=== PATIENT | female | born 1950 | race Caucasian/White ===

== ENCOUNTER 2020-06-04 07:06 | Outpatient (REF) | payer MEDICARE, SELFPAY ==
[2020-06-04 11:15] LABS: MANUAL DIFF FLAG NO
[2020-06-04 11:27] LABS: Basophils Percent Auto 0.4 % (0-2); Eosinophils Absolute Auto 0.2 X10*3/uL (0.0-0.4); Eosinophils Percent Auto 2.3 % (0-4); Hematocrit 36.1 % (37-47); Hemoglobin 11.1 g/dl (12.0-16.0); Imm Gran Abs Auto 0.04 X10*3/uL (0.00-0.03); Imm Gran Pct Auto 0.4 % (0.0-0.4); Lymphocytes Percent Auto 22.2 % (20-40); Mean Corpuscular HGB Conc 30.7 g/dl (31.0-35.0); Mean Corpuscular Hemoglobin 27.4 pg (27.0-33.0); Mean Corpuscular Volume 89.1 fL (80-98); Mean Platelet Volume 10.6 fL (9.4-12.3); Monocytes Absolute Auto 0.7 X10*3/uL (0.1-1.2); Monocytes Percent Auto 7.7 % (2-11); Neutrophils Absolute Auto 6.2 X10*3/uL (2.0-8.3); Platelet Count 344 X10*3/uL (160-400); Red Blood Count 4.05 X10*6/uL (4.20-5.50); Red Cell Distribution Width 13.2 % (11.0-16.0); White Blood Count 9.2 X10*3/uL (4.8-10.8)
[2020-06-04 11:57] LABS: Albumin Level 3.8 g/dL (3.5-5.0); Anion Gap 11 (12-20); Blood Urea Nitrogen 37 mg/dL (9-16); Calcium 8.8 mg/dL (8.4-10.2); Carbon Dioxide 30 mmol/L (22-29); Chloride 105 mmol/L (96-108); Estimated Glomerular Filt Rate 32; Magnesium 2.4 mg/dL (1.6-2.6); Potassium 4.3 mmol/l (3.3-5.1); Sodium 142 mmol/L (135-145); Total Protein 7.2 g/dL (6.5-8.0)
[2020-06-04 12:00] LABS: Glucose Urine UA NEG (NEG); Leukocyte Esterase Urine NEG (NEG); Nitrite Urine NEG (NEG); PH 7.5 (5.0-8.0); Specific Gravity - Urine 1.015 (1.005-1.025); Urine Blood NEG (NEG); Urine Ketones NEG (NEG); Urine Protein NEG (NEG-TRACE)
[2020-06-04 12:02] LABS: Appearance Urine CLEAR; Color Urine YELLOW
[2020-06-04 12:09] LABS: Renal w Reflex-LAB USE ONLY Order Verified
[2020-06-04 12:21] LABS: Vitamin D 25-OH Total 17.4 ng/mL (>30)
[2020-06-04 12:26] LABS: RBC Urine 0-2 /HPF (0); WBC Urine 0-2 /HPF (0-4)
[2020-06-04 12:55] LABS: Creatinine Urine 51.59 mg/dL; Protein/Creatinine Ratio, Ur 0.31 (<0.2); Total Protein Urine Random 16 mg/dL (<12)
[2020-06-04 12:57] LABS: Creatinine Urine 51.81 mg/dL; Microalbum/Creatinine Ratio Ur 154.4 ug/mg cr
[2020-06-04 13:39] LABS: Renal w Reflex Lab Use Only Order verified
== END 2020-06-04 07:07 | disposition home or self-care (01) ==
LOC: HO.HMGCLDS 07:06
PROVIDERS: PCP Family Medicine; Visit Provider Internal Medicine Nephrology
DX: I13.10 Hypertensive heart and chronic kidney disease without heart failure, with stage 1 through stage 4 chronic kidney disease, or unspecified chronic kidney disease (principal); E11.22 Type 2 diabetes mellitus with diabetic chronic kidney disease; N18.30 Chronic kidney disease, stage 3 unspecified; R60.9 Edema, unspecified; R80.9 Proteinuria, unspecified
CPT/HCPCS: 36415; 80051; 81003; 81015; 82040; 82043; 82306; 82310; 82565; 83735; 84100; 84155; 84156; 84520; 85025

== ENCOUNTER 2020-10-18 07:43 | Outpatient (REF) | payer MEDICARE, SELFPAY ==
[2020-10-18 11:26] LABS: Anion Gap 14 (12-20); Blood Urea Nitrogen 41 mg/dL (9-16); Calcium 8.5 mg/dL (8.4-10.2); Carbon Dioxide 25 mmol/L (22-29); Chloride 108 mmol/L (96-108); Estimated Glomerular Filt Rate 33; Glucose Random 93 mg/dL (60-115); Potassium 4.4 mmol/L (3.3-5.1); Sodium 143 mmol/L (135-145)
[2020-10-18 11:52] LABS: TSH reflex Free T4 8.44 uIU/mL (0.32-4.0)
[2020-10-18 12:24] LABS: Free T4 (Free Thyroxine) 0.87 ng/dL (0.71-1.85)
== END 2020-10-18 07:44 | disposition home or self-care (01) ==
LOC: HO.HMGCLDS 07:43
PROVIDERS: PCP Hospitalist; Visit Provider Hospitalist
DX: N28.9 Disorder of kidney and ureter, unspecified (principal); E11.9 Type 2 diabetes mellitus without complications; Z79.4 Long term (current) use of insulin
CPT/HCPCS: 36415; 80048; 84439; 84443

== ENCOUNTER 2021-04-19 08:17 | Outpatient (REF) | payer MEDICARE, SELFPAY ==
[2021-04-19 11:29] LABS: MANUAL DIFF FLAG NO
[2021-04-19 11:35] LABS: Glucose Urine UA NEG (NEG); Leukocyte Esterase Urine NEG (NEG); Nitrite Urine NEG (NEG); PH 5.5 (5.0-8.0); UACC Culture Trigger NO; Urine Blood NEG (NEG); Urine Ketones 15 MG/DL (NEG); Urine Protein 1+ MG/DL (NEG-TRACE)
[2021-04-19 11:36] LABS: Basophils Percent Auto 0.3 % (0-2); Eosinophils Absolute Auto 0.2 X10*3/uL (0.0-0.4); Eosinophils Percent Auto 2.4 % (0-4); Hematocrit 36.8 % (37-47); Hemoglobin 11.3 g/dl (12.0-16.0); Imm Gran Abs Auto 0.04 X10*3/uL (0.00-0.03); Imm Gran Pct Auto 0.5 % (0.0-0.4); Lymphocytes Absolute Auto 1.7 X10*3/uL (1.2-4.9); Lymphocytes Percent Auto 21.9 % (20-40); Mean Corpuscular HGB Conc 30.7 g/dl (31.0-35.0); Mean Corpuscular Hemoglobin 27.1 pg (27.0-33.0); Mean Corpuscular Volume 88.2 fL (80-98); Mean Platelet Volume 10.9 fL (9.4-12.3); Monocytes Absolute Auto 0.6 X10*3/uL (0.1-1.2); Monocytes Percent Auto 8.1 % (2-11); Neutrophils Absolute Auto 5.1 X10*3/uL (2.0-8.3); Neutrophils Percent Auto 66.8 % (45-73); Platelet Count 308 X10*3/uL (160-400); Red Blood Count 4.17 X10*6/uL (4.20-5.50); Red Cell Distribution Width 14.9 % (11.0-16.0); White Blood Count 7.6 X10*3/uL (4.8-10.8)
[2021-04-19 11:39] LABS: Appearance Urine CLEAR; Color Urine YELLOW
[2021-04-19 11:57] LABS: RBC Urine 0-2 /HPF (0); WBC Urine 0-2 /HPF (0-4)
[2021-04-19 12:11] LABS: Albumin Level 3.8 g/dL (3.5-5.0); Anion Gap 15 (12-20); Blood Urea Nitrogen 50 mg/dL (9-16); Calcium 9.2 mg/dL (8.4-10.2); Carbon Dioxide 22 mmol/L (22-29); Chloride 112 mmol/L (96-108); Estimated Glomerular Filt Rate 27; Magnesium 2.8 mg/dL (1.6-2.6); Phosphorus 4.3 mg/dL (2.7-4.5); Potassium 4.7 mmol/L (3.3-5.1); Sodium 144 mmol/L (135-145)
[2021-04-19 12:12] LABS: Protein/Creatinine Ratio, Ur 0.42 (<0.2); Total Protein Urine Random 35 mg/dL (<12)
[2021-04-19 12:27] LABS: Renal w Reflex-LAB USE ONLY Order Verified
[2021-04-19 12:33] LABS: Vitamin D 25-OH Total 19.5 ng/mL (>30)
[2021-04-19 12:38] LABS: Renal w Reflex Lab Use Only Order verified
== END 2021-04-19 08:18 | disposition home or self-care (01) ==
LOC: HO.HMGCLDS 08:17
PROVIDERS: Visit Provider Internal Medicine Nephrology
DX: E11.29 Type 2 diabetes mellitus with other diabetic kidney complication (principal); E11.22 Type 2 diabetes mellitus with diabetic chronic kidney disease; I13.10 Hypertensive heart and chronic kidney disease without heart failure, with stage 1 through stage 4 chronic kidney disease, or unspecified chronic kidney disease; N18.30 Chronic kidney disease, stage 3 unspecified; R60.9 Edema, unspecified; R80.9 Proteinuria, unspecified
CPT/HCPCS: 36415; 80051; 81001; 82040; 82043; 82306; 82310; 82565; 83735; 84100; 84156; 84520; 85025

== ENCOUNTER 2021-08-31 09:30 | Outpatient (REF) | payer MEDICARE, SELFPAY ==
[2021-08-31 11:51] LABS: Magnesium 2.3 mg/dL (1.6-2.6)
[2021-08-31 12:24] LABS: Folate 9.9 ng/mL (> or = 4.0); Vitamin B12 521 pg/mL (200-900)
== END 2021-08-31 09:31 | disposition home or self-care (01) ==
LOC: HO.HMGCLDS 09:30
PROVIDERS: PCP Hospitalist; Visit Provider Hospitalist
DX: D64.9 Anemia, unspecified (principal); R79.0 Abnormal level of blood mineral
CPT/HCPCS: 36415; 82607; 82746; 83735

== ENCOUNTER 2021-11-23 06:48 | Outpatient (REF) | payer MEDICARE, SELFPAY ==
[2021-11-23 11:28] LABS: MANUAL DIFF FLAG NO
[2021-11-23 11:45] LABS: Basophils Percent Auto 0.4 % (0-2); Eosinophils Absolute Auto 0.2 X10*3/uL (0.0-0.4); Eosinophils Percent Auto 2.5 % (0-4); Hematocrit 37.6 % (37.0-47.0); Hemoglobin 11.3 g/dl (12.0-16.0); Imm Gran Abs Auto 0.04 X10*3/uL (0.00-0.03); Imm Gran Pct Auto 0.5 % (0.0-0.4); Lymphocytes Absolute Auto 1.8 X10*3/uL (1.2-4.9); Lymphocytes Percent Auto 23.5 % (20-40); Mean Corpuscular HGB Conc 30.1 g/dl (31.0-35.0); Mean Corpuscular Volume 89.7 fL (80.0-98.0); Mean Platelet Volume 11.2 fL (9.4-12.3); Monocytes Absolute Auto 0.7 X10*3/uL (0.1-1.2); Monocytes Percent Auto 9.4 % (2-11); Neutrophils Absolute Auto 4.8 x10*3/uL (2.0-8.3); Neutrophils Percent Auto 63.7 % (45-73); Platelet Count 289 X10*3/uL (160-400); Red Blood Count 4.19 X10*6/uL (4.20-5.50); Red Cell Distribution Width 14.9 % (11.0-16.0); White Blood Count 7.6 X10*3/uL (4.8-10.8)
[2021-11-23 11:52] LABS: Appearance Urine CLEAR; Color Urine YELLOW; Glucose Urine UA NEG (NEG); Leukocyte Esterase Urine NEG (NEG); Nitrite Urine NEG (NEG); PH 5.5 (5.0-8.0); Specific Gravity - Urine 1.015 (1.005-1.025); Urine Blood NEG (NEG); Urine Ketones NEG (NEG); Urine Protein TRACE MG/DL (NEG-TRACE)
[2021-11-23 12:11] LABS: Creatinine Urine 88.11 mg/dL; Microalbum/Creatinine Ratio Ur 121.4 ug/mg cr; Protein/Creatinine Ratio, Ur 0.28 (<0.2); Total Protein Urine Random 25 mg/dL (<12)
[2021-11-23 12:13] LABS: Albumin Level 3.8 g/dL (3.5-5.0); Anion Gap 14 (12-20); Blood Urea Nitrogen 58 mg/dL (9-16); Calcium 9.4 mg/dL (8.4-10.2); Carbon Dioxide 21 mmol/L (22-29); Chloride 110 mmol/L (96-108); Estimated Glomerular Filt Rate 27; Magnesium 2.7 mg/dL (1.6-2.6); Phosphorus 4.7 mg/dL (2.7-4.5); Potassium 4.6 mmol/L (3.3-5.1); Sodium 140 mmol/L (135-145)
[2021-11-24 14:15] LABS: Vitamin D 25-OH Total 15.6 ng/mL (>30)
[2021-11-24 16:26] LABS: Calcium (PTHI) 9.3 mg/dL (8.6-10.4); PTHI 88 pg/mL (16-77)
== END 2021-11-23 06:49 | disposition home or self-care (01) ==
LOC: HO.HMGCLDS 06:48
PROVIDERS: Visit Provider Internal Medicine Nephrology
DX: N18.4 Chronic kidney disease, stage 4 (severe) (principal)
CPT/HCPCS: 36415; 80051; 81003; 82040; 82043; 82306; 82310; 82565; 83735; 83970; 84100; 84156; 84520; 85025; 87086

== ENCOUNTER 2022-05-17 06:19 | Outpatient (REF) | payer OTHER, SELFPAY ==
[2022-05-17 11:35] LABS: Hematocrit 36.4 % (37.0-47.0); Hemoglobin 11.1 g/dl (12.0-16.0); Mean Corpuscular HGB Conc 30.5 g/dl (31.0-35.0); Mean Corpuscular Volume 88.6 fL (80.0-98.0); Mean Platelet Volume 10.9 fL (9.4-12.3); Platelet Count 313 X10*3/uL (160-400); Red Blood Count 4.11 X10*6/uL (4.20-5.50); Red Cell Distribution Width 14.6 % (11.0-16.0); White Blood Count 7.8 X10*3/uL (4.8-10.8)
[2022-05-17 12:59] LABS: Free T4 (Free Thyroxine) 0.89 ng/dL (0.71-1.85)
[2022-05-17 14:21] LABS: Alanine Aminotransferase 10 U/L (0-31); Albumin Level 3.8 g/dL (3.5-5.0); Alkaline Phosphatase 44 U/L (39-117); Anion Gap 16 (12-20); Aspartate Amino Transferase 13 U/L (5-31); Bilirubin Total 0.3 mg/dL (0.0-1.0); Blood Urea Nitrogen 61 mg/dL (9-16); Calcium 9.7 mg/dL (8.4-10.2); Carbon Dioxide 23 mmol/L (22-29); Chloride 111 mmol/L (96-108); Estimated Glomerular Filt Rate 27; Glucose Fasting 139 mg/dL (60-99); HDL Cholesterol 60 mg/dL; Magnesium 2.6 mg/dL (1.6-2.6); Potassium 5.3 mmol/L (3.3-5.1); Sodium 145 mmol/L (135-145); Total Protein 7.4 g/dL (6.5-8.0); Triglycerides 152 mg/dL
[2022-05-17 14:33] LABS: TSH reflex Free T4 7.81 uIU/mL (0.32-4.0)
[2022-05-17 15:01] LABS: Cholesterol 496 mg/dL; LDL Cholesterol Calculated 406 mg/dl
[2022-05-22 16:06] LABS: Vitamin D 25-OH, D2 <4 ng/mL; Vitamin D 25-OH, D3 23 ng/mL; Vitamin D 25-OH, Total 23 ng/mL (30-100)
== END 2022-05-17 06:20 | disposition home or self-care (01) ==
LOC: HO.HMGCLDS 06:19
PROVIDERS: PCP Hospitalist; Visit Provider Hospitalist
DX: Z00.00 Encounter for general adult medical examination without abnormal findings (principal); R79.0 Abnormal level of blood mineral; E55.9 Vitamin D deficiency, unspecified
CPT/HCPCS: 36415; 80053; 80061; 82306; 83735; 84439; 84443; 85027

== ENCOUNTER 2022-05-26 06:21 | Outpatient (REF) | payer OTHER, SELFPAY ==
[2022-05-26 11:17] LABS: MANUAL DIFF FLAG NO
[2022-05-26 11:20] LABS: Basophils Percent Auto 0.3 % (0-2); Eosinophils Absolute Auto 0.2 X10*3/uL (0.0-0.4); Eosinophils Percent Auto 2.3 % (0-4); Hematocrit 34.9 % (37.0-47.0); Hemoglobin 10.9 g/dl (12.0-16.0); Imm Gran Abs Auto 0.02 X10*3/uL (0.00-0.03); Imm Gran Pct Auto 0.3 % (0.0-0.4); Lymphocytes Absolute Auto 1.7 X10*3/uL (1.2-4.9); Lymphocytes Percent Auto 24.3 % (20-40); Mean Corpuscular HGB Conc 31.2 g/dl (31.0-35.0); Mean Corpuscular Hemoglobin 27.5 pg (27.0-33.0); Mean Corpuscular Volume 87.9 fL (80.0-98.0); Mean Platelet Volume 10.8 fL (9.4-12.3); Monocytes Absolute Auto 0.6 X10*3/uL (0.1-1.2); Monocytes Percent Auto 9.2 % (2-11); Neutrophils Absolute Auto 4.4 x10*3/uL (2.0-8.3); Neutrophils Percent Auto 63.6 % (45-73); Platelet Count 316 X10*3/uL (160-400); Red Blood Count 3.97 X10*6/uL (4.20-5.50); Red Cell Distribution Width 14.6 % (11.0-16.0); White Blood Count 6.9 X10*3/uL (4.8-10.8)
[2022-05-26 11:26] LABS: Appearance Urine Clear; Color Urine Yellow; Glucose Urine UA Negative (Negative); Leukocyte Esterase Urine Negative (Negative); Nitrite Urine Negative (Negative); Specific Gravity - Urine 1.015 (1.005-1.025); Urine Blood Negative (Negative); Urine Ketones Negative (Negative); Urine Protein Trace mg/dL (Neg-Trace)
[2022-05-26 11:33] LABS: Bacteria Urine None Seen (None Seen); RBC Urine 0-2 /HPF (0-2); Squamous Epithelial Cell Urine 0-2 /HPF (0-2); WBC Urine 0-5 /HPF (0-5)
[2022-05-26 11:55] LABS: Albumin Level 3.7 g/dL (3.5-5.0); Anion Gap 16 (12-20); Blood Urea Nitrogen 52 mg/dL (9-16); Calcium 9.3 mg/dL (8.4-10.2); Carbon Dioxide 20 mmol/L (22-29); Chloride 113 mmol/L (96-108); Estimated Glomerular Filt Rate 26; Magnesium 2.4 mg/dL (1.6-2.6); Phosphorus 4.2 mg/dL (2.7-4.5); Potassium 4.8 mmol/L (3.3-5.1); Sodium 144 mmol/L (135-145)
[2022-05-26 11:58] LABS: Vitamin D 25-OH Total 18.5 ng/mL (>30)
[2022-05-26 12:17] LABS: Creatinine Urine 85.62 mg/dL; Microalbum/Creatinine Ratio Ur 114.4 ug/mg cr; Protein/Creatinine Ratio, Ur 0.26 (<0.2); Total Protein Urine Random 22 mg/dL (<12)
[2022-05-29 17:26] LABS: Calcium (PTHI) 9.2 mg/dL (8.6-10.4); PTHI 74 pg/mL (16-77)
== END 2022-05-26 06:22 | disposition home or self-care (01) ==
LOC: HO.HMGCLDS 06:21
PROVIDERS: PCP Hospitalist; Visit Provider Internal Medicine Nephrology
DX: N18.4 Chronic kidney disease, stage 4 (severe) (principal); E11.29 Type 2 diabetes mellitus with other diabetic kidney complication; N25.0 Renal osteodystrophy; R60.9 Edema, unspecified
CPT/HCPCS: 36415; 80051; 81001; 82040; 82043; 82306; 82310; 82565; 83735; 83970; 84100; 84156; 84520; 85025; 87086

== ENCOUNTER 2022-12-04 06:54 | Outpatient (REF) | payer OTHER, SELFPAY ==
[2022-12-04 12:32] LABS: Cholesterol 440 mg/dL; HDL Cholesterol 61 mg/dL; LDL Cholesterol Calculated 359 mg/dl; Triglycerides 104 mg/dL
[2022-12-08 19:24] LABS: Vitamin D 25-OH, D2 <4 ng/mL; Vitamin D 25-OH, D3 33 ng/mL; Vitamin D 25-OH, Total 33 ng/mL (30-100)
== END 2022-12-04 06:55 | disposition home or self-care (01) ==
LOC: HO.HMGCLDS 06:54
PROVIDERS: PCP Hospitalist; Visit Provider Hospitalist
DX: E55.9 Vitamin D deficiency, unspecified (principal); E78.00 Pure hypercholesterolemia, unspecified
CPT/HCPCS: 36415; 80061; 82306

== ENCOUNTER 2022-12-07 13:09 | Outpatient (REF) | payer OTHER, SELFPAY ==
--- NOTE | ~2022-12-07 | US_ITS ---
EXAMINATION: US VENOUS ULTRASOUND WITH DOPPLER LOWER EXTREMITY, RIGHT CLINICAL INFORMATION: Right leg pain and swelling with erythema. COMPARISON: July 04, 2017 TECHNIQUE: Ultrasound of the deep veins is performed from the hip to the calf with compression sonography and color and pulse Doppler assessment. Spectral analysis with color-flow imaging is performed. FINDINGS: There is filling defect with diminished compressibility consistent with acute DVT within the common femoral vein, profunda femoral vein, superficial femoral vein proximally, popliteal vein, posterior tibial vein, and peroneal vein. There is noted to some venous flow present throughout the leg. There is no significant popliteal fossa cyst. No popliteal artery aneurysm. US/US venous duplex LE RT IMPRESSION: Findings consistent with acute deep venous thrombosis from common femoral vein through proximal calf veins but which is not totally occlusive to venous flow. The referring provider was notified by the pathology technologist's and the patient was sent to the emergency room.
== END 2022-12-07 13:10 | disposition home or self-care (01) ==
LOC: HO.US 13:09
PROVIDERS: PCP Hospitalist; Visit Provider Hospitalist
DX: M79.604 Pain in right leg (principal); M79.89 Other specified soft tissue disorders
CPT/HCPCS: 93971

== ENCOUNTER 2022-12-07 13:59 | Emergency (ER) | payer OTHER, SELFPAY ==
[2022-12-07 14:55] LABS: MANUAL DIFF FLAG NO
[2022-12-07 14:58] LABS: Basophils Percent Auto 0.5 % (0-2); Eosinophils Absolute Auto 0.1 X10*3/uL (0.0-0.4); Eosinophils Percent Auto 1.5 % (0-4); Hematocrit 35.9 % (37.0-47.0); Hemoglobin 11.2 g/dl (12.0-16.0); Imm Gran Abs Auto 0.03 X10*3/uL (0.00-0.03); Imm Gran Pct Auto 0.4 % (0.0-0.4); Lymphocytes Absolute Auto 1.3 X10*3/uL (1.2-4.9); Lymphocytes Percent Auto 16.3 % (20-40); Mean Corpuscular HGB Conc 31.2 g/dl (31.0-35.0); Mean Corpuscular Hemoglobin 27.1 pg (27.0-33.0); Mean Corpuscular Volume 86.7 fL (80.0-98.0); Monocytes Absolute Auto 0.6 X10*3/uL (0.1-1.2); Neutrophils Absolute Auto 5.9 x10*3/uL (2.0-8.3); Neutrophils Percent Auto 74.3 % (45-73); Platelet Count 298 X10*3/uL (160-400); Red Blood Count 4.14 X10*6/uL (4.20-5.50); Red Cell Distribution Width 14.9 % (11.0-16.0); White Blood Count 7.9 X10*3/uL (4.8-10.8)
[2022-12-07 15:08] LABS: INTERNATIONAL NORM RATIO 0.9 (0.9-1.1); Prothrombin Time 10.8 SEC (10.0-13.1)
[2022-12-07 15:11] LABS: Partial Thromboplastin Time 30.7 SEC (26.0-36.4)
[2022-12-07 15:12] LABS: Alanine Aminotransferase 10 U/L (0-31); Albumin Level 3.8 g/dL (3.5-5.0); Alkaline Phosphatase 50 U/L (39-117); Anion Gap 17 (12-20); Aspartate Amino Transferase 15 U/L (5-31); Bilirubin Direct < 0.2 mg/dL (0.0-0.5); Bilirubin Total 0.4 mg/dL (0.0-1.0); Blood Urea Nitrogen 61 mg/dL (9-16); Calcium 9.1 mg/dL (8.4-10.2); Carbon Dioxide 23 mmol/L (22-29); Chloride 107 mmol/L (96-108); Estimated Glomerular Filt Rate 26; Glucose Random 157 mg/dL (60-115); Magnesium 2.1 mg/dL (1.6-2.6); Potassium 4.1 mmol/L (3.3-5.1); Sodium 143 mmol/L (135-145); Total Protein 7.6 g/dL (6.5-8.0)
[2022-12-07 15:26] VITALS: BP 211/64; PULSE 72; RESP 18; TEMP 36.8; O2SAT 99; BMI 26.2
--- NOTE | 2022-12-07 15:37 | ED_ITS ---
HPI - Extremity Problem General Chief complaint: Extremity Problem Stated complaint: dvt r leg Time Seen by Provider: 12/07/22 15:37 Source: patient, family and old records reviewed Mode of arrival: ambulatory Limitations: no limitations History of Present Illness HPI Narrative: 72 yo female with history of HTN, HLD, CHF, DM2, CKD who presents to the ER for evaluation of a positive blood clot in her right leg. PCP ordered a LE doppler scan due to right lower extremity swelling, redness and pain for the last sev eral weeks to months. No associated chest pain or shortness of breath. No history of blood clots in the past. MD Complaint: extremity pain and extremity swelling Onset (ago): week(s) Pain Consistency: constant Location: right and lower extremity Quality: aching Radiation: distal Relieving factors: rest Exacerbating factors: weight bearing and palpation Associated symptoms: denies other symptoms Related Data Home Medications Medication Instructions Recorded Confirmed bumetanide 1 mg tablet 1 mg PO BID 06/15/20 10/27/20 hydralazine 50 mg tablet 75 mg PO TID 06/15/20 10/27/20 insulin syringe,safetyneedle 0.5 #100 ea 10/27/20 10/27/20 mL 31 gauge x 15/64 (Assure ID Insulin Safety) Previous Rx's Medication Instructions Recorded magnesium oxide 400 mg PO DAILY #30 caps 08/18/21 bisacodyl 5 mg tablet,delayed 10 mg PO ONCE 1 day #2 tabs 02/03/22 release (Dulcolax (bisacodyl)) polyethylene glycol 3350 17 238 g PO ONCE 1 day #238 grams 02/03/22 gram/dose oral powder (Miralax) carvedilol 25 mg tablet 25 mg PO BID #60 tabs 03/09/22 insulin glargine 100 unit/mL 8 unit (0.08 mL) subcut BEDTIME 30 05/18/22 subcutaneous solution days #2.4 mL blood sugar diagnostic (FreeStyle #100 ea 05/23/22 Test strips) cholecalciferol (vitamin D3) 1,250 1,250 mcg PO QWEEK 3 months #13 05/23/22 mcg (50,000 unit) capsule caps rosuvastatin 20 mg tablet (Crestor) 20 mg PO DAILY #90 tabs 06/05/22 gabapentin 100 mg capsule 100 mg PO BEDTIME #14 caps 09/18/22 (Neurontin) apixaban 2.5 mg tablet (Eliquis) 2.5 mg PO BID #60 tabs 12/07/22 apixaban 5 mg tablet (Eliquis) 10 mg PO BID 7 days #28 tabs 12/07/22 Allergies Allergy/AdvReac Type Severity Reaction Status Date / Time lisinopril Allergy Severe swollen Verified 12/07/22 12:19 tongue apple Allergy Intermediate tongue Verified 12/07/22 12:19 swelling banana Allergy Intermediate tongue and Verified 12/07/22 12:19 lip swelling Review of Systems Review of Systems: Yes all other systems are reviewed and are negative [facility]LY [facility] Past Medical History Medical History Vitamin D deficiency Surgical History No pertinent past surgical history Family History Family History Father Bladder cancer Smoker Mother Diabetes CVD (cardiovascular disease) Glaucoma Daughter Anxiety Family/Other Alzheimer's dementia Uterine cancer Social History Social History Housing: Apartment Patient Tobacco Use Status: Never used Tobacco e-Cigarette/Vaping Use: Never Used Second Hand Smoke Exposure: No Advance Directives: No Advance Directives Information Provided: Yes service: No Current occupational status: retired Cognitive needs: No Hearing needs: No Vision needs: No Physical Exam Vital Signs: Vital Signs: Last Vital Signs Temp 98.3 F 12/07/22 15:26 Pulse 72 12/07/22 15:26 Resp 18 12/07/22 15:26 BP 211/64 H 12/07/22 15:26 Pulse Ox 99 12/07/22 15:26 O2 Del Method Room Air 12/07/22 15:26 BMI result Body Mass Index 26.2 Appearance: Alert. Oriented X3. No acute distress. Head: normocephalic, atraumatic. Neck: Normal inspection. CVS: Normal heart rate and rhythm. Pulses normal. Respiratory: No respiratory distress. Breath sounds normal. Skin: Skin warm and dry. Normal skin color. Normal skin turgor. No rashes. Extremities: right lower extremity with erythema to the foot and toes, warm and well perfused. mild distal RLE swelling, tender calf. Neuro/psych: Oriented X 3. nonfocal Medical Decision Making Medical Decision Making [facility] Narrative: 72 yo female presenting with RLE pain, swelling and redness for the last few weeks. + DVT on outpatient study today. No chest pain or SOB to suggest PE. She has CKD, GFR 26. Spoke with Pharmacy - patient safe to be loaded with eliquis 10 mg BID x1 week then remain on maintainence dose of 2.5 mg bid. these prescriptions were sent to her pharmacy. patient and her daughter (who administers her meds) were counseled on dx, tx and return precautions. given info on apixaban. she will f/u with PCP and Dr. Katja orourke for d/c home. Differential Diagnosis Differential Diagnoses: The differential diagnosis associated with the presentation includes RLE DVT, no evidence of arterial disease or acute cellultis Lab Data [facility] Lab Attestation statement: I reviewed the patient's lab results. baseline CKD 12/07/22 14:50 12/07/22 14:50 Labs: Lab Results 12/07/22 12/07/22 12/07/22 Range/Units 14:50 14:50 14:50 WBC 7.9 (4.8-10.8) X10*3/uL RBC 4.14 L (4.20-5.50) X10*6/uL Hgb 11.2 L (12.0-16.0) g/dl Hct 35.9 L (37.0-47.0) % MCV 86.7 (80.0-98.0) fL MCH 27.1 (27.0-33.0) pg MCHC 31.2 (31.0-35.0) g/dl RDW 14.9 (11.0-16.0) % Plt Count 298 (160-400) X10*3/uL MPV 10.0 (9.4-12.3) fL Immature Gran % (Auto) 0.4 (0.0-0.4) % Neut % (Auto) 74.3 H (45-73) % Lymph % (Auto) 16.3 L (20-40) % Stone % (Auto) 7.0 (2-11) % Eos % (Auto) 1.5 (0-4) % Baso % (Auto) 0.5 (0-2) % Lymph # (Auto) 1.3 (1.2-4.9) X10*3/uL Stone # (Auto) 0.6 (0.1-1.2) X10*3/uL Eos # (Auto) 0.1 (0.0-0.4) X10*3/uL Baso # (Auto) 0.0 (0.0-0.2) X10*3/uL Abs Immat Gran (auto) 0.03 (0.00-0.03) X10*3/uL Absolute Neuts (auto) 5.9 (2.0-8.3) x10*3/uL Absolute Nucleated RBC 0.000 (0.0-0.012) X10*3/uL Nucleated RBC % (auto) 0.0 (0.0-0.2) /100WBC PT 10.8 (10.0-13.1) SEC INR 0.9 (0.9-1.1) APTT 30.7 (26.0-36.4) SEC Sodium 143 (135-145) mmol/L Potassium 4.1 (3.3-5.1) mmol/L Chloride 107 (96-108) mmol/L Carbon Dioxide 23 (22-29) mmol/L Anion Gap 17 (12-20) BUN 61 H (9-16) mg/dL Creatinine 1.89 H (0.5-1.4) mg/dL Estim Creat Clear Calc TNP Estimated GFR 26 Random Glucose 157 H (60-115) mg/dL Calcium 9.1 (8.4-10.2) mg/dL Magnesium 2.1 (1.6-2.6) mg/dL Total Bilirubin 0.4 (0.0-1.0) mg/dL Direct Bilirubin < 0.2 (0.0-0.5) mg/dL AST 15 (5-31) U/L ALT 10 (0-31) U/L Alkaline Phosphatase 50 (39-117) U/L Total Protein 7.6 (6.5-8.0) g/dL Albumin 3.8 (3.5-5.0) g/dL Independent Interpretation I performed an independent interpretation of an: Ultrasound Interpretation: +DVT on ultrasound, agree with radiologist Radiology Impression Discussion of test interpretation with radiology: I have reviewed the radiologist's reading. Radiologist Impression: FINDINGS: There is filling defect with diminished compressibility consistent with acute DVT within the common femoral vein, profunda femoral vein, superficial femoral vein proximally, popliteal vein, posterior tibial vein, and peroneal vein. There is noted to some venous flow present throughout the leg.? There is no significant popliteal fossa cyst. No popliteal artery aneurysm. US/US venous duplex LE RT IMPRESSION: Findings consistent with acute deep venous thrombosis from common femoral vein through proximal calf veins but which is not totally occlusive to venous flow. Independent Historian Clinical information obtained from an independent historian. History obtained from or confirmed by: Other External Record Review External record reviewed: Office record, Outpatient record, Prior outpatient l abs and Prior outpatient radiology Prescription Management I considered prescription management with: Other (NOAC) Chronic Conditions Patient?s care impacted by: Hypertension and Other (CHF) Critical Care Time Critical Care Time Critical Care Time: No Discharge Plan Discharge Clinical Impression: Deep vein thrombosis of lower extremity Patient Disposition: Home, Self-Care Instructions: Apixaban (By mouth), Deep Vein Thrombosis (ED) Additional Instructions: You have a blood clot in your right leg. You need to be started on a blood thinner. Take Eliquis 10 mg two times per day for 1 week. Start this today. After the loading week is complete the dose will go down. After 1 week your maintainence dose will be 2.5 mg two times per day. These prescriptions have been sent to your pharmacy. Call if have any questions. Follow up with your doctor. If you develop new or worsening symptoms call 911 or come back to the ER for further evaluation. Prescriptions: New Eliquis 5 mg tablet 10 mg PO BID 7 Days Qty: 28 0RF Eliquis 2.5 mg tablet 2.5 mg PO BID Qty: 60 0RF No Action bisacodyl [Dulcolax (bisacodyl)] 5 mg tablet,delayed release (DR/EC) 10 mg PO ONCE 1 Days Qty: 2 0RF Rx Instructions: take orally as directed prior to colonoscopy polyethylene glycol 3350 [Miralax] 17 gram/dose powder 238 g PO ONCE 1 Days Qty: 238 0RF Rx Instructions: take orally as directed prior to colonoscopy carvedilol 25 mg tablet 25 mg PO BID Qty: 60 6RF cholecalciferol (vitamin D3) 1,250 mcg (50,000 unit) capsule 1,250 mcg PO QWEEK 90 Days Qty: 13 1RF (DME) FreeStyle Test Strip See Rx Instructions .ROUTE .MEDSUPPLY Qty: 100 11RF Rx Instructions: bid to tid bs checks rosuvastatin [Crestor] 20 mg tablet 20 mg PO DAILY Qty: 90 3RF Rx Instructions: pt did not toleated atorvastatin due to GI advise pt to take with a meal please hydralazine 50 mg tablet 75 mg PO TID bumetanide 1 mg tablet 1 mg PO BID (DME) Assure ID Insulin Safety 0.5 mL 31 gauge x 15/64 syringe See Rx Instructions .ROUTE .MEDSUPPLY Qty: 100 Rx Instructions: As directed magnesium oxide 400 mg magnesium capsule 400 mg PO DAILY Qty: 30 2RF insulin glargine 100 unit/mL solution 8 unit subcut BEDTIME 30 Days Qty: 2.4 11RF gabapentin [Neurontin] 100 mg capsule 100 mg PO BEDTIME Qty: 14 0RF Referrals: Mayuri Mejia NP [Primary Care Provider] - Interventions: ED Discharge Assessment Last Done: 12/07/22 16:05 Discharge Date/Time: 12/07/22 16:06 Print Language: Belarusian
== END 2022-12-07 16:06 | disposition home or self-care (01) ==
PROVIDERS: Physician Assistant; Emergency Provider Student in an Organized Health Care Education/Training Program; PCP Hospitalist
DX: I82.4Z1 Acute embolism and thrombosis of unspecified deep veins of right distal lower extremity (principal); I10 Essential (primary) hypertension; E11.9 Type 2 diabetes mellitus without complications; Z79.4 Long term (current) use of insulin; Z79.899 Other long term (current) drug therapy
CPT/HCPCS: 36415; 80048; 80076; 83735; 85025; 85610; 85730; 99282; 99283

== ENCOUNTER 2022-12-13 16:41 | Emergency (ER) | payer OTHER, SELFPAY ==
--- NOTE | ~2022-12-13 | CT_ITS ---
EXAMINATION: CT HEAD WITHOUT CONTRAST CLINICAL INFORMATION: Blurry vision. On anticoagulants. COMPARISON: CT head 04/13/2017. TECHNIQUE: Contiguous axial imaging was performed from the skull base to vertex without intravenous administration of contrast. This CT examination was performed using dose optimization techniques as appropriate, variously including the following: *Automated exposure control *Adjustment of mA and/or kV according to patient size (this includes techniques or standardized protocols for targeted exams where dose is matched to indication/reason for exam; i.e. extremities or head) *Use of iterative reconstruction technique DLP: 664 mGy-cm FINDINGS: There is no evidence of acute intracranial hemorrhage or edematous territorial infarction. A few foci of hypoattenuation in the periventricular and deep white matter are consistent with mild microangiopathy. Chronic small infarction in the right cerebellar hemisphere. Castro-white matter differentiation is preserved. Proportional prominence of the ventricles and sulcal spaces. No evidence for obstructive hydrocephalus. No abnormal mass effect or midline shift. No extra-axial fluid collections. Stable prominent calcifications along the anterior dural falx. No acute soft tissue or osseous abnormalities. Partial opacification of the left sphenoidal sinus. Mucosal thickening of the maxillary sinuses. The mastoids and middle ear cavities are clear. CT/CT head/brain wo IV con IMPRESSION: 1. No evidence of acute intracranial hemorrhage or edematous territorial infarction. 2. Chronic microangiopathy and generalized cerebral volume loss. 3. Paranasal sinus disease with opacification of the left sphenoidal sinus, correlate clinically for sinusitis.
[2022-12-13 16:55] VITALS: BP 198/70; PULSE 80; RESP 18; TEMP 36.4; O2SAT 99; BMI 26.2
--- NOTE | 2022-12-13 16:55 | ED.GENADULT ---
HPI - General Adult General Chief complaint: General Medical <Lashay Ayala NP - Last Filed: 12/13/22 17:00> Stated complaint: b clot R leg, on Eliquis- blurred vision <Lashay Ayala NP - Last Filed: 12/13/22 17:00> Time Seen by Provider: 12/13/22 21:25 <Lashay Ayala NP - Last Filed: 12/13/22 17:00> Source: patient and family (Daughter) <Rosy Mcdnaiel MD - Last Filed: 12/13/22 22:13> Mode of arrival: ambulatory <Rosy Mcdaniel MD - Last Filed: 12/13/22 22:13> History of Present Illness HPI narrative: 72-year-old who is brought in by her daughter when patient began complaining increased blurry vision but does have known cataracts at baseline for which she has declined surgery. Otherwise patient denies any other difficulties with hearing, speech, weakness in any extremities. <Rosy Mcdaniel MD - Last Filed: 12/13/22 22:13> Related Data Home medications: Home Medications Medication Instructions Recorded Confirmed bumetanide 1 mg tablet 1 mg PO BID 06/15/20 10/27/20 hydralazine 50 mg tablet 75 mg PO TID 06/15/20 10/27/20 insulin syringe,safetyneedle 0.5 #100 ea 10/27/20 10/27/20 mL 31 gauge x 15/64 (Assure ID Insulin Safety) Previous Rx's Medication Instructions Recorded magnesium oxide 400 mg PO DAILY #30 caps 08/18/21 bisacodyl 5 mg tablet,delayed 10 mg PO ONCE 1 day #2 tabs 02/03/22 release (Dulcolax (bisacodyl)) polyethylene glycol 3350 17 238 g PO ONCE 1 day #238 grams 02/03/22 gram/dose oral powder (Miralax) carvedilol 25 mg tablet 25 mg PO BID #60 tabs 03/09/22 insulin glargine 100 unit/mL 8 unit (0.08 mL) subcut BEDTIME 30 05/18/22 subcutaneous solution days #2.4 mL blood sugar diagnostic (FreeStyle #100 ea 05/23/22 Test strips) cholecalciferol (vitamin D3) 1,250 1,250 mcg PO QWEEK 3 months #13 05/23/22 mcg (50,000 unit) capsule caps rosuvastatin 20 mg tablet (Crestor) 20 mg PO DAILY #90 tabs 06/05/22 gabapentin 100 mg capsule 100 mg PO BEDTIME #14 caps 09/18/22 (Neurontin) apixaban 5 mg tablet (Eliquis) 10 mg PO BID 7 days #28 tabs 12/07/22 apixaban 2.5 mg tablet (Eliquis) 2.5 mg PO BID #60 tabs 12/11/22 <Lashay Ayala NP - Last Filed: 12/13/22 17:00> Allergies/adverse reactions: Allergies Allergy/AdvReac Type Severity Reaction Status Date / Time lisinopril Allergy Severe swollen Verified 12/13/22 16:54 tongue apple Allergy Intermediate tongue Verified 12/13/22 16:54 swelling banana Allergy Intermediate tongue and Verified 12/13/22 16:54 lip swelling <Lashay Ayala NP - Last Filed: 12/13/22 17:00> Review of Systems Review of Systems: Pertinent positives and negatives as stated in HPI <Rosy Mcdaniel MD - Last Filed: 12/13/22 22:13> PMFSH Past Medical History Source: nursing notes reviewed <Rosy Mcdaniel MD - Last Filed: 12/13/22 22:13> Medical History: Medical History Vitamin D deficiency <Lashay Ayala NP - Last Filed: 12/13/22 17:00> Surgical History: Surgical History No pertinent past surgical history <Lashay Ayala NP - Last Filed: 12/13/22 17:00> Family History Family History: Family History Father Bladder cancer Smoker Mother Diabetes CVD (cardiovascular disease) Glaucoma Daughter Anxiety Family/Other Alzheimer's dementia Uterine cancer <Lashay Ayala NP - Last Filed: 12/13/22 17:00> Social History Social History: Social History Housing: Apartment Patient Tobacco Use Status: Never used Tobacco e-Cigarette/Vaping Use: Never Used Second Hand Smoke Exposure: No Advance Directives: No Advance Directives Information Provided: No service: No Current occupational status: retired Cognitive needs: No Hearing needs: No Vision needs: No <Lashay Ayala NP - Last Filed: 12/13/22 17:00> Physical Exam ED Vital Signs: Vital Signs - 24 hr 12/13/22 16:55 12/13/22 21:39 Temperature 97.6 F 99.1 F Pulse Rate 80 88 Respiratory Rate 18 18 Blood Pressure 198/70 H 200/79 H Pulse Oximetry 99 99 Oxygen Delivery Method Room Air Room Air BMI result Body Mass Index 26.2 <Lashay Ayala NP - Last Filed: 12/13/22 17:00> Vital Signs - 24 hr 12/13/22 16:55 12/13/22 21:39 Temperature 97.6 F 99.1 F Pulse Rate 80 88 Respiratory Rate 18 18 Blood Pressure 198/70 H 200/79 H Pulse Oximetry 99 99 Oxygen Delivery Method Room Air Room Air BMI result Body Mass Index 26.2 VITAL SIGNS: Reviewed. GENERAL: Well developed, well nourished, in no acute distress. HEAD: Normocephalic/atraumatic EYES: PERRLA, EOMI, cataracts+ LUNGS: Normal breath sounds. No adventitious sounds or accessory muscle use. SpO2<99> CARDIOVASCULAR: Regular rate and rhythm without noted murmurs, no JVD or lower extremity edema. ABDOMEN: Soft, non-tender, non-distended with bowel sounds. MUSCULOSKELETAL: No tenderness, deformities, or effusions noted on gross inspection. EXTREMITIES: No cyanosis, clubbing or edema. SKIN: Inspection of the skin reveals no rashes NEUROLOGIC: Alert and oriented x 4. Strength and sensation to light touch were grossly intact x 4, no facial asymmetry, no pronator drift, cranial nerves 2-12 are grossly intact.. <Rosy Mcdaniel MD - Last Filed: 12/13/22 22:13> Course Course Course Narrative: This is rapid medical exam. Deferred additional HPI, ROS, PE to primary provider. 72 yo female with history of cataracts, DM, HTN, CKD, recent RLE DVT here with complaints of blurry vision to both eyes noticed today. She does have blurry vision at baseline but feels this is worse then normal. She was started on eliquis 12/09 for the DVT. No falls or injuries or head strike. No headache, vomiting, eye pain. Will check labs, POC, CT head. Hypertensive in triage <Lashay Ayala NP - Last Filed: 12/13/22 17:00> Medical Decision Making Medical Decision Making MDM Narrative: 72-year-old female with history and clinical presentation consistent with suspected cataract symptoms as patient is otherwise nonfocal. Review of all investigations and my interpretation is that this is cataract involved, patient is on Eliquis at this time and she is noted to be hypertensive but has not taken her evening blood pressure medications and daughter was instructed to administer both the evening blood pressure medication as well as patient's last dose of 10 mg Eliquis before proceeding with her 2.5 mg course. Patient has no other complaints. Will observe to ensure blood pressure is trending down and then discharge home. <Rosy Mcdaniel MD - Last Filed: 12/13/22 22:13> Differential Diagnosis Please see the discussion above <Rosy Mcdaniel MD - Last Filed: 12/13/22 22:13> Lab Data Please see the discussion above <Rosy Mcdaniel MD - Last Filed: 12/13/22 22:13> Result Diagrams: 12/13/22 17:25 12/13/22 17:25 <Lashay Ayala NP - Last Filed: 12/13/22 17:00> Labs: Lab Results 12/13/22 12/13/22 Range/Units 17:25 17:25 WBC 8.4 (4.8-10.8) X10*3/uL RBC 4.05 L (4.20-5.50) X10*6/uL Hgb 10.8 L (12.0-16.0) g/dl Hct 35.1 L (37.0-47.0) % MCV 86.7 (80.0-98.0) fL MCH 26.7 L (27.0-33.0) pg MCHC 30.8 L (31.0-35.0) g/dl RDW 14.6 (11.0-16.0) % Plt Count 282 (160-400) X10*3/uL MPV 10.0 (9.4-12.3) fL Immature Gran % (Auto) 0.5 H (0.0-0.4) % Neut % (Auto) 72.8 (45-73) % Lymph % (Auto) 16.7 L (20-40) % Sierra % (Auto) 7.9 (2-11) % Eos % (Auto) 1.6 (0-4) % Baso % (Auto) 0.5 (0-2) % Lymph # (Auto) 1.4 (1.2-4.9) X10*3/uL Sierra # (Auto) 0.7 (0.1-1.2) X10*3/uL Eos # (Auto) 0.1 (0.0-0.4) X10*3/uL Baso # (Auto) 0.0 (0.0-0.2) X10*3/uL Abs Immat Gran (auto) 0.04 H (0.00-0.03) X10*3/uL Absolute Neuts (auto) 6.1 (2.0-8.3) x10*3/uL Absolute Nucleated RBC 0.000 (0.0-0.012) X10*3/uL Nucleated RBC % (auto) 0.0 (0.0-0.2) /100WBC Sodium 142 (135-145) mmol/L Potassium 4.2 (3.3-5.1) mmol/L Chloride 110 H (96-108) mmol/L Carbon Dioxide 23 (22-29) mmol/L Anion Gap 13 (12-20) BUN 63 H (9-16) mg/dL Creatinine 1.97 H (0.5-1.4) mg/dL Estim Creat Clear Calc 22.8 Estimated GFR 25 Random Glucose 158 H (60-115) mg/dL Calcium 8.8 (8.4-10.2) mg/dL Total Bilirubin 0.2 (0.0-1.0) mg/dL Direct Bilirubin < 0.2 (0.0-0.5) mg/dL AST 16 (5-31) U/L ALT 13 (0-31) U/L Alkaline Phosphatase 51 (39-117) U/L Total Protein 7.1 (6.5-8.0) g/dL Albumin 3.7 (3.5-5.0) g/dL <Lashay Ayaal NP - Last Filed: 12/13/22 17:00> Lab Results 12/13/22 12/13/22 Range/Units 17:25 17:25 WBC 8.4 (4.8-10.8) X10*3/uL RBC 4.05 L (4.20-5.50) X10*6/uL Hgb 10.8 L (12.0-16.0) g/dl Hct 35.1 L (37.0-47.0) % MCV 86.7 (80.0-98.0) fL MCH 26.7 L (27.0-33.0) pg MCHC 30.8 L (31.0-35.0) g/dl RDW 14.6 (11.0-16.0) % Plt Count 282 (160-400) X10*3/uL MPV 10.0 (9.4-12.3) fL Immature Gran % (Auto) 0.5 H (0.0-0.4) % Neut % (Auto) 72.8 (45-73) % Lymph % (Auto) 16.7 L (20-40) % Sierra % (Auto) 7.9 (2-11) % Eos % (Auto) 1.6 (0-4) % Baso % (Auto) 0.5 (0-2) % Lymph # (Auto) 1.4 (1.2-4.9) X10*3/uL Sierra # (Auto) 0.7 (0.1-1.2) X10*3/uL Eos # (Auto) 0.1 (0.0-0.4) X10*3/uL Baso # (Auto) 0.0 (0.0-0.2) X10*3/uL Abs Immat Gran (auto) 0.04 H (0.00-0.03) X10*3/uL Absolute Neuts (auto) 6.1 (2.0-8.3) x10*3/uL Absolute Nucleated RBC 0.000 (0.0-0.012) X10*3/uL Nucleated RBC % (auto) 0.0 (0.0-0.2) /100WBC Sodium 142 (135-145) mmol/L Potassium 4.2 (3.3-5.1) mmol/L Chloride 110 H (96-108) mmol/L Carbon Dioxide 23 (22-29) mmol/L Anion Gap 13 (12-20) BUN 63 H (9-16) mg/dL Creatinine 1.97 H (0.5-1.4) mg/dL Estim Creat Clear Calc 22.8 Estimated GFR 25 Random Glucose 158 H (60-115) mg/dL Calcium 8.8 (8.4-10.2) mg/dL Total Bilirubin 0.2 (0.0-1.0) mg/dL Direct Bilirubin < 0.2 (0.0-0.5) mg/dL AST 16 (5-31) U/L ALT 13 (0-31) U/L Alkaline Phosphatase 51 (39-117) U/L Total Protein 7.1 (6.5-8.0) g/dL Albumin 3.7 (3.5-5.0) g/dL <Rosy Mcdaniel MD - Last Filed: 12/13/22 22:13> Radiology Impression Radiologist Impression: My interpretation is in agreement with radiology's impression of the imaging study. <Rosy Mcdaniel MD - Last Filed: 12/13/22 22:13> Discharge Plan Discharge Clinical Impression: Blurred vision, Cataract <Lashay Ayala NP - Last Filed: 12/13/22 17:00> Patient Disposition: Home, Self-Care <Lashay Ayala NP - Last Filed: 12/13/22 17:00> Instructions: Cataracts (ED), Blurred Vision (ED) <Lashay Ayala NP - Last Filed: 12/13/22 17:00> Additional Instructions: 1. Resume all home medications as prescribed. 2. Follow-up with primary care provider. Return to the ER for any worsening symptoms. <Lashay Ayala NP - Last Filed: 12/13/22 17:00> Prescriptions: No Action bisacodyl [Dulcolax (bisacodyl)] 5 mg tablet,delayed release (DR/EC) 10 mg PO ONCE 1 Days Qty: 2 0RF Rx Instructions: take orally as directed prior to colonoscopy polyethylene glycol 3350 [Miralax] 17 gram/dose powder 238 g PO ONCE 1 Days Qty: 238 0RF Rx Instructions: take orally as directed prior to colonoscopy carvedilol 25 mg tablet 25 mg PO BID Qty: 60 6RF cholecalciferol (vitamin D3) 1,250 mcg (50,000 unit) capsule 1,250 mcg PO QWEEK 90 Days Qty: 13 1RF (DME) FreeStyle Test Strip See Rx Instructions .ROUTE .MEDSUPPLY Qty: 100 11RF Rx Instructions: bid to tid bs checks rosuvastatin [Crestor] 20 mg tablet 20 mg PO DAILY Qty: 90 3RF Rx Instructions: pt did not toleated atorvastatin due to GI advise pt to take with a meal please Eliquis 5 mg tablet 10 mg PO BID 7 Days Qty: 28 0RF hydralazine 50 mg tablet 75 mg PO TID bumetanide 1 mg tablet 1 mg PO BID (DME) Assure ID Insulin Safety 0.5 mL 31 gauge x 15/64 syringe See Rx Instructions .ROUTE .MEDSUPPLY Qty: 100 Rx Instructions: As directed magnesium oxide 400 mg magnesium capsule 400 mg PO DAILY Qty: 30 2RF Eliquis 2.5 mg tablet 2.5 mg PO BID Qty: 60 3RF insulin glargine 100 unit/mL solution 8 unit subcut BEDTIME 30 Days Qty: 2.4 11RF gabapentin [Neurontin] 100 mg capsule 100 mg PO BEDTIME Qty: 14 0RF <Lashay Ayala NP - Last Filed: 12/13/22 17:00> Referrals: Mayuri Mejia NP [Primary Care Provider] - <Lashya Ayala NP - Last Filed: 12/13/22 17:00>
[2022-12-13 17:31] LABS: MANUAL DIFF FLAG NO
[2022-12-13 17:32] LABS: Basophils Percent Auto 0.5 % (0-2); Eosinophils Absolute Auto 0.1 X10*3/uL (0.0-0.4); Eosinophils Percent Auto 1.6 % (0-4); Hematocrit 35.1 % (37.0-47.0); Hemoglobin 10.8 g/dl (12.0-16.0); Imm Gran Abs Auto 0.04 X10*3/uL (0.00-0.03); Imm Gran Pct Auto 0.5 % (0.0-0.4); Lymphocytes Absolute Auto 1.4 X10*3/uL (1.2-4.9); Lymphocytes Percent Auto 16.7 % (20-40); Mean Corpuscular HGB Conc 30.8 g/dl (31.0-35.0); Mean Corpuscular Hemoglobin 26.7 pg (27.0-33.0); Mean Corpuscular Volume 86.7 fL (80.0-98.0); Monocytes Absolute Auto 0.7 X10*3/uL (0.1-1.2); Monocytes Percent Auto 7.9 % (2-11); Neutrophils Absolute Auto 6.1 x10*3/uL (2.0-8.3); Neutrophils Percent Auto 72.8 % (45-73); Platelet Count 282 X10*3/uL (160-400); Red Blood Count 4.05 X10*6/uL (4.20-5.50); Red Cell Distribution Width 14.6 % (11.0-16.0); White Blood Count 8.4 X10*3/uL (4.8-10.8)
[2022-12-13 17:46] LABS: Alanine Aminotransferase 13 U/L (0-31); Albumin Level 3.7 g/dL (3.5-5.0); Alkaline Phosphatase 51 U/L (39-117); Anion Gap 13 (12-20); Aspartate Amino Transferase 16 U/L (5-31); Bilirubin Direct < 0.2 mg/dL (0.0-0.5); Bilirubin Total 0.2 mg/dL (0.0-1.0); Blood Urea Nitrogen 63 mg/dL (9-16); Calcium 8.8 mg/dL (8.4-10.2); Carbon Dioxide 23 mmol/L (22-29); Chloride 110 mmol/L (96-108); Creatinine Clr Calc Pharmacy 22.8; Estimated Glomerular Filt Rate 25; Glucose Random 158 mg/dL (60-115); Potassium 4.2 mmol/L (3.3-5.1); Sodium 142 mmol/L (135-145); Total Protein 7.1 g/dL (6.5-8.0)
[2022-12-13 21:39] VITALS: BP 200/79; PULSE 88; RESP 18; TEMP 37.3; O2SAT 99
[2022-12-13 22:21] VITALS: BP 182/58; PULSE 71; RESP 12; TEMP 37.1; O2SAT 99
--- NOTE | 2022-12-13 22:45 | PC.NURSE ---
Pt aox3 resting at the bedside in no apparent distress. Discharge instructions reviewed. Pt verbalizes understanding. Ambulatory at discharge.
== END 2022-12-13 22:46 | disposition home or self-care (01) ==
PROVIDERS: Nurse Practitioner Family; Emergency Provider Student in an Organized Health Care Education/Training Program; PCP Hospitalist
DX: H26.9 Unspecified cataract (principal); H53.8 Other visual disturbances; H40.9 Unspecified glaucoma
CPT/HCPCS: 36415; 70450; 80048; 80076; 85025; 99283; 99284

== ENCOUNTER 2023-02-16 07:01 | Outpatient (REF) | payer OTHER, SELFPAY ==
[2023-02-16 11:33] LABS: Hematocrit 34.8 % (37.0-47.0); Hemoglobin 10.7 g/dl (12.0-16.0); Mean Corpuscular HGB Conc 30.7 g/dl (31.0-35.0); Mean Corpuscular Hemoglobin 27.4 pg (27.0-33.0); Mean Corpuscular Volume 89.2 fL (80.0-98.0); Mean Platelet Volume 10.7 fL (9.4-12.3); Platelet Count 315 X10*3/uL (160-400); White Blood Count 7.5 X10*3/uL (4.8-10.8)
[2023-02-16 11:49] LABS: Blood Urea Nitrogen 47 mg/dL (9-16); Cholesterol 438 mg/dL; Estimated Glomerular Filt Rate 32; HDL Cholesterol 54 mg/dL; LDL Cholesterol Calculated 357 mg/dl; Triglycerides 139 mg/dL
== END 2023-02-16 07:02 | disposition home or self-care (01) ==
LOC: HO.HMGCLDS 07:01
PROVIDERS: PCP Hospitalist; Visit Provider Nurse Practitioner Family
DX: D64.9 Anemia, unspecified (principal); N28.9 Disorder of kidney and ureter, unspecified; E78.00 Pure hypercholesterolemia, unspecified
CPT/HCPCS: 36415; 80061; 82565; 84520; 85027

== ENCOUNTER 2023-03-12 07:42 | Outpatient (REF) | payer OTHER, SELFPAY ==
[2023-03-12 11:42] LABS: Appearance Urine Clear; Color Urine Yellow; Glucose Urine UA Negative (Negative); Leukocyte Esterase Urine Negative (Negative); Nitrite Urine Negative (Negative); PH 5.5 (5.0-9.0); Specific Gravity - Urine 1.015 (1.005-1.025); UMIC TRIGGER UA YES; Urine Blood Trace (Negative); Urine Ketones Negative (Negative); Urine Protein Trace mg/dL (Neg-Trace)
[2023-03-12 11:48] LABS: Bacteria Urine None Seen (None Seen); Hyaline Casts Urine 0-2 /LPF (0-2); RBC Urine 0-2 /HPF (0-2); Squamous Epithelial Cell Urine 0-2 /HPF (0-2); WBC Urine 0-5 /HPF (0-5)
[2023-03-12 12:47] LABS: Creatinine Urine 61.72 mg/dL; Microalbum/Creatinine Ratio Ur 134.4 ug/mg cr; Protein/Creatinine Ratio, Ur 0.31 (<0.2); Total Protein Urine Random 19 mg/dL (<12)
[2023-03-12 14:27] LABS: Anion Gap 15 (12-20); Blood Urea Nitrogen 55 mg/dL (9-16); Calcium 9.7 mg/dL (8.4-10.2); Carbon Dioxide 22 mmol/L (22-29); Chloride 109 mmol/L (96-108); Estimated Glomerular Filt Rate 30; Potassium 4.6 mmol/L (3.3-5.1); Sodium 141 mmol/L (135-145)
== END 2023-03-12 07:43 | disposition home or self-care (01) ==
LOC: HO.HMGCLDS 07:42
PROVIDERS: PCP Nurse Practitioner Family; Visit Provider Internal Medicine Nephrology
DX: N18.4 Chronic kidney disease, stage 4 (severe) (principal); E11.21 Type 2 diabetes mellitus with diabetic nephropathy; N25.0 Renal osteodystrophy; R80.1 Persistent proteinuria, unspecified
CPT/HCPCS: 36415; 80051; 81001; 82043; 82310; 82565; 84156; 84520

== ENCOUNTER 2023-04-03 13:06 | Outpatient (AMB) | payer OTHER, SELFPAY ==
--- NOTE | 2023-04-03 13:08 | MHC.OFFVIS ---
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 Pt reports hx of DVT. Physician Executive Required: Yes Physician Executive Language: Deputy Director Of Nursing Name: Ita- Dtr Accompanied by: Daughter Allergies lisinopril Allergy (Severe, Verified 04/03/23 13:14) swollen tongue apple Allergy (Intermediate, Verified 04/03/23 13:14) tongue swelling banana Allergy (Intermediate, Verified 04/03/23 13:14) tongue and lip swelling Medication List - Last Reconciled 04/03/23 by Sotero Rapp MD apixaban (Eliquis) 2.5 mg PO BID atorvastatin 80 mg PO BEDTIME 30 days blood sugar diagnostic (FreeStyle Test strips) bid to tid bs checks bumetanide 1 mg PO BID carvedilol 25 mg PO BID cholecalciferol (vitamin D3) 1,250 mcg PO QWEEK 3 months gabapentin 300 mg PO BEDTIME 30 days hydralazine 25 mg PO TID insulin glargine 8 units (0.08 mL) subcut BEDTIME 30 days insulin syringe,safetyneedle (Assure ID Insulin Safety) As directed polyethylene glycol 3350 (Miralax) 238 grams PO ONCE 1 day HPI HPI Comments History of Present Illness Details Thank you for referring Mayuri in cardiology consultation today for management of hyperlipidemia. Patient is a 73-year-old woman with prior history of hypertension which is difficult control in the past, currently being managed by Dr. Mccloud from Nephrology as well as diabetes in the past with prior thalamic stroke in 2017 at which time the workup was unrevealing. Since then she has min on aspirin therapy. She was recently noted to have marked hyperlipidemia with her LDL cholesterol in February at 357 mg/dL. At which time her atorvastatin was increased to 80 mg daily. This is she has been taking. Her blood pressure at home as well control and hydralazine was recently reduced by Nephrology to 25 mg t.i.d.. She says however when she comes to her doctor's is a blood pressure usually very high suggestive of [place] hypertension. She also is listed to have a diagnosis of congestive heart failure is currently on bumetanide 1 mg b.i.d., however daughter was not aware of this. She says she is on bumetanide because of fluid buildup related to chronic kidney disease. She has never had hospitalization related to heart failure. Since stroke her functionality is limited in she walks with help of a walker. She does have exertional shortness of breath although she denies orthopnea, PND and leg edema currently. She recently developed DVT and her aspirin was switched to Eliquis therapy. She has not had any history of heart attack or vascular disease. [facility] Medical History Vitamin D deficiency Surgical History No pertinent past surgical history Family History Father Bladder cancer Smoker Mother Diabetes CVD (cardiovascular disease) Glaucoma Daughter Anxiety Family/Other Alzheimer's dementia Uterine cancer Social History Housing: Apartment Alcohol intake: never Patient Tobacco Use Status: Never used Tobacco e-Cigarette/Vaping Use: Never Used Second Hand Smoke Exposure: No service: No Current occupational status: retired Cognitive needs: No Hearing needs: No Vision needs: No Review of Systems Const Denies chills, Denies daytime sleepiness, Denies fatigue, Denies fever(s), Denies frequent falls, Denies night sweats, Denies snoring, Denies weakness, Denies weight gain and Denies weight loss Eyes Denies loss of vision ENT Denies dizziness and Denies hearing loss Card Denies chest pain, Denies chest pain with activity, Denies syncope, Denies rapid heart rate, Denies edema, Denies claudication, Denies leg edema, Denies lightheadedness, Denies palpitations, Denies dyspnea, Denies dyspnea on exertion and Denies orthopnea Resp Denies cough, Denies excessive phlegm production, Denies dyspnea, Denies dyspnea on exertion, Denies snoring and Denies wheezing GI Denies abdominal pain, Denies hematochezia, Denies change in bowel habits, Denies change in stool character, Denies heartburn, Denies nausea and Denies vomiting Denies hematuria, Denies urinary frequency and Denies dysuria Musc Denies arthralgias, Denies muscle weakness, Denies numbness and Denies tingling Skin/Breast Denies nail changes and Denies rash Neuro Denies Abnormal speech present, Denies dizziness, Denies syncope, Denies frequent falls, Denies loss of vision, Denies memory loss, Denies numbness, Denies tingling and Denies weakness Psych Denies depression and Denies memory loss Endo Denies fatigue and Denies palpitations Aller/Immun Denies wheezing Physical Exam Vital Signs: Last Vital Signs Pulse 80 04/03/23 13:09 BP 172/76 H 04/03/23 13:09 BMI result Body Mass Index 25.4 Const General: cooperative, comfortable, no acute distress, alert, awake and anxious Nutritional Appearance: overweight Orientation/consciousness: patient oriented x3 Limitations: ambulation with walker HEENT Head: Yes normocephalic and Yes atraumatic Neck Neck: Yes trachea midline, Yes supple and Yes no JVD Resp Effort & Inspection: normal respiratory effort Auscultation: clear to auscultation bilaterally Cardio Jugular venous distension: no JVD Palpation: normal PMI Rate: regular rate Rhythm: regular rhythm Heart sounds: S1 normal heart sound present, S2 normal heart sound present, no click, no gallops, no murmurs and no rubs GI Auscultation: normal bowel sounds Skin General skin exam: no rashes or lesions noted Neuro General: patient oriented x3 and no focal motor deficits Speech: No Abnormal speech present Extrem General: Yes no clubbing, cyanosis or edema Office Procedures EKG Details: EKG shows normal sinus rhythm normal EKG [id number], Complete Assessment & Plan Assessment & Plan (1) SOB (shortness of breath): Code(s): R06.02 - Shortness of breath Plan: Patient with exertional shortness of breath which could be related deconditioning given her prior stroke and limited exercise capacity although she has significant risk factors for vascular disease as evidence of stroke in the past. I would consider the workup for myocardial ischemia with a vasodilating myocardial perfusion imaging to further assess and risk stratify and prognosticate for future cardiovascular events. Also suggest an echocardiogram as she carries a diagnosis of heart failure although patient is not aware of it. Clinically today appears to be euvolemic. Echocardiogram from 2017 suggestive grade 2 diastolic dysfunction. Further treatment based on the finding. Aggressive risk factor modification needs to be pursued. See below for management of hyperlipidemia. Blood pressure today is very elevated, however as per the daughter home monitoring blood pressure shows normal blood pressure systolic 120 range. Advised to be managed by Nephrology team. Continue aggressive management diabetes goal hemoglobin A1c less than 7%. She has prior history of stroke of unclear etiology question embolic and also has now DVT, currently on Eliquis therapy and would consider lifelong oral anticoagulation therapy. 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 Marked LDL elevation. She has currently been started on 80 mg of atorvastatin. Follow-up lipid panel in 6 weeks time. If she persists with significant elevated LDL, would start on PCSK9 inhibitor therapy in addition to atorvastatin therapy. Target goal LDL less than 70 mg/dL. Will follow with her in 2 months time. Thank you for allowing me to partake in her care Orders: Orders Lipid Panel 6 Weeks E78.5 - Hyperlipidemia, unspecified, I25.10 - Atherosclerotic heart disease of [place] coronary artery without angina pectoris CA lexiscan stress w lui Today R06.02 - Shortness of breath CA echo transthoracic complete Today R06.02 - Shortness of breath Coding Level of Care Code New Pt Level 4 (28102) Diagnoses SOB (shortness of breath) R06.02 Hypercholesterolemia E78.00 CPT Codes EKG - CPT: [id number]-[id number], Complete ([id number])
[2023-04-03 13:09] VITALS: BP 172/76; PULSE 80; BMI 25.4
== END 2023-04-03 13:35 | disposition home or self-care (01) ==
PROVIDERS: Visit Provider Internal Medicine Cardiovascular Disease
DX: R06.02 Shortness of breath (principal); E78.00 Pure hypercholesterolemia, unspecified
CPT/HCPCS: 93010; 99204

== ENCOUNTER → 2023-04-03 13:06 | Outpatient (BNVA) | payer OTHER, SELFPAY | PROVIDERS: Visit Provider Internal Medicine Cardiovascular Disease | DX: R06.02 Shortness of breath (principal); E78.00 Pure hypercholesterolemia, unspecified | CPT/HCPCS: 93005; 99202 ==

== ENCOUNTER 2023-04-09 08:18 | Outpatient (REF) | payer OTHER, SELFPAY ==
[2023-04-09 11:51] LABS: Immature Retic Fraction 13.9 % (3.0-15.9); Retic HGB Equivalent 31.7 pg (30.0-35.0); Reticulocyte Percent 1.4 % (0.5-1.8); Reticulocytes Absolute 0.054 X10*6/uL (0.026-0.095)
[2023-04-09 12:37] LABS: Folate 6.4 ng/mL (> or = 4.0); Vitamin B12 625 pg/mL (200-900)
[2023-04-09 12:38] LABS: Cholesterol 331 mg/dL; HDL Cholesterol 46 mg/dL; Iron 42 mcg/dL (30-160); LDL Cholesterol Calculated 259 mg/dl; Percent Iron Saturation 21 % (15-50); Total Iron Binding Capacity 199 mcg/dL (228-428); Triglycerides 133 mg/dL; Unsaturated Iron Binding 157 ug/dL
[2023-04-09 12:44] LABS: Ferritin 197 ng/mL (10-250)
== END 2023-04-09 08:19 | disposition home or self-care (01) ==
LOC: HO.HMGCLDS 08:18
PROVIDERS: PCP Nurse Practitioner Family; Visit Provider Nurse Practitioner Family
DX: E78.5 Hyperlipidemia, unspecified (principal); D64.9 Anemia, unspecified
CPT/HCPCS: 36415; 80061; 82607; 82728; 82746; 83540; 85045

== ENCOUNTER 2023-04-12 15:03 | Outpatient (AMB) | payer OTHER, SELFPAY ==
--- NOTE | 2023-04-12 15:09 | A.OFFPC_ITS ---
Vital Signs 04/12/23 15:10 Height 5 ft 2 in Weight 136 lb 7 oz BMI 25.0 BP 144/74 H Blood Pressure Location Lt brachial Position Sitting Respiration 12 Pulse 79 Pulse Source Pulse Oximeter Temp 98.6 F Temp Source Temporal Artery Scan Pulse Oximetry (%) 98 Oxygen Delivery Method Room Air Intake Visit Reasons: 6 wks HLD Intake Note: Patient needs refill on syringes and a refill n Gabapentin. Electrical Installation Inspector Required: Yes Electrical Installation Inspector Name: Daughter (Ita) Accompanied by: Daughter Allergies lisinopril Allergy (Severe, Verified 04/12/23 15:35) swollen tongue apple Allergy (Intermediate, Verified 04/12/23 15:35) tongue swelling banana Allergy (Intermediate, Verified 04/12/23 15:35) tongue and lip swelling Medication List - Last Reconciled 04/12/23 by Maribel Mckinnon CNP apixaban (Eliquis) 2.5 mg PO BID atorvastatin 80 mg PO BEDTIME 30 days blood sugar diagnostic (FreeStyle Test strips) bid to tid bs checks bumetanide 1 mg PO BID carvedilol 25 mg PO BID cholecalciferol (vitamin D3) 1,250 mcg PO QWEEK 3 months ferrous sulfate 325 mg PO Q OTHER DAY 30 days gabapentin 300 mg PO BEDTIME 30 days hydralazine 25 mg PO TID insulin glargine 8 units (0.08 mL) subcut BEDTIME 30 days polyethylene glycol 3350 (Miralax) 238 grams PO ONCE 1 day syringe with needle (Monoject Safety Syringes) As directed Tobacco use date assessed: 12/07/22 Fall risk assessment: No Falls in past year Last assessed Fall Risk: 04/12/23 Dental Screening Dental Screen Date: 04/12/23 Did you have a dental visit in the last 12 months?: No Did you have a dental problem in the last 6 months where you did not have access to dental care?: No Was dental information given to patient?: No HPI HPI Comments History of Present Illness Details 73-year-old Prydeinig-speaking female, accompanied by a daughter, presents for HLD follow-up. Atorvastatin was increased from 40 mg daily to 80 mg daily on 02/26/2023 due to elevated cholesterol levels. She notes she has been taking the medications as prescribed. No acute symptoms today. She was seen by Cardiology on 04/03/2023 and has a follow-up in June. She has hematology vascular appointments later this month. Her daughter is worried about and whole scab from a wound on the patient's right oconnell. Interpretation by the patient's daughter per patient's preference. [facility] Medical History Iron deficiency Vitamin D deficiency Surgical History No pertinent past surgical history Family History Father Bladder cancer Smoker Mother Diabetes CVD (cardiovascular disease) Glaucoma Daughter Anxiety Family/Other Alzheimer's dementia Uterine cancer Social History Housing: Apartment Alcohol intake: never Patient Tobacco Use Status: Never used Tobacco e-Cigarette/Vaping Use: Never Used Second Hand Smoke Exposure: No service: No Current occupational status: retired Cognitive needs: No Hearing needs: No Vision needs: No Questionnaire Thrive Questionnaire Date Thrive assessed: 08/18/21 SARAHY-7 AMB Questionnaire SARAHY-7 Date SARAHY - 7 assessed: 08/18/21 Source: Developed by Drs. Marcel Payne, Rosa Perez, Matt Kaba and colleagues, with an educational vicki from [employer]. Review of Systems Const Details: Const Denies chills, Denies fatigue, Denies fever(s), Denies headache(s) and Denies weakness ENT Denies dizziness and Denies headache(s) Card Denies chest pain, Denies lightheadedness, Denies dyspnea and Denies other (Palpitations) Resp Denies cough, Denies dyspnea, Denies wheezing and Denies other ( shortness of breath) GI Denies abdominal pain, Denies melena, Denies hematochezia, Denies change in bowel habits, Denies dyspepsia and Denies nausea Denies hematuria and Denies dysuria Musc Denies abnormal gait, Denies myalgias, Denies arthralgias, Denies numbness and Denies tingling Skin/Breast Reports scab, Denies rash, Denies unusual bruising and Denies wounds Neuro Denies abnormal gait, Denies dizziness, Denies headache(s), Denies memory loss, Denies numbness, Denies Sensory deficit (Neuro), Denies tingling and Denies weakness Psych Denies anxiety, Denies depression, Denies memory loss Endo Denies cold intolerance, Denies fatigue, Denies heat intolerance, Denies polydipsia and Denies polyuria Aller/Immun Denies wheezing Physical exam (Primary Care) Vital Signs: Last Vital Signs Temp 98.6 F 04/12/23 15:10 Pulse 79 04/12/23 15:10 Resp 12 04/12/23 15:10 BP 144/74 H 04/12/23 15:10 Pulse Ox 98 04/12/23 15:10 Oxygen Delivery Method Room Air 04/12/23 15:10 BMI result Body Mass Index 25.0 Tobacco/Smoking Status: Tobacco use Status Tobacco use date assessed 12/07/22 04/12/23 15:17 Patient Tobacco Use Status Never used Tobacco 04/12/23 15:17 e-Cigarette/Vaping Use Never Used 04/12/23 15:17 Thrive Assessment: Date of Thrive Assessment Date Thrive assessed 08/18/21 04/12/23 15:17 Const Other: General: no acute distress and well developed Nutritional Appearance: well nourished Orientation/consciousness: patient oriented x3 HENMT Head: Yes normocephalic and Yes atraumatic Eyes General: appearance normal, both eyes and all related structures Pupils: Equal, round and reactive pupils present EOM: EOMs intact bilaterally Resp Effort & Inspection: normal respiratory effort Auscultation: clear to auscultation bilaterally Cardio Rate: regular rate Rhythm: regular rhythm Heart sounds: S1 normal heart sound present, S2 normal heart sound present, no gallops, no murmurs and no rubs GI Palpation (GI): No Abdominal aortic bruit present, Soft to palpation, nontender, No hepatosplenomegaly present and No Rebound tenderness present Auscultation: normal bowel sounds General: Yes no CVA tenderness Back/Spine/Pelvis Back: no CVA tenderness Cervical Spine: cervical ROM normal and No Cervical spine tenderness Thoracic/Lumbar Spine: thoraco-lumbar ROM normal, No pain with thoraco-lumbar ROM, No thoracic spinal tenderness and No lumbar spinal tenderness Extrem General: Yes normal to inspection, No edema and No calf tenderness Skin General: warm and dry. Normal skin color. Normal skin turgor Lesions: old scab on the right oconnell, no tenderness, skin is intact Rashes: no rashes Trauma: no lacerations or abrasions Wounds: no wounds Nails: normal Neuro General: patient oriented x3, gait normal and no focal neuro deficit Cranial nerves: Yes Equal, round and reactive pupils present Cognition (Neuro): normal cognition Gait exam (Neuro): Normal gait present Sensory Exam: No Sensory deficit (Neuro) Psych Appearance: grossly normal Affect: normal affect Attitude: cooperative Thought process: Normal thought process present Assessment and Plan Assessment & Plan (1) Hypercholesterolemia: Code(s): E78.00 - Pure hypercholesterolemia, unspecified Plan: Total cholesterol, and LDL levels are improving Continue to take atorvastatin as prescribed Limits foods high in saturated fat and avoid foods high trans fat Continue follow-up with cardiology as planned Encouraged to get lipid panel blood work done as ordered by Cardiology and next 6 weeks Follow-up in 1 month for diabetes Return sooner with concerns or symptoms Verbalized understanding and agreed with treatment plan. (2) Scab: Code(s): R23.4 - Changes in skin texture Plan: Patient's daughter is worried about on old scab from a wound on the patient's right oconnell old scab on the right oconnell, no tenderness, skin is intact Referred to wound clinic Return with concerns or symptoms Verbalized understanding and agreed with plan. (3) Hypertension, essential: Code(s): I10 - Essential (primary) hypertension Plan: Blood pressure is 144/74, above goal of less than 130/80 Continue with current treatment regimen Low-sodium diet encouraged Follow-up in 1 month or return sooner with symptoms or concerns Verbalized understanding and agreed with treatment plan. Orders: Referrals Wound Care Referral R23.4 - Changes in skin texture Medications: New syringe with needle (Monoject Safety Syringes) As directed 300 ea 0RF E11.9 - Type 2 diabetes mellitus without complications syringe with needle (Monoject Safety Syringes) POC testing TID 300 ea 0RF E11.9 - Type 2 diabetes mellitus without complications Refilled gabapentin 300 mg PO BEDTIME 30 days 30 caps 0RF Coding Level of Care Code Est Pt Level 4 (04198) Diagnoses Hypercholesterolemia E78.00 Scab R23.4 Hypertension, essential I10 Time Spent (min) 30
[2023-04-12 15:10] VITALS: BP 144/74; PULSE 79; RESP 12; TEMP 37; O2SAT 98; BMI 25.0
== END 2023-04-12 16:03 | disposition home or self-care (01) ==
PROVIDERS: PCP Hospitalist; Visit Provider Nurse Practitioner Family
DX: E78.00 Pure hypercholesterolemia, unspecified (principal); R23.4 Changes in skin texture; I10 Essential (primary) hypertension
CPT/HCPCS: 99214

== ENCOUNTER → 2023-04-27 14:50 | Outpatient (BNV) | payer OTHER, SELFPAY | PROVIDERS: PCP Nurse Practitioner Family; Referring Provider Nurse Practitioner Family; Visit Provider Internal Medicine | DX: D64.9 Anemia, unspecified (principal); N18.30 Chronic kidney disease, stage 3 unspecified | CPT/HCPCS: 99204; 99213 ==

== ENCOUNTER 2023-05-01 15:27 | Outpatient (AMB) | payer OTHER, SELFPAY ==
[2023-05-01 15:34] VITALS: BMI 25.4
--- NOTE | 2023-05-01 15:34 | A.OFFVIS_ITS ---
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 Pt reports having a fall in December where she scraped her knee, her lower leg began to turn red which spread down to her ankle and foot. Her foot had also got stepped on twice in January causing her toenails to fall off and caused more pain in her toes. She had a US done on her right leg where she was diagnosed DVT 12/07/22. 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 Actually upon discussion with her she has this right pretibial ulcer that has been present for some time. It has been a source of pain and discomfort for her. Of note she did have a DVT on the right lower extremity and has been on Eliquis since that time. She notes continued swelling and discomfort of that leg. She is now for vascular evaluation. Of note she has been a diabetic for greater than 30 years. [facility] Medical History Iron deficiency Vitamin D deficiency Surgical History No pertinent past surgical history Family History Father Bladder cancer Smoker Mother Diabetes CVD (cardiovascular disease) Glaucoma Daughter Anxiety Family/Other Alzheimer's dementia Uterine cancer Social History (Updated 04/27/23 @ 15:03 by Kate Drake) Household Members: Family Housing: Apartment Alcohol intake: never Patient Tobacco Use Status: Never used Tobacco e-Cigarette/Vaping Use: Never Used Second Hand Smoke Exposure: No service: No Current occupational status: retired Cognitive needs: No Hearing needs: No Vision needs: No Review of Systems Const All systems reviewed & are unremarkable except as noted in HPI and below Reports no additional complaints ENT Reports Normal hearing present Card Denies chest pain, Denies chest pain at rest, Denies chest pain with activity and Denies pedal edema Resp Denies cough GI Denies abdominal pain Musc Denies abnormal gait, Denies muscle cramps and Denies radiating pain into limb Skin/Breast Denies skin ulcer and Denies wounds Neuro Reports Normal hearing present and Denies abnormal gait Psych Reports no additional complaints Physical Exam Vital Signs: BMI result Body Mass Index 25.4 Const General: cooperative, healthy appearing and comfortable Orientation/consciousness: oriented to person, oriented to place and oriented to time HEENT Head: Yes normal to inspection Neck Neck: Yes normal visual inspection Carotids: no bruits Chest Chest palpation & inspection: normal inspection of the chest Resp Effort & Inspection: normal respiratory effort and able to speak in complete sentences Auscultation: clear to auscultation bilaterally, no crackles, no rales, no rhonchi and no wheezes Cardio Other: Bilateral DP signals Rate: regular rate Rhythm: regular rhythm Heart sounds: S1 normal heart sound present and S2 normal heart sound present Bruits: no carotid bruits Peripheral pulses: Peripheral pulses 2+ throughout GI Inspection: Yes normal to inspection Skin Wounds: no wounds Hair: normal Neuro General: oriented to person, oriented to place and oriented to time Cranial nerves: Yes CN's II-XII intact bilaterally and Yes Normal hearing present Cognition (Neuro): normal cognition Motor exam (neuro): 5/5 motor strength present throughout Extrem Other: venous exam: +2 edema right greater than left General: No clubbing, No cyanosis and Yes edema Psych Appearance: grossly normal Mental Status: mental status grossly normal Speech and movement: Normal speech and movement present Assessment & Plan Assessment & Plan (1) Varicose veins of right lower extremity with inflammation: Code(s): I83.11 - Varicose veins of right lower extremity with inflammation Plan: In short patient has significantly swollen right lower extremity. She will have reflux just by the mere fact that she does have a prior history of an extensive DVT. On 12/07/2022 ultrasound was positive for DVT from the common femoral on down. She appears to be doing relatively well with Eliquis. Would like to obtain some reflux testing to ensure that this is resolving and if superficial reflux needs to be treated. She will follow up with us after testing. (2) PAD (peripheral artery disease): Code(s): I73.9 - Peripheral vascular disease, unspecified Plan: I am unable to appreciate palpable pulses. Some of this may be secondary to edema and part of it may be due to calcified vessels due to longstanding diabetes. I have taken the liberty of ordering noninvasive arterial testing. Of concern is this nonhealing right pretibial ulcer. Once again we will work her up for arterial and venous disease and she will follow up with us after testing. Thank you for allowing us to assist in her care. If there are any questions or concerns please do not hesitate to contact us. Orders: Orders US arterial duplex LE BI 1 Week I73.9 - Peripheral vascular disease, unspecified US venous duplex LE BI 1 Week I83.11 - Varicose veins of right lower extremity with inflammation Medications: Discontinued insulin glargine 8 units (0.08 mL) subcut BEDTIME 30 days 2.4 mL 11RF E11.9 - Type 2 diabetes mellitus without complications Coding Level of Care Code New Pt Level 4 (09807) Diagnoses Varicose veins of right lower extremity with inflammation I83.11 PAD (peripheral artery disease) I73.9
== END 2023-05-01 16:22 | disposition home or self-care (01) ==
PROVIDERS: PCP Nurse Practitioner Family; Visit Provider Surgery Vascular Surgery
DX: I83.018 Varicose veins of right lower extremity with ulcer other part of lower leg (principal); I73.9 Peripheral vascular disease, unspecified
CPT/HCPCS: 99204

== ENCOUNTER → 2023-05-01 15:27 | Outpatient (BNVA) | payer OTHER, SELFPAY | PROVIDERS: PCP Nurse Practitioner Family; Visit Provider Surgery Vascular Surgery | DX: I83.11 Varicose veins of right lower extremity with inflammation (principal); I73.9 Peripheral vascular disease, unspecified; I82.411 Acute embolism and thrombosis of right femoral vein; Z79.01 Long term (current) use of anticoagulants | CPT/HCPCS: 99202 ==

== ENCOUNTER 2023-05-10 12:34 | Outpatient (AMB) | payer OTHER, SELFPAY ==
--- NOTE | 2023-05-10 12:36 | A.OFFPC_ITS ---
Vital Signs 05/10/23 12:37 Height 5 ft 2 in Weight 137 lb BMI 25.1 BP 102/60 Blood Pressure Location Lt brachial Position Sitting Respiration 12 Pulse 70 Pulse Source Pulse Oximeter Pulse Oximetry (%) 99 Oxygen Delivery Method Room Air Intake Visit Reasons: follow up a1c Intake Note: Patient is here to follow up on A1C, Patient's daughter would like to talk about sedative for patient. Allergies lisinopril Allergy (Severe, Verified 05/10/23 12:59) swollen tongue apple Allergy (Intermediate, Verified 05/10/23 12:59) tongue swelling banana Allergy (Intermediate, Verified 05/10/23 12:59) tongue and lip swelling Medication List - Last Reconciled 05/10/23 by Maribel Mckinnon CNP apixaban (Eliquis) 2.5 mg PO BID atorvastatin 80 mg PO BEDTIME 30 days blood sugar diagnostic (FreeStyle Test strips) bid to tid bs checks bumetanide 1 mg PO BID carvedilol 25 mg PO BID cholecalciferol (vitamin D3) 1,250 mcg PO QWEEK 3 months ferrous sulfate 325 mg PO Q OTHER DAY 30 days gabapentin 300 mg PO BEDTIME 30 days hydralazine 25 mg PO TID insulin glargine (Lantus U-100 Insulin) 8 units subcut BEDTIME polyethylene glycol 3350 (Miralax) 238 grams PO ONCE 1 day syringe with needle (Monoject Safety Syringes) POC testing TID Tobacco use date assessed: 05/10/23 Fall risk assessment: 1 Fall in past year Last assessed Fall Risk: 05/10/23 Dental Screening Dental Screen Date: 05/10/23 Did you have a dental visit in the last 12 months?: Yes Did you have a dental problem in the last 6 months where you did not have access to dental care?: No Was dental information given to patient?: Patient declined HPI HPI Comments History of Present Illness Details 73-year-old female, accompanied by her aracely hoover, presents for A1c check. Her last A1c was 7.2% on 02/26/2023. Next A1c is due in over 2 weeks. She reports a painful wound underneath the nail bed of her right great toe. She notes the wound resulted from constantly, inadvertently hitting the toenail on an object. Her daughter reports occasional drainage from the nail bed. Her daughter notes that the patient gets very anxious during medical visit or procedures. As a result, her blood pressure reading was extremely elevated at her last hematology visit. Her daughter requests treatment for this. She was seen by vascular surgery on 05/01/2023 for swelling to her right lower extremity. She notes she is scheduled next week for ultrasound of the veins and arteries of her BLE. She states she was advised to increase walking and elevate her BLE. She reports pain to her feet with walking. She states has an appointment with podiatry next week and ophthalmology next month. She is also followed by hematology. She states she was contacted by the wound clinic and was informed no treatment could be rendered to the scab wound to her right oconnell. COUNT INCLUDES THE [facility] Medical History Iron deficiency Vitamin D deficiency Surgical History No pertinent past surgical history Family History Father Bladder cancer Smoker Mother Diabetes CVD (cardiovascular disease) Glaucoma Daughter Anxiety Family/Other Alzheimer's dementia Uterine cancer Social History Household Members: Family Housing: Apartment Alcohol intake: never Patient Tobacco Use Status: Never used Tobacco e-Cigarette/Vaping Use: Never Used Second Hand Smoke Exposure: No service: No Current occupational status: retired Cognitive needs: No Hearing needs: No Vision needs: No Questionnaire PHQ-9 Over the last 2 weeks, how often have you been bothered by any of the following problems? 1. Little interest or pleasure in doing things: not at all 2. Feeling down, depressed, or hopeless: not at all 3. Trouble falling or staying asleep, or sleeping too much: not at all 4. Feeling tired or having little energy: not at all 5. Poor appetite or overeating: not at all 6. Feeling bad about yourself - or that you are a failure or have let yourself or your family down: not at all 7. Trouble concentrating on things, such as reading the newspaper or watching television: not at all 8. Moving or speaking so slowly that other people could have noticed. Or the op posite - being so fidgety or restless that you have been moving around a lot more than usual: not at all 9. Thoughts that you would be better off or of hurting yourself in some way: not at all Total score: 0 Depression Screening Interpretation: Negative Source: Developed by Drs. Marcel Payne, Rosa Perez, Matt Kaba and colleagues, with an educational vicki from [employer]. Thrive Questionnaire Date Thrive assessed: 08/18/21 I am a: Patient What is your living situation today?: I have a steady place to live Within the past 12 months, did the food you bought not last and you didn't have the money to get more?: Never true Within the past 12 months, did you worry whether your food would run out before you got money to buy more?: Never true Do you have trouble paying for medicines?: No Do you have trouble getting transportation to medical appointments?: No Do you have trouble paying your heating and electricity bill?: No Do you have trouble taking care of your child, family member or friend?: I choose not to answer this question Do you have trouble with day-to-day activities such as bathing, preparing meals, shopping, managing finances, etc.?: Yes Are you currently unemployed and looking for a job?: No Are you interested in more education?: No AUDIT C Alcohol Use Questionnaire (AUDIT-C) 1. How often do you have a drink containing alcohol?: Never 3. How often do you have six or more drinks on one occasion?: Never Total Score: 0 SARAHY-7 AMB Questionnaire SARAHY-7 Date SARAHY - 7 assessed: 05/10/23 Feeling nervous, anxious, or on edge: 0 = Not at all Not being able to stop or control worryin = Not at all Worrying too much about different things: 0 = Not at all Trouble relaxin = Not at all Being so restless that it is hard to sit still: 0 = Not at all Becoming easily annoyed or irritable: 0 = Not at all Feeling afraid as if something awful might happen: 0 = Not at all Total SARAHY-7 score (0-4 normal; 5-9 mild; 10-14 moderate; 15-21 severe): 0 Source: Developed by Rosa Darling, Matt Kaba and colleagues, with an educational vicki from [employer]. Review of Systems Const Details: Const Denies chills, Denies fatigue, Denies fever(s), Denies headache(s) and Denies weakness ENT Denies dizziness and Denies headache(s) Card Denies chest pain, Denies lightheadedness, Denies dyspnea and Denies other (Palpitations) Resp Denies cough, Denies dyspnea, Denies wheezing and Denies other ( shortness of breath) GI Denies abdominal pain, Denies melena, Denies hematochezia, Denies change in b owel habits, Denies dyspepsia and Denies nausea Denies hematuria and Denies dysuria Musc Denies abnormal gait, Denies myalgias, Denies arthralgias, Denies numbness and Denies tingling Skin/Breast Reports as per HPI Neuro Denies abnormal gait, Denies dizziness, Denies headache(s), Denies memory loss, Denies numbness, Denies Sensory deficit (Neuro), Denies tingling and Denies weakness Psych Denies anxiety, Denies depression, Denies memory loss Endo Denies cold intolerance, Denies fatigue, Denies heat intolerance, Denies polydipsia and Denies polyuria Aller/Immun Denies wheezing Physical exam (Primary Care) Vital Signs: Last Vital Signs Pulse 70 05/10/23 12:37 Resp 12 05/10/23 12:37 BP 102/60 05/10/23 12:37 Pulse Ox 99 05/10/23 12:37 Oxygen Delivery Method Room Air 05/10/23 12:37 BMI result Body Mass Index 25.1 Tobacco/Smoking Status: Tobacco use Status Tobacco use date assessed 05/10/23 05/10/23 12:47 Patient Tobacco Use Status Never used Tobacco 05/10/23 12:42 e-Cigarette/Vaping Use Never Used 05/10/23 12:42 PHQ-9: PHQ-9 Score PHQ-9: Total score 0 05/10/23 16:55 Depression Screening Interpretation: Negative Thrive Assessment: Date of Thrive Assessment Date Thrive assessed 08/18/21 05/10/23 12:42 Const Other: General: no acute distress and well developed Nutritional Appearance: well nourished Orientation/consciousness: patient oriented x3 HENMT Head: Yes normocephalic and Yes atraumatic Eyes General: appearance normal, both eyes and all related structures Pupils: Equal, round and reactive pupils present EOM: EOMs intact bilaterally Resp Effort & Inspection: normal respiratory effort Auscultation: clear to auscultation bilaterally Cardio Rate: regular rate Rhythm: regular rhythm Heart sounds: S1 normal heart sound present, S2 normal heart sound present, no gallops, no murmurs and no rubs GI Palpation (GI): No Abdominal aortic bruit present, Soft to palpation, nontender, No hepatosplenomegaly present and No Rebound tenderness present Auscultation: normal bowel sounds General: Yes no CVA tenderness Back/Spine/Pelvis Back: no CVA tenderness Cervical Spine: cervical ROM normal and No Cervical spine tenderness Thoracic/Lumbar Spine: thoraco-lumbar ROM normal, No pain with thoraco-lumbar ROM, No thoracic spinal tenderness and No lumbar spinal tenderness Extrem General: Yes normal to inspection, No calf tenderness Significant edema to the right lower leg and foot, DP/PT pulses nonpalpable Skin General: warm and dry. Normal skin color. Normal skin turgor Lesions: Dry scab noted to the right oconnell Rashes: no rashes Trauma: no lacerations or abrasions Wounds/Nails: Pain with palpation around the nail bed of the right great toe, mild edema and erythema noted to surrounding skin, nail is unstable and not completely attached to the nail bed, no active drainage noted Neuro General: patient oriented x3, gait normal and no focal neuro deficit Cranial nerves: Yes Equal, round and reactive pupils present Cognition (Neuro): normal cognition Gait exam (Neuro): Normal gait present Sensory Exam: No Sensory deficit (Neuro) Psych Appearance: grossly normal Affect: normal affect Attitude: cooperative Thought process: Normal thought process present Assessment and Plan Assessment & Plan (1) PAD (peripheral artery disease): Code(s): I73.9 - Peripheral vascular disease, unspecified Plan: Significant edema to the right lower leg and foot, DP/PT pulses nonpalpable Followed by vascular surgery Continue with current treatment plan Follow-up with vascular surgery as planned Return with worsening or new signs and symptoms Verbalized understanding and agreed with the treatment plan. 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 (3) Anxiousness: Code(s): F41.9 - Anxiety disorder, unspecified Plan: Her daughter notes that the patient gets very anxious during medical visit or procedures. As a result, her blood pressure reading was extremely elevated at her last hematology visit. Her daughter requests treatment for this. Hydroxyzine ordered. Take as prescribed before medical visits or procedures. Follow-up with worsening or new symptoms Verbalized understanding and agreed with treatment plan. (4) Open wound of right great toe: Code(s): S91.101A - Unspecified open wound of right great toe without damage to nail, initial encounter Qualifiers: Encounter type: initial encounter Qualified Code(s): S91.101A - Unspecified open wound of right great toe without damage to nail, initial encounter Plan: Pain with palpation around the nail bed of the right great toe, mild edema and erythema noted to surrounding skin, nail is unstable and not completely attached to the nail bed, no active drainage noted. Cephalexin ordered. Take as prescribed Referred to the Wound Clinic for wound care Follow-up with Podiatry as planned Instructed on safety to prevent repeated striking of the toenail on object or injury of the feet Return with worsening or new signs and symptoms Verbalized understanding and agreed with treatment plan. (5) Impaired renal function: Code(s): N28.9 - Disorder of kidney and ureter, unspecified Plan: Recent BUN and creatinine levels were elevated Patient has history of impaired renal function Followed by [facility]. Continue to follow as planned Follow-up with symptoms or concerns Verbalized understanding and agreed with treatment plan. Orders: Referrals Wound Care Referral S91.101A - Unspecified open wound of right great toe without damage to nail, initial encounter Medications: New cephalexin 500 mg PO BID 20 tabs 0RF 10 days hydroxyzine HCl 25 mg PO BID PRN 20 tabs 0RF anxiety Coding Level of Care Code Est Pt Level 3 (11117) Diagnoses PAD (peripheral artery disease) I73.9 Type 2 diabetes mellitus E11.9 Diabetes mellitus complication status: with circulatory complication Diabetes mellitus skilled nursing insulin use: with skilled nursing use Anxiousness F41.9 Open wound of right great toe, initial encounter S91.101A Encounter type: initial encounter Impaired renal function N28.9
[2023-05-10 12:37] VITALS: BP 102/60; PULSE 70; RESP 12; O2SAT 99; BMI 25.1
== END 2023-05-10 13:29 | disposition home or self-care (01) ==
PROVIDERS: PCP Nurse Practitioner Family; Visit Provider Nurse Practitioner Family
DX: E11.59 Type 2 diabetes mellitus with other circulatory complications (principal); I73.9 Peripheral vascular disease, unspecified; F41.9 Anxiety disorder, unspecified; S91.101A Unspecified open wound of right great toe without damage to nail, initial encounter; N28.9 Disorder of kidney and ureter, unspecified
CPT/HCPCS: 99213

== ENCOUNTER → 2023-05-15 15:04 | Outpatient (REF) | payer OTHER, SELFPAY ==
--- NOTE | 2023-05-15 15:06 | CA_ITS ---
Transthoracic Echocardiogram Patient (Last, First, Middle): Mayuri Minaya, Gender: Female Date of : 1950 Age: 73 Procedure Date: 05/15/2023 Procedure Type: Transthoracic Echocardiogram Location: OP Height: 157.48 cm Weight: 61.24 kg BSA: 1.62 m2 Heart Rate: bpm BP: 134 / 80 mmHg Twister Tender Paper: Referring MD: Sotero Rapp MD Symptoms: R06.02 - Shortness of breath Study Quality: Good ECG Rhythm: Sinus Conclusions: - The left ventricular systolic function is normal. The calculated ejection fraction is 64% by biplane method. - Evidence suggests grade I (mild) diastolic dysfunction. - No obvious valvular pathology seen on this study. - Moderate plaque is seen in the sinuses of Valsalva. Findings Left Ventricle Normal left ventricular cavity size. There is mildly increased left ventricular wall thickness. The left ventricular systolic function is normal. The calculated ejection fraction is 64% by biplane method. There is no evidence of regional wall motion abnormalities. Evidence suggests grade I (mild) diastolic dysfunction. Right Ventricle Normal right ventricular cavity size and systolic function. Atria Both atria are normal in size. Aortic Valve There is a normal trileaflet aortic valve. There is no aortic valve stenosis. There is no aortic valve regurgitation. Mitral Valve The mitral valve appears normal. There is no mitral valve regurgitation. There is no mitral valve stenosis. Pulmonic Valve The pulmonic valve is likely normal. Tricuspid Valve Normal tricuspid valve structure. There is no tricuspid valve regurgitation. There is no evidence of pulmonary hypertension. Great Vessels The asc aorta is normal in size. Moderate plaque is seen in the sinuses of Valsalva. Venous The inferior vena cava is normal in size and collapses greater than 50% with inspiration. Pericardium/Pleural There is no evidence of pericardial effusion. Prior Study Comparison No significant change compared to prior study dated: 04/16/2017. Recommendations, Care & Conclusions No obvious valvular pathology seen on this study. Measurements 2D Linear Measurements IVSd: 1.21 0.6-0.9/0.6-1.0 cm LVIDd: 2.93 3.9-5.3/4.2-5.9 cm LVIDd Index: 1.81 2.4-3.2/2.2-3.1 cm/m2 LVIDs: 2.03 2.0-3.6 cm LVPWd: 1.20 0.7-1.1 cm Ao Root: 2.80 2.1-3.5 cm LA Diam: 3.20 2.7-3.8/3.0-4.0 cm LAIDs Index: 1.98 1.5-2.3 cm/m2 LV Mass: 132.20 67-162/88-224 g LV Mass Index: 81.61 43-95/49-115 g/m2 LVOT Diam: 1.90 3.0+(-)1.3 cm 2D Systolic Function EF 4C: 61.80 >55% EF 2C: 61.70 >55% EF BiP: 63.70 >55% Mitral Valve MV VTI: 0.36 MV Pk Jarek: 1.59 MV Mn Jarek: 0.82 MV Pk Grad: 10.00 MV Mn Grad: 3.00 MV Pk E: 0.93 MV PK A: 1.23 MV Decel Time: 133.00 E/A: 0.80 E'Lateral: 5.33 E'Medial: 5.66 E/E' Med: 16.40 E/E' Lat: 17.40 PHT: 39.00 MVA PHT: 5.64 MVA Continuity: 2.10 Decel [place]: 7.01 Aortic Valve AoV Pk Jarek: 1.58 AoV Mn Jarek: 1.00 AoV VTI: 0.40 AoV Pk Grad: 10.00 Aov Mn Grad: 5.00 JOSE EDUARDO Cont.VTI: 1.90 LVOT LVOT Pk Jarek: 1.03 LVOT Mn Jarek: 0.63 LVOT VTI: 0.26 LVOT Pk Grad: 4.00 LVOT Mn Grad: 2.00 LVOT Diam: 1.90 LVOT Area: 2.84 Diastolic Function MV Pk E: 0.93 MV Pk A: 1.23 E/A: 0.80 E'Medial: 5.66 E/E' Med: 16.40 E' Laterial: 5.33 E/E' Lat: 17.40 Right Ventricle TAPSE (mm): 24.00 TVS' Jarek: 15.00 Tricuspid Valve TR Pk Jarek: 2.36 TR Pk Grad: 22.00 RA Press: 3.00 RVSP: 25.00 Great Vessels Aorta Ao Root-2D: 2.80 2.0-3.7 cm Ao Asc: 2.70 2.1-3.4 cm Pulmonary Valve PV Pk Jarek: 1.09 Peak PV Grad: 5.00 Updated in Other Vendor System with Status of Final Julio Barone MD electronically signed on 05/16/2023 11:30:42 AM with status of Final
== END ==
LOC: HO.CARD 15:04
PROVIDERS: PCP Nurse Practitioner Family; Visit Provider Internal Medicine Cardiovascular Disease
DX: R06.02 Shortness of breath (principal)
CPT/HCPCS: 93306

== ENCOUNTER → 2023-05-15 15:06 | Outpatient (BNV) | payer OTHER, SELFPAY | PROVIDERS: PCP Nurse Practitioner Family; Visit Provider Internal Medicine | DX: I51.9 Heart disease, unspecified (principal) | CPT/HCPCS: 93306 ==

== ENCOUNTER 2023-05-17 13:05 | Outpatient (REF) | payer OTHER, SELFPAY ==
--- NOTE | ~2023-05-17 | US_ITS ---
EXAMINATION: US VENOUS BILATERAL LOWER EXTREMITIES (REFLUX EXAM) CLINICAL INDICATION: Varicose veins of right lower extremity with inflammation. COMPARISON: DVT study 12/07/2022. TECHNIQUE: Color flow triplex imaging and compression Doppler was performed to evaluate both the deep and the superficial systems bilaterally. To evaluate the superficial system, the examination was performed in the upright position. Color-flow Doppler ultrasound and compression ultrasound were utilized. In addition, maneuvers were utilized to demonstrate reflux. FINDINGS: 1. DEEP VENOUS ULTRASOUND OF THE RIGHT LOWER EXTREMITY: Respiratory variation, normal compression and augmented flow are noted in the right common femoral vein as well as the right popliteal vein and there is no evidence of deep venous thrombosis at these locations. Previously seen DVT involving the entire right lower extremity has resolved and at this time there is no evidence of reflux in the deep system in either the common femoral vein or the popliteal vein. There is no evidence of a Adams's cyst. 2. SUPERFICIAL ULTRASOUND WITH DOPPLER OF RIGHT LOWER EXTREMITY: The right great saphenous vein at the saphenofemoral junction measures 6 mm, at the proximal thigh 7 mm, at the mid thigh 4 mm, above the knee 4 mm, at the knee 2 mm, below the knee 3 mm, midcalf 3 mm and at the ankle measures 3 mm. There is no reflux demonstrated in the right great saphenous vein. Duplicated Right Great Saphenous Vein: There is a lateral accessory saphenous that measures 3 mm and does not reflux. The right small saphenous vein measures 2 mm and shows no reflux. Accessory Vein of Giacomini: None. Incompetent Perforators: None. Varices Present: None. 3. DEEP VENOUS ULTRASOUND OF THE LEFT LOWER EXTREMITY: Respiratory variation, normal compression and augmented flow are noted in the left common femoral vein as well as the left popliteal vein and there is no evidence of deep venous thrombosis at these locations. There is no evidence of reflux in the deep system in either the common femoral vein or the popliteal vein. There is no evidence of a Adams's cyst. 4. SUPERFICIAL ULTRASOUND WITH DOPPLER OF LEFT LOWER EXTREMITY: Left great saphenous vein at the saphenofemoral junction measures 8 mm, at the proximal thigh 4 mm, at the mid thigh 3 mm, above the knee 3 mm, at the knee 2 mm, below the knee 2 mm, midcalf 2 mm and at the ankle measures 2 mm. There is no reflux demonstrated in the left great saphenous vein. Duplicated Left Great Saphenous Vein: There is a lateral accessory saphenous that measures 3 mm and does not reflux. The left small saphenous vein measures 2 mm and shows no reflux. Accessory Vein of Giacomini: None. Incompetent Perforators: None. Varices Present: None. US/US venous duplex LE BI IMPRESSION: 1. No evidence of reflux or thrombus in the common femoral veins or popliteal veins bilaterally. 2. The saphenous systems are competent bilaterally.
== END 2023-05-17 13:06 | disposition home or self-care (01) ==
LOC: HO.US 13:05
PROVIDERS: PCP Nurse Practitioner Family; Visit Provider Surgery Vascular Surgery
DX: I83.11 Varicose veins of right lower extremity with inflammation (principal)
CPT/HCPCS: 93970

== ENCOUNTER 2023-05-22 13:28 | Outpatient (REF) | payer OTHER, SELFPAY ==
--- NOTE | ~2023-05-22 | US_ITS ---
EXAMINATION: ARTERIAL DUPLEX BILATERAL LEGS CLINICAL INFORMATION: Peripheral vascular disease. COMPARISON: None TECHNIQUE: Duplex Doppler of the bilateral lower extremity arterial systems was performed. Note that PVR and TINO was ordered, but the patient refused due to ulcer pain. The brachial blood pressures were greater than 200 indicating calcified noncompressible vessels. Dr. Hightower's office aware and approved patient to be discharged home. FINDINGS: RIGHT: Common femoral: PSV 217 cm/s. Triphasic waveform. Deep femoral: PSV 218 cm/s. Triphasic waveform. Proximal superficial femoral: PSV 135 cm/s. Triphasic waveform. Mid superficial femoral: PSV 287 cm/s. Monophasic waveform. Greater than 4:1 immediate upstream vessel. Distal superficial femoral: PSV 176 cm/s. Monophasic waveform. Greater than 2:1 immediate upstream vessel. Popliteal: PSV 45 cm/s. Monophasic waveform. Posterior tibial: PSV 53 cm/s. Monophasic waveform. Occludes distally. Peroneal: PSV 67 cm/s. Monophasic waveform. LEFT: Common femoral: PSV 173 cm/s. Triphasic waveform. Deep femoral: PSV 416 cm/s. Biphasic waveform. Less than 2:1 immediate upstream vessel. Proximal superficial femoral: PSV 230 cm/s. Biphasic waveform. Greater than 2:1 immediate upstream vessel. Mid superficial femoral: PSV 267 cm/s. By phase waveform. Less than 2:1 immediate upstream vessel. Distal superficial femoral: PSV 147 cm/s. Biphasic waveform. Popliteal: PSV 137 cm/s. Biphasic waveform. Posterior tibial: PSV 68 cm/s. Monophasic waveform. Occludes distally. Peroneal: PSV 45 cm/s. Monophasic waveform. US/US TINO complete IMPRESSION: Right lower extremity: Hemodynamically significant superficial femoral disease in the mid segment (greater than 75%) and distal segment (greater than 50%) by velocity shifts. Left lower extremity: Hemodynamically significant superficial femoral disease in the proximal segment (greater than 50%) by velocity shifts.
--- NOTE | ~2023-05-22 | US_ITS ---
EXAMINATION: ARTERIAL DUPLEX BILATERAL LEGS CLINICAL INFORMATION: Peripheral vascular disease. COMPARISON: None TECHNIQUE: Duplex Doppler of the bilateral lower extremity arterial systems was performed. Note that PVR and TINO was ordered, but the patient refused due to ulcer pain. The brachial blood pressures were greater than 200 indicating calcified noncompressible vessels. Dr. Hightower's office aware and approved patient to be discharged home. FINDINGS: RIGHT: Common femoral: PSV 217 cm/s. Triphasic waveform. Deep femoral: PSV 218 cm/s. Triphasic waveform. Proximal superficial femoral: PSV 135 cm/s. Triphasic waveform. Mid superficial femoral: PSV 287 cm/s. Monophasic waveform. Greater than 4:1 immediate upstream vessel. Distal superficial femoral: PSV 176 cm/s. Monophasic waveform. Greater than 2:1 immediate upstream vessel. Popliteal: PSV 45 cm/s. Monophasic waveform. Posterior tibial: PSV 53 cm/s. Monophasic waveform. Occludes distally. Peroneal: PSV 67 cm/s. Monophasic waveform. LEFT: Common femoral: PSV 173 cm/s. Triphasic waveform. Deep femoral: PSV 416 cm/s. Biphasic waveform. Less than 2:1 immediate upstream vessel. Proximal superficial femoral: PSV 230 cm/s. Biphasic waveform. Greater than 2:1 immediate upstream vessel. Mid superficial femoral: PSV 267 cm/s. By phase waveform. Less than 2:1 immediate upstream vessel. Distal superficial femoral: PSV 147 cm/s. Biphasic waveform. Popliteal: PSV 137 cm/s. Biphasic waveform. Posterior tibial: PSV 68 cm/s. Monophasic waveform. Occludes distally. Peroneal: PSV 45 cm/s. Monophasic waveform. US/US arterial duplex LE BI IMPRESSION: Right lower extremity: Hemodynamically significant superficial femoral disease in the mid segment (greater than 75%) and distal segment (greater than 50%) by velocity shifts. Left lower extremity: Hemodynamically significant superficial femoral disease in the proximal segment (greater than 50%) by velocity shifts.
== END 2023-05-22 13:29 | disposition home or self-care (01) ==
LOC: HO.US 13:28
PROVIDERS: PCP Nurse Practitioner Family; Visit Provider Surgery Vascular Surgery
DX: I73.9 Peripheral vascular disease, unspecified (principal)
CPT/HCPCS: 93923; 93925

== ENCOUNTER 2023-06-15 06:42 | Outpatient (REF) | payer OTHER, SELFPAY ==
[2023-06-15 12:41] LABS: Cholesterol 184 mg/dL (<200); HDL Cholesterol 47 mg/dL (>40); LDL Cholesterol Calculated 118 mg/dL (<100); Triglycerides 97 mg/dL (<150)
== END 2023-06-15 06:43 | disposition home or self-care (01) ==
LOC: HO.HMGCLDS 06:42
PROVIDERS: PCP Nurse Practitioner Family; Visit Provider Internal Medicine Cardiovascular Disease
DX: I25.10 Atherosclerotic heart disease of native coronary artery without angina pectoris (principal); E78.5 Hyperlipidemia, unspecified
CPT/HCPCS: 36415; 80061

== ENCOUNTER 2023-06-18 15:11 | Outpatient (AMB) | payer MEDICARE, MEDICAID, SELFPAY ==
[2023-06-18 15:14] VITALS: BP 178/70; PULSE 71; BMI 25.6
--- NOTE | 2023-06-18 15:14 | MHC.OFFVIS ---
Intake Vital Signs 06/18/23 15:14 Height 5 ft 2 in Weight 139 lb 12.369 oz BMI 25.6 BP 178/70 H Blood Pressure Location Lt brachial Position Sitting Pulse 71 Pulse Source Pulse Oximeter Intake Visit Reasons: 2 mth f/up testing Intake Note: 2 mth f/u testing Instrument Lens Grinder Required: No Ethnoarchaeology Professor: Ethnoarchaeology Professor Present Accompanied by: Daughter Allergies lisinopril Allergy (Severe, Verified 06/18/23 15:18) swollen tongue apple Allergy (Intermediate, Verified 06/18/23 15:18) tongue swelling banana Allergy (Intermediate, Verified 06/18/23 15:18) tongue and lip swelling Medication List - Last Reconciled 06/18/23 by ADRIANNA Gardiner apixaban (Eliquis) 2.5 mg PO BID atorvastatin 80 mg PO BEDTIME 30 days blood sugar diagnostic (FreeStyle Test strips) bid to tid bs checks bumetanide 1 mg PO BID carvedilol 25 mg PO BID cholecalciferol (vitamin D3) 1,250 mcg PO QWEEK 3 months ferrous sulfate 325 mg PO Q OTHER DAY 30 days gabapentin 300 mg PO BEDTIME 30 days hydralazine 25 mg PO TID insulin glargine (Lantus U-100 Insulin) 8 units subcut BEDTIME polyethylene glycol 3350 (Miralax) 238 grams PO ONCE 1 day syringe with needle (Monoject Safety Syringes) POC testing TID HPI 2 mth f/up testing HPI Details Mayuri is a 73-year-old female with past medical history hypertension, hyperlipidemia, diabetes, right lower extremity DVT, who was recently referred to Cardiology for assistance with cholesterol management. Lab work done February 2023 had shown LDL 357. On last visit her atorvastatin was increased up to 80 mg daily. She also reported exertional shortness of breath and an echocardiogram and nuclear stress test were ordered. Nuclear stress test not done as of yet. Today she reports she has been feeling well overall. She is not bothered as much by shortness of breath. She denies having chest discomfort, no palpitations, presyncope, syncope, PND, orthopnea or edema. She has been taking atorvastatin as directed. No muscle or joint issues reported. She declined Zetia and PCSK9 inhibitor at this time. She tells me she has changed her diet and wants to give it more time to work. She has chronic swelling in the right lower leg. She ambulates with a walker. Daughter is present and assisting with Upper Sorbian translation at their request. [facility] Medical History Iron deficiency Vitamin D deficiency Surgical History No pertinent past surgical history Family History Father Bladder cancer Smoker Mother Diabetes CVD (cardiovascular disease) Glaucoma Daughter Anxiety Family/Other Alzheimer's dementia Uterine cancer Social History Household Members: Family Housing: Apartment Alcohol intake: never Patient Tobacco Use Status: Never used Tobacco e-Cigarette/Vaping Use: Never Used Second Hand Smoke Exposure: No service: No Current occupational status: retired Cognitive needs: No Hearing needs: No Vision needs: No Review of Systems Const All systems reviewed & are unremarkable except as noted in HPI and below ENT Denies dizziness Card Denies chest pain, Denies chest pain at rest, Denies chest pain with activity, Denies rapid heart rate, Denies pedal edema, Denies edema, Denies leg edema, Denies lightheadedness, Denies palpitations, Denies dyspnea, Denies dyspnea on exertion and Denies orthopnea Resp Denies cough, Denies dyspnea and Denies dyspnea on exertion GI Denies hematochezia and Denies change in stool character Musc Denies abnormal gait, Denies limited range of motion, Denies muscle cramps, Denies muscle weakness, Denies numbness, Denies radiating pain into limb, Denies stiffness and Denies tingling Neuro Denies abnormal gait, Denies dizziness, Denies numbness and Denies tingling Endo Denies palpitations Physical Exam Vital Signs: Last Vital Signs Pulse 71 06/18/23 15:14 BP 178/70 H 06/18/23 15:14 BMI result Body Mass Index 25.6 Const General: cooperative, healthy appearing, comfortable and no acute distress Orientation/consciousness: patient oriented x3 Neck Neck: Yes normal visual inspection Resp Effort & Inspection: normal respiratory effort Auscultation: clear to auscultation bilaterally, no crackles, no rales, no rhonchi and no wheezes Cardio Jugular venous distension: no JVD Rate: regular rate Rhythm: regular rhythm Heart sounds: S1 normal heart sound present, S2 normal heart sound present, no murmurs and no rubs Neuro General: patient oriented x3 Extrem Other: right lower leg swelling Psych Appearance: grossly normal Mental Status: mental status grossly normal Speech and movement: Normal speech and movement present Assessment & Plan Assessment & Plan (1) SOB (shortness of breath): Code(s): R06.02 - Shortness of breath Plan: On last visit she reported shortness of breath with activity. She has cardiac risk factors of hypertension, hyperlipidemia, diabetes and advanced age. She has no known history of coronary disease. An echocardiogram was done on 05/15/2023 showing EF 64%, grade 1 diastolic dysfunction, no valve abnormalities. A nuclear stress test was ordered however not completed as of yet. Today she reports her breathing is not bothering her as much in the cooler weather. She has been walking routinely with her daughter. She uses a walker for balance. Due to her multiple cardiac risk factors will still pursue nuclear stress test. Plan to call her with results. (2) Hyperlipidemia: Code(s): E78.5 - Hyperlipidemia, unspecified Qualifiers: Hyperlipidemia type: familial hypercholesterolemia Qualified Code(s): E78.01 - Familial hypercholesterolemia Plan: History of hyperlipidemia. LDL goal ideally less than 70 Labs done 02/2023 showing LDL 357. She was put on high-dose atorvastatin at that time which she is tolerating well. Labs done today show LDL 118. This is much improved however not at her ideal goal. Spoke with her about the addition of PCSK9 inhibitor and she is not interested at this time. She says she is feeling well as she is. Offered Zetia 10 mg daily and again she declines. She is working on dietary adjustments. She is also increasing her physical activity. She wants to wait longer and plan to check her cholesterol in a few months. Lipid profile entered for 3 months prior to her next visit. If still elevated she may consider PCSK9 inhibitor at that time. (3) Hypertension, essential: Code(s): I10 - Essential (primary) hypertension Plan: Elevated at this visit. Recheck done after sitting for several minutes was 162/80. Daughter is present tells me that home blood pressures are normally well controlled with the systolic in the 120s and 130s. She states mother has much anxiety about coming to any appointment and that blood pressure goes high each time. She will continue to monitor blood pressure readings at home. At this time will have her continue on her usual antihypertensives of carvedilol and hydralazine Orders: Orders NM cardiolite stress test Today E78.00 - Pure hypercholesterolemia, unspecified, R06.02 - Shortness of breath Lipid Panel 10 Weeks E78.00 - Pure hypercholesterolemia, unspecified, E78.5 - Hyperlipidemia, unspecified Coding Level of Care Code Est Pt Level 3 (76646) Diagnoses SOB (shortness of breath) R06.02 Familial hypercholesterolemia E78.01 Hyperlipidemia type: familial hypercholesterolemia Hypertension, essential I10 Time Spent (min) 22
== END 2023-06-18 15:51 | disposition home or self-care (01) ==
PROVIDERS: PCP Nurse Practitioner Family; Visit Provider Nurse Practitioner Family
DX: R06.02 Shortness of breath (principal); E78.01 Familial hypercholesterolemia; I10 Essential (primary) hypertension
CPT/HCPCS: 99213

== ENCOUNTER → 2023-06-18 15:11 | Outpatient (BNVA) | payer MEDICARE, MEDICAID, SELFPAY | PROVIDERS: PCP Nurse Practitioner Family; Visit Provider Nurse Practitioner Family | DX: R06.02 Shortness of breath (principal); I10 Essential (primary) hypertension; E78.01 Familial hypercholesterolemia | CPT/HCPCS: 99212 ==

== ENCOUNTER 2023-06-21 15:15 | Outpatient (AMB) | payer MEDICARE, MEDICAID, SELFPAY ==
[2023-06-21 15:23] VITALS: BMI 25.4
--- NOTE | 2023-06-21 15:23 | MHC.OFFVIS ---
Intake Vital Signs 06/21/23 15:23 Height 5 ft 2 in Weight 139 lb BMI 25.4 Intake Visit Reasons: fu vi and arterial us Intake Note: follow up US 05/17/23 and ARterial US 05/22/23. Pt has history of a fall last spring causing a DVT in the Right LE. Also states toenail fell off of left Great toe and is seen by podiatry. Has worn compression socks but states they are too tight and has dificulty wearing them Accompanied by: Daughter Allergies lisinopril Allergy (Severe, Verified 06/21/23 15:30) swollen tongue apple Allergy (Intermediate, Verified 06/21/23 15:30) tongue swelling banana Allergy (Intermediate, Verified 06/21/23 15:30) tongue and lip swelling HPI fu vi and arterial us HPI Details Very nervous 73-year-old female presents for follow-up regarding peripheral vascular disease. She has nonhealing ulcers on the right lower extremity. There is a pretibial and great toe ulcer. Of note she has been a diabetic for over 30 years. She is also a nonsmoker. She has undergone noninvasive testing. She now presents to us for follow-up. [facility] Medical History Iron deficiency Vitamin D deficiency Surgical History No pertinent past surgical history Family History Father Bladder cancer Smoker Mother Diabetes CVD (cardiovascular disease) Glaucoma Daughter Anxiety Family/Other Alzheimer's dementia Uterine cancer Social History Household Members: Family Housing: Apartment Alcohol intake: never Patient Tobacco Use Status: Never used Tobacco e-Cigarette/Vaping Use: Never Used Second Hand Smoke Exposure: No service: No Current occupational status: retired Cognitive needs: No Hearing needs: No Vision needs: No Review of Systems Const All systems reviewed & are unremarkable except as noted in HPI and below Reports no additional complaints ENT Reports Normal hearing present Card Denies chest pain, Denies chest pain at rest, Denies chest pain with activity and Denies pedal edema Resp Denies cough GI Denies abdominal pain Musc Denies abnormal gait, Denies muscle cramps and Denies radiating pain into limb Skin/Breast Denies skin ulcer and Denies wounds Neuro Reports Normal hearing present and Denies abnormal gait Psych Reports no additional complaints Physical Exam Vital Signs: BMI result Body Mass Index 25.4 Const General: cooperative, healthy appearing and comfortable Orientation/consciousness: oriented to person, oriented to place and oriented to time HEENT Head: Yes normal to inspection Neck Neck: Yes normal visual inspection Carotids: no bruits Chest Chest palpation & inspection: normal inspection of the chest Resp Effort & Inspection: normal respiratory effort and able to speak in complete sentences Auscultation: clear to auscultation bilaterally, no crackles, no rales, no rhonchi and no wheezes Cardio Other: Bilateral DP signals Rate: regular rate Rhythm: regular rhythm Heart sounds: S1 normal heart sound present and S2 normal heart sound present Bruits: no carotid bruits Peripheral pulses: Peripheral pulses 2+ throughout GI Inspection: Yes normal to inspection Skin Other: Right pretibial ulcer Wounds: no wounds Hair: normal Neuro General: oriented to person, oriented to place and oriented to time Cranial nerves: Yes CN's II-XII intact bilaterally and Yes Normal hearing present Cognition (Neuro): normal cognition Motor exam (neuro): 5/5 motor strength present throughout Extrem Other: venous exam: No significant superficial varicosities or spider telangiectasias, minimal edema General: No clubbing, No cyanosis and No edema Psych Appearance: grossly normal Mental Status: mental status grossly normal Speech and movement: Normal speech and movement present Results Reviewed Results Reviewed: Noninvasive arterial testing dated 05/22/2023 demonstrates bilateral SFA disease greater than 75%. Written report and images were reviewed. Assessment & Plan Assessment & Plan (1) PAD (peripheral artery disease): Code(s): I73.9 - Peripheral vascular disease, unspecified Plan: Patient notes leg pain when walking distances. I have discussed the pathophysiology of peripheral vascular disease with the patient. I have also discussed risk factor modification. I have reviewed the patient's arterial testing which reveals right SFA disease. the patient would benefit from a right leg endovascular peripheral angiogram with possible angioplasty, stent, and/or atherectomy. This has been discussed in detail with the patient along with risks, benefits, and complications. This includes but is not limited to bleeding, infection, heart attack, need for emergent surgical repair, limb ischemia, blood vessel damage, bleeding, puncture, kidney injury, bruising, allergic reaction, and skin reaction. The patient demonstrates a clear understanding. We will schedule for the next appropriate time. Thank you for allowing us to assist in this patient's care. please note patient is a Jain and does not accept blood products Coding Level of Care Code Est Pt Level 4 (33025) Diagnoses PAD (peripheral artery disease) I73.9
== END 2023-06-21 16:00 | disposition home or self-care (01) ==
PROVIDERS: PCP Nurse Practitioner Family; Visit Provider Surgery Vascular Surgery
DX: I73.9 Peripheral vascular disease, unspecified (principal)
CPT/HCPCS: 99214

== ENCOUNTER → 2023-06-21 15:15 | Outpatient (BNVA) | payer MEDICARE, MEDICAID, SELFPAY | PROVIDERS: PCP Nurse Practitioner Family; Visit Provider Surgery Vascular Surgery | DX: I73.9 Peripheral vascular disease, unspecified (principal) | CPT/HCPCS: 99212 ==

== ENCOUNTER → 2023-06-27 06:51 | Day surgery (SDC) | payer MEDICARE, MEDICAID, SELFPAY ==
[2023-06-27] VITALS (7 sets, daily range): BP systolic 133–158; BP diastolic 36–82; PULSE 68–84; RESP 16–18; TEMP 36.3–36.7; O2SAT 99–100; BMI 25.4
--- OUTSIDE RECORDS SUMMARY | 2023-06-27 06:53 | XMS_ITS | Patient Health Record ---
Author Name Unknown [facility] Address [address] [place] [address] Care Team Providers Care Screen Writer Name Role Phone Pratibha MASON, Juliet Primary Care Provider Unavail able Rock Newton Unavailable [phone] ALLERGIES Allergen (clinical drug ingredient) Drug/Non Drug Allergy documented on EMR Reaction Allergy Type Onset Date Status mint (uncoded) Unknown Allergy Activ e banana allergenic extract Banana (Diagnostic) Unknown Drug Allergy Active lisinopril Lisinopril Unknown Drug Allergy Activ e RESULTS Component Value Reference Range Notes HEMOGLOBIN A1C (GLYCOHEMOGLO BIN) Reviewed date:05/30/2023 02:08:20 PM Interpretation: Performing Lab: Notes/Report: TOTAL HEMOGLOBIN (HGBA1C) HEMOGLOBIN A1C (HH) HEMOGLOBIN A1C % (HH) 7.2 ESTIMATED AVG GLUCOSE REASON FOR REFERRAL No Information MEDICATIONS Medication SIG (Take, Route, Frequency, Duration) Notes Start Date End Date Status Extra Depth Orthopedic Shoes, (1) Pair With (3) Pair Custom Heat Molded Multidensity Innersoles Dx: NIDDM/PVD(E11.51), Hammertoe Foot Deformity(M20.41,M20.42), Preulcerative Skin Lesion(s)(L85.1) Wear Daily for 365 days 05/30/2023 Active Lipitor 80 MG 1 tablet Orally Once a day Active Gabapentin 300 MG 1 capsule Orally Onc e a day Active Bumetanide 1 MG 1 tablet Orally Once a day Active Ferrous Sulfate 325 (65 Fe) MG 1 tablet Orally Three times a Week Active hydrALAZINE HCl 50 MG 1 tablet with food Orally Three times a day Active Carvedilol 25 MG 1 tablet with food O rally Twice a day Active Eliquis 2.5 MG as directed Orally Active Lantus 100 UNIT/ML as directed Subcutaneous Active SOCIAL HISTORY Tobacco Use: Social History Observation Description Date Details (start date - stop date) Never Smoker NA - NA Sex Assigned At : Social History Observation Description Sex Assigned At Unknown Tobacco Use/Smoking Question Answer Notes Are you a: nonsmoker Alcohol Screen Question Answer Notes Did you have a drink containing alcohol in the p ast year? No Points 0 Interpretation Negative Tobacco use other than smoking: Question Answer Notes Are you an other tobacco user? No PROBLEMS Problem Type ICD Code Onset Dates Problem Status W/U Status Risk SNOMED Code Notes Problem Other hammer toe(s) (acquired), right foot (M20.41) Active confirmed Acquired hammer toe of right foot (1054331571282 105) Problem Type 2 diabetes mellitus with diabetic peripheral angiopathy without gangrene (E11.51) Active confirmed Type 2 diabetes mellitus with peripheral angiopathy (676907053) Problem Other hammer toe(s) (acquired), left foot (M20.42) Active confirmed Acquired hammer toe of left foot (5123772300753 103) VITAL SIGNS Height 5ft 4in in 05/30/2023 Weight 137 lbs 05/30/2023 BMI 23.51 kg/m2 05/30/2023 PROCEDURES Procedure Date Ordered Date Performed Result Body Sit e 33566-LUBD SKIN LESIONS, OVER 4 05/30/2023 N/A 69793- I&D ABSCESS-COMPLICATED,MULTI 05/30/2023 N/A 30044-YIIDWXS NAIL, 6 OR MORE 05/30/2023 N/A Encounters Encounter Location Date Provider Diagnosis [facility] [place] [address] [address] 05/30/2023 Rock Newton Type 2 diabetes mellitus with diabetic peripheral angiopathy without gangrene E11.51 ; Onychomycosis B35.1 ; Pain of toe of right foot M79.674 ; Pain of toe of left foot M79.675 ; Other hammer toe(s) (acquired), right foot M20.41 ; Other hammer toe(s) (acquired), left foot M20.42 and Abscess of toe of right foot L02.611 ASSESSMENTS Encounter Date Diagnosis Assessment Notes Treatment Notes Treatment Clinical Notes 05/30/2023 Type 2 diabetes mellitus with diabetic peripheral angiopathy without gangrene (ICD-10 - E11.51) 05/30/2023 Onychomycosis (ICD-1 0 - B35.1) 05/30/2023 Pain of toe of right foot (ICD-10 - M79.674) 05/30/2023 Pain of toe of left foot (ICD-10 - M79.675) 05/30/2023 Other hammer toe(s) (acquired), right foot (ICD-10 - M20.41) Patient Educated with: DIABETIC FOOT CARE INSTRUCTIONS.pdf (DIABETIC FOOT CARE INSTRUCTIONS.pdf ) 05/30/2023 Other hammer toe(s) (acquired), left foot (ICD-10 - M20.42) 05/30/2023 Abscess of toe of right foot (ICD-10 - L02.611) Patient Educated with: WOUND CARE INSTRUCTIONS.pdf (WOUND CARE INSTRUCTIONS.pdf ) 05/30/2023 Other Patient Educate d with: WOUND CARE INSTRUCTIONS.pdf (WOUND CARE INSTRUCTIONS.pdf ) PLAN OF TREATMENT Pending Test Test Name Order Date [id number]-[id number] NAIL, 6 OR MORE 05/30/2023 48291- I&D ABSCESS-COMPLICATED,MULTI 64828-ZMXV SKIN LESIONS, OVER 4 05/30/20 23 Next Appt Details Provider Name:Rock Newton , 07/02/2023 02:30:00 PM, [address] [facility], [place] [address], [place], [address], Insurance Providers Payer Name Payer Address Payer Phone Subscriber Number Group Number Insured Name Patient Relationship to Insured Coverage Start Date Coverage End Date [facility] [employer] Claims [address] [place] [address] [id number] -[facility] [id number] Mayuri Powell Self - patient is the insured MEDICAL (GENERAL) HISTORY Medical History History ICD Code Anemia Cataracts Diabetic High blood pressure Kidney disease Numbness Stroke Chicken pox
[2023-06-27 08:19] LABS: MANUAL DIFF FLAG NO
[2023-06-27 08:22] LABS: Basophils Percent Auto 0.5 % (0-2); Eosinophils Absolute Auto 0.2 X10*3/uL (0.0-0.4); Hematocrit 33.6 % (37.0-47.0); Hemoglobin 10.5 g/dl (12.0-16.0); Imm Gran Abs Auto 0.03 X10*3/uL (0.00-0.03); Imm Gran Pct Auto 0.4 % (0.0-0.4); Lymphocytes Absolute Auto 1.5 X10*3/uL (1.2-4.9); Lymphocytes Percent Auto 17.2 % (20-40); Mean Corpuscular HGB Conc 31.3 g/dl (31.0-35.0); Mean Corpuscular Volume 86.4 fL (80.0-98.0); Mean Platelet Volume 9.5 fL (9.4-12.3); Monocytes Absolute Auto 0.6 X10*3/uL (0.1-1.2); Monocytes Percent Auto 6.5 % (2-11); Neutrophils Absolute Auto 6.2 x10*3/uL (2.0-8.3); Neutrophils Percent Auto 73.4 % (45-73); Platelet Count 275 X10*3/uL (160-400); Red Blood Count 3.89 X10*6/uL (4.20-5.50); Red Cell Distribution Width 14.4 % (11.0-16.0); White Blood Count 8.4 X10*3/uL (4.8-10.8)
[2023-06-27 08:29] LABS: Glucose, Whole Blood 126 mg/dL (60-115)
[2023-06-27 08:37] LABS: Blood Urea Nitrogen 37 mg/dL (9-16); Creatinine Clr Calc Pharmacy 32.4; Estimated Glomerular Filt Rate 38
--- NOTE | 2023-06-27 12:05 | W.PM.OPN ---
Operative Note Operative Note Date of Service: 06/27/23 Narrative: Angiogram report from [facility] Preoperative diagnosis: Atherosclerosis of right lower extremity with nonhealing ulcer Postoperative diagnosis: Same Procedure: 1. Ultrasound-guided left common femoral access 2. Aortogram with right lower extremity runoff 3. right SFA atherectomy and plasty 4. right popliteal plasty Surgeon:Milind Hightower M.D., FACS, RPVI Philosophy Professor:None Anesthesia: Local with moderate conscious sedation. Total intraservice moderate sedation time was 94 minutes. I monitored the patient's level of consciousness and physiologic status continuously throughout the procedure. Specimens:none Drains:none Estimated blood loss: Less than 10 ml Implant: Medtronic Impact DCB 5 x 120 and 6 x 40 Indications: pleasant 73-year-old female presents for endovascular intervention with nonhealing right lower extremity ulcer. Noninvasive testing demonstrated significant below-knee and SFA disease. She now presents for endovascular treatment. The patient has signed the informed consent after reviewing risks, complications, benefits, and alternatives previously discussed with the patient. The patient was given the opportunity to ask any additional questions or voice any concerns. All questions were answered to the patient's satisfaction. Procedure in detail: Patient was brought to the angiography suite prior to which a time-out was called for patient identification and site verification. Bilateral groins were prepped and draped in the standard surgical fashion. Under ultrasound guidance Left common femoral was punctured with micro puncture needle and wire. Subsequently a precision 4 Austrian sheath was then placed. Bentson wire was advanced to the level of the aorta. 4 Austrian Flush catheter was brought up and parked at the level of the renal arteries. Aortogram was then undertaken. Catheter was brought down to the level of the iliac bifurcation. Iliacs were subsequently imaged. Catheter was then brought in up and over to the right side SFA. Runoff study was then undertaken. there was recognized that she had no significant named vessels below knee but some be had a knee disease. Along with mid SFA disease. We decided to approach this. We administered 5000 units of systemic heparin. Up and over 6 Austrian sheath was then placed. Glidewire Advantage was used to traverse this lesion along with Navicross catheter. We were able to get to the P2 segment of the popliteal. This took multiple orthogonal views and we did confirmed true lumen with contrast. Once this was accomplished we 1st plasty this area with a 3 x 40 balloon. We then advanced a 5 5 by 100 regular balloon. We then into the distal SFA up to the P2 segment of the popliteal we placed a 5 x 120 drug coated balloon. This was brought into position in under 3 minutes and insufflated for a total of 3 minutes in duration. Once this was all accomplished we turned our attention to the proximal 3rd of the SFA. There was a high-grade stenosis there. Through this we advanced a 6 Austrian spider wire. We used a Hawk 1 atherectomy device and did multiple unidirectional passes. Once this was all accomplished we post dilated this area with a 6 x 40 balloon. Once again this was brought into position in under 3 minutes and insufflated for a total of 3 minutes in duration. Once this was all accomplished completion angiogram demonstrated good result. StarClose closure device was deployed. Patient tolerated the procedure well. Returned to recovery with stable vitals. Interpretation of films: 1. Ultrasound demonstrates appropriate femoral puncture. Image of which was saved. 2. Aortogram demonstrates appropriate caliber aorta. Minimal disease. Appropriate take-off of the renals. 3. Iliac images demonstrate No significant disease 4. right Leg Common femoral artery: no significant disease Profundus Femoris: No significant disease Superficial femoral artery: moderate stenosis of proximal 1/3 Popliteal artery (p1,p2,p3): stenotic disease up to the P2 segment total occlusion beyond the P2 segment, no named vessels below this Anterior tibial artery: occluded with collaterals only Peroneal artery: occluded with collaterals only Posterior tibial artery: occluded with collaterals only Dorsalis pedis/plantar arch: incomplete Conclusion: 1. successful right leg endovascular intervention Of right SFA. Unfortunately no below knee vessels identified. 2. Anticoagulation status: resume Eliquis and baby aspirin This note is constructed using voice recognition software. While every effort has been made to ensure accuracy, excavating supervisor errors may have been included. Thank you for allowing me to participate in the care of your patient. Yours sincerely, Milind Hightower MD, FACS, R.P.V.I.
== END | disposition home or self-care (01) ==
PROVIDERS: PCP Nurse Practitioner Family; Visit Provider Surgery Vascular Surgery
DX: E11.51 Type 2 diabetes mellitus with diabetic peripheral angiopathy without gangrene (principal); L97.519 Non-pressure chronic ulcer of other part of right foot with unspecified severity; L97.819 Non-pressure chronic ulcer of other part of right lower leg with unspecified severity; I70.235 Atherosclerosis of native arteries of right leg with ulceration of other part of foot; I70.238 Atherosclerosis of native arteries of right leg with ulceration of other part of lower leg; Z79.4 Long term (current) use of insulin; Z88.8 Allergy status to other drugs, medicaments and biological substances; E61.1 Iron deficiency; E55.9 Vitamin D deficiency, unspecified
CPT/HCPCS: 36415; 37225; 76937; 82565; 82947; 84520; 85025; 99152; 99153; C1714; C1725; C1760; C1769; C1884; C1887; J1643; J2250; J3010; Q9967

== ENCOUNTER → 2023-06-27 06:51 | Outpatient (BNV) | payer MEDICARE, MEDICAID, SELFPAY | PROVIDERS: PCP Nurse Practitioner Family; Visit Provider Surgery Vascular Surgery | DX: I70.238 Atherosclerosis of native arteries of right leg with ulceration of other part of lower leg (principal) | CPT/HCPCS: 37225; 75625; 75710; 76937; 99152 ==

== ENCOUNTER 2023-07-10 16:15 | Outpatient (AMB) | payer OTHER, SELFPAY ==
--- NOTE | 2023-07-10 16:18 | A.OFFPC_ITS ---
Vital Signs 07/10/23 16:19 BP 118/62 Blood Pressure Location Rt brachial Position Sitting Respiration 17 Pulse 84 Pulse Source Pulse Oximeter Temp 98.7 F Temp Source Tympanic Pulse Oximetry (%) 99 Oxygen Delivery Method Room Air Intake Visit Reasons: Follow up dm Intake Note: Patient is here to follow up on diabetic care. Patient needs a refill on gabapentin; patient has 1 pill left. Patient is accompanied by her daughter and they share they have no current concerns. 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 Accompanied by: Daughter Allergies lisinopril Allergy (Severe, Verified 07/10/23 16:37) swollen tongue apple Allergy (Intermediate, Verified 07/10/23 16:37) tongue swelling banana Allergy (Intermediate, Verified 07/10/23 16:37) tongue and lip swelling Medication List - Last Reconciled 07/10/23 by Maribel Mckinnon CNP apixaban (Eliquis) 2.5 mg PO BID aspirin 81 mg PO DAILY atorvastatin 80 mg PO BEDTIME 30 days blood sugar diagnostic (FreeStyle Test strips) bid to tid bs checks bumetanide 1 mg PO BID carvedilol 25 mg PO BID cholecalciferol (vitamin D3) 1,250 mcg PO QWEEK 3 months ferrous sulfate 325 mg PO Q OTHER DAY 30 days gabapentin 300 mg PO BEDTIME 30 days hydralazine 25 mg PO TID insulin glargine (Lantus U-100 Insulin) 8 units (0.08 mL) subcut BEDTIME 90 days polyethylene glycol 3350 (Miralax) 238 grams PO ONCE 1 day syringe with needle (Monoject Safety Syringes) POC testing TID Tobacco use date assessed: 07/10/23 Fall risk assessment: No Falls in past year Last assessed Fall Risk: 07/10/23 HPI HPI Comments History of Present Illness Details 73-year-old female, accompanied by her d helioluis, presents for diabetes follow-up. She admits to taking her medications as prescribed. Her last A1c was 7.2% She offers no complaints and denies acute symptoms at this time. Her daughter noted the patient had angioplasty of the LLE last week and has a f/u appointment this week. She is followed by [facility] Cardiology, Hematology, and vascular surgery. She is also followed by podiatry and [facility]. Her daughter notes that the patient has not had an eye exam for the past several years. [facility] Medical History Stroke Weakness Iron deficiency Vitamin D deficiency Surgical History No pertinent past surgical history Family History Father Bladder cancer Smoker Mother Diabetes CVD (cardiovascular disease) Glaucoma Daughter Anxiety Family/Other Alzheimer's dementia Uterine cancer Social History Household Members: Family Housing: Apartment Alcohol intake: never Patient Tobacco Use Status: Never used Tobacco e-Cigarette/Vaping Use: Never Used Second Hand Smoke Exposure: No service: No Current occupational status: retired Cognitive needs: No Hearing needs: No Vision needs: No Questionnaire Thrive Questionnaire Date Thrive assessed: 08/18/21 SARAHY-7 AMB Questionnaire SARAHY-7 Date SARAHY - 7 assessed: 05/10/23 Source: Developed by Drs. Marcel Payne, Rosa Perez, Matt Kaba and colleagues, with an educational vicki from [employer]. Review of Systems Const Details: Const Denies chills, Denies fatigue, Denies fever(s), Denies headache(s) and Denies weakness ENT Denies dizziness and Denies headache(s) Card Denies chest pain, Denies lightheadedness, Denies dyspnea and Denies other (Palpitations) Resp Denies cough, Denies dyspnea, Denies wheezing and Denies other ( shortness of breath) GI Denies abdominal pain, Denies melena, Denies hematochezia, Denies change in bowel habits, Denies dyspepsia and Denies nausea Denies hematuria and Denies dysuria Musc Denies abnormal gait, Denies myalgias, Denies arthralgias, Denies numbness and Denies tingling Skin/Breast Denies rash, Denies unusual bruising and Denies wounds Neuro Denies abnormal gait, Denies dizziness, Denies headache(s), Denies memory loss, Denies numbness, Denies Sensory deficit (Neuro), Denies tingling and Denies weakness Psych Denies anxiety, Denies depression, Denies memory loss Endo Denies cold intolerance, Denies fatigue, Denies heat intolerance, Denies polydipsia and Denies polyuria Aller/Immun Denies wheezing Physical exam (Primary Care) Vital Signs: Last Vital Signs Temp 98.7 F 07/10/23 16:19 Pulse 84 07/10/23 16:19 Resp 17 07/10/23 16:19 BP 118/62 07/10/23 16:19 Pulse Ox 99 07/10/23 16:19 Oxygen Delivery Method Room Air 07/10/23 16:19 Tobacco/Smoking Status: Tobacco use Status Tobacco use date assessed 07/10/23 07/10/23 16:28 Patient Tobacco Use Status Never used Tobacco 07/10/23 16:28 e-Cigarette/Vaping Use Never Used 07/10/23 16:28 Thrive Assessment: Date of Thrive Assessment Date Thrive assessed 08/18/21 07/10/23 16:28 Const Other: General: no acute distress and well developed Nutritional Appearance: well nourished Orientation/consciousness: patient oriented x3 HENMT Head: Yes normocephalic and Yes atraumatic Eyes General: appearance normal, both eyes and all related structures Pupils: Equal, round and reactive pupils present EOM: EOMs intact bilaterally Resp Effort & Inspection: normal respiratory effort Auscultation: clear to auscultation bilaterally Cardio Rate: regular rate Rhythm: regular rhythm Heart sounds: S1 normal heart sound present, S2 normal heart sound present, no gallops, no murmurs and no rubs GI Palpation (GI): No Abdominal aortic bruit present, Soft to palpation, nontender, No hepatosplenomegaly present and No Rebound tenderness present Auscultation: normal bowel sounds General: Yes no CVA tenderness Back/Spine/Pelvis Back: no CVA tenderness Cervical Spine: cervical ROM normal and No Cervical spine tenderness Thoracic/Lumbar Spine: thoraco-lumbar ROM normal, No pain with thoraco-lumbar ROM, No thoracic spinal tenderness and No lumbar spinal tenderness Extrem General: Yes normal to inspection, No edema and No calf tenderness Skin General: warm and dry. Normal skin color. Normal skin turgor Neuro General: patient oriented x3, gait normal and no focal neuro deficit Cranial nerves: Yes Equal, round and reactive pupils present Cognition (Neuro): normal cognition Gait exam (Neuro): Normal gait present Sensory Exam: No Sensory deficit (Neuro) Psych Appearance: grossly normal Affect: normal affect Attitude: cooperative Thought process: Normal thought process present Results AMB Hemoglobin A1c AMB Hemoglobin A1c 6.6 % Last Edit by Flakita Verma CMA on 07/10/23 17:03 Assessment and Plan Assessment & Plan (1) Type 2 diabetes mellitus: Code(s): E11.9 - Type 2 diabetes mellitus without complications Qualifiers: Diabetes mellitus terminal computer 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 Referred to Ophthalmology Follow-up in 1-2 months for complete physical exam Return sooner with worsening or new symptoms Verbalized understanding and agreed with treatment plan. (2) Hyperlipidemia: Code(s): E78.5 - Hyperlipidemia, unspecified Qualifiers: Hyperlipidemia type: familial hypercholesterolemia Qualified Code(s): E78.01 - Familial hypercholesterolemia Plan: Her lipid levels significantly improved last month. Current LDL is 118. Previous LDL was 259 Continue to take atorvastatin as prescribed Advised to limit foods high in saturated fat and avoid foods high trans Routine exercise encouraged Will recheck lipid levels in 3 months Verbalized understanding and agreed with treatment plan. Orders: Orders AMB Hemoglobin A1c Today Z13.9 - Encounter for screening, unspecified Referrals Ophthalmology Referral E11.9 - Type 2 diabetes mellitus without complications Medications: Refilled gabapentin 300 mg PO BEDTIME 30 days 30 caps 3RF Coding Level of Care Code Est Pt Level 4 (38418) Diagnoses Type 2 diabetes mellitus E11.9 Diabetes mellitus skilled nursing insulin use: with terminal computer operator use Diabetes mellitus complication status: with circulatory complication Familial hypercholesterolemia E78.01 Hyperlipidemia type: familial hypercholesterolemia
[2023-07-10 16:19] VITALS: BP 118/62; PULSE 84; RESP 17; TEMP 37.1; O2SAT 99
== END 2023-07-10 17:00 | disposition home or self-care (01) ==
PROVIDERS: PCP Nurse Practitioner Family; Visit Provider Nurse Practitioner Family
DX: E11.9 Type 2 diabetes mellitus without complications (principal); E78.01 Familial hypercholesterolemia
CPT/HCPCS: 83036; 99214

== ENCOUNTER 2023-07-12 13:49 | Outpatient (AMB) | payer OTHER, SELFPAY ==
--- NOTE | 2023-07-12 13:53 | A.OFFVIS_ITS ---
Intake Vital Signs 07/12/23 13:57 Height 5 ft 2 in Weight 139 lb BMI 25.4 Intake Visit Reasons: 2 week follow up right leg angio Intake Note: pt here for 2 week fu right leg angio on 06/27/23 pt says she is doing well she feels like she is able to walk more then she could before the procedure also has notice some of the scars on her legs are getting better Accompanied by: Daughter Allergies lisinopril Allergy (Severe, Verified 07/12/23 13:56) swollen tongue apple Allergy (Intermediate, Verified 07/12/23 13:56) tongue swelling banana Allergy (Intermediate, Verified 07/12/23 13:56) tongue and lip swelling HPI 2 week follow up right leg angio HPI Details Very pleasant 73-year-old female presents for follow-up status post right lower extremity endovascular intervention. She has significant below-knee disease. She had undergone atherectomy and plasty of the SFA and prone heel she reports a significant improvement. Wounds have gone on to heal. She does have a great toe that is being treated by Podiatry. In general she feels significantly better. [facility] Medical History Stroke Weakness Iron deficiency Vitamin D deficiency Surgical History No pertinent past surgical history Family History Father Bladder cancer Smoker Mother Diabetes CVD (cardiovascular disease) Glaucoma Daughter Anxiety Family/Other Alzheimer's dementia Uterine cancer Social History Household Members: Family Housing: Apartment Alcohol intake: never Patient Tobacco Use Status: Never used Tobacco e-Cigarette/Vaping Use: Never Used Second Hand Smoke Exposure: No service: No Current occupational status: retired Cognitive needs: No Hearing needs: No Vision needs: No Review of Systems Const All systems reviewed & are unremarkable except as noted in HPI and below Reports no additional complaints ENT Reports Normal hearing present Card Denies chest pain, Denies chest pain at rest, Denies chest pain with activity and Denies pedal edema Resp Denies cough GI Denies abdominal pain Musc Denies abnormal gait, Denies muscle cramps and Denies radiating pain into limb Skin/Breast Denies skin ulcer and Denies wounds Neuro Reports Normal hearing present and Denies abnormal gait Psych Reports no additional complaints Physical Exam Vital Signs: BMI result Body Mass Index 25.4 Const General: cooperative, healthy appearing and comfortable Orientation/consciousness: oriented to person, oriented to place and oriented to time HEENT Head: Yes normal to inspection Neck Neck: Yes normal visual inspection Carotids: no bruits Chest Chest palpation & inspection: normal inspection of the chest Resp Effort & Inspection: normal respiratory effort and able to speak in complete sentences Auscultation: clear to auscultation bilaterally, no crackles, no rales, no rhonchi and no wheezes Cardio Rate: regular rate Rhythm: regular rhythm Heart sounds: S1 normal heart sound present and S2 normal heart sound present Bruits: no carotid bruits Peripheral pulses: Peripheral pulses 2+ throughout GI Inspection: Yes normal to inspection Skin Wounds: no wounds Hair: normal Neuro General: oriented to person, oriented to place and oriented to time Cranial nerves: Yes CN's II-XII intact bilaterally and Yes Normal hearing present Cognition (Neuro): normal cognition Motor exam (neuro): 5/5 motor strength present throughout Extrem Other: venous exam: No significant superficial varicosities or spider telangiectasias, minimal edema General: No clubbing, No cyanosis and No edema Psych Appearance: grossly normal Mental Status: mental status grossly normal Speech and movement: Normal speech and movement present Assessment & Plan Assessment & Plan (1) PAD (peripheral artery disease): Comment: 06/27/2023 - right SFA atherectomy and plasty, right popliteal plasty Code(s): I73.9 - Peripheral vascular disease, unspecified Plan: In short patient has done extremely well status post endovascular intervention. She will remain on Eliquis an aspirin. I will schedule her for 3 month arterial surveillance. Her our wounds and leg has done extremely well overall. Once again she will follow up with us in 3 months time. Thank you for allowing us to assist in her care Orders: Orders US arterial duplex LE BI 3 Months I73.9 - Peripheral vascular disease, unspecified Coding Level of Care Code Est Pt Level 4 (31553) Diagnoses PAD (peripheral artery disease) I73.9
[2023-07-12 13:57] VITALS: BMI 25.4
== END 2023-07-12 14:17 | disposition home or self-care (01) ==
PROVIDERS: PCP Nurse Practitioner Family; Visit Provider Surgery Vascular Surgery
DX: I73.9 Peripheral vascular disease, unspecified (principal)
CPT/HCPCS: 99213

== ENCOUNTER → 2023-07-12 13:49 | Outpatient (BNVA) | payer OTHER, SELFPAY | PROVIDERS: PCP Nurse Practitioner Family; Visit Provider Surgery Vascular Surgery | DX: I73.9 Peripheral vascular disease, unspecified (principal) | CPT/HCPCS: 99212 ==

== ENCOUNTER 2023-09-28 12:56 | Outpatient (AMB) | payer OTHER, SELFPAY ==
[2023-09-28 13:04] VITALS: BP 120/70; PULSE 73; RESP 16; TEMP 36.6; O2SAT 99; BMI 27.3
--- NOTE | 2023-09-28 13:04 | MHC.PC.OV ---
Vital Signs 09/28/23 13:04 Height 5 ft 2 in Weight 149 lb 3 oz BMI 27.3 BP 120/70 Blood Pressure Location Lt brachial Position Sitting Respiration 16 Pulse 73 Pulse Source Pulse Oximeter Temp 97.9 F Temp Source Oral Pulse Oximetry (%) 99 Oxygen Delivery Method Room Air Intake Visit Reasons: CPE, req. home PT referral Intake Note: Patient is here for her physical today. Patient would like referral for home PT. Allergies lisinopril Allergy (Severe, Verified 09/28/23 13:22) swollen tongue apple Allergy (Intermediate, Verified 09/28/23 13:22) tongue swelling banana Allergy (Intermediate, Verified 09/28/23 13:22) tongue and lip swelling Medication List - Last Reconciled 09/28/23 by Maribel Mckinnon CNP apixaban (Eliquis) 2.5 mg PO BID aspirin 81 mg PO DAILY atorvastatin 80 mg PO BEDTIME 30 days blood sugar diagnostic (FreeStyle Test strips) bid to tid bs checks bumetanide 1 mg PO BID carvedilol 25 mg PO BID cholecalciferol (vitamin D3) 1,250 mcg PO QWEEK 3 months ferrous sulfate 325 mg PO Q OTHER DAY 30 days gabapentin 300 mg PO BEDTIME 30 days hydralazine 25 mg PO TID insulin glargine (Lantus U-100 Insulin) 8 units (0.08 mL) subcut BEDTIME 90 days polyethylene glycol 3350 (Miralax) 238 grams PO ONCE 1 day syringe with needle (Monoject Safety Syringes) POC testing TID Tobacco use date assessed: 07/10/23 Fall risk assessment: No Falls in past year Last assessed Fall Risk: 09/28/23 Dental Screening Dental Screen Date: 09/28/23 Did you have a dental visit in the last 12 months?: Yes Did you have a dental problem in the last 6 months where you did not have access to dental care?: No Was dental information given to patient?: Yes HPI HPI Comments History of Present Illness Details 73-year-old [place]er-speaking female, accompanied by her daughter, presents for an extended physical exam She was escorted in a wheelchair She has history of hypertension, diabetes, kidney disease, iron deficiency anemia, hyperlipidemia, vitamin-D deficiency, and peripheral vascular disease he admits to taking her medications as prescribed without adverse reactions She offers no complaints and denies acute symptoms She is followed by podiatry, and [facility] vascular, hematology, cardiology, and nephrology. She has a f/u appointment with Ophthalmology, Dr. Fernandez in October, She notes that her commissary representative recommended physical therapy to improve mobility and facilitate circulation to her lower extremities. She requests referral for home PT to [facility] She has never had a colonoscopy. Declines colonoscopy She has never had a mammogram. Declines mammogram She has never had a bone density scan. She declines bone scan She has not been vaccinated for PNA or shingles. She has not up-to-date on flu vaccine. She declines vaccinations She no longer performs pap smear test She notes that her father had bladder cancer. No other family history of cancer Interpretation by the patient's daughter per patient's preference [facility] Medical History Stroke Weakness Iron deficiency Vitamin D deficiency Surgical History History of angioplasty (~07/11/23) No pertinent past surgical history Family History Father Bladder cancer Smoker Mother Diabetes CVD (cardiovascular disease) Glaucoma Daughter Anxiety Family/Other Alzheimer's dementia Uterine cancer Social History Household Members: Family Housing: Apartment Alcohol intake: never Patient Tobacco Use Status: Never used Tobacco e-Cigarette/Vaping Use: Never Used Second Hand Smoke Exposure: No service: No Current occupational status: retired Cognitive needs: No Hearing needs: No Vision needs: No Questionnaire Thrive Questionnaire Date Thrive assessed: 08/18/21 SARAHY-7 AMB Questionnaire SARAHY-7 Date SARAHY - 7 assessed: 05/10/23 Source: Developed by Drs. Marcel Payne, Rosa Perez, Matt Kaba and colleagues, with an educational vicki from [employer]. Review of Systems Const Details: Denies chills, Denies fatigue, Denies fever(s), Denies headache(s) and Denies weakness HEENT Denies change in vision, Denies dizziness, Denies headache(s), Denies hearing loss, Denies nasal congestion, Denies sinus pain, Denies sinus pressure and Denies sore throat Card Denies chest pain, Denies lightheadedness, Denies dyspnea and Denies other (palpitations) Resp Denies cough, Denies dyspnea and Denies wheezing GI Denies abdominal pain, Denies melena, Denies hematochezia, Denies change in bowel habits, Denies dyspepsia and Denies nausea Denies hematuria and Denies dysuria Musc Denies abnormal gait, Denies myalgias, Denies arthralgias, Denies numbness and Denies tingling Skin/Breast Denies rash, Denies unusual bruising and Denies wounds Neuro Denies abnormal gait, Denies dizziness, Denies headache(s), Denies memory loss, Denies numbness, Denies Sensory deficit (Neuro), Denies tingling and Denies weakness Psych Denies anxiety, Denies depression and Denies memory loss Endo Denies cold intolerance, Denies fatigue, Denies heat intolerance, Denies polydipsia and Denies polyuria Alex/Lymph Denies easy bleeding and Denies easy bruising Aller/Immun Denies wheezing Physical exam (Primary Care) Vital Signs: Last Vital Signs Temp 97.9 F 09/28/23 13:04 Pulse 73 09/28/23 13:04 Resp 16 09/28/23 13:04 BP 120/70 09/28/23 13:04 Pulse Ox 99 09/28/23 13:04 Oxygen Delivery Method Room Air 09/28/23 13:04 BMI result Body Mass Index 27.3 Tobacco/Smoking Status: Tobacco use Status Tobacco use date assessed 07/10/23 09/28/23 13:10 Patient Tobacco Use Status Never used Tobacco 09/28/23 13:10 e-Cigarette/Vaping Use Never Used 09/28/23 13:10 Thrive Assessment: Date of Thrive Assessment Date Thrive assessed 08/18/21 09/28/23 13:10 Const Other: General: no acute distress, well developed, alert and awake Nutritional Appearance: well nourished Orientation/consciousness: patient oriented x3 HENMT Head: Yes normocephalic and Yes atraumatic Ears: hearing grossly normal bilaterally and TM's normal bilaterally General nose exam: Normal external nose present and Normal nares present Mouth: Normal oral and palatal mucosa present and moist mucous membranes Teeth and gingiva: dentition normal Throat: Yes oropharynx normal Eyes Pupils: Equal, round and reactive pupils present and Pupil accommodation reflex normal EOM: EOMs intact bilaterally Neck Neck: Yes normal visual inspection, Yes no lymphadenopathy and Yes trachea midline Thyroid: Thyroid normal Carotids: no bruits Lymphatic: no lymphadenopathy noted Chest Chest palpation & inspection: normal inspection of the chest Resp Effort & Inspection: normal respiratory effort Auscultation: clear to auscultation bilaterally Cardio Rate: regular rate Rhythm: regular rhythm Heart sounds: S1 normal heart sound present, S2 normal heart sound present, no gallops, no murmurs and no rubs Bruits: no abdominal aortic bruits and no carotid bruits GI Palpation (GI): No Abdominal aortic bruit present, Soft to palpation, nontender, No hepatosplenomegaly present and No Rebound tenderness present Auscultation: normal bowel sounds General: Yes no CVA tenderness Back/Spine/Pelvis Back: no CVA tenderness Cervical Spine: cervical ROM normal and No Cervical spine tenderness Thoracic/Lumbar Spine: thoraco-lumbar ROM normal, No pain with thoraco-lumbar ROM, No thoracic spinal tenderness and No lumbar spinal tenderness Skin General: warm and dry. Normal skin color. Normal skin turgor Lesions: no lesions Rashes: no rashes Trauma: no lacerations or abrasions Wounds: no wounds Nails: normal Neuro General: patient oriented x3, gait unsteady and CN's II-XI intact bilaterally Cranial nerves: Yes Equal, round and reactive pupils present Cognition (Neuro): normal cognition Gait exam (Neuro): Unsteady gait present Motor exam (neuro): 5/5 motor strength present throughout Sensory Exam: No Sensory deficit (Neuro) Deep tendon reflexes (DTR's): Right patellar reflex intensity grade: 2+ and Left patellar reflex intensity grade: 2+ Extrem General: Yes normal to inspection, No edema and No calf tenderness Psych Appearance: grossly normal Affect: normal affect Attitude: cooperative Thought process: Normal thought process present Assessment and Plan Assessment & Plan (1) Encounter for routine adult physical exam with abnormal findings: Code(s): Z00.01 - Encounter for general adult medical examination with abnormal findings Plan: Significant physical restrictions/limitations noted due to gait instability Instructed on safety to prevent fall Continue current treatment regimen Continue follow-up with specialist as planned Instructed on importance of health screening such as mammogram, colonoscopy, bone density scan, and immunization such as flu, pneumonia, and shingles; she declines health screening. Cologuard ordered. Advised to notify her PCP if she changes her mind on health screening Referred for home PT Follow-up in 1 month for diabetes and hypertension or return sooner with symptoms or concerns Verbalized understanding and agreed with treatment plan Orders: Orders PT Evaluation and Treatment Today Z00.01 - Encounter for general adult medical examination with abnormal findings Referrals Cologuard Test Z12.11 - Encounter for screening for malignant neoplasm of colon, Z12.12 - Encounter for screening for malignant neoplasm of rectum Coding Level of Care Code Est Pt Prev Care >65y(87036) Diagnoses Encounter for routine adult physical exam with abnormal findings Z00.01
== END 2023-09-28 13:56 | disposition home or self-care (01) ==
PROVIDERS: PCP Nurse Practitioner Family; Visit Provider Nurse Practitioner Family
DX: Z00.00 Encounter for general adult medical examination without abnormal findings (principal)
CPT/HCPCS: 99397

== ENCOUNTER 2023-10-01 13:37 | Outpatient (REF) | payer OTHER, SELFPAY ==
--- NOTE | ~2023-10-01 | US_ITS ---
EXAMINATION: Noninvasive assessment of the bilateral lower extremities with ARTERIAL DUPLEX CLINICAL INFORMATION: Peripheral vascular disease TECHNIQUE: Duplex Doppler techniques with waveform analysis and measurement of velocities in the bilateral common femoral, profunda femoris, superficial femoral, popliteal and tibial arteries were performed. COMPARISON: 05/22/23 FINDINGS: DIRECT DUPLEX DOPPLER FINDINGS: RIGHT LEG: Common femoral artery: 123 cm/s, phasicity: Triphasic Profunda femoris artery: 201 cm/s, phasicity: Triphasic Superficial femoral artery (proximal): 51.5 cm/s, phasicity: Monophasic Superficial femoral artery (mid): 78.3 cm/s, previously 287 cm/s phasicity: Monophasic. Visually there is decreased noncalcified plaque compared to the prior exam Superficial femoral artery (distal): 48.0 cm/s, phasicity: Monophasic. Moderate amount of noncalcified plaque is still seen Popliteal artery: 38.6 cm/s, phasicity: Monophasic. There is a large amount of noncalcified plaque Posterior tibial artery: 12.0 cm/s, phasicity: Monophasic Peroneal artery: 46.3 cm/s, phasicity: Monophasic Anterior tibial artery: 25.4 cm/s, phasicity: Monophasic Dorsalis pedis artery: 21.4 cm/s, phasicity:Monophasic LEFT LEG: Common femoral artery: 141 cm/s, phasicity: Biphasic Profunda femoris artery: 328 cm/s, phasicity: Biphasic Superficial femoral artery (proximal): 318 cm/s, phasicity: Biphasic Superficial femoral artery (mid): 130 cm/s, phasicity: Biphasic Superficial femoral artery (distal): 170 cm/s, phasicity: Biphasic Popliteal artery: 101 cm/s, phasicity: Biphasic Posterior tibial artery: 14.0 cm/s, phasicity: Monophasic Peroneal artery: 19.8 cm/s, phasicity: Monophasic Anterior tibial artery: 13.8 cm/s, phasicity: Monophasic Dorsalis pedis artery: 24.6 cm/s, phasicity: Monophasic US/US arterial duplex LE BI IMPRESSION: Right leg: Decreased atherosclerotic plaque and normal velocities in the mid superficial femoral artery. There is still persistent moderate to severe noncalcified plaque in the distal superficial femoral artery and popliteal artery with dampened monophasic waveforms and decrease velocities consistent with persistent or recurrent underlying stenoses/occlusive disease. Patent flow in the below-knee runoff vessels with markedly dampened monophasic waveforms Left leg: Elevated velocity with biphasic waveform in the proximal superficial femoral artery consistent with moderate stenosis. Biphasic waveforms are present within the popliteal artery. Below-knee runoff vessels demonstrates dampened monophasic flow with decrease velocities
== END 2023-10-01 13:38 | disposition home or self-care (01) ==
LOC: HO.US 13:37
PROVIDERS: PCP Nurse Practitioner Family; Visit Provider Surgery Vascular Surgery
DX: I73.9 Peripheral vascular disease, unspecified (principal)
CPT/HCPCS: 93925

== ENCOUNTER 2023-10-04 09:06 | Outpatient (AMB) | payer OTHER, SELFPAY ==
[2023-10-04 09:11] VITALS: BMI 27.2
--- NOTE | 2023-10-04 09:11 | A.OFFVIS_ITS ---
Intake Vital Signs 10/04/23 09:11 Height 5 ft 2 in Weight 149 lb BMI 27.2 Intake Visit Reasons: follow up Arterial US 10/01/2023 Intake Note: 3 mo follow up arterial US 10/01/23 s/p Right LE Angio 06/27/23. Pt has Right LE ulcers on her pretibial area and ulcers on 1st,2nd and 3rd toes, her toe nails fell off. Went to podiatry Sunday and the prescribed Abx for redness and possibe infection. Pt has a lot of pain but has been trying to stay active to improve circulation. Does have swelling but daughter states swelling has slowly decreased, does have odor and pt states that she has difficulty sleeping due to the pain Accompanied by: daughter Ita Allergies lisinopril Allergy (Severe, Verified 10/04/23 09:17) swollen tongue apple Allergy (Intermediate, Verified 10/04/23 09:17) tongue swelling banana Allergy (Intermediate, Verified 10/04/23 09:17) tongue and lip swelling HPI follow up Arterial US 10/01/2023 HPI Details Very pleasant 73-year-old female presents for follow-up status post right lower extremity endovascular intervention which was performed proximally 3 months ago. This was a right SFA atherectomy and plasty along with popliteal plasty. She reports that she has been doing fairly well. Right leg appears to be healing. She does have her great toe which has been treated by Podiatry. She is being maintained on Eliquis and aspirin. She now presents for routine surveillance follow-up with noninvasive testing. ON LICENSE OF [facility] Medical History Stroke Weakness Iron deficiency Vitamin D deficiency Surgical History History of angioplasty (~07/11/23) No pertinent past surgical history Family History Father Bladder cancer Smoker Mother Diabetes CVD (cardiovascular disease) Glaucoma Daughter Anxiety Family/Other Alzheimer's dementia Uterine cancer Social History Household Members: Family Housing: Apartment Alcohol intake: never Patient Tobacco Use Status: Never used Tobacco e-Cigarette/Vaping Use: Never Used Second Hand Smoke Exposure: No service: No Current occupational status: retired Cognitive needs: No Hearing needs: No Vision needs: No Review of Systems Const All systems reviewed & are unremarkable except as noted in HPI and below Reports no additional complaints ENT Reports Normal hearing present Card Denies chest pain, Denies chest pain at rest, Denies chest pain with activity and Denies pedal edema Resp Denies cough GI Denies abdominal pain Musc Denies abnormal gait, Denies muscle cramps and Denies radiating pain into limb Skin/Breast Denies skin ulcer and Denies wounds Neuro Reports Normal hearing present and Denies abnormal gait Psych Reports no additional complaints Physical Exam Vital Signs: BMI result Body Mass Index 27.2 Const General: cooperative, healthy appearing and comfortable Orientation/consciousness: oriented to person, oriented to place and oriented to time HEENT Head: Yes normal to inspection Neck Neck: Yes normal visual inspection Carotids: no bruits Chest Chest palpation & inspection: normal inspection of the chest Resp Effort & Inspection: normal respiratory effort and able to speak in complete sentences Auscultation: clear to auscultation bilaterally, no crackles, no rales, no rhonchi and no wheezes Cardio Rate: regular rate Rhythm: regular rhythm Heart sounds: S1 normal heart sound present and S2 normal heart sound present Bruits: no carotid bruits Peripheral pulses: Peripheral pulses 2+ throughout GI Inspection: Yes normal to inspection Skin Other: Small pretibial ulceration with surrounding irritation Wounds: no wounds Hair: normal Neuro General: oriented to person, oriented to place and oriented to time Cranial nerves: Yes CN's II-XII intact bilaterally and Yes Normal hearing present Cognition (Neuro): normal cognition Motor exam (neuro): 5/5 motor strength present throughout Extrem Other: venous exam: No significant superficial varicosities or spider telangiectasias, minimal edema General: No clubbing, No cyanosis and No edema Psych Appearance: grossly normal Mental Status: mental status grossly normal Speech and movement: Normal speech and movement present Results Reviewed Results Reviewed: Noninvasive testing dated 10/01/2023 demonstrates monophasic waveforms down the lower extremity SFA on down. It does seem somewhat improved from prior. Assessment & Plan Assessment & Plan (1) PAD (peripheral artery disease): Comment: 06/27/2023 - right SFA atherectomy and plasty, right popliteal plasty Code(s): I73.9 - Peripheral vascular disease, unspecified Plan: In short patient has improved right lower extremity. I did review the noninvasive testing. Unfortunately we were unable to get ABIs. I did recommend a short interval repeat test to be performed in approximately 3 months time. Should there be any interval issues or should it worsen happy to see her back sooner. We did discuss routine risk occasion and continuation of Eliquis and aspirin. Thank you for allowing us to assist in her care. Orders: Orders US arterial duplex LE BI 3 Months I73.9 - Peripheral vascular disease, unspecifi ed Medications: New nystatin-triamcinolone 100,000-0.1 unit/g-% 1 appl topical DAILY 30 grams 1RF I73.9 - Peripheral vascular disease, unspecified Coding Level of Care Code Est Pt Level 4 (91105) Diagnoses PAD (peripheral artery disease) I73.9
== END 2023-10-04 09:51 | disposition home or self-care (01) ==
PROVIDERS: PCP Nurse Practitioner Family; Visit Provider Surgery Vascular Surgery
DX: I73.9 Peripheral vascular disease, unspecified (principal)
CPT/HCPCS: 99214

== ENCOUNTER → 2023-10-04 09:06 | Outpatient (BNVA) | payer OTHER, SELFPAY | PROVIDERS: PCP Nurse Practitioner Family; Visit Provider Surgery Vascular Surgery | DX: I73.9 Peripheral vascular disease, unspecified (principal) | CPT/HCPCS: 99212 ==

== ENCOUNTER 2023-10-19 16:50 | Outpatient (AMB) | payer OTHER, SELFPAY ==
[2023-10-19 16:50] VITALS: BP 128/74; PULSE 82; RESP 13; TEMP 36.4; O2SAT 99; BMI 27.3
--- NOTE | 2023-10-19 16:50 | A.OFFPC_ITS ---
Vital Signs 10/19/23 16:50 Height 5 ft 2 in Weight 149 lb 6 oz BMI 27.3 BP 128/74 Blood Pressure Location Rt brachial Position Sitting Respiration 13 Pulse 82 Pulse Source Pulse Oximeter Temp 97.5 F Temp Source Temporal Artery Scan Pulse Oximetry (%) 99 Oxygen Delivery Method Room Air Intake Visit Reasons: follow up dm Intake Note: Patient would like to reduce dose of lipitor. 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 Accompanied by: Daughter Allergies lisinopril Allergy (Severe, Verified 10/19/23 17:02) swollen tongue apple Allergy (Intermediate, Verified 10/19/23 17:02) tongue swelling banana Allergy (Intermediate, Verified 10/19/23 17:02) tongue and lip swelling Tobacco use date assessed: 10/19/23 Fall risk assessment: No Falls in past year Last assessed Fall Risk: 10/19/23 Dental Screening Dental Screen Date: 10/19/23 Did you have a dental visit in the last 12 months?: No Did you have a dental problem in the last 6 months where you did not have access to dental care?: No Was dental information given to patient?: Patient declined HPI HPI Comments History of Present Illness Details 73-year-old female, accompanied by her aracely hoover, presents for diabetes follow-up Last A1c in July was 6.6% She admits to taking her medications as prescribed without adverse reactions. She notes that she stopped taking ferrous sulfate about 2 weeks ago. Her daughter notes that she spoke with someone from the patient's hematology office today and was told that the patient does not have to take ferrous sulfate; taking it would make no difference to her condition She states that she has been consuming sweets, cookies, rice, and juice She offers no complaints and denies acute symptoms at this time She has an appointment with Dr. Mccloud, nephrology next month [facility] Medical History Stroke Weakness Iron deficiency Vitamin D deficiency Surgical History History of angioplasty (~07/11/23) No pertinent past surgical history Family History Father Bladder cancer Smoker Mother Diabetes CVD (cardiovascular disease) Glaucoma Daughter Anxiety Family/Other Alzheimer's dementia Uterine cancer Social History Household Members: Family Housing: Apartment Alcohol intake: never Patient Tobacco Use Status: Never used Tobacco e-Cigarette/Vaping Use: Never Used Second Hand Smoke Exposure: No service: No Current occupational status: retired Cognitive needs: No Hearing needs: No Vision needs: No Questionnaire Thrive Questionnaire Date Thrive assessed: 08/18/21 SARAHY-7 AMB Questionnaire SARAHY-7 Date SARAHY - 7 assessed: 05/10/23 Source: Developed by Drs. Marcel Payne, Rosa Perez, Matt Kaba and colleagues, with an educational vicki from [employer]. Review of Systems Const Details: Const Denies chills, Denies fatigue, Denies fever(s), Denies headache(s) and Denies weakness ENT Denies dizziness and Denies headache(s) Card Denies chest pain, Denies lightheadedness, Denies dyspnea and Denies other (Palpitations) Resp Denies cough, Denies dyspnea, Denies wheezing and Denies other ( shortness of breath) GI Denies abdominal pain, Denies melena, Denies hematochezia, Denies change in bowel habits, Denies dyspepsia and Denies nausea Denies hematuria and Denies dysuria Musc Denies abnormal gait, Denies myalgias, Denies arthralgias, Denies numbness and Denies tingling Skin/Breast Denies rash, Denies unusual bruising and Denies wounds Neuro Denies abnormal gait, Denies dizziness, Denies headache(s), Denies memory loss, Denies numbness, Denies Sensory deficit (Neuro), Denies tingling and Denies weakness Psych Denies anxiety, Denies depression, Denies memory loss Endo Denies cold intolerance, Denies fatigue, Denies heat intolerance, Denies polydipsia and Denies polyuria Aller/Immun Denies wheezing Physical exam (Primary Care) Vital Signs: Last Vital Signs Temp 97.5 F 10/19/23 16:50 Pulse 82 10/19/23 16:50 Resp 13 10/19/23 16:50 BP 128/74 10/19/23 16:50 Pulse Ox 99 10/19/23 16:50 Oxygen Delivery Method Room Air 10/19/23 16:50 BMI result Body Mass Index 27.3 Tobacco/Smoking Status: Tobacco use Status Tobacco use date assessed 10/19/23 10/19/23 17:05 Patient Tobacco Use Status Never used Tobacco 10/19/23 16:59 e-Cigarette/Vaping Use Never Used 10/19/23 16:59 Thrive Assessment: Date of Thrive Assessment Date Thrive assessed 08/18/21 10/19/23 16:59 Const Other: General: no acute distress and well developed Nutritional Appearance: well nourished Orientation/consciousness: patient oriented x3 HENMT Head: Yes normocephalic and Yes atraumatic Eyes General: appearance normal, both eyes and all related structures Pupils: Equal, round and reactive pupils present EOM: EOMs intact bilaterally Resp Effort & Inspection: normal respiratory effort Auscultation: clear to auscultation bilaterally Cardio Rate: regular rate Rhythm: regular rhythm Heart sounds: S1 normal heart sound present, S2 normal heart sound present, no gallops, no murmurs and no rubs GI Palpation (GI): No Abdominal aortic bruit present, Soft to palpation, nontender, No hepatosplenomegaly present and No Rebound tenderness present Auscultation: normal bowel sounds General: Yes no CVA tenderness Back/Spine/Pelvis Back: no CVA tenderness Cervical Spine: cervical ROM normal and No Cervical spine tenderness Thoracic/Lumbar Spine: thoraco-lumbar ROM normal, No pain with thoraco-lumbar ROM, No thoracic spinal tenderness and No lumbar spinal tenderness Extrem General: Yes normal to inspection, No edema and No calf tenderness Skin General: warm and dry. Normal skin color. Normal skin turgor Neuro General: patient oriented x3, gait normal and no focal neuro deficit Cranial nerves: Yes Equal, round and reactive pupils present Cognition (Neuro): normal cognition Gait exam (Neuro): Normal gait present Sensory Exam: No Sensory deficit (Neuro) Psych Appearance: grossly normal Affect: normal affect Attitude: cooperative Thought process: Normal thought process present Results AMB Hemoglobin A1c AMB Hemoglobin A1c 9.6 % Last Edit by Sheryl Garrison MA on 10/19/23 17:11 Results Reviewed Results Reviewed: Laboratory Last Values Hgb A1c (Clinic) 9.6 % (4.0-6.0) H 10/19/23 17:08 Assessment and Plan Assessment & Plan (1) Type 2 diabetes mellitus: Code(s): E11.9 - Type 2 diabetes mellitus without complications Qualifiers: Diabetes mellitus complication status: with circulatory complication Diabetes 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 Previous A1c was 6.6% Metformin 500 mg daily every morning ordered. Take as prescribed Continue to take Lantus daily at night ADA diet encouraged. Advised to avoid rice, potatoes, pasta, and bread Routine exercise encouraged Her last LDL was 118. Will recheck lipid profiles. Advised to fast for 10-12 hours, may drink water only, and get blood work done before next visit Will request Nephrology notes Follow-up in 3 months or return sooner with symptoms or concerns Verbalized understanding and agreed with treatment plan (2) Hypertension, essential: Code(s): I10 - Essential (primary) hypertension Plan: Blood pressure is 128/70, within goal of less than 130/80 Continue current treatment regimen Low-sodium diet and routine exercise encouraged Follow-up in 3 months or return sooner with symptoms or concerns Verbalized understanding and agreed with treatment plan (3) Anemia: Code(s): D64.9 - Anemia, unspecified Plan: Chronic chronic mild normocytic anemia Followed by Dr. Bunch, hematology According to Dr. Bunch, the patient would be a candidate for RICK therapy for chronic stage 3 kidney disease Follow-up with Hematology as planned Verbalized understanding and agreed with the treatment Orders: Orders AMB Hemoglobin A1c Today E11.9 - Type 2 diabetes mellitus without complications Medications: New metformin QAM with meal 500 mg PO DAILY 90 days 90 tabs 1RF Coding Level of Care Code Est Pt Level 4 (05933) Diagnoses Type 2 diabetes mellitus E11.9 Diabetes mellitus complication status: with circulatory complication Diabetes mellitus nursing home insulin use: with terminal gauger supervisor use Hypertension, essential I10 Anemia D64.9
== END 2023-10-19 17:56 | disposition home or self-care (01) ==
PROVIDERS: PCP Nurse Practitioner Family; Visit Provider Nurse Practitioner Family
DX: E11.9 Type 2 diabetes mellitus without complications (principal); I10 Essential (primary) hypertension; D64.9 Anemia, unspecified
CPT/HCPCS: 83036; 99214

== ENCOUNTER 2023-11-23 07:47 | Outpatient (REF) | payer OTHER, SELFPAY ==
[2023-11-23 10:30] LABS: MANUAL DIFF FLAG NO
[2023-11-23 10:37] LABS: Basophils Percent Auto 0.6 % (0-2); Eosinophils Absolute Auto 0.2 X10*3/uL (0.0-0.4); Eosinophils Percent Auto 2.2 % (0-4); Hematocrit 33.6 % (37.0-47.0); Hemoglobin 10.4 g/dl (12.0-16.0); Imm Gran Abs Auto 0.03 X10*3/uL (0.00-0.03); Imm Gran Pct Auto 0.4 % (0.0-0.4); Lymphocytes Absolute Auto 1.9 X10*3/uL (1.2-4.9); Lymphocytes Percent Auto 25.7 % (20-40); Mean Corpuscular Hemoglobin 26.1 pg (27.0-33.0); Mean Corpuscular Volume 84.4 fL (80.0-98.0); Mean Platelet Volume 10.4 fL (9.4-12.3); Monocytes Absolute Auto 0.6 X10*3/uL (0.1-1.2); Monocytes Percent Auto 8.4 % (2-11); Neutrophils Absolute Auto 4.6 x10*3/uL (2.0-8.3); Neutrophils Percent Auto 62.7 % (45-73); Platelet Count 340 X10*3/uL (160-400); Red Blood Count 3.98 X10*6/uL (4.20-5.50); Red Cell Distribution Width 14.6 % (11.0-16.0); White Blood Count 7.3 X10*3/uL (4.8-10.8)
[2023-11-23 10:55] LABS: Anion Gap 11 (12-20); Blood Urea Nitrogen 41 mg/dL (9-16); Calcium 9.5 mg/dL (8.4-10.2); Carbon Dioxide 25 mmol/L (22-29); Chloride 111 mmol/L (96-108); Estimated Glomerular Filt Rate 30; Iron 34 mcg/dL (30-160); Percent Iron Saturation 16 % (15-50); Potassium 4.5 mmol/L (3.3-5.1); Sodium 142 mmol/L (135-145); Total Iron Binding Capacity 210 mcg/dL (228-428); Unsaturated Iron Binding 176 ug/dL
== END 2023-11-23 07:48 | disposition home or self-care (01) ==
LOC: HO.HMGCLDS 07:47
PROVIDERS: PCP Nurse Practitioner Family; Visit Provider Internal Medicine Nephrology
DX: N18.4 Chronic kidney disease, stage 4 (severe) (principal); E11.21 Type 2 diabetes mellitus with diabetic nephropathy
CPT/HCPCS: 36415; 80051; 82310; 82565; 83540; 84520; 85025

== ENCOUNTER 2023-12-26 16:00 | Outpatient (RCR) | payer OTHER, SELFPAY ==
--- NOTE | 2023-12-10 12:39 | MHC.PT.EP ---
[facility] [place] Office [place] [facility] [place] Office [address] [place] [address] [phone] F: [phone] F: [phone] F: [phone] F: [phone] Physical Therapy Plan of Care Date of Evaluation: 12/10/23 Date of Surgery: n/a Diagnosis: gait instability Assessment: Patient is a 73 year old female presenting to PT with complaints of gait instability. Pt reports onset began worsening 07/2023 after angioplasty. She presents today with impairments in, LE strength, gait mechanics, balance, endurance. 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 Pt expresses care home goal of develop program she can do at home, and is motivated to work towards this in PT. Clinical presentation today is most consistent with signs and sx associated with gait instability and pt will benefit from skilled PT 2 week x 4 weeks to address the following problems and impairments noted upon evaluation: LE strength, gait mechanics, balance, endurance. These problems limit the patient with the following functional activities: ambulating, stair negotiation, ADLs. The prescribed treatment plan of care is medically necessary. Co-morbidities of stroke, hx blood clot on aspirin, HTN, DM hx angioplasty 07/2023 were identified and taken into considerations of plan of care. Pt was educated on HEP, role of PT, prognosis, POC. Frequency and Duration: The patient will be seen 2 x week x 4 weeks Short Term Goals: Pt will demonstrate improved hip MMT strength by 1/3 grade in 2 weeks. 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 Pt will demonstrate improved compliance with rollator in 2 weeks without cues for improved safety. Skilled Nursing Goals: Pt will demonstrate improved DGI score by 3 points in 4 weeks for reduced risk of falls. Pt will demonstrate improved TUG score by 3 seconds in 4 weeks for reduced risk of falls. Pt will demonstrate improved LEFI score by 9 points in 4 weeks for improved functional mobility. Treatment Plan: Modalities to reduce pain, spasms and effusion. Manual therapy to restore motion and function. Therapeutic exercise to improve strength and flexibility. Neuromuscular re-education for posture and balance. Therapeutic activities to return to functional activities of daily living. Electronically signed by: Missy Langlye, PT, DPT, ATC Please sign and return to therapist. Thank you for your referral.
== END 2024-01-24 11:27 | disposition home or self-care (01) ==
LOC: HO.PTCHIC 16:00
PROVIDERS: PCP Nurse Practitioner Family; Visit Provider Nurse Practitioner Family
DX: R26.81 Unsteadiness on feet (principal)
CPT/HCPCS: 97110; 97162; 97530

== ENCOUNTER 2024-01-03 08:03 | Outpatient (RCR) | payer OTHER, SELFPAY | END 2024-07-25 13:40 | disposition other institution (70) | LOC: HO.WCC 08:03 | PROVIDERS: PCP Nurse Practitioner Family; Visit Provider Surgery | DX: E11.621 Type 2 diabetes mellitus with foot ulcer (principal); L97.512 Non-pressure chronic ulcer of other part of right foot with fat layer exposed; E11.52 Type 2 diabetes mellitus with diabetic peripheral angiopathy with gangrene; I96 Gangrene, not elsewhere classified; Z79.4 Long term (current) use of insulin; Z79.84 Long term (current) use of oral hypoglycemic drugs; Z79.82 Long term (current) use of aspirin; Z79.01 Long term (current) use of anticoagulants; Z79.2 Long term (current) use of antibiotics; Z79.899 Other long term (current) drug therapy | CPT/HCPCS: 11042; 11043; 11044; 87070; 87073; 87076; 87077; 87186; 87205; 88304; 88305; 88311; 99213; 99214; 99215 ==

== ENCOUNTER 2024-01-07 15:10 | Outpatient (REF) | payer OTHER, SELFPAY ==
--- NOTE | ~2024-01-07 | US_ITS ---
EXAMINATION: US NONINVASIVE ASSESSMENT OF THE ARTERIES OF BOTH LOWER EXTREMITIES INCLUDING PVR EXAM AND BILATERAL LOWER EXTREMITY DUPLEX. CLINICAL INFORMATION: Peripheral vascular disease COMPARISON: Ultrasound arterial duplex and TINO dated 10/01/2023 and 05/22/2023 TECHNIQUE: Ankle pulse volume recordings, ankle pressure measurements and ankle brachial indices were obtained of the lower extremity arterial system bilaterally in addition to duplex Doppler techniques with wave form analysis and measurement of velocities in the common femoral, profunda femoral, superficial femoral, popliteal, tibial and peroneal arteries. The study was performed only at rest. FINDINGS: RIGHT LE. THE RIGHT ANKLE-BRACHIAL INDEX IS: 0.50 >0.97-1.25 = normal - no significant arterial disease 0.75-0.96 = mild peripheral arterial disease 0.5-0.74 = moderate peripheral arterial disease <0.50 = severe peripheral arterial disease <0.30 = critical arterial disease 2. SEGMENTAL PRESSURES (mmHg): Brachial: 205 Ankle DP: 105 3. PVR WAVEFORMS: Ankle: Abnormal 4. DIRECT DUPLEX: Mild stenosis throughout. Common femoral artery: 153 cm/s, Multiphasic Profunda femoris artery: 173 cm/s, biphasic Superficial femoral artery (proximal): 93 cm/s, biphasic Superficial femoral artery (mid): 77 cm/s, monophasic Superficial femoral artery (distal): 122 cm/s, monophasic Popliteal artery: 20 cm/s, monophasic Mid posterior tibial artery: 34 cm/s, monophasic LEFT LE. THE LEFT ANKLE-BRACHIAL INDEX IS: 0.56 >0.97-1.25 = normal - no significant arterial disease 0.75-0.96 = mild peripheral arterial disease 0.5-0.74 = moderate peripheral arterial disease <0.50 = severe peripheral arterial disease <0.30 = critical arterial disease 2. SEGMENTAL PRESSURES: Brachial: 212 Ankle DP: 118 3. PVR WAVEFORMS: Ankle: Abnormal 4. DIRECT DUPLEX: Common femoral artery: 127 cm/s, biphasic Profunda femoris artery: 391 cm/s, biphasic Superficial femoral artery (proximal): 94 cm/s, biphasic Superficial femoral artery (mid): 169 cm/s, biphasic with moderate stenosis Superficial femoral artery (distal): 259 cm/s, monophasic with severe stenosis Popliteal artery: 106 cm/s, monophasic Mid posterior tibial artery: 63 cm/s, monophasic US/US arterial duplex LE BI IMPRESSION: RIGHT: Elevated velocity with biphasic waveform in the profunda femoris artery. Dampened monophasic waveforms and decreased velocities in the mid and distal superficial femoral artery. Persistent markedly dampened monophasic waveforms in the below knee runoff vessels. LEFT: Elevated velocity with biphasic waveform in the profunda femoris artery consistent with severe stenosis. Moderate stenosis of the mid superficial femoral artery with biphasic waveform and severe stenosis of the distal superficial femoral artery with a dampened monophasic waveform. Persistent markedly dampened monophasic waveforms in the below knee runoff vessels.
== END 2024-01-07 15:11 | disposition home or self-care (01) ==
LOC: HO.US 15:10
PROVIDERS: PCP Nurse Practitioner Family; Visit Provider Surgery Vascular Surgery
DX: I73.9 Peripheral vascular disease, unspecified (principal)
CPT/HCPCS: 93923; 93925

== ENCOUNTER 2024-01-08 15:07 | Outpatient (AMB) | payer OTHER, SELFPAY ==
--- NOTE | 2024-01-08 15:08 | A.OFFVIS_ITS ---
Intake Visit Reasons: follow up Arterial US 01/07/24 Intake Note: Patient had US on 01/06. Patient has wounds/ulcers on her great, second and third toe. Sees woundcare at [facility] was told to follow up with Dr. Hightower. Upon removing dressing patient does have some drainage and odor. Bandages and wraps changed daily by daughter. Accompanied by: Daughter Allergies lisinopril Allergy (Severe, Verified 01/08/24 15:11) swollen tongue apple Allergy (Intermediate, Verified 01/08/24 15:11) tongue swelling banana Allergy (Intermediate, Verified 01/08/24 15:11) tongue and lip swelling HPI HPI follow up Arterial US 01/07/24: Details: Very pleasant 73-year-old female presents for follow-up regarding right lower extremity. She has a nonhealing right great toe ulcer. It has continued to progress poorly. She is quite concerned about her right great toe. She has undergone urgent ultrasound and she now presents to us for follow-up evaluation. [facility] Medical History Stroke Weakness Iron deficiency Vitamin D deficiency Surgical History History of angioplasty (~07/11/23) No pertinent past surgical history Family History Father Bladder cancer Smoker Mother Diabetes CVD (cardiovascular disease) Glaucoma Daughter Anxiety Family/Other Alzheimer's dementia Uterine cancer Social History Household Members: Family Housing: Apartment Alcohol intake: never Patient Tobacco Use Status: Never used Tobacco e-Cigarette/Vaping Use: Never Used Second Hand Smoke Exposure: No service: No Current occupational status: retired Cognitive needs: No Hearing needs: No Vision needs: No Review of Systems Const All systems reviewed & are unremarkable except as noted in HPI and below Reports no additional complaints ENT Reports Normal hearing present Card Denies chest pain, Denies chest pain at rest, Denies chest pain with activity and Denies pedal edema Resp Denies cough GI Denies abdominal pain Musc Denies abnormal gait, Denies muscle cramps and Denies radiating pain into limb Skin/Breast Denies skin ulcer and Denies wounds Neuro Reports Normal hearing present and Denies abnormal gait Psych Reports no additional complaints Physical Exam Const General: cooperative, healthy appearing and comfortable Orientation/consciousness: oriented to person, oriented to place and oriented to time HEENT Head: Yes normal to inspection Neck Neck: Yes normal visual inspection Carotids: no bruits Chest Chest palpation & inspection: normal inspection of the chest Resp Effort & Inspection: normal respiratory effort and able to speak in complete sentences Auscultation: clear to auscultation bilaterally, no crackles, no rales, no rhonchi and no wheezes Cardio Rate: regular rate Rhythm: regular rhythm Heart sounds: S1 normal heart sound present and S2 normal heart sound present Bruits: no carotid bruits Peripheral pulses: Peripheral pulses 2+ throughout GI Inspection: Yes normal to inspection Skin Wounds: wounds noted (Right great toe ulcer) Hair: normal Neuro General: oriented to person, oriented to place and oriented to time Cranial nerves: Yes CN's II-XII intact bilaterally and Yes Normal hearing present Cognition (Neuro): normal cognition Motor exam (neuro): 5/5 motor strength present throughout Extrem Other: venous exam: No significant superficial varicosities or spider telangiectasias, minimal edema General: No clubbing, No cyanosis and No edema Psych Appearance: grossly normal Mental Status: mental status grossly normal Speech and movement: Normal speech and movement present Results Reviewed Results Reviewed: Noninvasive testing dated 01/07/2024 demonstrates TINO on the right of 0.5 and on the left of 0.56. On the right there is concern of disease in the mid SFA once again. Assessment & Plan Assessment & Plan (1) PAD (peripheral artery disease): Comment: 06/27/2023 - right SFA atherectomy and plasty, right popliteal plasty Code(s): I73.9 - Peripheral vascular disease, unspecified Category: Medical Plan: Patient notes leg pain when walking distances. I have discussed the pathophysiology of peripheral vascular disease with the patient. I have also discussed risk factor modification. I have reviewed the patient's arterial testing which reveals right SFA disease with an TINO of 0.5. the patient would benefit from a right leg endovascular peripheral angiogram with possible angioplasty, stent, and/or atherectomy. This has been discussed in detail with the patient along with risks, benefits, and complications. This includes but is not limited to bleeding, infection, heart attack, need for emergent surgical repair, limb ischemia, blood vessel damage, bleeding, puncture, kidney injury, bruising, allergic reaction, and skin reaction. The patient demonstrates a clear understanding. We will schedule for the next appropriate time. Thank you for allowing us to assist in this patient's care. Coding Level of Care Code Est Pt Level 4 (89205) Diagnoses PAD (peripheral artery disease) I73.9
== END 2024-01-08 15:35 | disposition home or self-care (01) ==
PROVIDERS: PCP Nurse Practitioner Family; Visit Provider Surgery Vascular Surgery
DX: I73.9 Peripheral vascular disease, unspecified (principal)
CPT/HCPCS: 99214

== ENCOUNTER → 2024-01-08 15:07 | Outpatient (BNVA) | payer OTHER, SELFPAY | PROVIDERS: PCP Nurse Practitioner Family; Visit Provider Surgery Vascular Surgery | DX: I73.9 Peripheral vascular disease, unspecified (principal); L97.519 Non-pressure chronic ulcer of other part of right foot with unspecified severity | CPT/HCPCS: 99212 ==

== ENCOUNTER 2024-01-10 06:35 | Outpatient (REF) | payer OTHER, SELFPAY ==
[2024-01-10 11:06] LABS: Blood Urea Nitrogen 68 mg/dL (9-16); Estimated Glomerular Filt Rate 24
--- NOTE | 2024-01-14 12:30 | P.EN_ITS ---
Event Note Date of Service: 01/14/24 Event Note: Patient was scheduled for angiogram today 01/14/2024. Patient has canceled and has transferred her care to [facility]. We will discharge from [facility] services Time Spent With Patient Time: Total time managing care of this patient today ____ minutes.
== END 2024-01-10 06:36 | disposition home or self-care (01) ==
LOC: HO.HMGCLDS 06:35
PROVIDERS: PCP Nurse Practitioner Family; Visit Provider Radiology Vascular & Interventional Radiology
DX: R79.89 Other specified abnormal findings of blood chemistry (principal); R94.4 Abnormal results of kidney function studies
CPT/HCPCS: 36415; 82565; 84520

== ENCOUNTER 2024-01-29 13:14 | Outpatient (AMB) | payer OTHER, SELFPAY ==
[2024-01-29 13:15] VITALS: BP 128/64; PULSE 81; RESP 14; TEMP 36.4; O2SAT 99; BMI 26.0
--- NOTE | 2024-01-29 13:15 | A.OFFPC_ITS ---
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 Required: No Accompanied by: Daughter Allergies lisinopril Allergy (Severe, Verified 01/29/24 13:34) swollen tongue apple Allergy (Intermediate, Verified 01/29/24 13:34) tongue swelling banana Allergy (Intermediate, Verified 01/29/24 13:34) tongue and lip swelling Medication List - Last Reconciled 01/29/24 by Maribel Mckinnon CNP aspirin 81 mg PO DAILY atorvastatin 80 mg PO BEDTIME 30 days blood sugar diagnostic (FreeStyle Test strips) bid to tid bs checks bumetanide 1 mg PO BID carvedilol 25 mg PO BID cholecalciferol (vitamin D3) 1,250 mcg PO QWEEK 3 months doxycycline monohydrate 100 mg PO BID gabapentin 300 mg PO BEDTIME 30 days hydralazine 25 mg PO TID insulin glargine (Lantus U-100 Insulin) 8 units (0.08 mL) subcut BEDTIME 90 days metformin 500 mg PO DAILY 90 days nystatin-triamcinolone 100,000-0.1 unit/g-% 1 appl topical DAILY polyethylene glycol 3350 (Miralax) 238 grams PO ONCE 1 day rivaroxaban (Xarelto) mg PO syringe with needle (Monoject Safety Syringes) POC testing TID vitamins B1 B6 B12 5 mL PO DAILY Tobacco use date assessed: 10/19/23 Fall risk assessment: No Falls in past year Last assessed Fall Risk: 01/29/24 Dental Screening Dental Screen Date: 10/19/23 HPI HPI Comments History of Present Illness Details 73-year-old female, accompanied by her aracely hoover, presents for hypertension and diabetes follow-up Last A1c in July was 9.6% on 10/19/2023 She admits to taking her medications as prescribed without adverse reactions She admits to making healthy healthy dietary choice; she has been limiting carbs. She has a stationary bicycle but has not been exercising She offers no complaints and denies acute symptoms at this time Per her daughter, the patient established with [facility], had an angiogram and angioplasty procedures of her RLE on 01/14/2024. Scab was removed to ulcer of the right great toe. She is currently followed by [facility] wound clinic weekly and also has home health nurse going to her home for weekly wound care. She is also followed by [facility] Per her daughter, the patient is usually anxious and irritable during wound care at the Wound Clinic; requests medication for anxiety [facility] Medical History History of femoral angiogram Stroke Weakness Iron deficiency Vitamin D deficiency Surgical History History of angioplasty (~07/11/23) No pertinent past surgical history Family History Father Bladder cancer Smoker Mother Diabetes CVD (cardiovascular disease) Glaucoma Daughter Anxiety Family/Other Alzheimer's dementia Uterine cancer Social History Household Members: Family Housing: Apartment Alcohol intake: never Patient Tobacco Use Status: Never used Tobacco e-Cigarette/Vaping Use: Never Used Second Hand Smoke Exposure: No service: No Current occupational status: retired Cognitive needs: No Hearing needs: No Vision needs: No Questionnaire Thrive Questionnaire Date Thrive assessed: 08/18/21 SARAHY-7 AMB Questionnaire SARAHY-7 Date SARAHY - 7 assessed: 05/10/23 Source: Developed by Drs. Marcel Payne, Rosa Perez, Matt Kaba and colleagues, with an educational vicki from [employer]. Review of Systems Const Details: Const Denies chills, Denies fatigue, Denies fever(s), Denies headache(s) and Denies weakness ENT Denies dizziness and Denies headache(s) Card Denies chest pain, Denies lightheadedness, Denies dyspnea and Denies other (Palpitations) Resp Denies cough, Denies dyspnea, Denies wheezing and Denies other ( shortness of breath) GI Denies abdominal pain, Denies melena, Denies hematochezia, Denies change in bowel habits, Denies dyspepsia and Denies nausea Denies hematuria and Denies dysuria Musc Denies abnormal gait, Denies myalgias, Denies arthralgias, Denies numbness and Denies tingling Skin/Breast Reports right great toe ulcer, Denies rash, Denies unusual bruising Neuro Denies abnormal gait, Denies dizziness, Denies headache(s), Denies memory loss, Denies numbness, Denies Sensory deficit (Neuro), Denies tingling and Denies weakness Psych Denies anxiety, Denies depression, Denies memory loss Endo Denies cold intolerance, Denies fatigue, Denies heat intolerance, Denies polydipsia and Denies polyuria Aller/Immun Denies wheezing Physical exam (Primary Care) Vital Signs: Last Vital Signs Temp 97.6 F 01/29/24 13:15 Pulse 81 01/29/24 13:15 Resp 14 01/29/24 13:15 BP 128/64 01/29/24 13:15 Pulse Ox 99 01/29/24 13:15 Oxygen Delivery Method Room Air 01/29/24 13:15 BMI result Body Mass Index 26.0 Tobacco/Smoking Status: Tobacco use Status Tobacco use date assessed 10/19/23 01/29/24 13:27 Patient Tobacco Use Status Never used Tobacco 01/29/24 13:27 e-Cigarette/Vaping Use Never Used 01/29/24 13:27 Thrive Assessment: Date of Thrive Assessment Date Thrive assessed 08/18/21 01/29/24 13:27 Const Other: General: no acute distress and well developed Nutritional Appearance: well nourished Orientation/consciousness: patient oriented x3 HENMT Head: Yes normocephalic and Yes atraumatic Eyes General: appearance normal, both eyes and all related structures Pupils: Equal, round and reactive pupils present EOM: EOMs intact bilaterally Resp Effort & Inspection: normal respiratory effort Auscultation: clear to auscultation bilaterally Cardio Rate: regular rate Rhythm: regular rhythm Heart sounds: S1 normal heart sound present, S2 normal heart sound present, no gallops, no murmurs and no rubs GI Palpation (GI): No Abdominal aortic bruit present, Soft to palpation, nontender, No hepatosplenomegaly present and No Rebound tenderness present Auscultation: normal bowel sounds General: Yes no CVA tenderness Back/Spine/Pelvis Back: no CVA tenderness Cervical Spine: cervical ROM normal and No Cervical spine tenderness Thoracic/Lumbar Spine: thoraco-lumbar ROM normal, No pain with thoraco-lumbar ROM, No thoracic spinal tenderness and No lumbar spinal tenderness Extrem General: Yes normal to inspection, No edema and No calf tenderness Skin General: warm and dry. Normal skin color. Normal skin turgor Lesions: no lesions Rashes: no rashes Trauma: no lacerations or abrasions Wounds: Clean, dry, and intact dressing to right great toe wound Nails: normal Neuro General: patient oriented x3, gait normal and no focal neuro deficit Cranial nerves: Yes Equal, round and reactive pupils present Cognition (Neuro): normal cognition Gait exam (Neuro): Normal gait present Sensory Exam: No Sensory deficit (Neuro) Psych Appearance: grossly normal Affect: normal affect Attitude: cooperative Thought process: Normal thought process present Results AMB Hemoglobin A1c AMB Hemoglobin A1c 7.5 % Last Edit by MK Amaya on 01/29/24 13:4 9 Assessment and Plan Assessment & Plan (1) Hypertension, essential: Code(s): I10 - Essential (primary) hypertension Plan: Blood pressure is 128/64, within goal of less than 130/80 Continue current treatment regimen Low-sodium diet encouraged Follow-up in 3 months or return sooner with symptoms or concerns Verbalized understanding and agreed with treatment plan (2) Type 2 diabetes mellitus: Code(s): E11.9 - Type 2 diabetes mellitus without complications Qualifiers: Diabetes mellitus buttermaker insulin use: with nursing home use Diabetes mellitus complication status: with circulatory complication Plan: A1c today is 7.5%, above goal of less than 7.0% previous A1c was 9.6% Will increase Lantus to 10 units at night. Advised to administer as prescribed Continue to take metformin 500 mg daily ADA diet and routine exercise encouraged Advised to get fasting lipid panel blood work done before next visit Follow-up in 3 months or return sooner with symptoms or concerns Verbalized understanding and agreed with treatment plan (3) Situational anxiety: Code(s): F41.8 - Other specified anxiety disorders Plan: Anxiety due to wound care procedures Will trial hydroxyzine 50 mg as needed. Advised to take before leaving for the wound care clinic Follow-up with worsening or new symptoms Verbalized understanding and agreed with the plan (4) Skin ulcer of right great toe: Code(s): L97.519 - Non-pressure chronic ulcer of other part of right foot with unspecified severity Plan: Clean, dry, and intact dressing to right toe wound Continue wound care with wound clinic and [facility]NA Follow-up with symptoms or concerns Verbalized understanding and agreed with the plan (5) Chronic kidney disease: Code(s): N18.9 - Chronic kidney disease, unspecified Plan: Recent BUN and creatinine levels are elevated, 64 [address] 2.[address] Mccloud. Will request record Advised to follow-up as planned Orders: Orders AMB Hemoglobin A1c Today E11.9 - Type 2 diabetes mellitus without complications, Z79.4 - alf (current) use of insulin Lipid Panel Today E11.9 - Type 2 diabetes mellitus without complications Medications: New insulin syringe-needle U-100 (BD Insulin Syringe Micro-Fine) For q.h.s. Lantus administration 100 ea 3RF hydroxyzine HCl 50 mg PO ONCE PRN 20 tabs 0RF anxiety Changed From insulin glargine (Lantus U-100 Insulin) 8 units (0.08 mL) subcut BEDTIME 90 days 10 mL 3RF To insulin glargine (Lantus U-100 Insulin) 10 units (0.1 mL) subcut BEDTIME 90 days 9 mL 3RF Coding Level of Care Code Est Pt Level 4 (45777) Complex EM visit Add On G2211 Diagnoses Hypertension, essential I10 Type 2 diabetes mellitus E11.9 Diabetes mellitus buttermaker insulin use: with nursing home use Diabetes mellitus complication status: with circulatory complication Situational anxiety F41.8 Skin ulcer of right great toe L97.519 Chronic kidney disease N18.9
--- OUTSIDE RECORDS SUMMARY | 2024-01-29 13:16 | XMS_ITS | Patient Health Record ---
Author Organization [facility] Address [address] [place] [address] Care Team Providers Care Industrial Design Engineer Name Role Phone Pratibha MASON, Juliet Primary Care Provider Unavail able Rock Newton Unavailable [phone] ALLERGIES Allergen (clinical drug ingredient) Drug/Non Drug [...] A1C % (HH) 7.2 ESTIMATED AVG GLUCOSE HEMOGLOBIN A1C (GLYCOHEMOGLO BIN) Reviewed date:08/06/2023 04:01:26 PM Interpretation: Performing Lab: Notes/Report: TOTAL HEMOGLOBIN (HGBA1C) HEMOGLOBIN A1C (HH) HEMOGLOBIN A1C % (HH) 6.7 ESTIMATED AVG GLUCOSE REASON FOR REFERRAL No Information MEDICATIONS Medication SIG (Take, Route, Frequency, Duration) Notes Start Date End Date Status Aspir-81 Active Cephalexin 500 MG 1 capsule Orally REAL RY 12 HOURS for 10 days Not-Taking Eliquis 2.5 MG as directed Orally Not-Taking Bumetanide 1 MG 1 tablet Orally Once a day Active Ferrous Sulfate 325 (65 Fe) MG 1 tablet Orally Three times a Week Active Carvedilol 25 MG 1 tablet with food Orally Twice a day Active Iodosorb 0.9 % as directed External ly Apply to ulceration daily with dry sterile dressing for 30 days 07/02/2023 Active Extra Depth Orthopedic Shoes, (1) Pair With (3) Pair Custom Heat Molded Multidensity Innersoles Dx: NIDDM/PVD(E11.51), Hammertoe Foot Deformity(M20.41,M20.42) , Preulcerative Skin Lesion(s)(L85.1) Wear Daily for 365 days 05/30/2023 Active Gabapentin 300 MG 1 capsule Orally Onc e a day Active Lipitor 80 MG 1 tablet Orally Once a day Active hydrALAZINE HCl 50 MG 1 tablet with food Orally Three times a day Active Lantus 100 UNIT/ML as directed Subcutaneous Active SOCIAL HISTORY Tobacco Use: Social History Observation Description Date Details (start date - stop date) Never Smoker NA - NA Sex Assigned At : Social History Observation Description Sex Assigned At Unknown Tobacco Use/Smoking Question Answer Notes Are you a: nonsmoker Additional Findings: Tobacco Non-User Current no n-smoker Alcohol Screen Question Answer Notes Did you [...] confirmed Acquired hammer toe of right foot (347814501337 9105) Response to treatment,I mprovement Problem Type 2 diabetes mellitus with diabetic peripheral angiopathy without gangrene (E11.51) Active confirmed Type 2 diabetes mellitus with peripheral angiopathy (145439961) Problem Other hammer toe(s) (acquired), left foot (M20.42) Active confirmed Acquired hammer toe of left foot (996043661350 9103) Response to treatment,I mprovement Problem Skin ulcer of toe of right foot, limited to breakdown of skin (L97.511) Active confirmed Ulcer of toe of right foot (disorder) (990421571428 73630) VITAL SIGNS Height 5ft 4in in 10/15/2023 Weight 139 lbs 12/24/2023 BMI 23.86 kg/m2 12/24/2023 PROCEDURES Procedure Date Ordered Date Performed Result Body Sit e 13108-URWGRVX NAIL, 6 OR MORE 05/30/2023 N/A 30484- I&D ABSCESS-COMPLICATED,MULTI 05/30/2023 N/A 23227-LPDZ SKIN LESIONS, OVER 4 05/30/2023 N/A 89675-BPVQQMJ SKIN/TISSUE 07/02/2023 N/A 85407-COTKZRG NAIL, 6 OR MORE 08/06/2023 N/A 88941- Debride <25 sq cm 08/06/2023 N/A 22921-VOAM SKIN LESIONS, OVER 4 08/06/2023 N/A 07462- Debride <25 sq cm 09/27/2023 N/A 44930-AFHBLKL NAIL, 6 OR MORE 10/15/2023 N/A 87834-DTLO SKIN LESIONS, OVER 4 10/15/2023 N/A 16959-OWLBBJM NAIL, 6 OR MORE 12/24/2023 N/A 25044-YGVX SKIN LESIONS, OVER 4 12/24/2023 N/A Encounters Encounter Location Date Provider Diagnosis [address] [address] 05/30/2023 Rock Newton Type 2 diabetes mellitus with diabetic peripheral angiopathy without gangrene E11.51 ; Onychomycosis B35.1 ; Pain of toe of right foot M79.674 ; Pain of toe of left foot M79.675 ; Other hammer toe(s) (acquired), right foot M20.41 ; Other hammer toe(s) (acquired), left foot M20.42 and Abscess of toe of right foot L02.611 [facility] [address] [address] 07/02/2023 Rock Newton Skin ulcer of toe of right foot with fat layer exposed L97.[address] [address] 07/03/2023 Rock Newton [place] [address] [address] 08/01/2023 Rock Newton [address] [address] 08/06/2023 Rock Newton Type 2 diabetes mellitus with diabetic peripheral angiopathy without gangrene E11.51 ; Ischemic ulcer of right foot, limited to breakdown of skin L97.511 ; Tinea unguium B35.1 ; Pain in right toe(s) M79.674 ; Pain in left toe(s) M79.675 ; Other hammer toe(s) (acquired), right foot M20.41 and Other hammer toe(s) (acquired), left foot M20.[address] [address] 09/26/2023 Rock Newton [address] [address] 09/27/2023 Rock Newton Skin ulcer of toe of right foot, limited to breakdown of skin L97.511 ; Cellulitis of toe of right foot L03.031 and Type 2 diabetes mellitus with diabetic peripheral angiopathy without gangrene E11.[address] [address] 10/15/2023 Rock Newton Type 2 diabetes mellitus with diabetic peripheral angiopathy without gangrene E11.51 ; Tinea unguium B35.1 ; Pain in right toe(s) M79.674 ; Pain in left toe(s) M79.675 ; Skin ulcer of toe of right foot, limited to breakdown of skin L97.511 and Cellulitis of toe of right foot L03.[address] [address] 12/24/2023 Rock Newton Type 2 diabetes mellitus with diabetic peripheral angiopathy without gangrene E11.51 ; Tinea unguium B35.1 ; Pain in right toe(s) M79.674 ; Pain in left toe(s) M79.675 and Skin ulcer of toe of right foot, limited to breakdown of skin L97.[address] [address] 12/26/2023 Rock Newton ASSESSMENTS Encounter Date Diagnosis Assessment Notes Treatment Notes Treatment Clinical Notes 05/30/2023 Type 2 diabetes mellitus with diabetic peripheral angiopathy without gangrene (ICD-10 - E11.51) 07/02/2023 Skin ulcer of toe of right foot with fat layer exposed (ICD-10 - L97.512) Patient Educated with: WOUND CARE INSTRUCTIONS.pd f (WOUND CARE INSTRUCTIONS.pd f) 08/06/2023 Type 2 diabetes mellitus with diabetic peripheral angiopathy without gangrene (ICD-10 - E11.51) 09/27/2023 Cellulitis of toe of right foot (ICD-10 - L03.031) 09/27/2023 Skin ulcer of toe of right foot, limited to breakdown of skin (ICD-10 - L97.511) Nonapplicable Patient Educated with: WOUND CARE INSTRUCTIONS.pd f (WOUND CARE INSTRUCTIONS.pd f) 10/15/2023 Type 2 diabetes mellitus with diabetic peripheral angiopathy without gangrene (ICD-10 - E11.51) 10/15/2023 Tinea unguium (ICD-10 - B35.1) 08/06/2023 Ischemic ulcer of right foot, limited to breakdown of skin (ICD-10 - L97.511) Response to treatment - Improvement,Unresolv ed Patient Educated with: WOUND CARE INSTRUCTIONS.pd f (WOUND CARE INSTRUCTIONS.pd f) 12/24/2023 Type 2 diabetes mellitus with diabetic peripheral angiopathy without gangrene (ICD-10 - E11.51) 12/24/2023 Tinea unguium (ICD-10 - B35.1) 09/27/2023 Type 2 diabetes mellitus with diabetic peripheral angiopathy without gangrene (ICD-10 - E11.51) 10/15/2023 Pain in right toe(s) (ICD-10 - M79.674) 12/24/2023 Pain in right toe(s) (ICD-10 - M79.674) 08/06/2023 Tinea unguium (ICD-10 - B35.1) 05/30/2023 Onychomycosis (ICD-10 - B35.1) 05/30/2023 Pain of toe of right foot (ICD-10 - M79.674) 10/15/2023 Pain in left toe(s) (ICD-10 - M79.675) 12/24/2023 Pain in left toe(s) (ICD-10 - M79.675) 08/06/2023 Pain in right toe(s) (ICD-10 - M79.674) 10/15/2023 Skin ulcer of toe of right foot, limited to breakdown of skin (ICD-10 - L97.511) Patient Educated with: WOUND CARE INSTRUCTIONS.pd f (WOUND CARE INSTRUCTIONS.pd f) 12/24/2023 Skin ulcer of toe of right foot, limited to breakdown of skin (ICD-10 - L97.511) Patient Educated with: WOUND CARE INSTRUCTIONS.pd f (WOUND CARE INSTRUCTIONS.pd f) 08/06/2023 Pain in left toe(s) (ICD-10 - M79.675) 05/30/2023 Pain of toe of left foot (ICD-10 - M79.675) 05/30/2023 Other hammer toe(s) (acquired), right foot (ICD-10 - M20.41) Patient Educated with: DIABETIC FOOT CARE INSTRUCTIONS.pd f (DIABETIC FOOT CARE INSTRUCTIONS.pd f) 08/06/2023 Other hammer toe(s) (acquired), right foot (ICD-10 - M20.41) Response to treatment,Improvemen t 10/15/2023 Cellulitis of toe of right foot (ICD-10 - L03.031) 05/30/2023 Other hammer toe(s) (acquired), left foot (ICD-10 - M20.42) 08/06/2023 Other hammer toe(s) (acquired), left foot (ICD-10 - M20.42) Response to treatment,Improvemen t 05/30/2023 Abscess of toe of right foot (ICD-10 - L02.611) Patient Educated with: WOUND CARE INSTRUCTIONS.pd f (WOUND CARE INSTRUCTIONS.pd f) 07/02/2023 Other 10/15/2023 Other 09/27/2023 Other 12/24/2023 Other 05/30/2023 Other Patient Educated with: WOUND CARE INSTRUCTIONS.pd f (WOUND CARE INSTRUCTIONS.pd f) PLAN OF TREATMENT Pending Test Test Name Order Date 71170-BGZUVTI NAIL, 6 OR MORE 08/06/2023 55702-TGKZCWU NAIL, 6 OR MORE 10/15/2023 90512-VHKSMIG NAIL, 6 OR MORE 12/24/2023 25116-IBKRSOM NAIL, 6 OR MORE 05/30/2023 67582- Debride <25 sq cm 09/27/2023 54371- Debride <25 sq cm 08/06/2023 30228-NQEAJQP SKIN/TISSUE 07/02/2023 98680- I&D ABSCESS-COMPLICATED,MULTI 43563-OTIH SKIN LESIONS, OVER 4 05/30/20 26180-CRFZ SKIN LESIONS, OVER 4 12/24/19 88064-HLUY SKIN LESIONS, OVER 4 08/06/20 49190-BNUC SKIN LESIONS, OVER 4 10/15/19 Next Appt Details Provider Name:Rock Yinka Newton , 03/03/2024 03:15:00 PM, [address] [facility] [facility], [address], [place], [address], Insurance Providers Payer Name Payer Address Payer Phone Subscriber Number Group Number Insured Name Patient Relationship to Insured Coverage Start Date Coverage End Date [facility] [employer] Claims [address] [place] [phone] [id number] Mayuri Quiroz Self - patient is the insured MEDICAL (GENERAL) HISTORY Medical History History ICD Code Anemia Cataracts Diabetic High blood pressure Kidney disease Numbness Stroke Chicken pox Surgical History Surgery Date(Month/Year) R leg angiogram/angioplasty 06/27/23
== END 2024-01-29 14:08 | disposition home or self-care (01) ==
LOC: HO.HMGFM 13:14
PROVIDERS: PCP Nurse Practitioner Family; Visit Provider Nurse Practitioner Family
DX: I12.9 Hypertensive chronic kidney disease with stage 1 through stage 4 chronic kidney disease, or unspecified chronic kidney disease (principal); E11.22 Type 2 diabetes mellitus with diabetic chronic kidney disease; L97.519 Non-pressure chronic ulcer of other part of right foot with unspecified severity; N18.9 Chronic kidney disease, unspecified; Z79.4 Long term (current) use of insulin; F41.8 Other specified anxiety disorders
CPT/HCPCS: 83036; 99214; G2211

== ENCOUNTER 2024-02-13 06:57 | Outpatient (REF) | payer OTHER, SELFPAY ==
[2024-02-13 11:03] LABS: Blood Urea Nitrogen 49 mg/dL (9-16); Estimated Glomerular Filt Rate 27
== END 2024-02-13 06:58 | disposition home or self-care (01) ==
LOC: HO.HMGCLDS 06:57
PROVIDERS: PCP Nurse Practitioner Family; Visit Provider Radiology Vascular & Interventional Radiology
DX: R79.89 Other specified abnormal findings of blood chemistry (principal); R94.4 Abnormal results of kidney function studies
CPT/HCPCS: 36415; 82565; 84520

== ENCOUNTER 2024-04-19 07:53 | Outpatient (REF) | payer OTHER, SELFPAY ==
[2024-04-19 11:22] LABS: Cholesterol 104 mg/dL (<200); HDL Cholesterol 42 mg/dL (>40); LDL Cholesterol Calculated 51 mg/dL (<100); Triglycerides 57 mg/dL (<150)
== END 2024-04-19 07:54 | disposition home or self-care (01) ==
LOC: HO.HMGCLDS 07:53
PROVIDERS: PCP Nurse Practitioner Family; Visit Provider Nurse Practitioner Family
DX: E78.00 Pure hypercholesterolemia, unspecified (principal); E78.5 Hyperlipidemia, unspecified
CPT/HCPCS: 36415; 80061

== ENCOUNTER 2024-04-21 14:43 | Outpatient (AMB) | payer OTHER, SELFPAY ==
[2024-04-21 14:48] VITALS: BP 134/72; PULSE 85; BMI 26.0
--- NOTE | 2024-04-21 14:48 | A.OFFVIS_ITS ---
Vital Signs 04/21/24 14:48 Height 5 ft 2 in Weight 142 lb BMI 26.0 BP 134/72 Blood Pressure Location Lt brachial Position Sitting Pulse 85 Pulse Source Monitor Intake Visit Reasons: r/s 03/24-03/25 followup Seeing Eye Dog Trainer Required: No Vessel Traffic Officer: Vessel Traffic Officer Present Allergies lisinopril Allergy (Severe, Verified 04/21/24 14:57) swollen tongue apple Allergy (Intermediate, Verified 04/21/24 14:57) tongue swelling banana Allergy (Intermediate, Verified 04/21/24 14:57) tongue and lip swelling Medication List - Last Reconciled 04/21/24 by ADRIANNA Gardiner apixaban (Eliquis) 2.5 mg PO BID aspirin 81 mg PO DAILY atorvastatin 80 mg PO BEDTIME 30 days blood sugar diagnostic (FreeStyle Test strips) bid to tid bs checks blood-glucose meter (FreeStyle Lite Meter kit) As directed bumetanide 1 mg PO DAILY carvedilol 12.5 mg PO BID cholecalciferol (vitamin D3) 1,250 mcg PO QWEEK 3 months gabapentin 300 mg PO BEDTIME 30 days hydroxyzine HCl 50 mg PO ONCE PRN insulin glargine (Lantus U-100 Insulin) 10 units (0.1 mL) subcut BEDTIME 90 days insulin syringe-needle U-100 (BD Insulin Syringe Micro-Fine) For q.h.s. Lantus administration metformin 500 mg PO DAILY 90 days miscellaneous medical supply Rollator walker [employer] 3 boxes of medium-sized gloves monthly x 12 months nystatin-triamcinolone 100,000-0.1 unit/g-% 1 appl topical DAILY polyethylene glycol 3350 (Miralax) 238 grams PO ONCE 1 day HPI HPI r/s 03/24-03/25 followup: Details: Mayuri is a 74-year-old female with past medical history hypertension, hyperlipidemia, diabetes, right lower extremity DVT, who was initally referred to Cardiology for assistance with cholesterol management. Lab work done February 2023 had shown LDL 357. On last visit her atorvastatin was increased up to 80 mg daily. She also reported exertional shortness of breath and an echoca rdiogram showed normal EF, grade 1 diastolic dysfunction. A nuclear stress test was ordered however completed by patient. Her last prior visit was 06/18/2023. Today she reports that since her last visit she has been having issues with a nonhealing wound on her right great toe. [facility] She follows with a Dr Jensen for vascular and says that she had stents placed in her right leg and they clogged after 1 month. She now has a repeat angiogram due in May. She has been working hard at getting her cholesterol down with diet control. She also has been compliant with her atorvastatin each night. Previously it seems she was not as consistent with her evening med as she should be. Her breathing has been comfortable. She denies having chest discomfort, no palpitations, presyncope, syncope, PND, orthopnea or edema. She has previously declined Zetia and PCSK9 inhibitor. Daughter is present and assisting with Portuguese translation at their request. Permit signed. [facility] Medical History History of femoral angiogram Stroke Weakness Iron deficiency Vitamin D deficiency Surgical History History of angioplasty (~07/11/23) No pertinent past surgical history Family History Father Bladder cancer Smoker Mother Diabetes CVD (cardiovascular disease) Glaucoma Daughter Anxiety Family/Other Alzheimer's dementia Uterine cancer Social History Household Members: Family Housing: Apartment Alcohol intake: never Patient Tobacco Use Status: Never used Tobacco e-Cigarette/Vaping Use: Never Used Second Hand Smoke Exposure: No service: No Current occupational status: retired Cognitive needs: No Hearing needs: No Vision needs: No Review of Systems Const All systems reviewed & are unremarkable except as noted in HPI and below ENT Denies dizziness Card Denies chest pain, Denies chest pain at rest, Denies chest pain with activity, Denies rapid heart rate, Denies pedal edema, Denies edema, Denies leg edema, Denies lightheadedness, Denies palpitations, Denies dyspnea, Denies dyspnea on exertion and Denies orthopnea Resp Denies cough, Denies dyspnea and Denies dyspnea on exertion GI Denies hematochezia and Denies change in stool character Musc Denies abnormal gait, Denies limited range of motion, Denies muscle cramps, Denies muscle weakness, Denies numbness, Denies radiating pain into limb, Denies stiffness and Denies tingling Skin/Breast Details: none healing wound right toe. Has clogged stents in right leg Neuro Denies abnormal gait, Denies dizziness, Denies numbness and Denies tingling Endo Denies palpitations Physical Exam Vital Signs: Last Vital Signs Pulse 85 04/21/24 14:48 BP 134/72 04/21/24 14:48 BMI result Body Mass Index 26.0 Const General: cooperative, healthy appearing, comfortable and no acute distress Orientation/consciousness: patient oriented x3 Neck Neck: Yes normal visual inspection Resp Effort & Inspection: normal respiratory effort Auscultation: clear to auscultation bilaterally, no rales, no rhonchi and no wheezes Cardio Jugular venous distension: no JVD Rate: regular rate Rhythm: regular rhythm Heart sounds: S1 normal heart sound present, S2 normal heart sound present, no murmurs and no rubs Neuro General: patient oriented x3 Extrem Other: dressing on right foot, ortho boot Psych Appearance: grossly normal Mental Status: mental status grossly normal Speech and movement: Normal speech and movement present Office Procedures EKG Details: Today, read by me, normal sinus rhythm, nonspecific T-wave abnormality, rate 85, QTC 445 milliseconds [id number], Complete Assessment & Plan Assessment & Plan (1) SOB (shortness of breath): Code(s): R06.02 - Shortness of breath Category: Medical Plan: On prior visit she reported shortness of breath with activity. She has cardiac risk factors of hypertension, hyperlipidemia, diabetes and advanced age. She has no known history of coronary disease. An echocardiogram was done on 05/15/2023 showing EF 64%, grade 1 diastolic dysfunction, no valve abnormalities. A nuclear stress test was ordered however not completed by patient. Today she reports her breathing is comfortable and denies any chest discomfort. There is a chance she may need vascular surgery in the future if her upcoming angioplasty is unsuccessful. Informed her that nuclear stress test can be held at this time but will be definitely needed prior to any vascular surgery. She states understanding. Cardiology follow-up 4 months, sooner if needed. (2) Hyperlipidemia: Code(s): E78.5 - Hyperlipidemia, unspecified Category: Medical Qualifiers: Hyperlipidemia type: familial hypercholesterolemia Qualified Code(s): E78.01 - Familial hypercholesterolemia Plan: History of hyperlipidemia. LDL goal ideally less than 70 patient with peripheral vascular disease and diabetes. Labs done 02/2023 showed LDL 357. She was been put on high-dose atorvastatin, but may not have been entirely compliant until recently. She has been working on strict dietary reduction of cholesterol intake. She was previously recommended to take Zetia and/or PCSK9 inhibitor and she declined both. She did have labs on 04/19/2024 showing LDL is now 51. Copy given to her to share with her vascular provider. Continue with current atorvastatin and diet control. Benefits of good cholesterol control reviewed. (3) Hypertension, essential: Code(s): I10 - Essential (primary) hypertension Category: Medical Plan: Normal at this time. Was elevated last visit. Patient does get anxious prior to visits according to her daughter. Her home blood pressures typically run 110-120 systolic. Her daughter stopped the hydralazine as her blood pressure was getting too low. She also reduce the carvedilol from 25 mg b.i.d. down to 12.5 mg once daily. Instructed to take carvedilol twice daily, will change dosing to 12.5 mg b.i.d.. Continue to monitor blood pressures at home and call if further med adjustments are needed. (4) Skin ulcer of right great toe: Code(s): L97.519 - Non-pressure chronic ulcer of other part of right foot with unspecified severity Category: Medical Plan: Following with [facility]. Tells me she has 2 stents now in her right lower extremity. She states on their 1 month follow-up it was noted that the stents were occluded. She now has a repeat angiogram planned for 05/07/2024. Plan Time spent on chart review, documentation, interview and assessment Coding Level of Care Code Est Pt Level 4 (74900) Diagnoses SOB (shortness of breath) R06.02 Familial hypercholesterolemia E78.01 Hyperlipidemia type: familial hypercholesterolemia Hypertension, essential I10 Skin ulcer of right great toe L97.519 CPT Codes EKG - CPT: 44076-[id number], Complete ([id number]) Time Spent (min) 36
== END 2024-04-21 15:42 | disposition home or self-care (01) ==
PROVIDERS: PCP Nurse Practitioner Family; Visit Provider Nurse Practitioner Family
DX: R06.02 Shortness of breath (principal); E78.01 Familial hypercholesterolemia; I10 Essential (primary) hypertension; L97.519 Non-pressure chronic ulcer of other part of right foot with unspecified severity
CPT/HCPCS: 93010; 99214

== ENCOUNTER → 2024-04-21 14:43 | Outpatient (BNVA) | payer OTHER, SELFPAY | PROVIDERS: PCP Nurse Practitioner Family; Visit Provider Nurse Practitioner Family | DX: I10 Essential (primary) hypertension (principal); E78.5 Hyperlipidemia, unspecified; R06.02 Shortness of breath; E78.01 Familial hypercholesterolemia; Z86.718 Personal history of other venous thrombosis and embolism | CPT/HCPCS: 93005; 99212 ==

== ENCOUNTER 2024-05-03 08:30 | Outpatient (REF) | payer OTHER, SELFPAY ==
[2024-05-03 11:31] LABS: Blood Urea Nitrogen 45 mg/dL (9-16); Estimated Glomerular Filt Rate 28
[2024-05-03 11:33] LABS: Cholesterol 104 mg/dL (<200); HDL Cholesterol 44 mg/dL (>40); LDL Cholesterol Calculated 53 mg/dL (<100); Triglycerides 37 mg/dL (<150)
== END 2024-05-03 08:31 | disposition home or self-care (01) ==
LOC: HO.HMGCLDS 08:30
PROVIDERS: PCP Nurse Practitioner Family; Referring Provider Radiology Vascular & Interventional Radiology; Visit Provider Nurse Practitioner Family
DX: E11.9 Type 2 diabetes mellitus without complications (principal); R79.89 Other specified abnormal findings of blood chemistry; R94.4 Abnormal results of kidney function studies
CPT/HCPCS: 36415; 80061; 82565; 84520

== ENCOUNTER 2024-05-06 15:36 | Outpatient (AMB) | payer OTHER, SELFPAY ==
--- NOTE | 2024-05-06 15:46 | A.OFFPC_ITS ---
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: Yes Accompanied by: Daughter Is last menstrual period known: No Post menopausal: No Patient : No Allergies lisinopril Allergy (Severe, Verified 05/06/24 16:10) swollen tongue apple Allergy (Intermediate, Verified 05/06/24 16:10) tongue swelling banana Allergy (Intermediate, Verified 05/06/24 16:10) tongue and lip swelling Medication List - Last Reconciled 05/06/24 by Maribel Mckinnon CNP apixaban (Eliquis) 2.5 mg PO BID aspirin 81 mg PO DAILY atorvastatin 80 mg PO BEDTIME 30 days blood sugar diagnostic (FreeStyle Test strips) bid to tid bs checks blood-glucose meter (FreeStyle Lite Meter kit) As directed bumetanide 1 mg PO DAILY carvedilol 12.5 mg PO BID cholecalciferol (vitamin D3) 1,250 mcg PO QWEEK 3 months gabapentin 300 mg PO BEDTIME 30 days insulin glargine (Lantus U-100 Insulin) 10 units (0.1 mL) subcut BEDTIME 90 days insulin syringe-needle U-100 (BD Insulin Syringe Micro-Fine) For q.h.s. Lantus administration miscellaneous medical supply Rollator walker [employer] 3 boxes of medium-sized gloves monthly x 12 months nystatin-triamcinolone 100,000-0.1 unit/g-% 1 appl topical DAILY polyethylene glycol 3350 (Miralax) 238 grams PO ONCE 1 day Tobacco use date assessed: 05/06/24 Fall risk assessment: No Falls in past year Last assessed Fall Risk: 05/06/24 Dental Screening Dental Screen Date: 10/19/23 HPI HPI Comments History of Present Illness Details 74-year-old female, accompanied by her aracely [place]over, presents for hypertension and diabetes follow-up She admits to taking her medications as prescribed without adverse reactions. However, she stopped taking metformin a month ago due adverse reaction of diar helga She offers no complaints and denies acute symptoms at this time [facility] Medical History History of femoral angiogram Stroke Weakness Iron deficiency Vitamin D deficiency Surgical History History of angioplasty (~07/11/23) No pertinent past surgical history Family History Father Bladder cancer Smoker Mother Diabetes CVD (cardiovascular disease) Glaucoma Daughter Anxiety Family/Other Alzheimer's dementia Uterine cancer Social History Household Members: Family Housing: Apartment Alcohol intake: never Patient Tobacco Use Status: Never used Tobacco e-Cigarette/Vaping Use: Never Used Second Hand Smoke Exposure: No service: No Current occupational status: retired Cognitive needs: No Hearing needs: No Vision needs: No Questionnaire PHQ-9 Over the last 2 weeks, how often have you been bothered by any of the following problems? 1. Little interest or pleasure in doing things: not at all 2. Feeling down, depressed, or hopeless: not at all 3. Trouble falling or staying asleep, or sleeping too much: nearly every day 4. Feeling tired or having little energy: not at all 5. Poor appetite or overeating: not at all 6. Feeling bad about yourself - or that you are a failure or have let yourself or your family down: not at all 7. Trouble concentrating on things, such as reading the newspaper or watching television: not at all 8. Moving or speaking so slowly that other people could have noticed. Or the o pposite - being so fidgety or restless that you have been moving around a lot more than usual: not at all 9. Thoughts that you would be better off or of hurting yourself in some way: not at all Total score: 3 13329 - PHQ-9 Billing: Yes Source: Developed by Drs. Marcel Payne, Rosa Perez, Matt Kaba and colleagues, with an educational vicki from [employer]. Thrive Questionnaire Date Thrive assessed: 12/16/21 SARAHY-7 AMB Questionnaire SARAHY-7 Date SARAHY - 7 assessed: 05/10/23 Source: Developed by Drs. Marcel Payne, Rosa Perez, Matt Kaba and colleagues, with an educational vicki from [employer]. Review of Systems Const Details: Const Denies chills, Denies fatigue, Denies fever(s), Denies headache(s) and Denies weakness ENT Denies dizziness and Denies headache(s) Card Denies chest pain, Denies lightheadedness, Denies dyspnea and Denies other (Palpitations) Resp Denies cough, Denies dyspnea, Denies wheezing and Denies other ( shortness of breath) GI Denies abdominal pain, Denies melena, Denies hematochezia, Denies change in bowel habits, Denies dyspepsia and Denies nausea Denies hematuria and Denies dysuria Musc Denies abnormal gait, Denies myalgias, Denies arthralgias, Denies numbness and Denies tingling Skin/Breast Denies rash, Denies unusual bruising and Denies wounds Neuro Denies abnormal gait, Denies dizziness, Denies headache(s), Denies memory loss, Denies numbness, Denies Sensory deficit (Neuro), Denies tingling and Denies weakness Psych Denies anxiety, Denies depression, Denies memory loss Endo Denies cold intolerance, Denies fatigue, Denies heat intolerance, Denies polydipsia and Denies polyuria Aller/Immun Denies wheezing Physical exam (Primary Care) Vital Signs: Last Vital Signs Temp 98.1 F 05/06/24 15:56 Pulse 75 05/06/24 15:56 Resp 16 05/06/24 15:56 BP 112/70 05/06/24 15:56 Pulse Ox 96 05/06/24 15:56 Oxygen Delivery Method Room Air 05/06/24 15:56 BMI result Body Mass Index 27.1 Tobacco/Smoking Status: Tobacco use Status Tobacco use date assessed 05/06/24 05/06/24 15:59 Patient Tobacco Use Status Never used Tobacco 05/06/24 15:48 e-Cigarette/Vaping Use Never Used 05/06/24 15:48 PHQ-9: PHQ-9 Score PHQ-9: Total score 3 05/06/24 16:11 Thrive Assessment: Date of Thrive Assessment Date Thrive assessed 08/18/21 05/06/24 15:48 Const Other: General: no acute distress and well developed Nutritional Appearance: well nourished Orientation/consciousness: patient oriented x3 HENMT Head: Yes normocephalic and Yes atraumatic Eyes General: appearance normal, both eyes and all related structures Pupils: Equal, round and reactive pupils present EOM: EOMs intact bilaterally Resp Effort & Inspection: normal respiratory effort Auscultation: clear to auscultation bilaterally Cardio Rate: regular rate Rhythm: regular rhythm Heart sounds: S1 normal heart sound present, S2 normal heart sound present, no gallops, no murmurs and no rubs GI Palpation (GI): No Abdominal aortic bruit present, Soft to palpation, nontender, No hepatosplenomegaly present and No Rebound tenderness present Auscultation: normal bowel sounds General: Yes no CVA tenderness Back/Spine/Pelvis Back: no CVA tenderness Cervical Spine: cervical ROM normal and No Cervical spine tenderness Thoracic/Lumbar Spine: thoraco-lumbar ROM normal, No pain with thoraco-lumbar ROM, No thoracic spinal tenderness and No lumbar spinal tenderness Extrem General: Yes normal to inspection, No edema and No calf tenderness Skin General: warm and dry. Normal skin color. Normal skin turgor Neuro General: patient oriented x3, gait normal and no focal neuro deficit Cranial nerves: Yes Equal, round and reactive pupils present Cognition (Neuro): normal cognition Gait exam (Neuro): Normal gait present Sensory Exam: No Sensory deficit (Neuro) Psych Appearance: grossly normal Affect: normal affect Attitude: cooperative Thought process: Normal thought process present Results AMB Hemoglobin A1c AMB Hemoglobin A1c 7.0 % Last Edit by Lavinia Schrader on 05/06/24 16:15 Results Reviewed Results Reviewed: Laboratory Last Values Hgb A1c (Clinic) 7.0 % (4.0-6.0) H 05/06/24 16:12 Assessment and Plan Assessment & Plan (1) Hypertension, essential: Code(s): I10 - Essential (primary) hypertension Plan: Blood pressure today is 112/70, within goal of less than 130/80 Continue current treatment regimen Low-sodium diet encouraged Follow-up in 3 months or sooner with symptoms or concerns Verbalized understanding and agreed with the treatment plan (2) Type 2 diabetes mellitus: Code(s): E11.9 - Type 2 diabetes mellitus without complications Qualifiers: 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 Previous A1c was 7.5% Will order metformin ER 500 mg daily which may have less GI side effects. Advised to take as prescribed and immediately inform PCP with GI symptoms Continue to take Lantus as prescribed ADA diet and routine exercise encouraged Follow-up in 3 months Verbalized understanding and agreed with the treatment plan (3) Hyperlipidemia: Code(s): E78.5 - Hyperlipidemia, unspecified Qualifiers: Hyperlipidemia type: familial hypercholesterolemia Qualified Code(s): E78.01 - Familial hypercholesterolemia Plan: Recent lipid panel levels are unremarkable Will reduce atorvastatin to 40 mg every night. Advised to take as prescribed Encouraged to fast for 10-12 hours, may drink water only, and get lipid panel blood work done before next visit Follow-up in three months Verbalized understanding and agreed with the treatment plan Orders: Orders Liver Panel Today Z00.01 - Encounter for general adult medical examination with abnormal findings AMB Hemoglobin A1c Today Z13.9 - Encounter for screening, unspecified Lipid Panel 3 Months E78.01 - Familial hypercholesterolemia Medications: New 2 atorvastatin 40 mg PO BEDTIME 30 days 30 tabs 3RF metformin ER 500 mg PO DAILY 30 days 30 tabs 3RF Discontinued atorvastatin Discontinued Reason: Doctor's Order 80 mg PO BEDTIME 30 days 30 tabs 6RF Coding Level of Care Code Est Pt Level 4 (16008) Diagnoses Hypertension, essential I10 Type 2 diabetes mellitus E11.9 Diabetes mellitus 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
[2024-05-06 15:56] VITALS: BP 112/70; PULSE 75; RESP 16; TEMP 36.7; O2SAT 96; BMI 27.1
== END 2024-05-06 16:24 | disposition home or self-care (01) ==
PROVIDERS: PCP Nurse Practitioner Family; Visit Provider Nurse Practitioner Family
DX: I10 Essential (primary) hypertension (principal); E11.9 Type 2 diabetes mellitus without complications; E78.01 Familial hypercholesterolemia
CPT/HCPCS: 83036; 99214

== ENCOUNTER 2024-05-29 07:52 | Outpatient (REF) | payer OTHER, SELFPAY ==
[2024-05-29 10:05] LABS: MANUAL DIFF FLAG NO
[2024-05-29 10:11] LABS: Basophils Percent Auto 0.6 % (0-2); Eosinophils Absolute Auto 0.1 X10*3/uL (0.0-0.4); Eosinophils Percent Auto 2.7 % (0-4); Hematocrit 25.9 % (37.0-47.0); Hemoglobin 7.7 g/dl (12.0-16.0); Imm Gran Abs Auto 0.01 X10*3/uL (0.00-0.03); Imm Gran Pct Auto 0.2 % (0.0-0.4); Lymphocytes Absolute Auto 1.5 X10*3/uL (1.2-4.9); Mean Corpuscular HGB Conc 29.7 g/dl (31.0-35.0); Mean Corpuscular Hemoglobin 22.4 pg (27.0-33.0); Mean Corpuscular Volume 75.3 fL (80.0-98.0); Mean Platelet Volume 9.4 fL (9.4-12.3); Monocytes Absolute Auto 0.5 X10*3/uL (0.1-1.2); Monocytes Percent Auto 10.2 % (2-11); Neutrophils Percent Auto 58.3 % (45-73); Platelet Count 280 X10*3/uL (160-400); Red Blood Count 3.44 X10*6/uL (4.20-5.50); Red Cell Distribution Width 17.9 % (11.0-16.0); White Blood Count 5.2 X10*3/uL (4.8-10.8)
[2024-05-29 10:30] LABS: Albumin Level 3.2 g/dL (3.5-5.0); Anion Gap 9 (12-20); Appearance Urine Clear; Blood Urea Nitrogen 43 mg/dL (9-16); Calcium 8.7 mg/dL (8.4-10.2); Carbon Dioxide 25 mmol/L (22-29); Chloride 113 mmol/L (96-108); Color Urine Yellow; Estimated Glomerular Filt Rate 27; Glucose Urine UA Negative (Negative); Leukocyte Esterase Urine Negative (Negative); Magnesium 2.1 mg/dL (1.6-2.6); Nitrite Urine Negative (Negative); Phosphorus 4.1 mg/dL (2.7-4.5); Potassium 3.4 mmol/L (3.3-5.1); Sodium 144 mmol/L (135-145); UMIC TRIGGER UA YES; Urine Blood Small (1+) (Negative); Urine Ketones Negative (Negative); Urine Protein 30 (1+) mg/dL (Neg-Trace)
[2024-05-29 10:33] LABS: Creatinine Urine 61.66 mg/dL; Microalbum/Creatinine Ratio Ur 397.3 ug/mg cr (<30); Protein/Creatinine Ratio, Ur 0.75 (<0.2); Total Protein Urine Random 46 mg/dL (<12)
[2024-05-29 10:35] LABS: Parathyroid Hormone Intact 250.5 pg/mL (8.7-77.1)
[2024-05-29 10:36] LABS: Bacteria Urine None Seen (None Seen); Hyaline Casts Urine 0-2 /LPF (0-2); Squamous Epithelial Cell Urine 0-2 /HPF (0-2); WBC Urine 0-5 /HPF (0-5)
[2024-05-29 10:46] LABS: Vitamin D 25-OH Total 30.4 ng/mL (>30)
== END 2024-05-29 07:53 | disposition home or self-care (01) ==
LOC: HO.HMGCLDS 07:52
PROVIDERS: PCP Nurse Practitioner Family; Visit Provider Internal Medicine Nephrology
DX: N18.4 Chronic kidney disease, stage 4 (severe) (principal); E11.29 Type 2 diabetes mellitus with other diabetic kidney complication; I10 Essential (primary) hypertension
CPT/HCPCS: 36415; 80051; 81001; 82040; 82043; 82306; 82310; 82565; 82570; 83735; 83970; 84100; 84156; 84520; 85025

== ENCOUNTER 2024-06-12 11:01 | Emergency (ER) | payer OTHER, SELFPAY ==
--- NOTE | ~2024-06-12 | CT_ITS ---
EXAMINATION: CT HEAD WITHOUT CONTRAST CT CERVICAL SPINE WITHOUT CONTRAST CLINICAL INFORMATION: Fall. Head strike. Anticoagulated. COMPARISON: CT head dated 12/13/2022. TECHNIQUE: Contiguous axial imaging was performed from the skull base to vertex without intravenous administration of contrast. Contiguous axial CT images of the cervical spine were obtained without contrast. Sagittal and coronal reformats were provided and reviewed. This CT examination was performed using dose optimization techniques as appropriate, variously including the following: *Automated exposure control *Adjustment of mA and/or kV according to patient size (this includes techniques or standardized protocols for targeted exams where dose is matched to indication/reason for exam; i.e. extremities or head) *Use of iterative reconstruction technique DLP: 922 mGy-cm FINDINGS: HEAD: There is no evidence of acute intracranial hemorrhage or territorial infarction. No abnormal mass effect or midline shift is seen. Castro to white matter differentiation is well preserved. No extra-axial fluid collections are identified. The ventricles are normal in size. There is no abnormal attenuation within the brain parenchyma. The osseous structures and soft tissues are normal. Opacification of the left sphenoid sinuses with mucoperiosteal thickening of the maxillary sinuses, similar when compared to the prior examination consistent with chronic sinusitis. The remaining visualized paranasal sinuses and mastoid air cells are clear. CERVICAL SPINE: Mild straightening of the normal cervical lordosis which may be positional or related to muscular spasm. Mild grade 1 anterolisthesis of C6 on C7. No acute fracture. No loss of vertebral body height. Loss of intervertebral disc height with prominent degenerative endplate changes at C5-C6. Multilevel bilateral facet arthropathy, most prominent at C6-C7. No lytic or blastic osseous lesion. Unremarkable prevertebral soft tissues. No abnormal soft tissue mass or fluid collection. Diffuse prominence and heterogeneity throughout the thyroid with a lobulated, nodular appearance. Dedicated thyroid ultrasound could help further evaluate. Visualized lung apices are clear. Mild multilevel bilateral neural foraminal stenosis. CT/CT cervical spine wo IV con IMPRESSION: Head: No acute intracranial hemorrhage or mass effect. Cervical Spine: No acute fracture. Mild straightening of the normal cervical lordosis which may be positional or related to muscular spasm. Grade 1 anterolisthesis of C6 on C7. Multilevel degenerative disc disease and bilateral facet arthropathy with mild multilevel bilateral neural foraminal stenosis. Diffuse prominence and heterogeneity throughout the thyroid with a lobulated, nodular appearance. Dedicated thyroid ultrasound could help further evaluate. Electronically signed by: Abel Poe MD 06/12/2024 01:26 PM EDT RP
[2024-06-12 11:06] VITALS: BP 162/100; BP 174/76; PULSE 81; RESP 16; TEMP 36.8; O2SAT 99; BMI 28.0
[2024-06-12 11:11] VITALS: BP 174/76; PULSE 81; RESP 16; TEMP 36.8; O2SAT 99
--- NOTE | 2024-06-12 11:17 | PC.NURSE ---
Pt. arrived via [facility]. Settled in ED room 1
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
--- OUTSIDE RECORDS SUMMARY | 2024-06-12 11:59 | XMS_ITS ---
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
--- OUTSIDE RECORDS SUMMARY | 2024-06-12 11:59 | XMS_ITS | Patient Health Record ---
Author [facility] Address [address] [place] [address] Care Team Providers Care Practical Nursing Faculty Name Role Phone Pratibha MASON, Juliet Primary Care Provider Unavail able Rock Newton Unavailable [phone] ALLERGIES Allergen (clinical drug ingredient) Drug/Non Drug Allergy documented on EMR Reaction Allergy Type Onset Date Status mint (uncoded) Unknown Allergy Activ e banana allergenic extract Banana (Diagnostic) Unknown Drug Allergy Active lisinopril Lisinopril Unknown Drug Allergy Activ e RESULTS Component Value Reference Range Notes HEMOGLOBIN A1C (GLYCOHEMOGLO BIN) Reviewed date:08/06/2023 04:01:26 [...] confirmed Acquired hammer toe of right foot (831582583139 9105) Response to treatment,I mprovement Problem Type 2 diabetes mellitus with diabetic peripheral angiopathy without gangrene (E11.51) Active confirmed Type 2 diabetes mellitus with peripheral angiopathy (551635976) Problem Other hammer toe(s) (acquired), left foot (M20.42) Active confirmed Acquired hammer toe of left foot (246414006065 9103) Response to treatment,I mprovement Problem Skin ulcer of toe of right foot, limited to breakdown of skin (L97.511) Active confirmed Ulcer of toe of right foot (disorder) (780580293908 04263) VITAL SIGNS Height 5ft 4in in 10/15/2023 Weight 139 lbs 12/24/2023 BMI 23.86 kg/m2 12/24/2023 PROCEDURES Procedure Date Ordered Date Performed Result Body Sit e 52532-XPCPYXM SKIN/TISSUE 07/02/2023 N/A 84771-WSCSDKX NAIL, 6 OR MORE 08/06/2023 N/A 90025- Debride <25 sq cm 08/06/2023 N/A 86703-UUOR SKIN LESIONS, OVER 4 08/06/2023 N/A 79508- Debride <25 sq cm 09/27/2023 N/A 96216-XQUGSIE NAIL, 6 OR MORE 10/15/2023 N/A 01136-BUWZ SKIN LESIONS, OVER 4 10/15/2023 N/A 48335-UILSJQB NAIL, 6 OR MORE 12/24/2023 N/A 13646-QMEG SKIN LESIONS, OVER 4 12/24/2023 N/A Encounters Encounter Location Date Provider Diagnosis [facility] [address] [place] [address] 07/02/2023 Rock Newton Skin ulcer of toe of right foot with fat layer exposed L97.[address] [address] 07/03/2023 Rock Newton [address] [address] 08/01/2023 Rock Lamar [address] [address] 08/06/2023 Rock Newton Type 2 diabetes mellitus with diabetic peripheral angiopathy without gangrene E11.51 ; Ischemic ulcer of right foot, limited to breakdown of skin L97.511 ; Tinea unguium B35.1 ; Pain in right toe(s) M79.674 ; Pain in left toe(s) M79.675 ; Other hammer toe(s) (acquired), right foot M20.41 and Other hammer toe(s) (acquired), left foot M20.[address] [address] 09/26/2023 Rock Newton [address] [address] 09/27/2023 Rock Newton Skin ulcer of toe of right foot, limited to breakdown of skin L97.511 ; Cellulitis of toe of right foot L03.031 and Type 2 diabetes mellitus with diabetic peripheral angiopathy without gangrene E11.[address] [address] 10/15/2023 Rock Newton Type 2 diabetes mellitus with diabetic peripheral angiopathy without gangrene E11.51 ; Tinea unguium B35.1 ; Pain in right toe(s) M79.674 ; Pain in left toe(s) M79.675 ; Skin ulcer of toe of right foot, limited to breakdown of skin L97.511 and Cellulitis of toe of right foot L03.[address] [facility] [address] 12/24/2023 Rock Newton Type 2 diabetes mellitus with diabetic peripheral angiopathy without gangrene E11.51 ; Tinea unguium B35.1 ; Pain in right toe(s) M79.674 ; Pain in left toe(s) M79.675 and Skin ulcer of toe of right foot, limited to breakdown of skin L97.[address] [address] 12/26/[address] [address] 03/03/[address] [address] 03/03/2024 Rock Newton ASSESSMENTS Encounter Date Diagnosis Assessment Notes Treatment Notes Treatment Clinical Notes 07/02/2023 Skin ulcer of toe of right foot with fat layer exposed (ICD-10 - L97.512) Patient Educated with: WOUND CARE INSTRUCTIONS.pdf (WOUND CARE INSTRUCTIONS.pdf ) 08/06/2023 Type 2 diabetes mellitus with diabetic peripheral angiopathy without gangrene (ICD-10 - E11.51) 09/27/2023 Cellulitis of toe of right foot (ICD-10 - L03.031) 09/27/2023 Skin ulcer of toe of right foot, limited to breakdown of skin (ICD-10 - L97.511) Nonapplicable Patient Educated with: WOUND CARE INSTRUCTIONS.pdf (WOUND CARE INSTRUCTIONS.pdf ) 10/15/2023 Type 2 diabetes mellitus with diabetic peripheral angiopathy without gangrene (ICD-10 - E11.51) 10/15/2023 Tinea unguium (ICD-10 - B35.1) 08/06/2023 Ischemic ulcer of right foot, limited to breakdown of skin (ICD-10 - L97.511) Response to treatment - Improvement,Unresolv ed Patient Educated with: WOUND CARE INSTRUCTIONS.pdf (WOUND CARE INSTRUCTIONS.pdf ) 12/24/2023 Type 2 diabetes mellitus with diabetic peripheral angiopathy without gangrene (ICD-10 - E11.51) 12/24/2023 Tinea unguium (ICD-10 - B35.1) 09/27/2023 Type 2 diabetes mellitus with diabetic peripheral angiopathy without gangrene (ICD-10 - E11.51) 10/15/2023 Pain in right toe(s) (ICD-10 - M79.674) 12/24/2023 Pain in right toe(s) (ICD-10 - M79.674) 08/06/2023 Tinea unguium (ICD-10 - B35.1) 10/15/2023 Pain in left toe(s) (ICD-10 - M79.675) 12/24/2023 Pain in left toe(s) (ICD-10 - M79.675) 08/06/2023 Pain in right toe(s) (ICD-10 - M79.674) 10/15/2023 Skin ulcer of toe of right foot, limited to breakdown of skin (ICD-10 - L97.511) Patient Educated with: WOUND CARE INSTRUCTIONS.pdf (WOUND CARE INSTRUCTIONS.pdf ) 12/24/2023 Skin ulcer of toe of right foot, limited to breakdown of skin (ICD-10 - L97.511) Patient Educated with: WOUND CARE INSTRUCTIONS.pdf (WOUND CARE INSTRUCTIONS.pdf ) 08/06/2023 Pain in left toe(s) (ICD-10 - M79.675) 08/06/2023 Other hammer toe(s) (acquired), right foot (ICD-10 - M20.41) Response to treatment,Improvemukul t 10/15/2023 Cellulitis of toe of right foot (ICD-10 - L03.031) 08/06/2023 Other hammer toe(s) (acquired), left foot (ICD-10 - M20.42) Response to treatment,Improvemukul t 07/02/2023 Other 10/15/2023 Other 09/27/2023 Other 12/24/2023 Other PLAN OF TREATMENT Pending Test Test Name Order Date 71935-DIVCTYB NAIL, 6 OR MORE 08/06/2023 74310-NWUMAHD NAIL, 6 OR MORE 10/15/2023 33689-AQZHDRE NAIL, 6 OR MORE 12/24/2023 10454-CPOGXKE NAIL, 6 OR MORE 05/30/2023 79918- Debride <25 sq cm 09/27/2023 64378- Debride <25 sq cm 08/06/2023 63502-GVNWKMU SKIN/TISSUE 07/02/2023 96815- I&D ABSCESS-COMPLICATED,MULTI 75000-YMYB SKIN LESIONS, OVER 4 05/30/20 33333-MNSX SKIN LESIONS, OVER 4 12/24/19 25963-ISDX SKIN LESIONS, OVER 4 08/06/20 14710-ZNYP SKIN LESIONS, OVER 4 10/15/19 Insurance Providers Payer Name Payer Address Payer Phone Subscriber Number Group Number Insured Name Patient Relationship to Insured Coverage Start Date Coverage End Date [facility] [employer] Claims [address] [place] [phone] [id number] Mayuri Quiroz Self - patient is the insured MEDICAL (GENERAL) HISTORY Medical History History ICD Code Anemia Cataracts Diabetic High blood pressure Kidney disease Numbness Stroke Chicken pox Surgical History Surgery Date(Month/Year) R leg angiogram/angioplasty 06/27/23
--- OUTSIDE RECORDS SUMMARY | 2024-06-12 11:59 | XMS_ITS ---
Author Organization [facility] Address [address] [place] [address] Care Team Providers Care Inspector Advanced Composite Name Role Phone Pratibha MEDICAL LABORATORY ASSISTANT, Juliet Primary Care Provider Unavail able Rock Newton Unavailable [phone] REASON FOR VISIT Cancel Encounters Encounter Location Date Provider Diagnosis [facility] [address] [place] [address] 03/03/2024 Rock Newton PLAN OF TREATMENT No Information
--- OUTSIDE RECORDS SUMMARY | 2024-06-12 11:59 | XMS_ITS ---
Author Organization [facility] Address [address] [place] [address] Care Team Providers Care Manager Behavioral Name Role Phone Pratibha BRIDGE RIGGER, Juliet Primary Care Provider Unavail able Rock Newton Unavailable [phone] REASON FOR VISIT questions Encounters Encounter Location Date Provider Diagnosis [facility] [place] [address] [place] [address] 12/26/2023 Rock Netwon PLAN OF TREATMENT No Information
[2024-06-12 14:14] VITALS: BP 147/57; PULSE 80; RESP 18; TEMP 36.8; O2SAT 98
== END 2024-06-12 14:15 | disposition home or self-care (01) ==
PROVIDERS: Emergency Provider Emergency Medicine
DX: S09.90XA Unspecified injury of head, initial encounter (principal); R51.9 Headache, unspecified; E11.9 Type 2 diabetes mellitus without complications; M54.2 Cervicalgia; I10 Essential (primary) hypertension; W05.1XXA Fall from non-moving nonmotorized scooter, initial encounter; Y93.89 Activity, other specified; Y92.89 Other specified places as the place of occurrence of the external cause; Y99.8 Other external cause status; Z79.899 Other long term (current) drug therapy; Z79.4 Long term (current) use of insulin
CPT/HCPCS: 70450; 72125; 99284

== ENCOUNTER → 2024-06-26 08:13 | Outpatient (REF) | payer OTHER, SELFPAY ==
--- NOTE | ~2024-06-26 | NM_ITS ---
Lexiscan Myocardial perfusion study Indication: Peripheral Vascular disease to evaluate for myocardial ischemia Technique: The patient was brought in for a Lexiscan perfusion study on 06/26/2024 and was injected 0.4 mg of Lexiscan intravenously. Within a minute of this injection 23 mCi of sestamibi was given intravenously. Images were obtained using the SPECT gamma camera interlaced with the gating device. Images were obtained in supine position. Resting perfusion study was performed on 07/07/2024. Patient was administered 23 mCi of sestamibi intravenously at rest. Images were then obtained in supine position. Images obtained without without CT attenuation. Total DLP 76 mGy-cm. Images were processed with the software and compared side to side in short axis, horizontal long axis and vertical long axis views. Findings: The stress perfusion study showed nontender images show large area of absent uptake from distal anterior wall, apex to the entire inferior wall as well as moderately reduced uptake and inferolateral and severely reduced uptake in the inferoseptal wall of the LV myocardium.. The gated study shows severely reduced LV systolic function with calculated LVEF of 28%. LV cavity is severely dilated in size. The gated study shows absent wall thickening and contraction of inferior and apical segments. Resting study shows no significant change in perfusion pattern compared to stress perfusion study. Gating at rest reveals inferior and apical akinesis with otherwise diffuse hypokinesis wall motion with ejection fraction at 32%. 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 Extension into inferolateral and inferoseptal wall of the LV myocardium.. NM/NM cardiolite stress test Impression: 1. Myocardial perfusion imaging study shows large area of infarct of the apex as well as the inferior wall without evidence of significant ischemia 2. Gated LVEF is 28% 3. Transient ischemic dilatation present Nondiagnostic changes on EKG. Electronically signed by: Sotero Rapp MD 07/08/2024 04:43 PM [facility] [place]
--- NOTE | 2024-06-26 08:16 | CA_ITS ---
Acquisition Time: 2024-06-26 08:09:51 Total Exercise Time: 00:02:00 Test Indications: Pre-Op Evaluation Medications: ELIQUIS ASA ATORVASTATIN BUMETANIDE CARVEDILOL GABAPENTIN INSULIN METFORMIN Protocol: LEXISCAN Max HR: 097 BPM 66% of Pred: 146 BPM Max BP: 158/070 mmHG Max Work Load: 1.0 METS Pharmacological stress test with Lexiscan injection, while sitting and moving her left arm, without anginal symptoms, without arrythmia, with normotensive response to injection, with nondiagnostic EKG for ischemia: of note there are T wave inversions at baseline and then post injection there is ST depression noted in leads I, aVL and ST elevation in lead III only, Asymptomatic. In recovery she was treated with Aminophylline 75 mg IVP to reverse Lexiscan. Nuclear images pending.Test reviewed with Dr Judd. Referred By: Kacie Nogueira Overread By: KACIE NOGUEIRA
== END ==
LOC: HO.CARD 08:13
PROVIDERS: PCP Nurse Practitioner Family; Visit Provider Nurse Practitioner Family
DX: Z01.810 Encounter for preprocedural cardiovascular examination (principal); I73.9 Peripheral vascular disease, unspecified
CPT/HCPCS: 78452; 93017; A9500; J0280; J2785

== ENCOUNTER → 2024-06-26 08:16 | Outpatient (BNV) | payer OTHER, SELFPAY | PROVIDERS: PCP Nurse Practitioner Family; Visit Provider Nurse Practitioner Family | DX: R94.31 Abnormal electrocardiogram [ECG] [EKG] (principal) | CPT/HCPCS: 78452; 93016; 93018 ==

== ENCOUNTER 2024-07-11 14:40 | Outpatient (AMB) | payer OTHER, SELFPAY ==
[2024-07-11 14:44] VITALS: BP 142/60; PULSE 72; BMI 26.6
--- NOTE | 2024-07-11 14:44 | MHC.OFFVIS ---
Vital Signs 07/11/24 14:44 Height 5 ft 2 in Weight 145 lb 8.081 oz BMI 26.6 BP 142/60 H Blood Pressure Location Lt brachial Position Sitting Pulse 72 Pulse Source Pulse Oximeter Intake Visit Reasons: pre-op Exhibitions Curator Required: No Long Winder Tender: Long Winder Tender Present Allergies lisinopril Allergy (Severe, Verified 07/11/24 14:47) swollen tongue apple Allergy (Intermediate, Verified 07/11/24 14:47) tongue swelling banana Allergy (Intermediate, Verified 07/11/24 14:47) tongue and lip swelling Medication List - Last Reconciled 07/11/24 by ADRIANNA Gardiner apixaban (Eliquis) 2.5 mg PO BID ascorbic acid (vitamin C) (Vitamin C) 100 mg PO BID aspirin 81 mg PO DAILY atorvastatin 40 mg PO BEDTIME 30 days blood sugar diagnostic (FreeStyle Test strips) bid to tid bs checks blood-glucose meter (FreeStyle Lite Meter kit) As directed bumetanide 1 mg PO DAILY calcitriol mcg PO carvedilol 12.5 mg PO BID cholecalciferol (vitamin D3) 1,250 mcg PO QWEEK 3 months commode (bedside commode) As directed ferrous sulfate (iron) 325 mg PO BID gabapentin 300 mg PO BEDTIME 30 days insulin glargine (Lantus U-100 Insulin) 10 units (0.1 mL) subcut BEDTIME 90 days insulin syringe-needle U-100 (BD Insulin Syringe Micro-Fine) For q.h.s. Lantus administration lidocaine 5% (Lidoderm) 1 patch topical DAILY PRN MDD remove after 12 hours miscellaneous medical supply 3 boxes of medium-sized gloves monthly x 12 months miscellaneous medical supply hand held shower head As directed miscellaneous medical supply Rollator walker nystatin-triamcinolone 100,000-0.1 unit/g-% 1 appl topical DAILY polyethylene glycol 3350 (Miralax) 238 grams PO ONCE 1 day HPI HPI pre-op: Details: Mayuri is a 74-year-old female with past medical history hypertension, hyperlipidemia, diabetes, right lower extremity DVT, peripheral vascular disease who has followed with cardiology since 04/2023 for the management of her cholesterol. Last fall she reported some sob with exertion and echo showed normal EF, grade 1 diastolic dysfunction. A nuclear stress test was ordered however completed by patient. More recently she has been dealing with ulcers on her right lower extremity and has undergone peripheral angiograms and peripheral stent [place] [facility] She was recently found to have occluded right SFA to popliteal and tibial stents and LE bypass surgery is being considered. For Preop clearance she underwent a nuclear stress test and now presents for follow-up. Today she reports that she has not had any concerning symptoms since her last visit here in April. She says she never has had chest discomfort at rest or with activity. She denies having shortness of breath at rest or with activity. No PND, orthopnea. No heart palpitations, lightheadedness, presyncope, syncope. She is mostly sedentary and ambulates only short distances. She does get some swelling in her right lower extremity which is mild. She denies pain in that leg. She has wounds which are being followed by the wound clinic and they are slowly healing. She says she is scheduled for another angiogram to try to unblock the stents on 07/25/2024. She has never had any heart problems that she is aware of. She tells me that her PCP reduced her dose of atorvastatin from 80 mg down to 40 mg since her cholesterol was good. She has previously declined Zetia and PCSK9 inhibitor. Patient describes much anxiety when coming to office visit or having procedures. Daughter is present and assisting with Greenlandic translation at their request. FORMERLY [facility], [facility] Medical History History of femoral angiogram Stroke Weakness Iron deficiency Vitamin D deficiency Surgical History History of angioplasty (~07/11/23) No pertinent past surgical history Family History Father Bladder cancer Smoker Mother Diabetes CVD (cardiovascular disease) Glaucoma Daughter Anxiety Family/Other Alzheimer's dementia Uterine cancer Social History Household Members: Family Housing: Apartment Alcohol intake: never Patient Tobacco Use Status: Never used Tobacco e-Cigarette/Vaping Use: Never Used Second Hand Smoke Exposure: No service: No Current occupational status: retired Cognitive needs: No Hearing needs: No Vision needs: No Review of Systems Const Details: sedentary. ambulates short distances All systems reviewed & are unremarkable except as noted in HPI and below ENT Denies dizziness Card Denies chest pain, Denies chest pain at rest, Denies chest pain with activity, Denies rapid heart rate, Denies pedal edema, Denies edema, Denies leg edema, Denies lightheadedness, Denies palpitations, Denies dyspnea, Denies dyspnea on exertion and Denies orthopnea Resp Denies cough, Denies dyspnea and Denies dyspnea on exertion GI Denies hematochezia and Denies change in stool character Musc Details: dressing on wounds right foot Denies abnormal gait, Denies limited range of motion, Denies muscle cramps, Denies muscle weakness, Denies numbness, Denies radiating pain into limb, Denies stiffness and Denies tingling Neuro Denies abnormal gait, Denies dizziness, Denies numbness and Denies tingling Endo Denies palpitations Physical Exam Vital Signs: Last Vital Signs Pulse 72 07/11/24 14:44 BP 142/60 H 07/11/24 14:44 BMI result Body Mass Index 26.6 Const Other: somewhat frail elderly female sitting in wheelchair General: cooperative, comfortable and no acute distress Orientation/consciousness: patient oriented x3 Neck Neck: Yes normal visual inspection Resp Effort & Inspection: normal respiratory effort Auscultation: clear to auscultation bilaterally, no rales, no rhonchi and no wheezes Cardio Jugular venous distension: no JVD Rate: regular rate Rhythm: regular rhythm Heart sounds: S1 normal heart sound present, S2 normal heart sound present, no murmurs and no rubs Neuro General: patient oriented x3 Extrem Other: dressing on right foot, ortho boot. right leg warm to touch, normal color Psych Appearance: grossly normal Mental Status: mental status grossly normal Speech and movement: Normal speech and movement present Office Procedures EKG Details: Today, read by me, normal sinus rhythm, ST and T-wave abnormality inferior lateral leads, rate 72, QTC 435 milliseconds [id number], Complete Assessment & Plan Assessment & Plan (1) Abnormal nuclear stress test: Code(s): R94.39 - Abnormal result of other cardiovascular function study Category: Medical Plan: Patient with no known cardiac history. She does have cardiac risk factors of hypertension, hyperlipidemia, diabetes, peripheral vascular disease. Last fall she reported shortness of breath with exertion and an echocardiogram was done 05/15/2023 showing EF 64%, grade 1 diastolic dysfunction, no valve abnormalities, moderate plaque in the sinus of Valsalva. A nuclear stress test had been ordered on her which she did not complete for unclear reason. On follow-up visit she reported her shortness of breath had fully resolved. She has never reported chest discomfort. EKG done 04/21/2024 does show nonspecific T-wave abnormalities which are different from prior EKG. She again denied any anginal symptoms. She is now preop for probable vascular surgery. She did undergo a pharmacological nuclear stress test on 06/26/2024 showing a large area of infarct of the apex and inferior wall without evidence of significant ischemia, EF 28%. She does not recall any time in the past where she may have had a heart attack. On exam she does not appear fluid overloaded. Will check a stat echocardiogram to assess EF and wall motion. Reviewed with Dr. Rapp. She will need a cardiac catheterization to define anatomy, PCI if warranted. She is scheduled for a peripheral angiogram on 07/25/2024. I will need to reach out to her vascular surgeon, Dr. Johann Frankel at [facility] to discuss plan of care on this pt. She does have chronic kidney disease with labs done 06/25/2024 showing creatinine 1.95. No contrast dye allergy. Will continue on aspirin, will increase her atorvastatin up to 80 mg daily, continue carvedilol. She is on Eliquis for prior DVT. She has no known history PAF. Signs and symptoms of angina reviewed with her. Cardiology office visit 2 weeks post cardiac catheterization. Cardiac clearance for her procedure is on hold, pending echo and catheterization. (2) Hyperlipidemia: Code(s): E78.5 - Hyperlipidemia, unspecified Category: Medical Qualifiers: Hyperlipidemia type: familial hypercholesterolemia Qualified Code(s): E78.01 - Familial hypercholesterolemia Plan: History of hyperlipidemia. LDL goal ideally less than 70 patient with peripheral vascular disease and diabetes. Labs done 02/2023 showed LDL 357. She was been put on high-dose atorvastatin, but may not have been entirely compliant until recent months. She was previously recommended to take Zetia and/or PCSK9 inhibitor and she declined both. She did have labs on 04/19/2024 showing LDL is now 51. Since that time she states that her PCP reduced her atorvastatin dose back to 40 mg daily. Based on findings as above will increase atorvastatin back to 80 mg daily. Patient denies having any concerning symptoms when she was on that dose. (3) Hypertension, essential: Code(s): I10 - Essential (primary) hypertension Category: Medical Plan: Mild elevation at this time. Patient reports getting very anxious prior to office visits and any procedures. Home blood pressures reported as normal range with systolic 110-120 mmHg. Continue Carvedilol and follow low salt diet. (4) Skin ulcer of right great toe: Code(s): L97.519 - Non-pressure chronic ulcer of other part of right foot with unspecified severity Category: Medical Plan: Following with the Wound Clinic. Tells me she has 2 stents now in her right lower extremity which are occluded. She now has a repeat angiogram planned for 07/25/2024. (5) Anxiousness: Code(s): F41.9 - Anxiety disorder, unspecified Category: Medical Plan: Patient reports feeling anxiety about office visits and tests and procedures. He says it makes her blood pressure go high. She is requesting medication that she can take prior to having these visits and procedures. Informed her that we do not prescribe that through cardiology. I will forward this to her PCP for his review. Plan Time spent on chart review, documentation, interview and assessment, communicating with Tamela Brenner and Marlys. coordinating care. Orders: Orders CA echo transthoracic complete Today R94.39 - Abnormal result of other cardiovascular function study Coding Level of Care Code Est Pt Level 5 (26903) Complex EM visit Add On G2211 Diagnoses Abnormal nuclear stress test R94.39 Familial hypercholesterolemia E78.01 Hyperlipidemia type: familial hypercholesterolemia Hypertension, essential I10 Skin ulcer of right great toe L97.519 Anxiousness F41.9 CPT Codes EKG - CPT: 32650-[id number], Complete ([id number]) Time Spent (min) 45
== END 2024-07-11 15:39 | disposition home or self-care (01) ==
PROVIDERS: PCP Nurse Practitioner Family; Visit Provider Nurse Practitioner Family
DX: R94.39 Abnormal result of other cardiovascular function study (principal); E78.01 Familial hypercholesterolemia; I10 Essential (primary) hypertension; L97.519 Non-pressure chronic ulcer of other part of right foot with unspecified severity; F41.9 Anxiety disorder, unspecified; R94.31 Abnormal electrocardiogram [ECG] [EKG]
CPT/HCPCS: 93010; 99215; G2211

== ENCOUNTER → 2024-07-11 14:40 | Outpatient (BNVA) | payer OTHER, SELFPAY | PROVIDERS: PCP Nurse Practitioner Family; Visit Provider Nurse Practitioner Family | DX: R94.39 Abnormal result of other cardiovascular function study (principal); E78.01 Familial hypercholesterolemia; I10 Essential (primary) hypertension; F41.9 Anxiety disorder, unspecified; L97.519 Non-pressure chronic ulcer of other part of right foot with unspecified severity; R94.31 Abnormal electrocardiogram [ECG] [EKG] | CPT/HCPCS: 93005; 99212 ==

== ENCOUNTER → 2024-07-18 14:05 | Outpatient (REF) | payer OTHER, SELFPAY ==
--- NOTE | 2024-07-18 14:08 | CA_ITS ---
Transthoracic Echocardiogram Patient (Last, First, Middle): Mayuri Minaya, Gender: Female Date of : 1950 Age: 74 Procedure Date: 07/18/2024 Procedure Type: Transthoracic Echocardiogram Location: OP Height: 157.48 cm Weight: 62.6 kg BSA: 1.63 m2 Heart Rate: 80 bpm BP: 168 / 80 mmHg Social Media Community Manager: CHIKA Referring MD: Kacie Nogueira [employer]ESE GRADER-C Symptoms: R94.39 - Abnormal result of other cardiovascular function study Study Quality: Fair ECG Rhythm: Sinus Conclusions: - Normal left ventricular cavity size. There is mildly increased left ventricular wall thickness. The left ventricular systolic function is moderate to severely decreased. The visually estimated ejection fraction is between 25-30%. - E/E prime ratio is >15, consistent with elevated filling pressures. - The anterior wall, the apex, apical inferior, mid inferior, apical septum, mid inferoseptal, and mid anteroseptal segments are akinetic. Findings Procedure Information The patient declines contrast. Left Ventricle Normal left ventricular cavity size. There is mildly increased left ventricular wall thickness. The left ventricular systolic function is moderate to severely decreased. The visually estimated ejection fraction is between 25-30%. There is evidence of regional wall motion abnormalities. Abnormal diastolic function is noted. Spectral Doppler is indicative of an impaired relaxation filling pattern. E/E prime ratio is >15, consistent with elevated filling pressures. Wall Motion Rest Echo Findings The anterior wall, the apex, apical inferior, mid inferior, apical septum, mid inferoseptal, and mid anteroseptal segments are akinetic. Right Ventricle Normal right ventricular cavity size and systolic function. Atria The left atrium is mildly dilated. The right atrium is normal in size. Aortic Valve There is a normal trileaflet aortic valve. There is mild calcification of the aortic valve. There is no aortic valve stenosis. There is no aortic valve regurgitation. Mitral Valve The mitral valve appears normal. There is trace mitral valve regurgitation. There is no mitral valve stenosis. Pulmonic Valve The pulmonic valve is likely normal. Tricuspid Valve Normal tricuspid valve structure. There is no tricuspid valve regurgitation. Normal right atrial pressure. There is no evidence of pulmonary hypertension. Great Vessels All visible segments of the aorta are normal in size. Venous The inferior vena cava is normal in size and collapses greater than 50% with inspiration. Pericardium/Pleural There is no evidence of pericardial effusion. Prior Study Comparison Significant changes compared to prior study dated: 05/15/2023. EF 25 to 30%, LAD territory regional wall motion abnormality. Measurements 2D Linear Measurements IVSd: 1.43 0.6-0.9/0.6-1.0 cm LVIDd: 4.41 3.9-5.3/4.2-5.9 cm LVIDd Index: 2.71 2.4-3.2/2.2-3.1 cm/m2 LVIDs: 3.31 2.0-3.6 cm LVPWd: 1.14 0.7-1.1 cm LA Diam: 3.80 2.7-3.8/3.0-4.0 cm LAIDs Index: 2.33 1.5-2.3 cm/m2 LV Mass: 264.47 67-162/88-224 g LV Mass Index: 162.25 43-95/49-115 g/m2 LVOT Diam: 1.80 3.0+(-)1.3 cm Mitral Valve MV VTI: 0.30 MV Pk Jarek: 1.55 MV Mn Jarek: 0.92 MV Pk Grad: 10.00 MV Mn Grad: 4.00 MV Pk E: 1.07 MV PK A: 1.26 MV Decel Time: 203.00 E/A: 0.80 E'Lateral: 4.68 E'Medial: 3.59 E/E' Med: 29.80 E/E' Lat: 22.90 PHT: 60.00 MVA PHT: 3.67 MVA Continuity: 1.29 Decel Stewart: 5.27 Aortic Valve AoV Pk Jarek: 1.08 AoV Mn Jarek: 0.81 AoV VTI: 0.26 AoV Pk Grad: 5.00 Aov Mn Grad: 3.00 JOSE EDUARDO Cont.VTI: 1.48 LVOT LVOT Pk Jarek: 0.66 LVOT Mn Jarek: 0.51 LVOT VTI: 0.15 LVOT Pk Grad: 2.00 LVOT Mn Grad: 1.00 LVOT Diam: 1.80 LVOT Area: 2.54 Diastolic Function MV Pk E: 1.07 MV Pk A: 1.26 E/A: 0.80 E'Medial: 3.59 E/E' Med: 29.80 E' Laterial: 4.68 E/E' Lat: 22.90 Right Ventricle TAPSE (mm): 18.00 TVS' Jarek: 10.00 Tricuspid Valve TR Pk Jarek: 2.76 TR Pk Grad: 30.00 RA Press: 3.00 RVSP: 33.00 Great Vessels Aorta Sinus of Valsalva: 2.90 2.0-3.5 cm Ao Asc: 2.80 2.1-3.4 cm Pulmonary Valve PV Pk Jarek: 0.84 Peak PV Grad: 3.00 Updated in Other Vendor System with Status of Final Jase Judd MD electronically signed on 07/20/2024 7:13:55 PM with status of Final
== END ==
LOC: HO.CARD 14:05
PROVIDERS: PCP Nurse Practitioner Family; Visit Provider Nurse Practitioner Family
DX: R94.39 Abnormal result of other cardiovascular function study (principal)
CPT/HCPCS: 93306

== ENCOUNTER → 2024-07-18 14:08 | Outpatient (BNV) | payer OTHER, SELFPAY | PROVIDERS: PCP Nurse Practitioner Family; Visit Provider Internal Medicine Cardiovascular Disease | DX: I35.8 Other nonrheumatic aortic valve disorders (principal); I51.89 Other ill-defined heart diseases | CPT/HCPCS: 93306 ==

== ENCOUNTER 2024-07-23 07:33 | Outpatient (REF) | payer OTHER, SELFPAY ==
[2024-07-23 10:02] LABS: MANUAL DIFF FLAG NO
[2024-07-23 10:16] LABS: Basophils Percent Auto 0.6 % (0-2); Eosinophils Absolute Auto 0.2 X10*3/uL (0.0-0.4); Eosinophils Percent Auto 3.3 % (0-4); Hematocrit 29.9 % (37.0-47.0); Hemoglobin 8.9 g/dl (12.0-16.0); Imm Gran Abs Auto 0.02 X10*3/uL (0.00-0.03); Imm Gran Pct Auto 0.3 % (0.0-0.4); Lymphocytes Absolute Auto 1.7 X10*3/uL (1.2-4.9); Lymphocytes Percent Auto 24.1 % (20-40); Mean Corpuscular HGB Conc 29.8 g/dl (31.0-35.0); Mean Corpuscular Hemoglobin 22.5 pg (27.0-33.0); Mean Corpuscular Volume 75.7 fL (80.0-98.0); Mean Platelet Volume 9.9 fL (9.4-12.3); Monocytes Absolute Auto 0.7 X10*3/uL (0.1-1.2); Monocytes Percent Auto 9.8 % (2-11); Neutrophils Absolute Auto 4.4 x10*3/uL (2.0-8.3); Neutrophils Percent Auto 61.9 % (45-73); Platelet Count 278 X10*3/uL (160-400); Red Blood Count 3.95 X10*6/uL (4.20-5.50); Red Cell Distribution Width 18.8 % (11.0-16.0); White Blood Count 7.1 X10*3/uL (4.8-10.8)
[2024-07-23 10:32] LABS: Anion Gap 13 (12-20); Blood Urea Nitrogen 55 mg/dL (9-16); Carbon Dioxide 27 mmol/L (22-29); Chloride 110 mmol/L (96-108); Estimated Glomerular Filt Rate 25; Sodium 146 mmol/L (135-145)
== END 2024-07-23 07:34 | disposition home or self-care (01) ==
LOC: HO.HMGCLDS 07:33
PROVIDERS: PCP Nurse Practitioner Family; Visit Provider Surgery Vascular Surgery
DX: I73.9 Peripheral vascular disease, unspecified (principal)
CPT/HCPCS: 36415; 80051; 82565; 84520; 85025

== ENCOUNTER 2024-08-14 15:14 | Outpatient (AMB) | payer OTHER, SELFPAY ==
--- NOTE | 2024-08-14 15:19 | A.OFFPC_ITS ---
Vital Signs 08/14/24 15:22 Height 5 ft 2 in Weight 149 lb 6 oz BMI 27.3 BP 149/67 H Blood Pressure Location Rt brachial Position Sitting Respiration 16 Pulse 72 Pulse Source Pulse Oximeter Temp 97.5 F Temp Source Temporal Artery Scan Pulse Oximetry (%) 99 Oxygen Delivery Method Room Air Intake Visit Reasons: F/U DM and BP Intake Note: patient here for follow up on DM and BP Pack Puller Required: Yes Pack Puller Name: patient refused Accompanied by: Daughter Is last menstrual period known: No Post menopausal: No Patient : No Allergies lisinopril Allergy (Severe, Verified 08/14/24 15:28) swollen tongue apple Allergy (Intermediate, Verified 08/14/24 15:28) tongue swelling banana Allergy (Intermediate, Verified 08/14/24 15:28) tongue and lip swelling Medication List - Last Reconciled 08/14/24 by Maribel Mckinnon CNP apixaban (Eliquis) 2.5 mg PO BID ascorbic acid (vitamin C) (Vitamin C) 100 mg PO BID aspirin 81 mg PO DAILY atorvastatin 80 mg PO BEDTIME blood sugar diagnostic (FreeStyle Test strips) bid to tid bs checks blood-glucose meter (FreeStyle Lite Meter kit) As directed bumetanide 1 mg PO DAILY calcitriol mcg PO carvedilol 12.5 mg PO BID cholecalciferol (vitamin D3) 1,250 mcg PO QWEEK 3 months commode (bedside commode) As directed ferrous sulfate (iron) 325 mg PO BID gabapentin 300 mg PO BEDTIME 30 days insulin glargine (Lantus U-100 Insulin) 10 units (0.1 mL) subcut BEDTIME 90 days insulin syringe-needle U-100 (BD Insulin Syringe Micro-Fine) For q.h.s. Lantus administration lidocaine 5% (Lidoderm) 1 patch topical DAILY PRN MDD remove after 12 hours miscellaneous medical supply 3 boxes of medium-sized gloves monthly x 12 months miscellaneous medical supply hand held shower head As directed miscellaneous medical supply Rollator walker nystatin-triamcinolone 100,000-0.1 unit/g-% 1 appl topical DAILY polyethylene glycol 3350 (Miralax) 238 grams PO ONCE 1 day Tobacco use date assessed: 08/14/24 Fall risk assessment: 1 Fall in past year Last assessed Fall Risk: 08/14/24 Dental Screening Dental Screen Date: 08/14/24 Did you have a dental visit in the last 12 months?: No Did you have a dental problem in the last 6 months where you did not have access to dental care?: No Was dental information given to patient?: No HPI HPI Comments History of Present Illness Details Hypertension and diabetes follow-up. The patient is a 74-year-old female, accompained by her daughter, presenting with a history of multiple chronic conditions including essential hypertension, hyperlipidemia, and type 2 diabetes mellitus. Her hypertension is currently managed with carvedilol 12.5 mg twice daily, but her blood pressure remains elevated, at doctors office. She occasionally delays medication intake, affecting her blood pressure control. She was previously on hydralazine, which lowered her blood pressure excessively. For hyperlipidemia, the patient is on atorvastatin (Lipitor) 80 mg following a stress test that indicated a prior myocardial infarction. Her type 2 diabetes is managed with Lantus 10 units. The patient is under dietary modifications, including reduced carbohydrate and sodium intake. There is concern over anemia, as recent hemoglobin levels were noted at 8.9 g/dL. She has a follow-up appointment with tour bus driver/guide tomorrow. Her chronic kidney disease necessitates avoidance of metformin. She continues on iron supplementation but experiences constipation. [facility] Medical History History of femoral angiogram Stroke Weakness Iron deficiency Vitamin D deficiency Surgical History History of angioplasty (~07/11/23) No pertinent past surgical history Family History Father Bladder cancer Smoker Mother Diabetes CVD (cardiovascular disease) Glaucoma Daughter Anxiety Family/Other Alzheimer's dementia Uterine cancer Social History Household Members: Family Housing: Apartment Alcohol intake: never Patient Tobacco Use Status: Never used Tobacco e-Cigarette/Vaping Use: Never Used Second Hand Smoke Exposure: No service: No Current occupational status: retired Cognitive needs: No Hearing needs: No Vision needs: No Questionnaire Thrive Questionnaire Date Thrive assessed: 08/04/24 I am a: Patient What is your living situation today?: I have a steady place to live Within the past 12 months, did the food you bought not last and you didn't have the money to get more?: Sometimes True Within the past 12 months, did you worry whether your food would run out before you got money to buy more?: Sometimes True Do you have trouble paying for medicines?: No Do you have trouble getting transportation to medical appointments?: No Do you have trouble paying your heating and electricity bill?: No Do you have trouble taking care of your child, family member or friend?: No Do you have trouble with day-to-day activities such as bathing, preparing meals, shopping, managing finances, etc.?: Yes Are you currently unemployed and looking for a job?: No Are you interested in more education?: No Currently or been in a relationship where the following occur: I choose not to answer THRIVE Score: 2 SARAHY-7 AMB Questionnaire SARAHY-7 Date SARAHY - 7 assessed: 05/10/23 Source: Developed by Drs. Marcel Payne, Rosa Perez, Matt Kaba and colleagues, with an educational vicki from [employer]. Review of Systems Const Details: Const Denies chills, Denies fatigue, Denies fever(s), Denies headache(s) and Denies weakness ENT Denies dizziness and Denies headache(s) Card Denies chest pain, Denies lightheadedness, Denies dyspnea and Denies other (Palpitations) Resp Denies cough, Denies dyspnea, Denies wheezing and Denies other ( shortness of breath) GI Denies abdominal pain, Denies melena, Denies hematochezia, Denies change in bowel habits, Denies dyspepsia and Denies nausea Denies hematuria and Denies dysuria Musc Denies abnormal gait, Denies myalgias, Denies arthralgias, Denies numbness and Denies tingling Skin/Breast Denies rash, Denies unusual bruising and Denies wounds Neuro Denies abnormal gait, Denies dizziness, Denies headache(s), Denies memory loss, Denies numbness, Denies Sensory deficit (Neuro), Denies tingling and Denies we akness Psych Denies anxiety, Denies depression, Denies memory loss Endo Denies cold intolerance, Denies fatigue, Denies heat intolerance, Denies polyd ipsia and Denies polyuria Aller/Immun Denies wheezing Physical exam (Primary Care) Vital Signs: Last Vital Signs Temp 97.5 F 08/14/24 15:22 Pulse 72 08/14/24 15:22 Resp 16 08/14/24 15:22 BP 149/67 H 08/14/24 15:22 Pulse Ox 99 08/14/24 15:22 Oxygen Delivery Method Room Air 08/14/24 15:22 BMI result Body Mass Index 27.3 Tobacco/Smoking Status: Tobacco use Status Tobacco use date assessed 08/14/24 08/14/24 15:27 Patient Tobacco Use Status Never used Tobacco 08/14/24 15:27 e-Cigarette/Vaping Use Never Used 08/14/24 15:27 Thrive Assessment: Date of Thrive Assessment Date Thrive assessed 08/04/24 08/14/24 15:27 Currently or been in a relationship where the following occur: I choose not to answer Const Other: General: no acute distress and well developed Nutritional Appearance: well nourished Orientation/consciousness: patient oriented x3 HENMT Head: Yes normocephalic and Yes atraumatic Eyes General: appearance normal, both eyes and all related structures Pupils: Equal, round and reactive pupils present EOM: EOMs intact bilaterally Resp Effort & Inspection: normal respiratory effort Auscultation: clear to auscultation bilaterally Cardio Rate: regular rate Rhythm: regular rhythm Heart sounds: S1 normal heart sound present, S2 normal heart sound present, no gallops, no murmurs and no rubs GI Palpation (GI): No Abdominal aortic bruit present, Soft to palpation, nontender, No hepatosplenomegaly present and No Rebound tenderness present Auscultation: normal bowel sounds General: Yes no CVA tenderness Back/Spine/Pelvis Back: no CVA tenderness Cervical Spine: cervical ROM normal and No Cervical spine tenderness Thoracic/Lumbar Spine: thoraco-lumbar ROM normal, No pain with thoraco-lumbar ROM, No thoracic spinal tenderness and No lumbar spinal tenderness Extrem General: Yes normal to inspection, No edema and No calf tenderness Skin General: warm and dry. Normal skin color. Normal skin turgor Neuro General: patient oriented x3, gait normal and no focal neuro deficit Cranial nerves: Yes Equal, round and reactive pupils present Cognition (Neuro): normal cognition Gait exam (Neuro): Normal gait present Sensory Exam: No Sensory deficit (Neuro) Psych Appearance: grossly normal Affect: normal affect Attitude: cooperative Thought process: Normal thought process present Results AMB Hemoglobin A1c AMB Hemoglobin A1c 7.2 % Last Edit by Lavinia Schrader on 08/14/24 15:37 Coding Level of Care Code Est Pt Level 4 (78610) Diagnoses Hypertension, essential I10 Controlled type 2 diabetes mellitus without complication, with long-term current use of insulin E11.9; Z79.4 Diabetes mellitus senior living insulin use: with senior living use Diabetes mellitus complication status: without complication Anemia D64.9 Assessment & Plan Assessment & Plan (1) Hypertension, essential: Code(s): I10 - Essential (primary) hypertension Category: Medical Plan: Blood pressure today is 149/67, above goal of less than 130/80. Will increase carvedilol to 25 mg twice daily; advised to take as prescribed. Low-sodium diet encouraged. Monitor blood pressure once to twice weekly, record readings, and bring to next appointment. Advised to get fasting lab work done before her next visit. Follow-up in 2 months for an extended physical exam and lab reviews or sooner with symptoms or concerns. Verbalized understanding and agreed with treatment plan. (2) Diabetes type 2, controlled: Comment: Code(s): E11.9 - Type 2 diabetes mellitus without complications Category: Medical Qualifiers: Diabetes mellitus senior living insulin use: with predatory animal exterminator use Diabetes mellitus complication status: without complication Qualified Code(s): E11.9 - Type 2 diabetes mellitus without complications; Z79.4 - MCC (current) use of insulin Plan: A1c today is 7.2%, above goal of less than 7.0%. Previous A1c was 7.0%. Will increase Lantus to 12 mg every night. Advised to take as prescribed. ADA diet and routine exercise encouraged. Will recheck A1c in 3 months. Verbalized understanding and agreed with treatment plan. (3) Anemia: Code(s): D64.9 - Anemia, unspecified Category: Medical Plan: Recent H&H is 8.9/29.9. Continue with ferrous sulfate as prescribed. Adequate hydration unhealthy that encouraged to improve constipation. Follow-up with hematology tomorrow as planned. Verbalized understanding and agreed with treatment plan. Plan Patient was informed and verbally consented to the use of an ambient scribe for clinic note documentation during this visit. Orders: Orders Vitamin D 25-OH Total Today E55.9 - Vitamin D deficiency, unspecified TSH reflex Free T4 Today Z13.29 - Encounter for screening for other suspected endocrine disorder AMB Hemoglobin A1c Today Z13.9 - Encounter for screening, unspecified Medications: New carvedilol must administer with a meal/food 25 mg PO BID 30 days 60 tabs 3RF Changed From insulin glargine (Lantus U-100 Insulin) 10 units (0.1 mL) subcut BEDTIME 90 days 9 mL 3RF To insulin glargine (Lantus U-100 Insulin) 12 units (0.12 mL) subcut BEDTIME 90 days 10.8 mL 3RF Refilled insulin syringe-needle U-100 (BD Insulin Syringe Micro-Fine) For q.h.s. Lantus administration 100 ea 3RF
[2024-08-14 15:22] VITALS: BP 149/67; PULSE 72; RESP 16; TEMP 36.4; O2SAT 99; BMI 27.3
== END 2024-08-14 15:51 | disposition home or self-care (01) ==
PROVIDERS: PCP Nurse Practitioner Family; Visit Provider Nurse Practitioner Family
DX: I10 Essential (primary) hypertension (principal); E11.9 Type 2 diabetes mellitus without complications; Z79.4 Long term (current) use of insulin; D64.9 Anemia, unspecified; Z13.9 Encounter for screening, unspecified

== ENCOUNTER → 2024-08-14 15:14 | Outpatient (BNVA) | payer OTHER, SELFPAY | PROVIDERS: PCP Nurse Practitioner Family; Visit Provider Nurse Practitioner Family | DX: I10 Essential (primary) hypertension (principal); E11.9 Type 2 diabetes mellitus without complications; Z79.4 Long term (current) use of insulin; D64.9 Anemia, unspecified | CPT/HCPCS: 83036; 99212 ==

== ENCOUNTER 2024-08-21 09:37 | Outpatient (REF) | payer OTHER, SELFPAY ==
[2024-08-21 13:39] LABS: MANUAL DIFF FLAG NO
[2024-08-21 13:47] LABS: Basophils Percent Auto 0.6 % (0-2); Eosinophils Absolute Auto 0.3 X10*3/uL (0.0-0.4); Eosinophils Percent Auto 4.4 % (0-4); Hematocrit 29.8 % (37.0-47.0); Hemoglobin 8.9 g/dl (12.0-16.0); Imm Gran Abs Auto 0.03 X10*3/uL (0.00-0.03); Imm Gran Pct Auto 0.4 % (0.0-0.4); Lymphocytes Absolute Auto 1.5 X10*3/uL (1.2-4.9); Lymphocytes Percent Auto 21.7 % (20-40); Mean Corpuscular HGB Conc 29.9 g/dl (31.0-35.0); Mean Corpuscular Hemoglobin 22.5 pg (27.0-33.0); Mean Corpuscular Volume 75.4 fL (80.0-98.0); Mean Platelet Volume 10.2 fL (9.4-12.3); Monocytes Absolute Auto 0.6 X10*3/uL (0.1-1.2); Monocytes Percent Auto 8.1 % (2-11); Neutrophils Absolute Auto 4.4 x10*3/uL (2.0-8.3); Neutrophils Percent Auto 64.8 % (45-73); Platelet Count 287 X10*3/uL (160-400); Red Blood Count 3.95 X10*6/uL (4.20-5.50); Red Cell Distribution Width 18.4 % (11.0-16.0); White Blood Count 6.8 X10*3/uL (4.8-10.8)
[2024-08-21 14:01] LABS: Anion Gap 10 (12-20); Blood Urea Nitrogen 77 mg/dL (9-16); Calcium 8.8 mg/dL (8.4-10.2); Carbon Dioxide 27 mmol/L (22-29); Chloride 112 mmol/L (96-108); Cholesterol 132 mg/dL (<200); Estimated Glomerular Filt Rate 20; Glucose Random 84 mg/dL (60-115); HDL Cholesterol 46 mg/dL (>40); LDL Cholesterol Calculated 78 mg/dL (<100); Potassium 4.1 mmol/L (3.3-5.1); Sodium 145 mmol/L (135-145); Triglycerides 43 mg/dL (<150)
[2024-08-21 14:02] LABS: INTERNATIONAL NORM RATIO 1.2 (0.9-1.1); Prothrombin Time 14.3 SEC (10.9-12.4)
[2024-08-21 14:16] LABS: TSH reflex Free T4 7.84 uIU/mL (0.32-4.0); Vitamin D 25-OH Total 23.5 ng/mL (>30)
[2024-08-21 15:03] LABS: Free T4 (Free Thyroxine) 1.01 ng/dL (0.71-1.85)
== END 2024-08-21 09:38 | disposition home or self-care (01) ==
LOC: HO.HMGCLDS 09:37
PROVIDERS: PCP Nurse Practitioner Family; Visit Provider Nurse Practitioner Family
DX: R94.39 Abnormal result of other cardiovascular function study (principal); E78.01 Familial hypercholesterolemia; E55.9 Vitamin D deficiency, unspecified; Z13.29 Encounter for screening for other suspected endocrine disorder; Z79.01 Long term (current) use of anticoagulants
CPT/HCPCS: 36415; 80048; 80061; 82306; 84439; 84443; 85025; 85610

== ENCOUNTER 2024-09-04 11:51 | Outpatient (REF) | payer OTHER, SELFPAY ==
[2024-09-04 13:06] LABS: MANUAL DIFF FLAG NO
[2024-09-04 13:12] LABS: Basophils Percent Auto 0.5 % (0-2); Eosinophils Absolute Auto 0.2 X10*3/uL (0.0-0.4); Eosinophils Percent Auto 3.3 % (0-4); Hematocrit 29.6 % (37.0-47.0); Hemoglobin 8.8 g/dl (12.0-16.0); Imm Gran Abs Auto 0.01 X10*3/uL (0.00-0.03); Imm Gran Pct Auto 0.2 % (0.0-0.4); Lymphocytes Absolute Auto 1.5 X10*3/uL (1.2-4.9); Lymphocytes Percent Auto 23.2 % (20-40); Mean Corpuscular HGB Conc 29.7 g/dl (31.0-35.0); Mean Corpuscular Hemoglobin 22.4 pg (27.0-33.0); Mean Corpuscular Volume 75.5 fL (80.0-98.0); Mean Platelet Volume 9.9 fL (9.4-12.3); Monocytes Absolute Auto 0.5 X10*3/uL (0.1-1.2); Neutrophils Absolute Auto 4.2 x10*3/uL (2.0-8.3); Neutrophils Percent Auto 64.8 % (45-73); Platelet Count 274 X10*3/uL (160-400); Red Blood Count 3.92 X10*6/uL (4.20-5.50); Red Cell Distribution Width 18.1 % (11.0-16.0); White Blood Count 6.5 X10*3/uL (4.8-10.8)
[2024-09-04 13:22] LABS: Appearance Urine Clear; Color Urine Yellow; Glucose Urine UA Negative (Negative); Leukocyte Esterase Urine Negative (Negative); Nitrite Urine Negative (Negative); PH 5.5 (5.0-9.0); UMIC TRIGGER UA YES; Urine Blood Trace (Negative); Urine Ketones Negative (Negative); Urine Protein Negative (Neg-Trace)
[2024-09-04 13:26] LABS: Bacteria Urine None Seen (None Seen); RBC Urine 0-2 /HPF (0-2); Squamous Epithelial Cell Urine 0-2 /HPF (0-2); WBC Urine 0-5 /HPF (0-5)
[2024-09-04 13:34] LABS: Albumin Level 3.5 g/dL (3.5-5.0); Anion Gap 10 (12-20); Blood Urea Nitrogen 65 mg/dL (9-16); Calcium 9.1 mg/dL (8.4-10.2); Carbon Dioxide 29 mmol/L (22-29); Chloride 110 mmol/L (96-108); Estimated Glomerular Filt Rate 21; Iron 26 mcg/dL (30-160); Magnesium 2.4 mg/dL (1.6-2.6); Percent Iron Saturation 9 % (15-50); Phosphorus 4.1 mg/dL (2.7-4.5); Potassium 4.1 mmol/L (3.3-5.1); Sodium 145 mmol/L (135-145); Total Iron Binding Capacity 284 mcg/dL (228-428); Unsaturated Iron Binding 258 ug/dL
[2024-09-04 13:42] LABS: Ferritin 22 ng/mL (10-250); Vitamin D 25-OH Total 26.7 ng/mL (>30)
[2024-09-04 13:44] LABS: Creatinine Urine 37.16 mg/dL; Microalbum/Creatinine Ratio Ur 126.4 ug/mg cr (<30); Protein/Creatinine Ratio, Ur 0.27 (<0.2); Total Protein Urine Random 10 mg/dL (<12)
[2024-09-04 13:49] LABS: Parathyroid Hormone Intact 194.8 pg/mL (8.7-77.1)
== END 2024-09-04 11:52 | disposition home or self-care (01) ==
LOC: HO.HMGCLDS 11:51
PROVIDERS: PCP Nurse Practitioner Family; Visit Provider Internal Medicine Nephrology
DX: N18.4 Chronic kidney disease, stage 4 (severe) (principal)
CPT/HCPCS: 36415; 80051; 81001; 82040; 82043; 82306; 82310; 82565; 82570; 82728; 83540; 83735; 83970; 84100; 84156; 84520; 85025

== ENCOUNTER 2024-10-29 07:20 | Outpatient (REF) | payer OTHER, SELFPAY ==
--- OUTSIDE RECORDS SUMMARY | 2024-10-29 07:24 | XMS_ITS | Encounter Summary ---
Author Organization [facility] Address [address] [address] Phone Care Team Providers Care Slot Tag Inserter Name Role Phone Maribel Mckinnon CNP Primary Care Provider [phone] Encounter Details Date Type Department Care Team (Late st Contact Info) Description 10/29/2024 Orders Only [facility] [address] [place] [address] Andres Mccloud MD [address] [address] Chronic kidney disease stage 4 (HCC) Social History Tobacco Use Types Packs/Day Years Used Date Smoking Tobacco: Never Smokeless Tobacco: Never Alcohol Use Standard Drinks/Week Comments No 0 (1 standard drink = 0.6 oz pur e alcohol) Comments Unknown Sex and Gender Information Value Date Recorded Sex Assigned at Not on file Legal Sex Female 4:50 PM EST Gender Identity Not on file Sexual Orientation Not on file documented as of this encounter Plan of Treatment Upcoming Encounters Date Type Department Care Team (Late st Contact Info) Description 11/02/2024 Orders Only [facility] [address] [place] [address] Andres Mccloud MD [address] [address] Chronic kidney disease, stage 4 (severe) (HCC); Renal disorder due to type 2 diabetes mellitus <Diabetic nephropathy> (HCC); Persistent proteinuria 01/01/2025 3:30 PM EDT Office Visit [facility] [address] [place] [place] [address] Andres Mccloud MD [address] [facility] [address] [place] [id number] documented as of this encounter Visit Diagnoses Diagnosis Chronic kidney disease stage 4 (HCC) Chronic kidney disease, stage 4 (severe) (HCC) Renal disorder due to type 2 diabetes mellitus <Diabetic nephropathy> (HCC) Persistent proteinuria documented in this encounter Care Teams Slot Tag Inserter Relationship Specialty Start Date End Date Maribel Mckinnon CNP [address] [place] [address] PCP - General 09/04/24 documented as of this encounter
--- OUTSIDE RECORDS SUMMARY | 2024-10-29 07:24 | XMS_ITS | Clinical Summary ---
Author Organization [facility] Address [address] [place] [address] [place] [address] Phone Care Team Providers Care Application Developer Name Role Phone Maribel Mckinnon NEGRITA Primary Care Provider [phone] Allergies Active Allergy Reactions Criticality Noted Date Comments Banana (Diagnostic) Other (see comments) 2023 Lisinopril Other (see comments) 11/26/2023 Medications insulin glargine (Lantus) 100 UNIT/ML injection Active aspirin (ST EVA) 81 MG EC tablet Take 1 tablet by mouth 1 (one) time each day Active ergocalciferol 1.25 MG (17358 UT) capsule Take 1 capsule (50,000 Units total) by mouth 1 (one) time per week 12 capsule 2 1 Active Additional Information Patient not taking.Reported on 09/04/2024 Cholecalciferol (Vitamin D3) 1.25 MG (92335 UT) capsule TAKE 1 CAPSULE BY MOUTH EVERY WEEK FOR 3 MONTHS 2 Active gabapentin (NEURONTIN) 300 MG capsule Take 300 mg by mouth in the morning and 300 mg in the evening and 300 mg before bedtime. Active atorvastatin (LIPITOR) 40 MG tabletIndicatio ns:Chronic kidney disease stage 3 (HCC),Hyperlipi demia, not otherwise specified TAKE 1 TABLET BY MOUTH EVERY NIGHT 90 tablet 4 Active Additional Information Patient taking differently: 80 mgOral Nightly, Reported on 09/04/2024 carvedilol (COREG) 25 MG tabletIndicatio ns:Chronic kidney disease, stage 4 (severe) (HCC),Renal disorder due to type 2 diabetes mellitus <Diabetic nephropathy> (HCC),Persisten t proteinuria,Pilo al disorder due to type 2 diabetes mellitus <Other diabetic kidney complication> ([facility]) TAKE 1 TABLET (25 MG TOTAL) BY MOUTH IN THE MORNING AND IN THE EVENING 180 tablet 5 4 Active Eliquis 2.5 MG tablet 4 Active calcitriol (ROCALTROL) 0.25 MCG capsule TAKE 1 CAPSULE BY MOUTH EVERY OTHER DAY 45 capsule 4 Active ferrous sulfate 325 (65 Fe) MG EC tablet TAKE 1 TABLET ORALLY 2 TIMES A DAY 4 Active bumetanide (BUMEX) 1 MG tablet TAKE 1 TABLET (1 MG TOTAL) BY MOUTH IN THE MORNING AND IN THE EVENING 180 tablet 3 5 Active Active Problems Problem Noted Date Diagnosed Date Hypothyroidism 03/12/2023 Anxiety 03/12/2023 Chronic kidney disease, stage 4 (severe) 021 Renal osteodystrophy 04/28/2021 Benign essential hypertension 02/22/2021 Chronic kidney disease stage 3 02/22/2021 Edema 02/22/2021 Hypertensive heart disease without heart failure 02/22/2021 Proteinuria 02/22/2021 Renal disorder due to type 2 diabetes mellitus 0 02/22/2021 Cerebrovascular accident 04/29/2017 Overview (03/12/2023): Left thalamic stroke Apr 2017, residual dysarthria and right sided weakness Noncompliance with medication regimen 02/27/2013 Hyperlipidemia 06/26/2011 Overview (03/12/2023): IMO update Encounters Date Type Department Care Team Description 10/29/2024 Orders Only [facility] [address] [place] [address] Andres Mccloud MD Chronic kidney disease stage 4 (HCC) 09/11/2024 Refill [facility] [address] [place] [address] Alexx Marie MD 09/04/2024 1:00 PM EST Office Visit [facility] [address] [place] [address] Andres Mccloud MD Chronic kidney disease, stage 4 (severe) (HCC) (Primary Dx); Renal disorder due to type 2 diabetes mellitus <Diabetic nephropathy> (HCC); Persistent proteinuria 08/27/2024 Refill [facility] [address] [place] [address] Andres Mccloud MD from Last 3 Months Family History Medical History Relation Comments Diabetes Mother Heart disease Mother Hypertension Mother Relation Status Comments Mother Social History Tobacco Use Types Packs/Day Years Used Date Smoking Tobacco: Never Smokeless Tobacco: Never Alcohol Use Standard Drinks/Week Comments No 0 (1 standard drink = 0.6 oz pur e alcohol) Comments Unknown Sex and Gender Information Value Date Recorded Sex Assigned at Not on file Legal Sex Female 4:50 PM EST Gender Identity Not on file Sexual Orientation Not on file Last Filed Vital Signs Vital Sign Reading Time Taken Comments Blood Pressure 122/74 09/04/2024 1:09 PM EST Pulse 80 09/04/2024 1:09 PM EST Temperature - - Respiratory Rate - - Oxygen Saturation 99% 09/04/2024 1:09 PM EST Inhaled Oxygen Concentration - - Weight 65.8 kg (145 lb) 09/04/2024 1:09 PM EST Height 157.5 cm (5' 2 ) 05/27/2019 12:00 PM EDT Body Mass Index 26.52 05/27/2019 12:00 PM EDT Plan of Treatment Upcoming Encounters Date Type Department Care Team (Late st Contact Info) Description 11/02/2024 Orders Only [facility] [address] [place] [address] Andres Mccloud MD [address] [facility] [address] [place] [address] Chronic kidney disease, stage 4 (severe) (HCC); Renal disorder due to type 2 diabetes mellitus <Diabetic nephropathy> (HCC); Persistent proteinuria 01/01/2025 3:30 PM EDT Office [facility] [address] [place] [address] Andres Mccloud MD [address] [facility] [address] [place] [address] Health Maintenance Due Date Last Done Comments Breast Cancer Screening 1950 Pneumococcal Vaccine: 65+ Years (1 of 2 - PCV) 02[birth year]25/1956 Colorectal Cancer Screening: Annual FOBT 1999 Colorectal Cancer Screening: Colonoscopy 1999 Colorectal Cancer Screening: Sigmoidoscopy 1999 Diabetes: Ophthalmology Exam 10/04/2020 Diabetes: Pedal Pulse Checked 10/04/2020 Diabetes: Sensory Foot Exam 10/04/2020 Diabetes: Visual Foot Exam 10/04/2020 Influenza Vaccine (#1) 2024 Diabetes: Hemoglobin A1C 11/12/2024 024, 11/23/2023, 09/01/2020, Additional history exists Hepatitis B Vaccine Aged Out No longe r eligible based on patient's age to complete this topic Procedures Procedure Name Priority Date/Time Associated Diagnosis Comments PTH, INTACT (HC) Routine 09/04/2024 1:02 PM EST VITAMIN D 25 HYDROXY Routine 09/04/2024 1:02 PM EST FERRITIN Routine 09/04/2024 1:02 PM EST ALBUMIN Routine 09/04/2024 1:02 PM EST IRON PANEL (FE, TIBC, TSAT) Routine 09/04/2024 1:02 PM EST MAGNESIUM Routine 09/04/2024 1:02 PM EST PHOSPHATE ( PHOSPHORUS) Routine 09/04/2024 1:02 PM EST CALCIUM Routine 09/04/2024 1:02 PM EST CREATININE, BLOOD Routine 09/04/2024 1:0 2 PM EST BUN Routine 09/04/2024 1:02 PM EST ELECTROLYTE PANEL Routine 09/04/2024 1:0 2 PM EST CBC AND DIFFERENTIAL Routine 09/04/2024 1:02 PM EST PROTEIN / CREATININE RATIO, URINE Routine 09/04/2024 12:57 PM EST ALBUMIN, URINE, RANDOM Routine 09/04/2024 12:57 PM EST URINALYSIS WITH MICROSCOPIC Routine 09/04/2024 12:57 PM EST EXT RESULT ENTRY Routine 08/21/2024 EXT RESULT ENTRY Routine 08/14/2024 from Last 3 Months Results * (ABNORMAL) Creatinine (09/04/2024 1:02 PM EST) Creatinine Serum 2.27(H) 0.5 - 1.4 mg/dL See order comments eGFR 21 See order comments Comment: Chronic Kidney Disease: ??Estimated GFR < 60 mL/min/1.73m2 Severe Kidney Disease: ??Estimated GFR < 15 mL/min/1.73m2 09/04/2024 1:02 PM EST 09/04/2024 1:02 PM EST Andres Mccloud MD LAB BLOOD ORDERABLES Final Re sult [place] See order comments [place] [address] * (ABNORMAL) PTH, Intact (09/04/2024 1:02 PM EST) Parathyroid Hormone, Intact 194.8(H) 8.7 - 77.1 pg/mL See order comments 09/04/2024 1:02 PM EST 09/04/2024 1:02 PM EST us Andres Mccloud MD LAB [id number] SOLICITED RESULTS Final Result Performing Organization Address [facility] de Phone Number [place] See order comments [place] [address] * (ABNORMAL) Iron Panel (Fe, TIBC, TSAT) (09/04/2024 1:02 PM EST) Iron 26(L) 30 - 160 mcg/dL See order comments TIBC 284 228 - 428 mcg/dL See order comments Iron Saturation (TSat) 9(L) 15 - 50 % See order comments UIBC 258 ug/dL See order comments 09/04/2024 1:02 PM EST 09/04/2024 1:02 PM EST us Andres Mccloud MD LAB BLOOD ORDERABLES Final Re sult Performing Organization Address [facility] de Phone Number [place] See order comments [place] [address] * (ABNORMAL) Vitamin D 25 Hydroxy (09/04/2024 1:02 PM EST) Vitamin D, 25-Hydroxy 26.7(L) >30 ng/mL See order comments Comment: Health Based Reference Values* < 20 ??ng/mL ??Deficient 20-30 ng/mL ??Insufficient > 30 ??ng/mL ??Sufficient *Yojana HAN. N Engl J Med. 2007;357:266-280 Care must be taken in interpreting Vitamin D results from different laboratories and methodologies. ??Published data demonstrated that results from patients undergoing hemodialysis may show a negative bias when tested with various automated 25-OH vitamin D assays when compared to LC-MS/MS. When testing samples from patients whose predominant form of Vitamin D is Vitamin D2, such as patients receiving Vitamin D2 supplementation, results that are subtherapeutic should be confirmed with another method such as LC-MS/MS. 09/04/2024 1:02 PM EST 09/04/2024 1:02 PM EST us Andres Mccloud MD LAB BLOOD ORDERABLES Final Re sult Performing Organization Address [facility] de Phone Number [place] See order comments [place] [address] * (ABNORMAL) CBC and Differential (09/04/2024 1:02 PM EST) WBC 6.5 4.8 - 10.8 X10*3/uL See order comments RBC 3.92(L) 4.20 - 5.50 X10*6/uL See order comments Hgb 8.8(L) 12.0 - 16.0 g/dl See order comments Hematocrit 29.6(L) 37.0 - 47.0 % See order comments MCV 75.5(L) 80.0 - 98.0 fL See order comments MCH 22.4(L) 27.0 - 33.0 pg See order comments MCHC 29.7(L) 31.0 - 35.0 g/dl See order comments RDW 18.1(H) 11.0 - 16.0 % See order comments Platelets 274 160 - 400 X10*3/uL See order comments MPV 9.9 9.4 - 12.3 fL See order comments Neutrophils % Auto 64.8 45 - 73 % See order comments Immature Granulocytes 0.2 0.0 - 0.4 % See order comments Lymphocytes Relative 23.2 20 - 40 % See order comments Monocytes 8.0 2 - 11 % See order comments Eosinophils Relative 3.3 0 - 4 % See order comments Basophils Relative 0.5 0 - 2 % See order comments nRBC Count 0.0 0.0 - 0.2 /100WBC See order comments Neutrophils Absolute 4.2 2.0 - 8.3 x10*3/uL See order comments Immature Grans (Absolute) 0.01 0.00 - 0.03 X10*3/uL See order comments Lymphocytes Absolute 1.5 1.2 - 4.9 X10*3/uL See order comments Monocytes Absolute 0.5 0.1 - 1.2 X10*3/uL See order comments Eosinophils Absolute 0.2 0.0 - 0.4 X10*3/uL See order comments Basophils Absolute 0.0 0.0 - 0.2 X10*3/uL See order comments NRBC Absolute 0.000 0.0 - 0.012 X10*3/uL See order comments 09/04/2024 1:02 PM EST 09/04/2024 1:02 PM EST us Andres Mccloud MD LAB BLOOD ORDERABLES Final Re sult Performing Organization Address [facility] Phone Number [place] See order comments [place] [address] * (ABNORMAL) BUN (09/04/2024 1:02 PM EST) BUN 65(H) 9 - 16 mg/dL See order comments 09/04/2024 1:02 PM EST 09/04/2024 1:02 PM EST us Andres Mccloud MD LAB BLOOD ORDERABLES Final Re sult Performing Organization Address [facility] Number [place] See order comments [place] [address] * Phosphorus (09/04/2024 1:02 PM EST) Phosphorus, Serum 4.1 2.7 - 4.5 mg/dL See order comments 09/04/2024 1:02 PM EST 09/04/2024 1:02 PM EST us Andres Mccloud MD LAB BLOOD ORDERABLES Final Re sult Performing Organization Address [facility] Phone Number [place] See order comments [place] [address] * Magnesium (09/04/2024 1:02 PM EST) Magnesium 2.4 1.6 - 2.6 mg/dL See order comments 09/04/2024 1:02 PM EST 09/04/2024 1:02 PM EST us Andres Mccloud MD LAB BLOOD ORDERABLES Final Re sult Performing Organization Address [facility] Number [place] See order comments [place] [address] * Ferritin (09/04/2024 1:02 PM EST) Ferritin 22 10 - 250 ng/mL See order comments 09/04/2024 1:02 PM EST 09/04/2024 1:02 PM EST us Andres Mccolud MD LAB BLOOD ORDERABLES Final Re sult Performing Organization Address [facility] Phone Number [place] See order comments [place] [address] * Calcium (09/04/2024 1:02 PM EST) Calcium 9.1 8.4 - 10.2 mg/dL See order comments 09/04/2024 1:02 PM EST 09/04/2024 1:02 PM EST us Andres Mccloud MD LAB BLOOD ORDERABLES Final Re sult Performing Organization Address [facility] Phone Number [place] See order comments [place] [address] * Albumin (09/04/2024 1:02 PM EST) Albumin 3.5 3.5 - 5.0 g/dL See order comments 09/04/2024 1:02 PM EST 09/04/2024 1:02 PM EST us Andres Mccloud MD LAB BLOOD ORDERABLES Final Re sult Performing Organization Address [facility] Phone Number [place] See order comments [place] [address] * (ABNORMAL) Electrolyte panel (09/04/2024 1:02 PM EST) Sodium 145 135 - 145 mmol/L See order comments Potassium 4.1 3.3 - 5.1 mmol/L See order comments Chloride 110(H) 96 - 108 mmol/L See order comments Bicarbonate (CO2) 29 22 - 29 mmol/L See order comments Anion Gap 10(L) 12 - 20 See order comments 09/04/2024 1:02 PM EST 09/04/2024 1:02 PM EST us Andres Mccloud MD LAB BLOOD ORDERABLES Final Re [facility] Performing Organization Address [facility] de Phone Number [place] See order comments [place] [address] * (ABNORMAL) Protein, Total, Random Urine w/Creatinine (Protein/Creat Ratio) (09/04/2024 12:57 PM EST) Protein Urine Random 10 <12 mg/dL See order comments Protein/Creati nine Ratio, Urine 0.27(H) <0.2 See order comments Comment: The spot urine protein:creatinine ratio may increase to 0.3 during normal . 09/04/2024 12:5 7 PM EST 09/04/2024 12:57 PM EST Andres Mccloud MD LAB URINE ORDERABLES Final Re [facility] Performing Organization Address [facility] de Phone Number [place] See order comments [place] [address] * (ABNORMAL) Albumin, urine, random (09/04/2024 12:57 PM EST) Creatinine, Urine 37.16 mg/dL Se e order comments Urine Microalbumin 47.0 mg/L See order comments Microalbumin/Crea tinine Ratio 126.4(H) <30 ug/mg cr See order comments Comment: ?Albumin/Creatinine Ratio Reference Ranges: ?Normal: < 30 ug/mg creatinine ?Microalbuminuria: ??30 - 300 ug/mg creatinine Clinical Albuminuria: ??> 300 ug/mg creatinine 09/04/2024 12:5 7 PM EST 09/04/2024 12:57 PM EST Andres Mccloud MD LAB URINE ORDERABLES Final Re [facility] Performing Organization Address [facility] de Phone Number [place] See order comments [place] [address] * (ABNORMAL) Urinalysis with microscopic (09/04/2024 12:57 PM EST) Color Urine Yellow See orde r comments Appearance Urine Clear See order comments pH Urine 5.5 5.0 - 9.0 See order comments Glucose Urine Negative Negative mg/dL See order comments Blood, Urine Trace(A) Negative See ord er comments Specific [place] Urine 1.010 1.005 - 1.025 See order comments Protein Urine Negative Neg-Trace mg/dL See order comments Ketones, Urine Negative Negative mg/dL See order comments Nitrite, Urine Negative Negative See o rder comments Leukocyte Esterase Urine Negative Negative See order comments RBC, Urine 0-2 0 - 2 /HPF See orde r comments WBC 0-5 0 - 5 /HPF See order comments Squamous Epithelial, Urine 0-2 0 - 2 /HPF See order comments Bacteria, Urine None Seen None Seen See order comments Hyaline Casts, Urine 3-5 0 - 2 /LPF See order comments 09/04/2024 12:5 7 PM EST 09/04/2024 12:57 PM EST Andres Mccloud MD LAB URINE ORDERABLES Final Re sult [place] See order comments [place] [address] * (ABNORMAL) EXT RESULT ENTRY (08/21/2024) Only the most recent of2 resultswithin the time period is included. WBC 6.8 3.3 - 10.0 10*3/ML Red Blood Cell Count 3.95 Hemoglobin 8.9(A) 12.0 - 16.0 Hematocrit 29.8(A) 36.0 - 46.0 Platelets 287 150 - 399 10*3/UL MCV 75.4(A) 82.0 - 108.0 Sodium 145 137 - 147 Potassium 4.1 3.4 - 5.5 Chloride 112.0(A) 99.0 - 108.0 Carbon Dioxide 27 mmol/L Anion Gap 10 <=30 MMOL/L BUN 77(A) 4 - 21 mg/dL Creatinine 2.34(A) 0.50 - 1.10 mg/dL Calcium 8.8 8.7 - 10.7 mg/dL 08/21/2024 Historical Provider LAB BLOOD ORDERABLES Rina l Result from Last 3 Months Insurance [facility] ([id number]) [facility] ([id number]) Care Teams Application Developer Relationship Specialty Start Date End Date Maribel Mckinnon CNP [address] [place] [address] [phone] PCP - General 09/04/24
--- OUTSIDE RECORDS SUMMARY | 2024-10-29 07:24 | XMS_ITS ---
Author Organization [facility] Address [address] [place] [address] Care Team Providers Care Vb Developer Name Role Phone Pratibha MOLDING AND TRIM INSTALLER, Juliet Primary Care Provider Unavail able Rock Newton Unavailable [phone] Encounters Encounter Location Date Provider Diagnosis [facility] [address] [facility] [address] [place] [address] 03/03/2024 Rock Newton Plan Of Treatment No Information Progress Notes * Mayuri GARCIADOB: [birth year] (74 yo F)Acc No.[id number]:03/03/2024 Progress Note Patient:Mayuri RAWLS Provider:?Rock Newton DPM :1950???Age:74 Y???Sex:Female D ate:03/03/2024 Address: [address], [phone] Pcp:Juliet Mckinnon NP Subjective: * Chief Complaints: * ??? * Medical History:? Objective: * Vitals:? Assessment: Plan: * Treatment: * Images: * The named appointment provid er may or may not be the originator of this progress note, and it is not deemed complete until electronically signed by the appointment provider. Sign off status: Pending * Provider:?Rock Newton DPM Date:?2023 Generated for Maria Luisai david/Rosa Isela/eTransmitting on:?10/29/2024 07:23 AM EST
--- OUTSIDE RECORDS SUMMARY | 2024-10-29 07:24 | XMS_ITS | Encounter Summary ---
Author Organization [facility] Address [address] [facility] [address] [place] [address] Phone Care Team Providers Care Dock Loader Name Role Phone Maribel Mckinnon CNP Primary Care Provider [phone] Encounter Details Date Type Department Care Team (Late st Contact Info) Description 01/30/2023 Telephone [facility] [address] [place] [address] [place] [address] Anamaria Galvan Social History Tobacco Use Types Packs/Day Years [...] on file documented as of this encounter Miscellaneous Notes * Telephone Encounter - Anamaria Galvan - 01/30/2023 3:46 PM EDT Refill request for carvedilol (COREG) 25 MG tablet. Pt says the pharmacy tried to contact our office to attempt to refill. documented in this encounter Plan of Treatment Upcoming Encounters Date Type Department Care Team (Late st Contact Info) Description 11/02/2024 Orders Only [facility] [address] [place] [address] Andres Mccloud MD [address] [facility] [address] [place] [address] Chronic kidney disease, stage 4 (severe) (HCC); Renal disorder due to type 2 diabetes mellitus <Diabetic nephropathy> (HCC); Persistent proteinuria 01/01/2025 3:30 PM EDT Office Visit [facility] [address] [place] [address] Andres Mccloud MD [address] [facility] [address] [place] [id number] documented as of this encounter Visit Diagnoses Not on filedocumented in this encounter Care Teams Dock Loader Relationship Specialty Start Date End Date Maribel Mckinnon CNP [address] [place] [address] PCP - General 09/04/24 documented as of this encounter
--- OUTSIDE RECORDS SUMMARY | 2024-10-29 07:24 | XMS_ITS ---
Author Organization [facility] Address [address] [facility] [place] [address] Care Team Providers Care Goat Farmer Name Role Phone Pratibha HABITAT MANAGEMENT COORDINATOR, Juliet Primary Care Provider Unavail able Rock Newton Unavailable [phone] REASON FOR VISIT questions Encounters Encounter Location Date [facility] [address] [facility] [address] [place] [address] 12/26/2023 Rock Newton Plan Of Treatment No Information Progress Notes * Mayuri HERNANDEZDOB: [birth year] (73 yo F)Acc No.[id number]:12/26/2023 Patient:?MartirAnabellakayliRustyia :1950???Age:73 Y???Sex:Female Address:[address], [place], [address] * true * Date:? Generated for Maria Luisai david/Rosa Isela/eTransmitting on:?10/29/2024 07:23 AM EST
--- OUTSIDE RECORDS SUMMARY | 2024-10-29 07:24 | XMS_ITS ---
Author Organization [facility] Address [address] [place] [address] Care Team Providers Care Hydroelectric Plant Maintainer Name Role Phone Pratibha SOCIAL SCIENCES RESEARCH SCIENTIST, [facility] Primary Care Provider Unavail able Rock Newton Unavailable [phone] REASON FOR VISIT Cancel Encounters Encounter Location Date Provider Diagnosis [facility] [address] [place] [address] 03/03/2024 Rock Newton Plan Of Treatment No Information Progress Notes * Mayuri HERNANDEZDOB: [birth year] (74 yo F)Acc No.[id number]:03/03/2024 Patient:?Mayuri HERNANDEZ :1950???Age:74 Y???Sex:Female Address:[facility] [address] [place], [address] * true * Date:? Generated for Maria Luisai advid/Rosa Isela/eTransmitting on:?10/29/2024 07:23 AM EST
--- OUTSIDE RECORDS SUMMARY | 2024-10-29 07:24 | XMS_ITS | Patient Health Record ---
[facility] Address [address] [place] [address] Care Team Providers Care Recruiter Account Manager Name Role Phone Pratibha MASON, Juliet Primary Care Provider Unavail able Rock Newton Unavailable [phone] Allergies Allergen (clinical drug ingredient) Drug/Non Drug Allergy documented on EMR Reaction Allergy Type Onset Date Status mint (uncoded) Unknown Allergy Activ e banana allergenic extract Banana (Diagnostic) Unknown Drug Allergy Active lisinopril Lisinopril Unknown Drug Allergy Activ e Reason For Referral No Information Medications Medication SIG (Take, Route, Frequency, Duration) Notes [...] Lantus 100 UNIT/ML as directed Subcutaneous Active Social History Tobacco Use: Social History Observation Description Date Details (start date - stop date) Never Smoker NA - NA Tobacco Use/Smoking Question Answer Notes Are you a: nonsmoker Additional Findings: Tobacco Non-User Current no n-smoker Alcohol Screen Question Answer Notes Did you have a drink containing alcohol in the p ast year? No Points 0 Interpretation Negative Tobacco use other than smoking: Question Answer Notes Are you an other tobacco user? No Problems Problem Type SNOMED Code ICD Code Onset Dates Problem Status W/U Status Risk Notes Problem Acquired hammer toe of right foot (9069978710518 105) Other hammer toe(s) (acquired), right foot (M20.41) Active confirmed Response to treatment,I mprovement Problem Type 2 diabetes mellitus with peripheral angiopathy (787304544) Type 2 diabetes mellitus with diabetic peripheral angiopathy without gangrene (E11.51) Active confirmed Problem Acquired hammer toe of left foot (4965463412344 103) Other hammer toe(s) (acquired), left foot (M20.42) Active confirmed Response to treatment,I mprovement Problem Ulcer of toe of right foot (disorder) (0706816775267 9101) Skin ulcer of toe of right foot, limited to breakdown of skin (L97.511) Active confirmed Vital Signs Weight 139 lbs 12/24/2023 BMI 23.86 kg/m2 12/24/2023 Procedures Procedure Date Ordered Date Performed Result Body Sit e 39924-ULYGUWJ NAIL, 6 OR MORE 12/24/2023 N/A 65937-CFPY SKIN LESIONS, OVER 4 12/24/2023 N/A Encounters Encounter Location Date Provider [facility] [address] 12/24/2023 Rock Newton Type 2 diabetes mellitus with diabetic peripheral angiopathy without gangrene E11.51 ; Tinea unguium B35.1 ; Pain in right toe(s) M79.674 ; Pain in left toe(s) M79.675 and Skin ulcer of toe of right foot, limited to breakdown of skin L97.[address] [facility] [place] [address] 12/26/2023 Rock Newton [facility] [place] [address] [place] [address] 03/03/2024 Rock Newton Assessments Encounter Date Diagnosis (ICD Code) Assessment Notes Treatment Notes Treatment Clinical Notes Section Notes 12/24/2023 Type 2 diabetes mellitus with diabetic peripheral angiopathy without gangrene (ICD-10 - E11.51) 12/24/2023 Tinea unguium (ICD-10 - B35.1) 12/24/2023 Pain in right toe(s) (ICD-10 - M79.674) 12/24/2023 Pain in left toe(s) (ICD-10 - M79.675) 12/24/2023 Skin ulcer of toe of right foot, limited to breakdown of skin (ICD-10 - L97.511) Patient Educated with: WOUND CARE INSTRUCTIONS.p df (WOUND CARE INSTRUCTIONS.p df) 12/24/2023 Other Plan Of Treatment Pending Test Test Name Order Date 80566-UNLDEOQ NAIL, 6 OR MORE 05/30/2023 65675-OSXYPLW NAIL, 6 OR MORE 08/06/2023 08309-ZIDOPST NAIL, 6 OR MORE 10/15/2023 90553-WDZEIHK NAIL, 6 OR MORE 12/24/2023 36769- Debride <25 sq cm 09/27/2023 12778- Debride <25 sq cm 08/06/2023 10088-EILYJBF SKIN/TISSUE 07/02/2023 76357- I&D ABSCESS-COMPLICATED,MULTI 87633-BRMZ SKIN LESIONS, OVER 4 05/30/20 88279-WANO SKIN LESIONS, OVER 4 08/06/20 23 60937-LBNT SKIN LESIONS, OVER 4 10/15/19 24 89711-RHUQ SKIN LESIONS, OVER 4 12/24/19 24 Insurance Providers Payer Name Payer Address Payer Phone Subscriber Number Group Number Insured Name Patient Relationship to Insured Coverage Start Date Coverage End Date [facility] [employer] Claims [address] [place] [id number] [phone] [id number] Mayuri Quiroz Self - patient is the insured Medical (General) History Medical History History ICD Code Anemia Cataracts Diabetic High blood pressure Kidney disease Numbness Stroke Chicken pox Surgical History Surgery Date(Month/Year) R leg angiogram/angioplasty 06/27/23
[2024-10-29 09:51] LABS: MANUAL DIFF FLAG NO
[2024-10-29 09:55] LABS: Basophils Percent Auto 0.6 % (0-2); Eosinophils Absolute Auto 0.2 X10*3/uL (0.0-0.4); Eosinophils Percent Auto 2.8 % (0-4); Hematocrit 24.6 % (37.0-47.0); Hemoglobin 7.1 g/dl (12.0-16.0); Imm Gran Abs Auto 0.03 X10*3/uL (0.00-0.03); Imm Gran Pct Auto 0.4 % (0.0-0.4); Lymphocytes Absolute Auto 1.8 X10*3/uL (1.2-4.9); Lymphocytes Percent Auto 25.8 % (20-40); Mean Corpuscular HGB Conc 28.9 g/dl (31.0-35.0); Mean Corpuscular Hemoglobin 22.3 pg (27.0-33.0); Mean Corpuscular Volume 77.1 fL (80.0-98.0); Mean Platelet Volume 10.2 fL (9.4-12.3); Monocytes Absolute Auto 0.6 X10*3/uL (0.1-1.2); Monocytes Percent Auto 8.9 % (2-11); Neutrophils Absolute Auto 4.3 x10*3/uL (2.0-8.3); Neutrophils Percent Auto 61.5 % (45-73); Platelet Count 305 X10*3/uL (160-400); Red Blood Count 3.19 X10*6/uL (4.20-5.50); White Blood Count 7.1 X10*3/uL (4.8-10.8)
[2024-10-29 09:58] LABS: INTERNATIONAL NORM RATIO 1.2 (0.9-1.1); Prothrombin Time 13.4 SEC (10.9-12.4)
[2024-10-29 10:20] LABS: Anion Gap 13 (12-20); Blood Urea Nitrogen 83 mg/dL (9-16); Calcium 8.6 mg/dL (8.4-10.2); Carbon Dioxide 25 mmol/L (22-29); Chloride 109 mmol/L (96-108); Estimated Glomerular Filt Rate 21; Glucose Random 102 mg/dL (60-115); Potassium 4.2 mmol/L (3.3-5.1); Sodium 143 mmol/L (135-145)
[2024-10-29 10:23] LABS: TSH reflex Free T4 7.03 uIU/mL (0.32-4.0); Vitamin D 25-OH Total 26.4 ng/mL (>30)
[2024-10-29 11:08] LABS: Free T4 (Free Thyroxine) 0.96 ng/dL (0.71-1.85)
[2024-10-29 12:09] LABS: Iron 22 mcg/dL (30-160); Percent Iron Saturation 7 % (15-50); Total Iron Binding Capacity 327 mcg/dL (228-428); Unsaturated Iron Binding 305 ug/dL
[2024-10-29 12:22] LABS: Ferritin 12 ng/mL (10-250)
== END 2024-10-29 07:21 | disposition home or self-care (01) ==
LOC: HO.HMGCLDS 07:20
PROVIDERS: PCP Nurse Practitioner Family; Referring Provider Nurse Practitioner Family; Visit Provider Nurse Practitioner Family
DX: Z00.00 Encounter for general adult medical examination without abnormal findings (principal); E11.22 Type 2 diabetes mellitus with diabetic chronic kidney disease; I12.9 Hypertensive chronic kidney disease with stage 1 through stage 4 chronic kidney disease, or unspecified chronic kidney disease; N18.9 Chronic kidney disease, unspecified; L98.9 Disorder of the skin and subcutaneous tissue, unspecified; E55.9 Vitamin D deficiency, unspecified; E03.9 Hypothyroidism, unspecified; D50.9 Iron deficiency anemia, unspecified; S91.301A Unspecified open wound, right foot, initial encounter; R29.898 Other symptoms and signs involving the musculoskeletal system; Z79.899 Other long term (current) drug therapy
CPT/HCPCS: 36415; 80048; 82306; 82728; 83540; 84439; 84443; 85025; 85610; 99212; 99397

== ENCOUNTER 2024-10-29 10:18 | Outpatient (AMB) | payer OTHER, SELFPAY ==
--- NOTE | 2024-10-29 10:29 | MHC.PC.OV ---
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 Required: No Is last menstrual period known: No Post menopausal: No Patient : No Allergies lisinopril Allergy (Severe, Verified 10/29/24 10:53) swollen tongue apple Allergy (Intermediate, Verified 10/29/24 10:53) tongue swelling banana Allergy (Intermediate, Verified 10/29/24 10:53) tongue and lip swelling Medication List - Last Reconciled 10/29/24 by Maribel Mckinnon CNP apixaban (Eliquis) 2.5 mg PO BID ascorbic acid (vitamin C) (Vitamin C) 100 mg PO BID aspirin 81 mg PO DAILY atorvastatin 80 mg PO BEDTIME blood sugar diagnostic (FreeStyle Test strips) bid to tid bs checks blood-glucose meter (FreeStyle Lite Meter kit) As directed bumetanide 1 mg PO DAILY calcitriol mcg PO carvedilol 25 mg PO BID 30 days cholecalciferol (vitamin D3) 25 mcg PO DAILY commode (bedside commode) As directed ferrous sulfate (iron) 325 mg PO BID insulin glargine (Lantus U-100 Insulin) 12 units (0.12 mL) subcut BEDTIME 90 days insulin syringe-needle U-100 (BD Insulin Syringe Micro-Fine) For q.h.s. Lantus administration levothyroxine 25 mcg PO DAILY 30 days miscellaneous medical supply 3 boxes of medium-sized gloves monthly x 12 months miscellaneous medical supply hand held shower head As directed miscellaneous medical supply Rollator walker nystatin-triamcinolone 100,000-0.1 unit/g-% 1 appl topical DAILY polyethylene glycol 3350 (Miralax) 238 grams PO ONCE 1 day Tobacco use date assessed: 10/29/24 Fall risk assessment: No Falls in past year Last assessed Fall Risk: 10/29/24 Dental Screening Dental Screen Date: 10/29/24 Did you have a dental visit in the last 12 months?: No Did you have a dental problem in the last 6 months where you did not have access to dental care?: No Was dental information given to patient?: No HPI HPI Comments History of Present Illness Details 74-year-old female presents for an extended physical exam. She admits to taking her medications as prescribed without adverse reactions. However, she has not been taking her ferrous sulfate once daily instead of twice daily. She also has an order for vitamin C 100 mg twice daily which she has not been taking; according to her daughter, the pharmacy did not have vitamin C in stock. According to her daughter, the patient has not been taking her carvedilol for the past one and half week because her SBP has been between 105-110. She also has not taken vitamin D3 for several months and levothyroxine for almost a year. Acute issue(s) - Painless lesion to her left axilla which has been present since the beginning of this month. Past Medical History - Hypertension, diabetes, kidney disease, iron deficiency anemia, hyperlipidemia, vitamin-D deficiency, and peripheral vascular disease Social History - Nonsmoker. Does not vape. Does not drink alcohol. Denies recreational drug use - Has been making healthy dietary choices. Exercises routinely. Generally sleep well Health maintenance - Her last eye exam was several years ago: She had an eye exam scheduled with Dr. Fernandez earlier this month but missed the appointment. Referred to Ophthalmology for a retina exam - Last dental visit was several years ago; encouraged to schedule an appointment with his dentist for routine dental care. - Last tetanus vaccine was more than 10 years ago; Declines vaccination - Has not been vaccinated for the flu this season; declines vaccination - She has a PPSV in 02/24/2015. PNA vaccine encouraged but patient declines - She has never had a colonoscopy. Declines colonoscopy - She has never had a mammogram. Declines mammogram - She has never had a bone density scan. She declines bone scan - She no longer performs pap smear test Specialists She is followed by [facility] podiatry and wound clinic, and [facility] vascular, hematology, cardiology, and nephrology FOR[facility]LY [facility], [facility] Medical History History of femoral angiogram Stroke Weakness Iron deficiency Vitamin D deficiency Surgical History History of angioplasty (~07/11/23) No pertinent past surgical history Family History Father Bladder cancer Smoker Mother Diabetes CVD (cardiovascular disease) Glaucoma Daughter Anxiety Family/Other Alzheimer's dementia Uterine cancer Social History Household Members: Family Housing: Apartment Alcohol intake: never Patient Tobacco Use Status: Never used Tobacco e-Cigarette/Vaping Use: Never Used Second Hand Smoke Exposure: No service: No Current occupational status: retired Cognitive needs: No Hearing needs: No Vision needs: No Questionnaire PHQ-9 Over the last 2 weeks, how often have you been bothered by any of the following problems? 1. Little interest or pleasure in doing things: not at all 3. Trouble falling or staying asleep, or sleeping too much: more than half the days 4. Feeling tired or having little energy: more than half the days 5. Poor appetite or overeating: not at all 6. Feeling bad about yourself - or that you are a failure or have let yourself or your family down: not at all 7. Trouble concentrating on things, such as reading the newspaper or watching television: not at all 8. Moving or speaking so slowly that other people could have noticed. Or the opposite - being so fidgety or restless that you have been moving around a lot more than usual: not at all 9. Thoughts that you would be better off or of hurting yourself in some way: not at all Source: Developed by Drs. Marcel Payne, Rosa Perez, Matt Kaba and colleagues, with an educational vicki from [employer]. Thrive Questionnaire Date Thrive assessed: 08/04/24 I am a: Patient What is your living situation today?: I have a steady place to live Within the past 12 months, did the food you bought not last and you didn't have the money to get more?: Never true Within the past 12 months, did you worry whether your food would run out before you got money to buy more?: Never true Do you have trouble paying for medicines?: No Do you have trouble getting transportation to medical appointments?: No Do you have trouble paying your heating and electricity bill?: No Do you have trouble taking care of your child, family member or friend?: No Do you have trouble with day-to-day activities such as bathing, preparing meals, shopping, managing finances, etc.?: No Are you currently unemployed and looking for a job?: No Are you interested in more education?: No Please select the resources that you would like help with: Daily support Currently or been in a relationship where the following occur: No concerns reported THRIVE Score: 0 AUDIT C Alcohol Use Questionnaire (AUDIT-C) 1. How often do you have a drink containing alcohol?: Never Total Score: 0 SARAHY-7 AMB Questionnaire SARAHY-7 Date SARAHY - 7 assessed: 05/10/23 Feeling nervous, anxious, or on edge: 0 = Not at all Not being able to stop or control worryin = Not at all Worrying too much about different things: 0 = Not at all Trouble relaxin = Not at all Being so restless that it is hard to sit still: 0 = Not at all Becoming easily annoyed or irritable: 0 = Not at all Feeling afraid as if something awful might happen: 0 = Not at all Total SARAHY-7 score (0-4 normal; 5-9 mild; 10-14 moderate; 15-21 severe): 0 Source: Developed by Drs. Marcel Payne, Rosa Perez, Matt Kaba and colleagues, with an educational vicki from [employer]. Review of Systems Const Details: Denies chills, Denies fatigue, Denies fever(s), Denies headache(s) and Denies weakness HEENT Denies change in vision, Denies dizziness, Denies headache(s), Denies hearing loss, Denies nasal congestion, Denies sinus pain, Denies sinus pressure and Denies sore throat Card Denies chest pain, Denies lightheadedness, Denies dyspnea and Denies other (palpitations) Resp Denies cough, Denies dyspnea and Denies wheezing GI Denies abdominal pain, Denies melena, Denies hematochezia, Denies change in bowel habits, Denies dyspepsia and Denies nausea Denies hematuria and Denies dysuria Musc Denies abnormal gait, Denies myalgias, Denies arthralgias, Denies numbness and Denies tingling Skin/Breast Reports right foot wound, Reports painless lesion to left axilla, Denies rash, Denies unusual bruising and Denies wounds Neuro Denies abnormal gait, Denies dizziness, Denies headache(s), Denies memory loss, Denies numbness, Denies Sensory deficit (Neuro), Denies tingling and Denies weakness Psych Denies anxiety, Denies depression and Denies memory loss Endo Denies cold intolerance, Denies fatigue, Denies heat intolerance, Denies polydipsia and Denies polyuria Alex/Lymph Denies easy bleeding and Denies easy bruising Aller/Immun Denies wheezing Physical exam (Primary Care) Vital Signs: Last Vital Signs Temp 98.2 F 10/29/24 10:40 Pulse 104 H 10/29/24 11:13 Resp 16 10/29/24 10:40 BP 170/80 H 10/29/24 11:13 Pulse Ox 100 10/29/24 10:40 Oxygen Delivery Method Room Air 10/29/24 10:40 BMI result Body Mass Index 26.9 Tobacco/Smoking Status: Tobacco use Status Tobacco use date assessed 10/29/24 10/29/24 10:46 Patient Tobacco Use Status Never used Tobacco 10/29/24 10:30 e-Cigarette/Vaping Use Never Used 10/29/24 10:30 Thrive Assessment: Date of Thrive Assessment Date Thrive assessed 08/04/24 10/29/24 10:30 Currently or been in a relationship where the following occur: No concerns reported Const Other: General: no acute distress, well developed, alert and awake Nutritional Appearance: well nourished Orientation/consciousness: patient oriented x3 HENMT Head: Yes normocephalic and Yes atraumatic Ears: hearing grossly normal bilaterally and TM's normal bilaterally General nose exam: Normal external nose present and Normal nares present Mouth: Normal oral and palatal mucosa present and moist mucous membranes Teeth and gingiva: dentition normal Throat: Yes oropharynx normal Eyes Pupils: Equal, round and reactive pupils present and Pupil accommodation reflex normal EOM: EOMs intact bilaterally Neck Neck: Yes normal visual inspection, Yes no lymphadenopathy and Yes trachea midline Thyroid: Thyroid normal Carotids: no bruits Lymphatic: no lymphadenopathy noted Chest Chest palpation & inspection: normal inspection of the chest Resp Effort & Inspection: normal respiratory effort Auscultation: clear to auscultation bilaterally Cardio Rate: regular rate Rhythm: regular rhythm Heart sounds: S1 normal heart sound present, S2 normal heart sound present, no gallops, no murmurs and no rubs Bruits: no abdominal aortic bruits and no carotid bruits GI Palpation (GI): No Abdominal aortic bruit present, Soft to palpation, nontender, No hepatosplenomegaly present and No Rebound tenderness present Auscultation: normal bowel sounds General: Yes no CVA tenderness Back/Spine/Pelvis Back: no CVA tenderness Cervical Spine: cervical ROM normal and No Cervical spine tenderness Thoracic/Lumbar Spine: thoraco-lumbar ROM normal, No pain with thoraco-lumbar ROM, No thoracic spinal tenderness and No lumbar spinal tenderness Skin General: warm and dry. Normal skin color. Normal skin turgor Lesions: Pea-sized painless lesion to left axilla, laterally Rashes: no rashes Trauma: no lacerations or abrasions Wounds: Wound to right great toe without active drainage or overt infection Nails: normal Neuro General: patient oriented x3, gait normal and CN's II-XI intact bilaterally Cranial nerves: Yes Equal, round and reactive pupils present Cognition (Neuro): normal cognition Gait exam (Neuro): Normal gait present Motor exam (neuro): 4/5 motor strength present to bilateral lower extremity, 5/5 to bilateral upper extremity Sensory Exam: No Sensory deficit (Neuro) Deep tendon reflexes (DTR's): Right patellar reflex intensity grade: 2+ and Left patellar reflex intensity grade: 2+ Extrem General: Yes normal to inspection, No edema and No calf tenderness Psych Appearance: grossly normal Affect: normal affect Attitude: cooperative Thought process: Normal thought process present Coding Level of Care Code Est Pt Level 5 (21698) Est Pt Prev Care >65y(24623) Diagnoses Normal physical exam Z00.00 Hypertension, essential I10 Vitamin D deficiency E55.9 Hypothyroidism E03.9 Iron deficiency anemia D50.9 Wound of right foot S91.301A Skin lesion L98.9 Weakness of both lower extremities R29.898 Type 2 diabetes mellitus E11.9 Diabetes mellitus complication status: with circulatory complication Diabetes mellitus termite control servicer insulin use: with termite control servicer use Chronic kidney disease N18.9 Time Spent (min) 75 Comment 75 mins reviewing, speaking and examining pt, coordinating plan of care, and documenting. Assessment & Plan Assessment & Plan (1) Normal physical exam: Code(s): Z00.00 - Encounter for general adult medical examination without abnormal findings Category: Medical Plan: Normal physical exam. No significant functional limitation noted. Healthy diet and routine exercise encouraged. Advised to perform blood work and follow-up in 1 week for hypertension and anemia. Return sooner with symptoms or concerns. Verbalized understanding and agreed with treatment plan. (2) Hypertension, essential: Code(s): I10 - Essential (primary) hypertension Category: Medical Plan: Resting blood pressure is 170/80, above goal of less than 130/80. Heart rate is 104. has not been taking her carvedilol for the past one and half week because her SBP has been between 105-110. Advised to resume taking carvedilol 25 mg twice daily. Low-sodium diet encouraged. Referred to [facility] for assessment, medication management, and physical therapy to assist with lower extremity strengthening and mobility. Follow-up in 1 week. Verbalized understanding and agreed with treatment plan. (3) Vitamin D deficiency: Code(s): E55.9 - Vitamin D deficiency, unspecified Category: Medical Plan: Recent vitamin-D level is low, 26.4. She not been taking vitamin D3 for several months. Vitamin D3 50 mcg ordered; advised to take as prescribed. Will recheck vitamin-D level in 6-8 weeks. Verbalized understanding and agreed with the plan. (4) Hypothyroidism: Code(s): E03.9 - Hypothyroidism, unspecified Category: Medical Plan: Recent TSH level is elevated, 7.03, free T4 is normal, 0.96. She has not taken levothyroxine for once a year. Levothyroxine 25 mcg daily refilled; advised to take as prescribed with a full glass of water, in an empty stomach 1 hour before taking other medications or eating. Will recheck TSH level in 6-8 weeks. Verbalized understanding and agreed with treatment plan. (5) Iron deficiency anemia: Code(s): D50.9 - Iron deficiency anemia, unspecified Category: Medical Plan: Recent RBC and H&H levels are significantly low, 3.19 and 7.1/24.6 respectively. MCV is low, 77.1. Iron level is slightly low, 22. Normal ferritin level. She has been taking ferrous sulfate 325 mg once a day instead of twice daily as prescribed. She has not started taking vitamin-C 100 mg twice daily prescribed by Hematology/Oncology. Her daughter notes that the medication was not available at the pharmacy. According to the pharmacy, vitamin-C 100 mg twice daily is not available. Patient advised to take vitamin-C [id number]-[id number] daily. Encouraged to start taking ferrous sulfate 325 mg twice daily. Advised to perform CBC blood work before next visit. She has not been seen by Hematology/Oncology in a while. Encouraged to schedule a follow-up appointment with hematology/oncology as soon as possible. Follow-up in 1 week. Verbalized understanding and agreed with treatment plan. (6) Wound of right foot: Code(s): S91.301A - Unspecified open wound, right foot, initial encounter Category: Medical Plan: Chronic wound to right foot. Wound to right great toe is still present without active drainage or overt infection. Wound to right 2nd to has completely healed with healthy scab. Continue current wound care treatment regimen. Continue to follow up with [facility] wound clinic. Verbalized understanding and agreed with the plan. (7) Skin lesion: Code(s): L98.9 - Disorder of the skin and subcutaneous tissue, unspecified Category: Medical Plan: Painless lesion to her left axilla since the beginning of this month. Pea-sized painless lesion to left axilla, laterally Ultrasound ordered. Will review results and make changes as needed. (8) Weakness of both lower extremities: Code(s): R29.898 - Other symptoms and signs involving the musculoskeletal system Category: Medical Plan: 4/5 motor strength present to bilateral lower extremity Referred to [facility] for PT for lower extremity strengthening and mobility. (9) Type 2 diabetes mellitus: Code(s): E11.9 - Type 2 diabetes mellitus without complications Category: Medical Qualifiers: Diabetes mellitus complication status: with circulatory complication Diabetes mellitus detention insulin use: with termite control servicer use Plan: Her A1c in August 2024 was 7.2%. Continue current treatment regimen. She has not had an eye exam in several years. She had an eye exam scheduled with Dr. Fernandez earlier this month but missed it. Will place and a referral to Ophthalmology for a retinal exam. Will check her A1c next month. Verbalized understanding and agreed with the plan. (10) Chronic kidney disease: Code(s): N18.9 - Chronic kidney disease, unspecified Category: Medical Plan: Recent BUN and creatinine levels are elevated, 83 and 2.30 respectively. She is followed by Nephrology. Orders: Orders IRON PROFILE 10/29/24 D50.9 - Iron deficiency anemia, unspecified US chest 10/29/24 L98.9 - Disorder of the skin and subcutaneous tissue, unspecified Ferritin 10/29/24 D50.9 - Iron deficiency anemia, unspecified Complete Blood Count no Diff Today D50.9 - Iron deficiency anemia, unspecified Referrals Ophthalmology Referral E11.9 - Type 2 diabetes mellitus without complications [facility] Referral D50.9 - Iron deficiency anemia, unspecified, E03.9 - Hypothyroidism, unspecified, E11.9 - Type 2 diabetes mellitus without complications, E55.9 - Vitamin D deficiency, unspecified, E78.01 - Familial hypercholesterolemia, I10 - Essential (primary) hypertension, I73.9 - Peripheral vascular disease, unspecified, R26.81 - Unsteadiness on feet, R29.898 - Other symptoms and signs involving the musculoskeletal system, S91.101A - Unspecified open wound of right great toe without damage to nail, initial encounter Medications: New cholecalciferol (vitamin D3) 50 mcg PO DAILY 90 tabs 3RF 90 days Refilled carvedilol must administer with a meal/food 25 mg PO BID 60 tabs 3RF 30 days levothyroxine 25 mcg PO DAILY 30 tabs 3RF 30 days
[2024-10-29 10:40] VITALS: BP 180/70; PULSE 81; RESP 16; TEMP 36.8; O2SAT 100; BMI 26.9
[2024-10-29 11:13] VITALS: BP 170/80; PULSE 104
--- OUTSIDE RECORDS SUMMARY | 2024-10-29 12:33 | XMS_ITS | Encounter Summary ---
Author Organization [facility] Address [address] [facility] [address] [place] [address] Phone Care Team Providers Care Mail Room Clerk Name Role Phone Maribel Mckinnon CNP Primary Care Provider Encounter Details Date Type Department Care Team (Late st Contact Info) Description 01/30/2023 Telephone [facility] [address] [place] [address] [place] [address] Anamaria Galvan Social History Tobacco Use [...] Only [facility] [address] [place] [address] Andres Mccloud MD [address] [facility] [address] [place] [address] Chronic kidney disease, stage 4 (severe) (HCC); Renal disorder due to type 2 diabetes mellitus <Diabetic nephropathy> (HCC); Persistent proteinuria 01/01/2025 3:30 PM EDT Office Visit [facility] [address] [place] [address] Andres Mccloud MD [address] [facility] [address] [place] [id number] documented as of this encounter Visit Diagnoses Not on filedocumented in this encounter Care Teams Mail Room Clerk Relationship Specialty Start Date End Date Maribel Mckinnon CNP [address] [place] [address] PCP - General 09/04/24 documented as of this encounter
--- OUTSIDE RECORDS SUMMARY | 2024-10-29 12:33 | XMS_ITS | Encounter Summary ---
Author Organization [facility] Address [address] [address] Phone Care Team Providers Care Instrument Assembler Name Role Phone Maribel Mckinnon CNP Primary Care Provider [phone] Encounter Details Date Type Department Care Team (Late st Contact Info) Description 10/29/2024 Orders Only [facility] [address] [place] [address] Andres Mccloud MD [address] [address] Chronic kidney disease stage 4 [...] [facility] [address] [place] [address] Andres Mccloud MD [address] [address] Chronic kidney disease, stage 4 (severe) (HCC); Renal disorder due to type 2 diabetes mellitus <Diabetic nephropathy> (HCC); Persistent proteinuria 01/01/2025 3:30 PM EDT Office Visit [facility] [address] [place] [address] Andres Mccloud MD [address] [facility] [address] [place] [phone] documented as of this encounter Visit Diagnoses Diagnosis Chronic kidney disease stage 4 (HCC) Chronic kidney disease, stage 4 (severe) (HCC) Renal disorder due to type 2 diabetes mellitus <Diabetic nephropathy> (HCC) Persistent proteinuria documented in this encounter Care Teams Instrument Assembler Relationship Specialty Start Date End Date Maribel Mckinnon CNP [address] [place] [address] PCP - General 09/04/24 documented as of this encounter
--- OUTSIDE RECORDS SUMMARY | 2024-10-29 12:33 | XMS_ITS | Clinical Summary ---
Author Organization [facility] Address [address] [place] [address] [place] [address] Phone Care Team Providers Care Laminating Machine Offbearer Name Role Phone Maribel Mckinnon NEGRITA Primary Care Provider [phone] Allergies Active Allergy Reactions Criticality Noted Date Comments Banana (Diagnostic) Other (see comments) 2023 Lisinopril Other (see comments) 11/26/2023 Medications insulin glargine (Lantus) 100 UNIT/ML injection Active aspirin (ST EVA) 81 MG EC tablet Take 1 tablet by mouth 1 (one) time each day Active ergocalciferol 1.25 MG (41915 UT) capsule Take 1 capsule (50,000 Units total) by mouth 1 (one) time per week 12 capsule 2 1 Active Additional Information Patient not taking.Reported on 09/04/2024 Cholecalciferol (Vitamin D3) 1.25 MG (43983 UT) capsule TAKE 1 CAPSULE BY MOUTH [...] 2 diabetes mellitus <Other diabetic kidney complication> ([facility]) TAKE 1 TABLET (25 MG TOTAL) BY [...] Only [facility] [address] [place] [address] Andres Mccloud MD Chronic kidney disease stage 4 (HCC) 09/11/2024 Refill [facility] [address] [place] [address] Alexx Marie MD 09/04/2024 1:00 PM EST Office Visit [facility] [address] [place] [address] Andres Mccloud MD Chronic kidney disease, stage 4 (severe) (HCC) (Primary Dx); Renal disorder due to type 2 diabetes mellitus <Diabetic nephropathy> (HCC); Persistent proteinuria 08/27/2024 Refill [facility] [address] [place] [address] Andres Mccloud [...] Only [facility] [address] [place] [address] Andres Mccloud MD 02[address] [facility] [address] [place] [address] Chronic kidney disease, stage 4 (severe) (HCC); Renal disorder due to type 2 diabetes mellitus <Diabetic nephropathy> (HCC); Persistent proteinuria 01/01/2025 3:30 PM EDT Office Visit [facility] [address] [place] [address] Andres Mccloud MD 1447 [facility] [address] [place] [address] Health Maintenance Due Date Last [...] order comments [place] [address] * (ABNORMAL) PTH, Intact (09/04/2024 1:02 PM EST) Parathyroid Hormone, Intact 194.8(H) 8.7 - 77.1 pg/mL See order comments 09/04/2024 1:02 PM EST 09/04/2024 1:02 PM EST us Andres Mccloud MD LAB [id number] SOLICITED RESULTS Final Result Performing Organization Address [facility] de Phone Number [place] See order comments [place] [address] * (ABNORMAL) Iron Panel (Fe, TIBC, TSAT) [...] ORDERABLES Final Re sult Performing Organization Address [facility] de Phone Number [place] See order comments [place] [address] * (ABNORMAL) Vitamin D 25 Hydroxy (09/04/2024 [...] ORDERABLES Final Re sult Performing Organization Address [facility] de Phone Number [place] See order comments [place] [address] * (ABNORMAL) CBC and Differential (09/04/2024 1:02 [...] ORDERABLES Final Re sult Performing Organization Address [facility] Phone Number [place] See order comments [place] [address] * (ABNORMAL) BUN (09/04/2024 1:02 PM EST) BUN 65(H) 9 - 16 mg/dL See order comments 09/04/2024 1:02 PM EST 09/04/2024 1:02 PM EST us Andres Mccloud MD LAB BLOOD ORDERABLES Final Re sult Performing Organization Address [facility] Number [place] See order comments [place] [address] * Phosphorus (09/04/2024 1:02 PM EST) Phosphorus, Serum 4.1 2.7 - 4.5 mg/dL See order comments 09/04/2024 1:02 PM EST 09/04/2024 1:02 PM EST us Andres Mccloud MD LAB BLOOD ORDERABLES Final Re sult Performing Organization Address [facility] Phone Number [place] See order comments [place] [address] * Magnesium (09/04/2024 1:02 PM EST) Magnesium 2.4 1.6 - 2.6 mg/dL See order comments 09/04/2024 1:02 PM EST 09/04/2024 1:02 PM EST us Andres Mccloud MD LAB BLOOD ORDERABLES Final Re sult Performing Organization Address [facility] Number [place] See order comments [place] [address] * Ferritin (09/04/2024 1:02 PM EST) Ferritin 22 10 - 250 ng/mL See order comments 09/04/2024 1:02 PM EST 09/04/2024 1:02 PM EST us Andres Mccloud MD LAB BLOOD ORDERABLES Final Re sult Performing Organization Address [facility] Phone Number [place] See order comments [place] [address] * Calcium (09/04/2024 1:02 PM EST) Calcium 9.1 8.4 - 10.2 mg/dL See order comments 09/04/2024 1:02 PM EST 09/04/2024 1:02 PM EST us Andres Mccloud MD LAB BLOOD ORDERABLES Final Re sult Performing Organization Address [facility] Phone Number [place] See order comments [place] [address] * Albumin (09/04/2024 1:02 PM EST) Albumin 3.5 3.5 - 5.0 g/dL See order comments 09/04/2024 1:02 PM EST 09/04/2024 1:02 PM EST us Andres Mccloud MD LAB BLOOD ORDERABLES Final Re sult Performing Organization Address [facility] Phone Number [place] See order comments [place] [address] * (ABNORMAL) Electrolyte panel (09/04/2024 1:02 PM [...] Mccloud MD LAB BLOOD ORDERABLES Final Re [facility] Performing Organization Address [facility] de Phone Number L[place]NE See order comments [place] [address] * (ABNORMAL) Protein, Total, Random Urine w/Creatinine (Protein/Creat Ratio) (09/04/2024 12:57 PM EST) Protein Urine Random 10 <12 mg/dL See order comments Protein/Creati nine Ratio, Urine 0.27(H) <0.2 See order comments Comment: The spot urine protein:creatinine ratio may increase to 0.3 during normal . 09/04/2024 12:5 7 PM EST 09/04/2024 12:57 PM EST Andres Mccloud MD LAB URINE ORDERABLES Final Re [facility] Performing Organization Address [facility] de Phone Number [place] See order comments [place] [address] * (ABNORMAL) Albumin, urine, random (09/04/2024 12:57 [...] Mccloud MD LAB URINE ORDERABLES Final Re [facility] Performing Organization Address [facility] de Phone Number [place] See order comments [place] [address] * (ABNORMAL) Urinalysis with microscopic (09/04/2024 12:57 PM EST) Color Urine Yellow See orde r comments Appearance Urine Clear See order comments pH Urine 5.5 5.0 - 9.0 See order comments Glucose Urine Negative Negative mg/dL See order comments Blood, Urine Trace(A) Negative See ord er comments Specific [place] Urine 1.010 1.005 - 1.025 See order [...] order comments [place] [address] * (ABNORMAL) EXT RESULT ENTRY (08/21/2024) Only [...] l Result from Last 3 Months Insurance [facility] ([id number]) [facility] ([id number]) Care Teams Laminating Machine Offbearer Relationship Specialty Start Date End Date Maribel Mckinnon CNP [address] [place] [id number] PCP - General 09/04/24
== END 2024-10-29 11:43 | disposition home or self-care (01) ==
PROVIDERS: PCP Nurse Practitioner Family; Visit Provider Nurse Practitioner Family
DX: Z00.00 Encounter for general adult medical examination without abnormal findings (principal); I12.9 Hypertensive chronic kidney disease with stage 1 through stage 4 chronic kidney disease, or unspecified chronic kidney disease; E11.22 Type 2 diabetes mellitus with diabetic chronic kidney disease; N18.9 Chronic kidney disease, unspecified; E55.9 Vitamin D deficiency, unspecified; E03.9 Hypothyroidism, unspecified; D50.9 Iron deficiency anemia, unspecified; S91.301A Unspecified open wound, right foot, initial encounter; L98.9 Disorder of the skin and subcutaneous tissue, unspecified; R29.898 Other symptoms and signs involving the musculoskeletal system

== ENCOUNTER 2024-11-14 09:07 | Outpatient (AMB) | payer OTHER, SELFPAY ==
[2024-11-14 09:18] VITALS: BP 128/50; PULSE 76
--- NOTE | 2024-11-14 09:18 | MHC.OFFVIS ---
Vital Signs 11/14/24 09:18 Height 5 ft 2 in BMI Reason not done Patient refused/unable BP 128/50 L Blood Pressure Location Lt brachial Position Sitting Pulse 76 Pulse Source Pulse Oximeter Intake Visit Reasons: r/s 10/24/24 followup (cardiac cath cx) Edge Inker Uppers Required: No Accompanied by: Daughter Allergies lisinopril Allergy (Severe, Verified 10/29/24 10:53) swollen tongue apple Allergy (Intermediate, Verified 10/29/24 10:53) tongue swelling banana Allergy (Intermediate, Verified 10/29/24 10:53) tongue and lip swelling Medication List - Last Reconciled 11/14/24 by ADRIANNA Gardiner ascorbic acid (vitamin C) (Vitamin C) 500 mg PO DAILY 30 days aspirin 81 mg PO DAILY atorvastatin 80 mg PO BEDTIME blood sugar diagnostic (FreeStyle Test strips) bid to tid bs checks blood-glucose meter (FreeStyle Lite Meter kit) As directed bumetanide 1 mg PO DAILY carvedilol 12.5 mg PO BID cholecalciferol (vitamin D3) 50 mcg PO DAILY 90 days commode (bedside commode) As directed insulin glargine (Lantus U-100 Insulin) 12 units (0.12 mL) subcut BEDTIME 90 days insulin syringe-needle U-100 (BD Insulin Syringe Micro-Fine) For q.h.s. Lantus administration levothyroxine 25 mcg PO DAILY 30 days miscellaneous medical supply 3 boxes of medium-sized gloves monthly x 12 months miscellaneous medical supply hand held shower head As directed miscellaneous medical supply Rollator walker polyethylene glycol 3350 (Miralax) grams PO DAILY PRN HPI HPI r/s 10/24/24 followup (cardiac cath cx): Details: Mayuri is a 74-year-old female with past medical history hypertension, hyperlipidemia, diabetes, right lower extremity DVT, peripheral vascular disease who has followed with cardiology since 04/2023 for the management of her cholesterol. Fall 2022 she reported some sob with exertion and echo showed normal EF, grade 1 diastolic dysfunction. A nuclear stress test was ordered however not completed by patient. More recently she has been dealing with ulcers on her right lower extremity and has undergone peripheral angiograms and peripheral stent placement, with Dr Frankel. She has occluded distal right SFA to popliteal and tibial stents and LE bypass surgery was being considered. In preparation for this she underwent the nuclear stress test which showed large area of infarct in the apex and inferior wall without evidence of ischemia. She then had echocardiogram showing significantly reduced EF with new wall motion abnormalities. Cardiac catheterization was then plan tell her patient no showed for the appointment. She now presents for office follow-up. Today she reports that since her last visit she was [facility] and has slow gradual healing of the wound on her right lower extremity. Her daughter states that Dr. Frankel told them since the wound is healing she will not need vascular surgery. She has been experiencing symptomatic anemia and is following with hematology. They put her Eliquis on hold an are treating her with iron infusions. She has not been experiencing any chest discomfort at rest or with activity. She denies shortness of breath, PND, orthopnea or edema. No heart palpitations, lightheadedness, presyncope, syncope. She admits to being mostly sedentary. She is sitting in a wheelchair at this visit. Walks only short distances with a walker. Her daughter is present. [facility] Medical History History of femoral angiogram Stroke Weakness Iron deficiency Vitamin D deficiency Surgical History History of angioplasty (~07/11/23) No pertinent past surgical history Family History Father Bladder cancer Smoker Mother Diabetes CVD (cardiovascular disease) Glaucoma Daughter Anxiety Family/Other Alzheimer's dementia Uterine cancer Social History Household Members: Family Housing: Apartment Alcohol intake: never Patient Tobacco Use Status: Never used Tobacco e-Cigarette/Vaping Use: Never Used Second Hand Smoke Exposure: No service: No Current occupational status: retired Cognitive needs: No Hearing needs: No Vision needs: No Review of Systems Const All systems reviewed & are unremarkable except as noted in HPI and below Denies chills, Denies fatigue, Denies fever(s), Denies weight gain and Denies weight loss ENT Denies dizziness Card Denies chest pain, Denies leg edema, Denies lightheadedness, Denies palpitations, Denies dyspnea on exertion, Denies orthopnea, Denies paroxysmal nocturnal dyspnea and Denies other Resp Denies cough and Denies dyspnea on exertion GI Denies hematochezia and Denies change in stool character Musc Details: wounds on leg slowly healing Reports abnormal gait (in wheelchair today, uses walker at home), Reports muscle weakness, Denies numbness, Denies radiating pain into limb and Denies tingling Neuro Reports abnormal gait (in wheelchair today, uses walker at home), Denies dizziness, Denies numbness and Denies tingling Endo Denies fatigue and Denies palpitations Physical Exam Vital Signs: Last Vital Signs Pulse 76 11/14/24 09:18 BP 128/50 L 11/14/24 09:18 Const Other: somewhat frail elderly female sitting in wheelchair General: cooperative, comfortable and no acute distress Orientation/consciousness: patient oriented x3 Neck Neck: Yes normal visual inspection Resp Effort & Inspection: normal respiratory effort Auscultation: clear to auscultation bilaterally, no rales, no rhonchi and no wheezes Cardio Jugular venous distension: no JVD Rate: regular rate Rhythm: regular rhythm Heart sounds: S1 normal heart sound present, S2 normal heart sound present, no murmurs and no rubs Neuro General: patient oriented x3 Extrem Other: sock on right foot, ortho boot. right leg warm to touch, normal color Psych Appearance: grossly normal Mental Status: mental status grossly normal Speech and movement: Normal speech and movement present Assessment & Plan Assessment & Plan (1) Abnormal nuclear stress test: Code(s): R94.39 - Abnormal result of other cardiovascular function study Category: Medical Plan: Patient with newer finding of abnormal nuclear stress test, prior ID: She does have cardiac risk factors of hypertension, hyperlipidemia, diabetes, peripheral vascular disease. Echocardiogram was done for mild shortness of breath 05/15/2023 showing EF 64%, grade 1 diastolic dysfunction, no valve abnormalities, moderate plaque in the sinus of Valsalva. A nuclear stress test had been ordered on her at that time which she did not complete for unclear reason. On follow-up visit she reported her shortness of breath had fully resolved. She has never reported chest discomfort. She then was to undergo vascular surgery and had the pharmacological nuclear stress test on 06/26/2024 for preop evaluation showing a large area of infarct of the apex and inferior wall without evidence of significant ischemia, EF 28%. An repeat echocardiogram was done on 07/18/2024 showing EF 25-30%, anterior, inferior and apical segments akinetic. 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 This was reviewed with her in detail. Plan was for a cardiac catheterization for further evaluation. This procedure was set up and she was no show for the appointment. At this time she tells me she is having significant anemia. Since her right lower leg wound is healing she will not need vascular surgery at this time. Discussed cardiac catheterization with her and she does not want to proceed currently since she is asymptomatic. Informed her that she could be at risk for another heart attack and she states understanding. At this time will continue with med management. She is on aspirin, high-dose atorvastatin,. She is not on Andre/Arb due to her chronic kidney disease. Will recheck a limited echo to reassess EF and wall motion. ICD would be indicated if her EF remains less than 35%. Plan to discuss further next visit. Signs and symptoms of angina and heart failure reviewed with her. Emergency care if needed for symptoms. Cardiology follow-up 3 months, sooner if needed. (2) Hyperlipidemia: Code(s): E78.5 - Hyperlipidemia, unspecified Category: Medical Qualifiers: Hyperlipidemia type: familial hypercholesterolemia Qualified Code(s): E78.01 - Familial hypercholesterolemia Plan: History of hyperlipidemia. LDL goal ideally less than 70 patient with peripheral vascular disease and diabetes. Labs done 08/21/2024 showed LDL 78. Previously recommended Zetia and she declined. Continue high-dose atorvastatin. (3) Hypertension, essential: Code(s): I10 - Essential (primary) hypertension Category: Medical Plan: Well controlled at this time. She reports being anxious at office visits and procedures. No med changes made. (4) Skin ulcer of right great toe: Code(s): L97.519 - Non-pressure chronic ulcer of other part of right foot with unspecified severity Category: Medical Plan: Following with the [facility]. Tells me she has 2 stents now in her right lower extremity which are occluded. Follows with Dr. Frankel for vascular (5) Anemia: Code(s): D64.9 - Anemia, unspecified Category: Medical Plan: Following with Hematology. History of DVT and her Eliquis is currently being held. She does continue on aspirin. Plan Time spent on chart review, documentation, interview and assessment, communicating with doctors, coordinating care, complex case. Orders: Orders CA Echo Limited 1 Month I25.5 - Ischemic cardiomyopathy Coding Level of Care Code Est Pt Level 4 (50545) Complex EM visit Add On G2211 Diagnoses Abnormal nuclear stress test R94.39 Familial hypercholesterolemia E78.01 Hyperlipidemia type: familial hypercholesterolemia Hypertension, essential I10 Skin ulcer of right great toe L97.519 Anemia D64.9 Time Spent (min) 30
--- OUTSIDE RECORDS SUMMARY | 2024-11-14 09:39 | XMS_ITS | Encounter Summary ---
Author Organization [facility] Address [address] [address] Phone Care Team Providers Care Penology Teacher Name Role Phone Maribel Mckinnon CNP Primary Care Provider [phone] Encounter Details Date Type Department Care Team (Late Contact Info) Description 11/02/2024 Orders Only [facility] [address] [place] [address] Andres Mccloud MD [address] [address] Chronic kidney disease, stage 4 (severe) (HCC); Renal disorder due to type 2 diabetes mellitus <Diabetic nephropathy> (HCC); Persistent proteinuria Social History Tobacco Use Types Packs/Day Years [...] Care Team (Late st Contact Info) Description 01/01/2025 3:30 PM EDT Office Visit [facility] [address] [place] [address] Andres Mccloud MD [address] [address] documented as of this encounter Visit Diagnoses Diagnosis Chronic kidney disease, stage 4 (severe) (HCC) Renal disorder due to type 2 diabetes mellitus <Diabetic nephropathy> (HCC) Persistent proteinuria documented in this encounter Care Teams Penology Teacher Relationship Specialty Start Date End Date Maribel Mckinnon CNP [address] [place] [address] PCP - General 09/04/24 documented as of this encounter
--- OUTSIDE RECORDS SUMMARY | 2024-11-14 09:40 | XMS_ITS | Patient Health Record ---
[facility] Organization [facility] Address [address] [facility] [place] [address] Care Team Providers Care Product Blending Supervisor Name Role Phone Pratibha MASON, Juliet Primary Care Provider Unavail able Rock Newton Unavailable [phone] Allergies Allergen (clinical drug ingredient) Drug/Non Drug [...] Problem Acquired hammer toe of right foot (0689397742856 105) Other hammer toe(s) (acquired), right foot (M20.41) Active confirmed Response to treatment,I mprovement Problem Type 2 diabetes mellitus with peripheral angiopathy (911317242) Type 2 diabetes mellitus with diabetic peripheral angiopathy without gangrene (E11.51) Active confirmed Problem Acquired hammer toe of left foot (6625780961468 103) Other hammer toe(s) (acquired), left foot (M20.42) Active confirmed Response to treatment,I mprovement Problem Ulcer of toe of right foot (disorder) (7300012594949 9101) Skin ulcer of toe of right foot, limited to breakdown of skin (L97.511) Active confirmed Vital Signs Weight 139 lbs 12/24/2023 BMI 23.86 kg/m2 12/24/2023 Procedures Procedure Date Ordered Date Performed Result Body Sit e 60535-ZWSTJII NAIL, 6 OR MORE 12/24/2023 N/A 62537-UXYX SKIN LESIONS, OVER 4 12/24/2023 N/A Encounters Encounter Location Date [facility] [address] 12/24/2023 Rock Newton Type 2 diabetes mellitus with diabetic peripheral angiopathy without gangrene E11.51 ; Tinea unguium B35.1 ; Pain in right toe(s) M79.674 ; Pain in left toe(s) M79.675 and Skin ulcer of toe of right foot, limited to breakdown of skin L97.[address] [facility] [place] [address] 12/26/2023 Rock Newton [facility] [place] [address] [place] [address] 03/03/2024 Rock Newton Assessments Encounter Date Diagnosis [...] Treatment Pending Test Test Name Order Date 66557-BUOEGPF NAIL, 6 OR MORE 05/30/2023 38541-MOPBJSQ NAIL, 6 OR MORE 08/06/2023 52558-GBJRPXS NAIL, 6 OR MORE 10/15/2023 53626-RTPCYOY NAIL, 6 OR MORE 12/24/2023 98576- Debride <25 sq cm 09/27/2023 84980- Debride <25 sq cm 08/06/2023 83611-EGYSSWS SKIN/TISSUE 07/02/2023 46905- I&D ABSCESS-COMPLICATED,MULTI 51652-KLMZ SKIN LESIONS, OVER 4 05/30/20 26329-NSXA SKIN LESIONS, OVER 4 08/06/20 23 63949-COIX SKIN LESIONS, OVER 4 10/15/19 24 06018-GBMM SKIN LESIONS, OVER 4 12/24/19 24 Insurance Providers Payer Name Payer Address Payer Phone Subscriber Number Group Number Insured Name Patient Relationship to Insured Coverage Start Date Coverage End Date [facility] [employer] Claims [address] [place] [id number] [phone] [id number] Mayuri Quiroz Self - patient is the insured Medical (General) History Medical History History ICD Code Anemia Cataracts Diabetic High blood pressure Kidney disease Numbness Stroke Chicken pox Surgical History Surgery Date(Month/Year) R leg angiogram/angioplasty 06/27/23
--- OUTSIDE RECORDS SUMMARY | 2024-11-14 09:40 | XMS_ITS ---
Author Organization [facility] Address [address] [facility] [place] [address] Care Team Providers Care Kindergarten Teacher Assistant Name Role Phone Pratibha CAN SLIDER, Juliet Primary Care Provider Unavail able Rock Newton Unavailable [phone] REASON FOR VISIT questions Encounters Encounter Location Date [facility] [address] [place] [address] 12/26/2023 Rock Newton Plan Of Treatment No Information Progress Notes * Mayuri HERNANDEZDOB: [birth year] (73 yo F)Acc No.[id number]:12/26/2023 Patient:?DavidRustyia :1950???Age:73 Y???Sex:Female Address:[address], [place], [address] * true * Date:? Generated for Printi ng/Rosa Isela/eTransmitting on:?11/14/2024 09:40 AM EDT
--- OUTSIDE RECORDS SUMMARY | 2024-11-14 09:40 | XMS_ITS ---
[facility] Address [address] [place] [address] Care Team Providers Care Channeling Machine Runner Name Role Phone Pratibha CLINICAL VETERINARIAN, Juliet Primary Care Provider Unavail able Rock Newton Unavailable [phone] Encounters Encounter Location Date Provider [facility] [place] [address] [facility] [facility] [address] [place] [address] 03/03/2024 Rock Newton Plan Of Treatment No Information Progress Notes * Mayuri GARCIADOB: [birth year] (74 yo F)Acc No.[id number]:03/03/2024 Progress Note Patient:Mayuri RAWLS Provider:?Rock Newton DPM :1950???Age:74 Y???Sex:Female D ate:03/03/2024 Address: [address], [id number] Pcp:Juliet Mckinnon NP Subjective: * Chief Complaints: [...] Date:?2023 Generated for Maria Luisai david/Rosa Isela/eTransmitting on:?11/14/2024 09:40 AM EDT
--- OUTSIDE RECORDS SUMMARY | 2024-11-14 09:41 | XMS_ITS | Clinical Summary ---
Author Organization [facility] Address [address] [place] [address] [place] [address] Phone Care Team Providers Care Chute Feeder Name Role Phone Maribel Mckinnon NEGRITA Primary Care Provider [phone] Allergies Active Allergy Reactions Criticality Noted Date Comments Banana (Diagnostic) Other (see comments) 2023 Lisinopril Other (see comments) 11/26/2023 Medications insulin glargine (Lantus) 100 UNIT/ML injection Active aspirin (ST EVA) 81 MG EC tablet Take 1 tablet by mouth 1 (one) time each day Active ergocalciferol 1.25 MG (58333 UT) capsule Take 1 capsule (50,000 Units total) by mouth 1 (one) time per week 12 capsule 2 1 Active Additional Information Patient not taking.Reported on 09/04/2024 Cholecalciferol (Vitamin D3) 1.25 MG (37513 UT) capsule TAKE 1 CAPSULE BY MOUTH [...] kidney complication> ([facility]) TAKE 1 TABLET (25 MG TOTAL) BY [...] Encounters Date Type Department Care Team Description 11/02/2024 Orders Only [facility] [address] [place] [address] Andres Mccloud MD Chronic kidney disease, stage 4 (severe) (HCC); Renal disorder due to type 2 diabetes mellitus <Diabetic nephropathy> (HCC); Persistent proteinuria 10/29/2024 Orders Only [facility] [address] [place] [address] Andres Mccloud MD Chronic kidney disease stage 4 (HCC) 09/11/2024 Refill [facility] [address] [facility] [address] [place] [address] Alexx Marie MD 09/04/2024 1:00 PM EST Office Visit [facility] [address] [place] [address] Andres Mccloud MD Chronic kidney disease, stage 4 (severe) (HCC) (Primary Dx); Renal disorder due to type 2 diabetes mellitus <Diabetic nephropathy> (HCC); Persistent proteinuria 08/27/2024 Refill [facility] [address] [place] [address] Andres Mccloud MD from Last 3 Months [...] Visit [facility] [address] [place] [address] Andres Mccloud MD [address] [facility] [address] [place] [address] Health Maintenance Due Date Last Done Comments [...] ENTRY Routine 08/14/2024 from Last 3 Months or Most Recently Relevant to Health Maintenance Results * (ABNORMAL) Creatinine (09/04/2024 1:02 PM EST) Creatinine Serum 2.27(H) 0.5 - 1.4 mg/dL See order comments eGFR 21 See order comments Comment: Chronic Kidney Disease: ??Estimated GFR < 60 mL/min/1.73m2 Severe Kidney Disease: ??Estimated GFR < 15 mL/min/1.73m2 09/04/2024 1:02 PM EST 09/04/2024 1:02 PM EST Andres Mccloud MD LAB BLOOD ORDERABLES Final Re sult Performing Organization Address City/[facility]/ZIP Co de Phone Number [facility] See order comments [place] [address] * (ABNORMAL) PTH, Intact (09/04/2024 1:02 PM EST) Parathyroid Hormone, Intact 194.8(H) 8.7 - 77.1 pg/mL See order comments 09/04/2024 1:02 PM EST 09/04/2024 1:02 PM EST Andres Mccloud MD LAB [id number] SOLICITED RESULTS Final Result [place] See order comments [place] [address] * (ABNORMAL) Iron Panel (Fe, TIBC, TSAT) [...] ORDERABLES Final Re sult Performing Organization Address [facility] Co de Phone Number [place] See order comments [place] [address] * (ABNORMAL) Vitamin D 25 Hydroxy (09/04/2024 [...] ORDERABLES Final Re sult Performing Organization Address [facility] Co de Phone Number [place] See order comments [place] [address] * (ABNORMAL) CBC and Differential (09/04/2024 1:02 [...] ORDERABLES Final Re sult Performing Organization Address [facility] Phone Number [place] See order comments [place] [address] * (ABNORMAL) BUN (09/04/2024 1:02 PM EST) BUN 65(H) 9 - 16 mg/dL See order comments 09/04/2024 1:02 PM EST 09/04/2024 1:02 PM EST us Andres Mccloud MD LAB BLOOD ORDERABLES Final Re sult Performing Organization Address [facility] Phone Number [place] See order comments [place] [address] * Phosphorus (09/04/2024 1:02 PM EST) Pathologist [facility] Phosphorus, Serum 4.1 2.7 - 4.5 mg/dL See order comments 09/04/2024 1:02 PM EST 09/04/2024 1:02 PM EST us Andres Mccloud MD LAB BLOOD ORDERABLES Final Re sult Performing Organization Address [facility] Phone Number [place] See order comments [place] [address] * Magnesium (09/04/2024 1:02 PM EST) Magnesium 2.4 1.6 - 2.6 mg/dL See order comments 09/04/2024 1:02 PM EST 09/04/2024 1:02 PM EST us Andres Mccloud MD LAB BLOOD ORDERABLES Final Re sult Performing Organization Address [facility] Phone Number [place] See order comments [place] [address] * Ferritin (09/04/2024 1:02 PM EST) Ferritin 22 10 - 250 ng/mL See order comments 09/04/2024 1:02 PM EST 09/04/2024 1:02 PM EST us Andres Mccloud MD LAB BLOOD ORDERABLES Final Re sult Performing Organization Address [facility] Phone Number [place] See order comments [place] [address] * Calcium (09/04/2024 1:02 PM EST) Calcium 9.1 8.4 - 10.2 mg/dL See order comments 09/04/2024 1:02 PM EST 09/04/2024 1:02 PM EST us Andres Mccloud MD LAB BLOOD ORDERABLES Final Re sult Performing Organization Address [facility] Phone Number [place] See order comments [place] [address] * Albumin (09/04/2024 1:02 PM EST) Albumin 3.5 3.5 - 5.0 g/dL See order comments 09/04/2024 1:02 PM EST 09/04/2024 1:02 PM EST us Andres Mccloud MD LAB BLOOD ORDERABLES Final Re sult Performing Organization Address [facility] Phone Number [place] See order comments [place] [address] * (ABNORMAL) Electrolyte panel (09/04/2024 1:02 PM [...] ORDERABLES Final Re sult Performing Organization Address [facility] Phone Number [place] See order comments [place] [address] * (ABNORMAL) Protein, Total, Random Urine w/Creatinine (Protein/Creat Ratio) (09/04/2024 12:57 PM EST) Protein Urine Random 10 <12 mg/dL See order comments Protein/Creati nine Ratio, Urine 0.27(H) <0.2 See order comments Comment: The spot urine protein:creatinine ratio may increase to 0.3 during normal . 09/04/2024 12:5 7 PM EST 09/04/2024 12:57 PM EST Andres Mccloud MD LAB URINE ORDERABLES Final [facility] Performing Organization Address [facility] de Phone Number [place] See order comments [place] [address] * (ABNORMAL) Albumin, urine, random (09/04/2024 12:57 [...] 7 PM EST 09/04/2024 12:57 PM EST us Andres Mccloud MD LAB URINE ORDERABLES Final [facility] Performing Organization Address [facility] Co de Phone Number [place] See order comments [place] [address] * (ABNORMAL) Urinalysis with microscopic (09/04/2024 12:57 PM EST) Color Urine Yellow See orde r comments Appearance Urine Clear See order comments pH Urine 5.5 5.0 - 9.0 See order comments Glucose Urine Negative Negative mg/dL See order comments Blood, Urine Trace(A) Negative See ord er comments Specific [place] Urine 1.010 1.005 - 1.025 See order [...] order comments [place] [address] * (ABNORMAL) EXT RESULT ENTRY (08/21/2024) Only [...] Calcium 8.8 8.7 - 10.7 mg/dL 08/21/2024 Tiny Fung MD LAB BLOOD ORDERABLES Rina l Result from Last 3 Months or Most Recently Relevant to Health Maintenance Insurance [facility] ([id number]) [facility] ([id number]) Care Teams Chute Feeder Relationship Specialty Start Date End Date Maribel Mckinnon CNP [address] [place], [place] [phone] PCP - General 09/04/24
--- OUTSIDE RECORDS SUMMARY | 2024-11-14 09:41 | XMS_ITS ---
Author Organization [facility] Address [address] [place] [address] Care Team Providers Care Stoper Name Role Phone Pratibha CLINIC OFFICE ASSISTANT, [facility] Primary Care Provider Unavail able Rock Newton Unavailable [phone] REASON FOR VISIT Cancel Encounters Encounter Location Date Provider Diagnosis [facility] [address] [place] [address] 03/03/2024 Rock Newton Plan Of Treatment No Information Progress Notes * Mayuri HERNANDEZDOB: [birth year] (74 yo F)Acc No.[id number]:03/03/2024 Patient:?Mayuri HERNANDEZ :1950???Age:74 Y???Sex:Female Address:[facility] [address] [place], [address] * true * Date:? Generated for Printi ng/Rosa Isela/eTransmitting on:?11/14/2024 09:40 AM EDT
--- OUTSIDE RECORDS SUMMARY | 2024-11-14 09:41 | XMS_ITS | Encounter Summary ---
Author Organization [facility] Address [address] [address] Phone Care Team Providers Care Crocheter Hand Name Role Phone Maribel Mckinnon CNP Primary Care Provider [phone] Encounter Details Date Type Department Care Team (Late st Contact Info) Description 10/29/2024 Orders Only [facility] [address] [place] [address] Andres Mccloud MD [address] [address] Chronic kidney disease stage 4 [...] Office Visit [facility] [address] [place] [address] Andres Mccloud MD [address] [address] documented as of this encounter Visit Diagnoses Diagnosis Chronic kidney disease stage 4 (HCC) documented in this encounter Care Teams Crocheter Hand Relationship Specialty Start Date End Date Maribel Mckinnon CNP [address] [place] [address] PCP - General 09/04/24 documented as of this encounter
--- OUTSIDE RECORDS SUMMARY | 2024-11-14 09:41 | XMS_ITS | Encounter Summary ---
Author Organization [facility] Address [address] [facility] [address] [place] [address] Phone Care Team Providers Care Storage Wharfage Clerk Name Role Phone Maribel Mckinnon CNP Primary Care Provider [phone] Encounter Details Date Type Department Care Team (Late st Contact Info) Description 01/30/2023 Telephone [facility] [address] [facility] [address] [place] [address] Anamaria Galvan Social History Tobacco Use [...] Visit [facility] [address] [place] [address] Andres Mccloud MD [address] [facility] [address] [place] [address] documented as of this encounter Visit Diagnoses Not on filedocumented in this encounter Care Teams Storage Wharfage Clerk Relationship Specialty Start Date End Date Maribel Mckinnon CNP [address] [place], [place] [phone] PCP - General 09/04/24 documented as of this encounter
== END 2024-11-14 10:08 | disposition home or self-care (01) ==
LOC: HO.HCS 09:07
PROVIDERS: PCP Nurse Practitioner Family; Visit Provider Nurse Practitioner Family
DX: R94.39 Abnormal result of other cardiovascular function study (principal); E78.01 Familial hypercholesterolemia; I10 Essential (primary) hypertension; L97.519 Non-pressure chronic ulcer of other part of right foot with unspecified severity; D64.9 Anemia, unspecified
CPT/HCPCS: 99214; G2211

== ENCOUNTER → 2024-11-14 09:07 | Outpatient (BNVA) | payer OTHER, SELFPAY | PROVIDERS: PCP Nurse Practitioner Family; Visit Provider Nurse Practitioner Family | DX: D64.9 Anemia, unspecified (principal); L97.519 Non-pressure chronic ulcer of other part of right foot with unspecified severity; R94.39 Abnormal result of other cardiovascular function study; I10 Essential (primary) hypertension; E78.01 Familial hypercholesterolemia | CPT/HCPCS: 99212 ==

== ENCOUNTER 2024-12-29 13:42 | Outpatient (AMB) | payer OTHER, SELFPAY ==
--- NOTE | 2024-12-29 13:43 | MHC.PC.OV ---
Vital Signs 12/29/24 13:51 12/29/24 14:16 Height 5 ft 2 in Weight 159 lb 4 oz BMI 29.1 BP 173/67 H 150/70 H Blood Pressure Location Rt brachial Lt brachial Position Sitting Sitting Respiration 16 Pulse 78 80 Pulse Source Pulse Oximeter Auscultation Temp 98.4 F Temp Source Oral Pulse Oximetry (%) 99 Oxygen Delivery Method Room Air Intake Visit Reasons: Follow Up /HTN, TESS Intake Note: patient here for follow up on HTN and TESS and would like to speak to provider about a letter for her landlord for her AC. Steel Fixer Required: No Accompanied by: Daughter Is last menstrual period known: No Post menopausal: No Patient : No (;) Allergies lisinopril Allergy (Severe, Verified 12/29/24 14:06) swollen tongue apple Allergy (Intermediate, Verified 12/29/24 14:06) tongue swelling banana Allergy (Intermediate, Verified 12/29/24 14:06) tongue and lip swelling Medication List - Last Reconciled 12/29/24 by Maribel Mckinnon CNP ascorbic acid (vitamin C) (Vitamin C) 500 mg PO DAILY 30 days aspirin 81 mg PO DAILY atorvastatin 80 mg PO BEDTIME blood sugar diagnostic (FreeStyle Test strips) bid to tid bs checks blood-glucose meter (FreeStyle Lite Meter kit) As directed bumetanide 1 mg PO DAILY carvedilol 12.5 mg PO BID cholecalciferol (vitamin D3) 50 mcg PO DAILY 90 days commode (bedside commode) As directed insulin glargine (Lantus U-100 Insulin) 12 units (0.12 mL) subcut BEDTIME 90 days insulin syringe-needle U-100 (BD Insulin Syringe Micro-Fine) For q.h.s. Lantus administration levothyroxine 25 mcg PO DAILY 30 days miscellaneous medical supply 3 boxes of medium-sized gloves monthly x 12 months miscellaneous medical supply hand held shower head As directed miscellaneous medical supply Rollator walker Tobacco use date assessed: 12/29/24 Fall risk assessment: No Falls in past year Last assessed Fall Risk: 12/29/24 Dental Screening Dental Screen Date: 12/29/24 Did you have a dental visit in the last 12 months?: No Did you have a dental problem in the last 6 months where you did not have access to dental care?: No Was dental information given to patient?: No HPI HPI Comments History of Present Illness Details 74-year-old female, accompanied by her daughter, presents for hypertension and TESS follow-up. She was last seen on 10/29/2024 and was advised to follow-up in 1 week. She admits to taking her medications as prescribed without adverse reactions. No acute symptoms at this time. [facility] Medical History History of femoral angiogram Stroke Weakness Iron deficiency Vitamin D deficiency Surgical History History of angioplasty (~07/11/23) No pertinent past surgical history Family History Father Bladder cancer Smoker Mother Diabetes CVD (cardiovascular disease) Glaucoma Daughter Anxiety Family/Other Alzheimer's dementia Uterine cancer Social History Household Members: Family Housing: Apartment Alcohol intake: never Patient Tobacco Use Status: Never used Tobacco e-Cigarette/Vaping Use: Never Used Second Hand Smoke Exposure: No Patient : No (;) service: No Current occupational status: retired Cognitive needs: No Hearing needs: No Vision needs: No Questionnaire Thrive Questionnaire Date Thrive assessed: 10/29/24 SARAHY-7 AMB Questionnaire SARAHY-7 Date SARAHY - 7 assessed: 05/10/23 Source: Developed by Drs. Marcel Payne, Rsoa Perez, Matt Kaba and colleagues, with an educational vicki from [employer]. Review of Systems Const Details: Const Denies chills, Denies fatigue, Denies fever(s), Denies headache(s) and Denies weakness ENT Denies dizziness and Denies headache(s) Card Denies chest pain, Denies lightheadedness, Denies dyspnea and Denies other (Palpitations) Resp Denies cough, Denies dyspnea, Denies wheezing and Denies other ( shortness of breath) GI Denies abdominal pain, Denies melena, Denies hematochezia, Denies change in bowel habits, Denies dyspepsia and Denies nausea Denies hematuria and Denies dysuria Musc Denies abnormal gait, Denies myalgias, Denies arthralgias, Denies numbness and Denies tingling Skin/Breast Denies rash, Denies unusual bruising and Denies wounds Neuro Denies abnormal gait, Denies dizziness, Denies headache(s), Denies memory loss, Denies numbness, Denies Sensory deficit (Neuro), Denies tingling and Denies weakness Psych Denies anxiety, Denies depression, Denies memory loss Endo Denies cold intolerance, Denies fatigue, Denies heat intolerance, Denies polydipsia and Denies polyuria Aller/Immun Denies wheezing Physical exam (Primary Care) Vital Signs: Last Vital Signs Temp 98.4 F 12/29/24 13:51 Pulse 80 12/29/24 14:16 Resp 16 12/29/24 13:51 BP 150/70 H 12/29/24 14:16 Pulse Ox 99 12/29/24 13:51 Oxygen Delivery Method Room Air 12/29/24 13:51 BMI result Body Mass Index 29.1 Tobacco/Smoking Status: Tobacco use Status Tobacco use date assessed 12/29/24 12/29/24 13:55 Patient Tobacco Use Status Never used Tobacco 12/29/24 13:44 e-Cigarette/Vaping Use Never Used 12/29/24 13:44 Thrive Assessment: Date of Thrive Assessment Date Thrive assessed 10/29/24 12/29/24 13:44 Const Other: General: no acute distress and well developed Nutritional Appearance: well nourished Orientation/consciousness: patient oriented x3 HENMT Head: Yes normocephalic and Yes atraumatic Eyes General: appearance normal, both eyes and all related structures Pupils: Equal, round and reactive pupils present EOM: EOMs intact bilaterally Resp Effort & Inspection: normal respiratory effort Auscultation: clear to auscultation bilaterally Cardio Rate: regular rate Rhythm: regular rhythm Heart sounds: S1 normal heart sound present, S2 normal heart sound present, no gallops, no murmurs and no rubs GI Palpation (GI): No Abdominal aortic bruit present, Soft to palpation, nontender, No hepatosplenomegaly present and No Rebound tenderness present Auscultation: normal bowel sounds General: Yes no CVA tenderness Back/Spine/Pelvis Back: no CVA tenderness Cervical Spine: cervical ROM normal and No Cervical spine tenderness Thoracic/Lumbar Spine: thoraco-lumbar ROM normal, No pain with thoraco-lumbar ROM, No thoracic spinal tenderness and No lumbar spinal tenderness Extrem General: Yes normal to inspection, No edema and No calf tenderness Skin General: warm and dry. Normal skin color. Normal skin turgor Lesions: no lesions Rashes: no rashes Trauma: no lacerations or abrasions Wounds: no wounds Nails: normal Neuro General: patient oriented x3, gait normal and no focal neuro deficit Cranial nerves: Yes Equal, round and reactive pupils present Cognition (Neuro): normal cognition Gait exam (Neuro): Normal gait present Sensory Exam: No Sensory deficit (Neuro) Psych Appearance: grossly normal Affect: normal affect Attitude: cooperative Thought process: Normal thought process present Results AMB Hemoglobin A1c AMB Hemoglobin A1c 6.1 % Last Edit by Terri Brink CMA on 12/29/24 14:40 Coding Level of Care Code Est Pt Level 4 (40578) Diagnoses Hypertension, essential I10 Iron deficiency anemia D50.9 Type 2 diabetes mellitus E11.9 Diabetes mellitus complication status: with circulatory complication Diabetes mellitus terminal operator insulin use: with residential use Hypothyroidism E03.9 Vitamin D deficiency E55.9 Hypernatremia E87.0 Assessment & Plan Assessment & Plan (1) Hypertension, essential: Code(s): I10 - Essential (primary) hypertension Category: Medical Plan: Resting blood pressure is 150/70, above goal of less than 130/80. Will increase carvedilol to 25 mg twice daily; advised to take as prescribed. Low-sodium diet encouraged. Follow-up in 2 weeks or sooner with symptoms or concerns. Verbalized understanding and agreed with treatment plan. (2) Iron deficiency anemia: Code(s): D50.9 - Iron deficiency anemia, unspecified Category: Medical Plan: Followed by [facility]. (3) Type 2 diabetes mellitus: Code(s): E11.9 - Type 2 diabetes mellitus without complications Category: Medical Qualifiers: Diabetes mellitus complication status: with circulatory complication Diabetes mellitus residential insulin use: with terminal operator use Plan: A1c today is 6.1%, within goal of less than 7.0%. Previous A1c in 08/14/2024 was 7.2%. Continue current treatment regimen. ADA diet and routine exercise encouraged. Will recheck A1c in 3 months. Verbalized understanding and agreed with the plan. (4) Hypothyroidism: Code(s): E03.9 - Hypothyroidism, unspecified Category: Medical Plan: Continue current management. Will check TSH/T4 and make changes as needed. Verbalized understanding and agreed with the plan. (5) Vitamin D deficiency: Code(s): E55.9 - Vitamin D deficiency, unspecified Category: Medical Plan: Continue current treatment regimen. Will recheck vitamin-D level and make changes as needed. Verbalized understanding and agreed with the plan. (6) Hypernatremia: Code(s): E87.0 - Hyperosmolality and hypernatremia Category: Medical Plan: Sodium level was slightly elevated last month, 146. Likely related to dehydration or her chronic kidney disease. Will recheck sodium levels and make changes as needed. Verbalized understanding and agreed with the plan. Orders: Orders Vitamin D 25-OH Total Today E55.9 - Vitamin D deficiency, unspecified AMB Hemoglobin A1c Today Z13.9 - Encounter for screening, unspecified TSH reflex Free T4 Today E03.9 - Hypothyroidism, unspecified Sodium Today E87.0 - Hyperosmolality and hypernatremia Referrals [facility] Referral I73.9 - Peripheral vascular disease, unspecified, L98.9 - Disorder of the skin and subcutaneous tissue, unspecified, R26.81 - Unsteadiness on feet, R29.898 - Other symptoms and signs involving the musculoskeletal system Medications: New carvedilol must administer with a meal/food 25 mg PO Q12H 30 days 60 tabs 3RF
[2024-12-29 13:51] VITALS: BP 173/67; PULSE 78; RESP 16; TEMP 36.9; O2SAT 99; BMI 29.1
[2024-12-29 14:16] VITALS: BP 150/70; PULSE 80
--- OUTSIDE RECORDS SUMMARY | 2024-12-29 16:24 | XMS_ITS ---
Author Organization [facility] Address [address] [facility] [place] [address] Care Team Providers Care Cutter And Paster Press Clippings Name Role Phone Pratibha SCHOOL LUNCH MANAGER, [facility] Primary Care Provider Unavail able Rock Newton Unavailable [phone] REASON FOR VISIT questions Encounters Encounter [facility] Date [facility] [address] [facility] [address] [place] [address] 12/26/2023 Rock Newton Plan Of Treatment No Information Progress Notes * Mayuri HERNANDEZDOB: [birth year] (73 yo F)Acc No.[id number]:12/26/2023 Patient:?DavidRustyia :1950???Age:73 Y???Sex:Female Address:[address], [place], [address] * true * Date:? Generated for Printi ng/Farodrigog/eTransmitting on:?12/29/2024 04:24 PM EDT
--- OUTSIDE RECORDS SUMMARY | 2024-12-29 16:24 | XMS_ITS | Patient Health Record ---
[facility] Address [address] [facility] [place] [address] Care Team Providers Care Cargo Bracer Name Role Phone Pratibha MASON, [place] Primary Care Provider Unavail able Rock Newton Unavailable [phone] Allergies Allergen (clinical drug ingredient) Drug/Non Drug [...] Problem Acquired hammer toe of right foot (5802380963692 105) Other hammer toe(s) (acquired), right foot (M20.41) Active confirmed Response to treatment,I mprovement Problem Type 2 diabetes mellitus with peripheral angiopathy (057683387) Type 2 diabetes mellitus with diabetic peripheral angiopathy without gangrene (E11.51) Active confirmed Problem Acquired hammer toe of left foot (5603178921596 103) Other hammer toe(s) (acquired), left foot (M20.42) Active confirmed Response to treatment,I mprovement Problem Ulcer of toe of right foot (disorder) (2568131055684 9101) Skin ulcer of toe of right foot, limited to breakdown of skin (L97.511) Active confirmed Encounters Encounter Location Date Provider Diagnosis [facility] [address] [place] [address] 03/03/2024 Rock Newton Plan Of Treatment Pending Test Test Name Order Date [id number]-DGVWNXQ NAIL, 6 OR MORE 05/30/2023 59208-FACTCHT NAIL, 6 OR MORE 08/06/2023 64548-ZAYYBTM NAIL, 6 OR MORE 10/15/2023 54256-YIZVDLZ NAIL, 6 OR MORE 12/24/2023 31530- Debride <25 sq cm 09/27/2023 37468- Debride <25 sq cm 08/06/2023 44617-TDSOPJH SKIN/TISSUE 07/02/2023 79357- I&D ABSCESS-COMPLICATED,MULTI 24773-EHJO SKIN LESIONS, OVER 4 09/27/20 23 20596-YOEW SKIN LESIONS, OVER 4 08/06/20 23 09452-DOLD SKIN LESIONS, OVER 4 10/15/19 24 59367-XEFG SKIN LESIONS, OVER 12/24/19 Insurance Providers Payer Name Payer Address Payer Phone Subscriber Number Group Number Insured Name Patient Relationship to Insured Coverage Start Date Coverage End Date [facility] CCA SCO Claims [address] [place] [id number] [phone] [id number] Mayuri Quiroz Self - patient is the insured Medical (General) History Medical History History ICD Code Anemia Cataracts Diabetic High blood pressure Kidney disease Numbness Stroke Chicken pox Surgical History Surgery Date(Month/Year) R leg angiogram/angioplasty 06/27/23
--- OUTSIDE RECORDS SUMMARY | 2024-12-29 16:24 | XMS_ITS ---
Author [facility] Address [address] [facility] [place] [address] Care Team Providers Care Rigger Third Name Role Phone Pratibha DRAINAGE INSPECTOR, [place] Primary Care Provider Unavail able Rock Newton Unavailable [phone] Encounters Encounter Location Date Provider [facility] [place] [address] [facility] [address] [place] [address] 03/03/2024 Rock Newton Plan Of Treatment No Information Progress Notes * Mayuri GARCIADOB: [birth year] (74 yo F)Acc No.[id number]:03/03/2024 Progress Note Patient:Mayuri RAWLS Provider:?Rock Newton DPM :1950???Age:74 Y???Sex:Female D ate:03/03/2024 Address: [address], [id number] Pcp:Juliet Mckinnon NP Subjective: * Chief Complaints: [...] Date:?2023 Generated for Maria Luisai david/Rosa Isela/eTransmitting on:?12/29/2024 04:24 PM EDT
--- OUTSIDE RECORDS SUMMARY | 2024-12-29 16:25 | XMS_ITS | Encounter Summary ---
Author Organization [facility] Address [address] [facility] [address] [place] [address] Phone Care Team Providers Care Maintenance Technician Name Role Phone Maribel Mckinnon CNP Primary Care Provider [phone] Encounter Details Date Type Department Care Team (Late Contact Info) Description 01/30/2023 Telephone [facility] [address] [place] [address] [place] [address] Anamaria Galvan Social History Tobacco [...] Visit [facility] [address] [place] [phone] Andres Mccloud MD [address] [facility] [address] [place] [address] documented as of this encounter Visit Diagnoses Not on filedocumented in this encounter Care Teams Maintenance Technician Relationship Specialty Start Date End Date Maribel Mckinnon CNP [address] [place], [place] [id number] PCP - General 09/04/24 documented as of this encounter
--- OUTSIDE RECORDS SUMMARY | 2024-12-29 16:25 | XMS_ITS | Clinical Summary ---
Author Organization [facility] Address [address] [address] Phone Care Team Providers Care Software Packager Name Role Phone Maribel Mckinnon NEGRITA Primary Care Provider [phone] Allergies Active Allergy Reactions Criticality Noted Date Comments Banana (Diagnostic) Other (see comments) 2023 Lisinopril Other (see comments) 11/26/2023 Medications insulin glargine (Lantus) 100 UNIT/ML injection Active aspirin (ST EVA) 81 MG EC tablet Take 1 tablet by mouth 1 (one) time each day Active ergocalciferol 1.25 MG (32728 UT) capsule Take 1 capsule (50,000 Units total) by mouth 1 (one) time per week 12 capsule 2 04/28/20 21 Active Additional Information Patient not taking.Reported on 09/04/2024 Cholecalcifero l (Vitamin D3) 1.25 MG (24228 UT) capsule TAKE 1 CAPSULE BY MOUTH EVERY WEEK FOR 3 MONTHS 05/23/20 22 Active gabapentin (NEURONTIN) 300 MG capsule Take 300 mg by mouth in the morning and 300 mg in the evening and 300 mg before bedtime. Active atorvastatin (LIPITOR) 40 MG tabletIndicati ons:Chronic kidney disease stage 3 (HCC),Hyperlip idemia, not otherwise specified TAKE 1 TABLET BY MOUTH EVERY NIGHT 90 tablet 03/04/20 24 Active Additional Information Patient taking differently: 80 mgOral Nightly, Reported on 09/04/2024 carvedilol (COREG) 25 MG tabletIndicati ons:Chronic kidney disease, stage 4 (severe) (HCC),Renal disorder due to type 2 diabetes mellitus <Diabetic nephropathy> (HCC),Persiste nt proteinuria,Re nal disorder due to type 2 diabetes mellitus <Other diabetic kidney complication> (HCC) TAKE 1 TABLET (25 MG TOTAL) BY MOUTH IN THE MORNING AND IN THE EVENING 180 tablet 5 04/28/20 24 Active Eliquis 2.5 MG tablet 05/28/20 24 Active ferrous sulfate 325 (65 Fe) MG EC tablet TAKE 1 TABLET ORALLY 2 TIMES A DAY 05/29/20 24 Active bumetanide (BUMEX) 1 MG tablet TAKE 1 TABLET (1 MG TOTAL) BY MOUTH IN THE MORNING AND IN THE EVENING 180 tablet 3 09/11/19 25 Active calcitriol (ROCALTROL) 0.25 MCG capsule TAKE 1 CAPSULE BY MOUTH EVERY OTHER DAY 45 capsule 12/05/19 25 Active calcitriol (ROCALTROL) 0.25 MCG capsule TAKE 1 CAPSULE BY MOUTH EVERY OTHER DAY 45 capsule 08/27/20 24 025 Discontinued Active Problems Problem Noted Date Diagnosed Date [...] Encounters Date Type Department Care Team Description 12/04/2024 Refill [facility] [address] [place] [address] Andres Mccloud MD 11/02/2024 Orders Only [facility] [address] [place] [address] Andres Mccloud MD Chronic kidney disease, stage 4 (severe) (HCC); Renal disorder due to type 2 diabetes mellitus <Diabetic nephropathy> (HCC); Persistent proteinuria 10/29/2024 Orders Only [facility] [address] [place] [address] Andres Mccloud MD Chronic kidney disease stage 4 (HCC) from Last 3 Months Family History Medical [...] Visit [facility] [address] [place] [address] Andres Mccloud MD [address] [facility] [address] [place] [phone] Health Maintenance Due Date Last Done Comments Breast Cancer Screening 1950 Pneumococcal Vaccine: 50+ Years (1 of 2 - PCV) 1969 Colorectal Cancer Screening: Annual FOBT 1999 Colorectal Cancer Screening: Colonoscopy 1999 Colorectal Cancer Screening: Sigmoidoscopy 1999 Diabetes: Ophthalmology Exam 10/04/2020 Diabetes: Pedal Pulse Checked 10/04/2020 Diabetes: Sensory Foot Exam 10/04/2020 Diabetes: Visual Foot Exam 10/04/2020 Diabetes: Hemoglobin A1C 11/12/2024 024, 11/23/2023, 09/01/2020, Additional history exists Influenza Vaccine (Season Ended) 2025 Hepatitis B Vaccine Aged Out No longe r eligible based on patient's age to complete this topic Procedures Procedure Name Priority Date/Time Associated Diagnosis Comments EXT RESULT ENTRY Routine 08/14/2024 from Last 3 Months or Most Recently Relevant to Health Maintenance Results * (ABNORMAL) EXT RESULT ENTRY (08/14/2024) Hemoglobin A1C 7.2(A) 4.0 - 6.0 08/14/2024 Historical Provider LAB BLOOD ORDERABLES Rina l Result from Last 3 Months or Most Recently Relevant to Health Maintenance [place] [address] ([id number]) [facility] ([id number]) [place] [address] Care Teams Software Packager Relationship Specialty Start Date End Date Maribel Mckinnon CNP [address] [place] [address] PCP - General 09/04/24
--- OUTSIDE RECORDS SUMMARY | 2024-12-29 16:25 | XMS_ITS ---
Author Organization [facility] Address [address] [place] [address] Care Team Providers Care Copy Cutter Name Role Phone Pratibha TRANSFER AND PUMPHOUSE OPERATOR CHIEF, [facility] Primary Care Provider Unavail able Rock Newton Unavailable [phone] REASON FOR VISIT Cancel Encounters Encounter Location Date Provider Diagnosis [facility] [address] [place] [address] 03/03/2024 Rock Newton Plan Of Treatment No Information Progress Notes * Mayuri HERNANDEZDOB: [birth year] (74 yo F)Acc No.[id number]:03/03/2024 Patient:?Mayuri HERNANDEZ :1950???Age:74 Y???Sex:Female Address:[facility] [address], [place], [address] * true * Date:? Generated for Printi ng/Farodrigog/eTransmitting on:?12/29/2024 04:24 PM EDT
== END 2024-12-29 15:02 | disposition home or self-care (01) ==
LOC: HO.HMCFM 13:42
PROVIDERS: PCP Nurse Practitioner Family; Visit Provider Nurse Practitioner Family
DX: I10 Essential (primary) hypertension (principal); D50.9 Iron deficiency anemia, unspecified; E11.9 Type 2 diabetes mellitus without complications; E03.9 Hypothyroidism, unspecified; E55.9 Vitamin D deficiency, unspecified; E87.0 Hyperosmolality and hypernatremia; Z13.9 Encounter for screening, unspecified

== ENCOUNTER → 2024-12-29 13:42 | Outpatient (BNVA) | payer OTHER, SELFPAY | PROVIDERS: PCP Nurse Practitioner Family; Visit Provider Nurse Practitioner Family | DX: E11.9 Type 2 diabetes mellitus without complications (principal); I10 Essential (primary) hypertension; D50.9 Iron deficiency anemia, unspecified; E03.9 Hypothyroidism, unspecified; E55.9 Vitamin D deficiency, unspecified; E87.0 Hyperosmolality and hypernatremia | CPT/HCPCS: 83036; 99212 ==

== ENCOUNTER 2025-01-01 11:40 | Outpatient (REF) | payer OTHER, SELFPAY ==
[2025-01-01 13:12] LABS: Hematocrit 38.8 % (37.0-47.0); Hemoglobin 11.2 g/dl (12.0-16.0); Mean Corpuscular HGB Conc 28.9 g/dl (31.0-35.0); Mean Corpuscular Hemoglobin 22.9 pg (27.0-33.0); Mean Corpuscular Volume 79.3 fL (80.0-98.0); Mean Platelet Volume 9.5 fL (9.4-12.3); Platelet Count 277 X10*3/uL (160-400); Red Blood Count 4.89 X10*6/uL (4.20-5.50); Red Cell Distribution Width 21.3 % (11.0-16.0); White Blood Count 6.9 X10*3/uL (4.8-10.8)
[2025-01-01 13:14] LABS: Appearance Urine Clear; Color Urine Yellow; Glucose Urine UA Negative (Negative); Leukocyte Esterase Urine Negative (Negative); Nitrite Urine Negative (Negative); Specific Gravity - Urine 1.015 (1.005-1.025); UMIC TRIGGER UA YES; Urine Blood Trace (Negative); Urine Ketones Negative (Negative); Urine Protein 30 (1+) mg/dL (Neg-Trace)
[2025-01-01 13:17] LABS: Bacteria Urine None Seen (None Seen); Hyaline Casts Urine 0-2 /LPF (0-2); RBC Urine 0-2 /HPF (0-2); Squamous Epithelial Cell Urine 0-2 /HPF (0-2); WBC Urine 0-5 /HPF (0-5)
[2025-01-01 13:42] LABS: Albumin Level 3.6 g/dL (3.5-5.0); Anion Gap 13 (12-20); Blood Urea Nitrogen 62 mg/dL (9-16); Calcium 8.9 mg/dL (8.4-10.2); Carbon Dioxide 27 mmol/L (22-29); Chloride 109 mmol/L (96-108); Estimated Glomerular Filt Rate 26; Iron 30 mcg/dL (30-160); Percent Iron Saturation 10 % (15-50); Phosphorus 4.6 mg/dL (2.7-4.5); Potassium 4.1 mmol/L (3.3-5.1); Sodium 145 mmol/L (135-145); Total Iron Binding Capacity 296 mcg/dL (228-428); Total Protein 7.5 g/dL (6.5-8.0); Unsaturated Iron Binding 266 ug/dL
[2025-01-01 13:52] LABS: Ferritin 33 ng/mL (10-250); Vitamin D 25-OH Total 27.1 ng/mL (>30)
--- OUTSIDE RECORDS SUMMARY | 2025-01-01 13:54 | XMS_ITS | Patient Health Record ---
Author Organization [facility] Address [address] [facility] [place] [address] Care Team Providers Care Ladler Name Role Phone Pratibha MASON, Juliet Primary Care Provider Unavail able Rock Newton Unavailable [phone] Allergies Allergen (clinical drug ingredient) Drug/Non Drug [...] Problem Acquired hammer toe of right foot (1556995721251 105) Other hammer toe(s) (acquired), right foot (M20.41) Active confirmed Response to treatment,I mprovement Problem Type 2 diabetes mellitus with peripheral angiopathy (787373978) Type 2 diabetes mellitus with diabetic peripheral angiopathy without gangrene (E11.51) Active confirmed Problem Acquired hammer toe of left foot (0080816010722 103) Other hammer toe(s) (acquired), left foot (M20.42) Active confirmed Response to treatment,I mprovement Problem Ulcer of toe of right foot (disorder) (1210233056019 9101) Skin ulcer of toe of right foot, limited to breakdown of skin (L97.511) Active confirmed Encounters Encounter Location Date Provider Diagnosis [facility] [address] [place] [address] 03/03/2024 Rock Newton Plan Of Treatment Pending Test Test Name Order Date 15145-SBLICUG NAIL, 6 OR MORE 05/30/2023 75675-XQUDPRQ NAIL, 6 OR MORE 08/06/2023 93665-YWZQYPX NAIL, 6 OR MORE 10/15/2023 86504-NOBFJHE NAIL, 6 OR MORE 12/24/2023 56093- Debride <25 sq cm 09/27/2023 93362- Debride <25 sq cm 08/06/2023 80470-TIHSDYV SKIN/TISSUE 07/02/2023 54054- I&D ABSCESS-COMPLICATED,MULTI 56199-YGTS SKIN LESIONS, OVER 4 09/27/20 23 68287-WILE SKIN LESIONS, OVER 4 08/06/20 23 64891-BWTN SKIN LESIONS, OVER 4 10/15/19 24 55783-EUFO SKIN LESIONS, OVER 12/24/19 Insurance Providers Payer Name Payer Address Payer Phone Subscriber Number Group Number Insured Name Patient Relationship to Insured Coverage Start Date Coverage End Date [facility] CCA SCO Claims [address] [place] [id number] [phone] [id number] Mayuri Quiroz Self - patient is the insured Medical (General) History Medical History History ICD Code Anemia Cataracts Diabetic High blood pressure Kidney disease Numbness Stroke Chicken pox Surgical History Surgery Date(Month/Year) R leg angiogram/angioplasty 06/27/23
[2025-01-01 14:28] LABS: Parathyroid Hormone Intact 383.7 pg/mL (8.7-77.1)
[2025-01-01 14:37] LABS: Microalbum/Creatinine Ratio Ur 301.5 ug/mg cr (<30); Protein/Creatinine Ratio, Ur 0.57 (<0.2); Total Protein Urine Random 33 mg/dL (<12)
== END 2025-01-01 11:41 | disposition home or self-care (01) ==
LOC: HO.HMGCLDS 11:40
PROVIDERS: PCP Nurse Practitioner Family; Visit Provider Internal Medicine Nephrology
DX: N18.4 Chronic kidney disease, stage 4 (severe) (principal)
CPT/HCPCS: 36415; 80051; 81001; 82040; 82043; 82306; 82310; 82565; 82570; 82728; 83540; 83970; 84100; 84155; 84156; 84520; 85027

== ENCOUNTER 2025-02-09 06:54 | Outpatient (REF) | payer OTHER, SELFPAY ==
[2025-02-09 10:12] LABS: MANUAL DIFF FLAG NO
[2025-02-09 10:22] LABS: Basophils Percent Auto 0.6 % (0-2); Eosinophils Absolute Auto 0.2 X10*3/uL (0.0-0.4); Eosinophils Percent Auto 3.1 % (0-4); Hematocrit 40.3 % (37.0-47.0); Hemoglobin 11.8 g/dl (12.0-16.0); Imm Gran Abs Auto 0.01 X10*3/uL (0.00-0.03); Imm Gran Pct Auto 0.2 % (0.0-0.4); Lymphocytes Absolute Auto 1.5 X10*3/uL (1.2-4.9); Lymphocytes Percent Auto 23.8 % (20-40); Mean Corpuscular HGB Conc 29.3 g/dl (31.0-35.0); Mean Corpuscular Hemoglobin 22.4 pg (27.0-33.0); Mean Corpuscular Volume 76.5 fL (80.0-98.0); Mean Platelet Volume 10.5 fL (9.4-12.3); Monocytes Absolute Auto 0.5 X10*3/uL (0.1-1.2); Monocytes Percent Auto 8.3 % (2-11); Neutrophils Absolute Auto 4.1 x10*3/uL (2.0-8.3); Platelet Count 211 X10*3/uL (160-400); Red Blood Count 5.27 X10*6/uL (4.20-5.50); Red Cell Distribution Width 22.6 % (11.0-16.0); White Blood Count 6.4 X10*3/uL (4.8-10.8)
[2025-02-09 10:46] LABS: Appearance Urine Clear; Color Urine Yellow; Glucose Urine UA Negative (Negative); Leukocyte Esterase Urine Trace (Negative); Nitrite Urine Negative (Negative); PH 5.5 (5.0-9.0); Specific Gravity - Urine 1.015 (1.005-1.025); UMIC TRIGGER UA YES; Urine Blood Trace (Negative); Urine Ketones Negative (Negative); Urine Protein 30 (1+) mg/dL (Neg-Trace)
[2025-02-09 10:51] LABS: Anion Gap 11 (12-20); Blood Urea Nitrogen 78 mg/dL (9-16); Carbon Dioxide 29 mmol/L (22-29); Chloride 108 mmol/L (96-108); Estimated Glomerular Filt Rate 18; Potassium 3.7 mmol/L (3.3-5.1); Sodium 144 mmol/L (135-145)
[2025-02-09 10:52] LABS: Creatinine Urine 60.86 mg/dL; Microalbum/Creatinine Ratio Ur 192.2 ug/mg cr (<30); Protein/Creatinine Ratio, Ur 0.38 (<0.2); Total Protein Urine Random 23 mg/dL (<12)
[2025-02-09 10:54] LABS: Bacteria Urine None Seen (None Seen); Hyaline Casts Urine 0-2 /LPF (0-2); RBC Urine 0-2 /HPF (0-2); Squamous Epithelial Cell Urine 0-2 /HPF (0-2); WBC Urine 0-5 /HPF (0-5)
== END 2025-02-09 06:55 | disposition home or self-care (01) ==
LOC: HO.HMGCLDS 06:54
PROVIDERS: PCP Nurse Practitioner Family; Visit Provider Internal Medicine Nephrology
DX: N18.4 Chronic kidney disease, stage 4 (severe) (principal); E11.21 Type 2 diabetes mellitus with diabetic nephropathy; R60.9 Edema, unspecified
CPT/HCPCS: 36415; 80051; 81001; 82043; 82310; 82565; 82570; 84156; 84520; 85025

== ENCOUNTER 2025-02-14 08:48 | Outpatient (REF) | payer OTHER, SELFPAY ==
[2025-02-14 11:38] LABS: Alanine Aminotransferase 32 U/L (0-31); Albumin Level 3.4 g/dL (3.5-5.0); Alkaline Phosphatase 85 U/L (39-117); Aspartate Amino Transferase 30 U/L (5-31); Bilirubin Direct 0.1 mg/dL (0.0-0.5); Bilirubin Total 0.3 mg/dL (0.0-1.0); Cholesterol 140 mg/dL (<200); HDL Cholesterol 48 mg/dL (>40); LDL Cholesterol Calculated 82 mg/dL (<100); Sodium 148 mmol/L (135-145); Total Protein 7.2 g/dL (6.5-8.0); Triglycerides 53 mg/dL (<150)
[2025-02-14 11:59] LABS: TSH reflex Free T4 6.61 uIU/mL (0.32-4.0); Vitamin D 25-OH Total 32.5 ng/mL (>30)
[2025-02-14 12:36] LABS: Free T4 (Free Thyroxine) 0.96 ng/dL (0.71-1.85)
== END 2025-02-14 08:49 | disposition home or self-care (01) ==
LOC: HO.HMGCLDS 08:48
PROVIDERS: PCP Nurse Practitioner Family; Referring Provider Nurse Practitioner Family; Visit Provider Nurse Practitioner Family
DX: Z00.01 Encounter for general adult medical examination with abnormal findings (principal); E55.9 Vitamin D deficiency, unspecified; E03.9 Hypothyroidism, unspecified; E87.0 Hyperosmolality and hypernatremia; E78.01 Familial hypercholesterolemia
CPT/HCPCS: 36415; 80061; 80076; 82306; 84295; 84439; 84443

== ENCOUNTER 2025-02-16 15:27 | Outpatient (AMB) | payer OTHER, SELFPAY ==
--- NOTE | 2025-02-16 15:31 | A.OFFPC_ITS ---
Vital Signs 02/16/25 15:36 02/16/25 16:05 Height 5 ft 2 in Weight 154 lb BMI 28.2 BP 177/73 H 150/60 H Blood Pressure Location Lt brachial Rt brachial Position Sitting Sitting Respiration 16 Pulse 68 Pulse Source Pulse Oximeter Temp 98.6 F Temp Source Temporal Artery Scan Pulse Oximetry (%) 99 Oxygen Delivery Method Room Air Intake Visit Reasons: 30 mins visit 2 wks HTN Intake Note: patient here for 2 wks 30 min follow up on HTN Wind Development Director Required: No Information Interpreted: non-clinical & clinical Accompanied by: Daughter Is last menstrual period known: No Post menopausal: No Patient : No Allergies lisinopril Allergy (Severe, Verified 02/16/25 15:58) swollen tongue apple Allergy (Intermediate, Verified 02/16/25 15:58) tongue swelling banana Allergy (Intermediate, Verified 02/16/25 15:58) tongue and lip swelling Medication List - Last Reviewed 02/16/25 by Lavinia Schrader MA ascorbic acid (vitamin C) (Vitamin C) 500 mg PO DAILY 30 days aspirin 81 mg PO DAILY atorvastatin 80 mg PO BEDTIME blood sugar diagnostic (FreeStyle Test strips) bid to tid bs checks blood-glucose meter (FreeStyle Lite Meter kit) As directed bumetanide 1 mg PO ONCE carvedilol 25 mg PO Q12H 30 days cholecalciferol (vitamin D3) 50 mcg PO DAILY 90 days commode (bedside commode) As directed insulin glargine (Lantus U-100 Insulin) 12 units (0.12 mL) subcut BEDTIME 90 days insulin syringe-needle U-100 (BD Insulin Syringe Micro-Fine) For q.h.s. Lantus administration levothyroxine 25 mcg PO DAILY 30 days miscellaneous medical supply 3 boxes of medium-sized gloves monthly x 12 months miscellaneous medical supply hand held shower head As directed miscellaneous medical supply Blood pressure monitoring miscellaneous medical supply Rollator walker Tobacco use date assessed: 02/16/25 Fall risk assessment: No Falls in past year Last assessed Fall Risk: 02/16/25 Dental Screening Dental Screen Date: 02/16/25 Did you have a dental visit in the last 12 months?: No Did you have a dental problem in the last 6 months where you did not have access to dental care?: No Was dental information given to patient?: Patient declined HPI HPI Comments History of Present Illness Details 74-year-old female, accompanied by her aracely kiko, presents for hypertension follow-up. She admits to taking her medications as prescribed without adverse reaction. [facility] Medical History History of femoral angiogram Stroke Weakness Iron deficiency Vitamin D deficiency Surgical History History of angioplasty (~07/11/23) No pertinent past surgical history Family History Father Bladder cancer Smoker Mother Diabetes CVD (cardiovascular disease) Glaucoma Daughter Anxiety Family/Other Alzheimer's dementia Uterine cancer Social History Household Members: Family Housing: Apartment Alcohol intake: never Patient Tobacco Use Status: Never used Tobacco e-Cigarette/Vaping Use: Never Used Second Hand Smoke Exposure: No service: No Current occupational status: retired Cognitive needs: No Hearing needs: No Vision needs: No Questionnaire PHQ-9 Over the last 2 weeks, how often have you been bothered by any of the following problems? 2. Feeling down, depressed, or hopeless: not at all Source: Developed by Drs. Marcel Payne, Rosa Perez, Matt Kaba and colleagues, with an educational vicki from [employer]. Thrive Questionnaire Date Thrive assessed: 10/29/24 I am a: Patient What is your living situation today?: I have a steady place to live Within the past 12 months, did the food you bought not last and you didn't have the money to get more?: Never true Within the past 12 months, did you worry whether your food would run out before you got money to buy more?: Never true Do you have trouble paying for medicines?: No Do you have trouble getting transportation to medical appointments?: No Do you have trouble paying your heating and electricity bill?: No Do you have trouble taking care of your child, family member or friend?: No Do you have trouble with day-to-day activities such as bathing, preparing meals, shopping, managing finances, etc.?: No Are you currently unemployed and looking for a job?: No Are you interested in more education?: No Please select the resources that you would like help with: Daily support Currently or been in a relationship where the following occur: No concerns reported THRIVE Score: 0 SARAHY-7 AMB Questionnaire SARAHY-7 Date SARAHY - 7 assessed: 05/10/23 Source: Developed by Drs. Marcel Payne, Rosa Perez, Matt Kaba and colleagues, with an educational vicki from [employer]. Review of Systems Const Details: Const Denies chills, Denies fatigue, Denies fever(s), Denies headache(s) and Denies weakness ENT Denies dizziness and Denies headache(s) Card Denies chest pain, Denies lightheadedness, Denies dyspnea and Denies other (Palpitations) Resp Denies cough, Denies dyspnea, Denies wheezing and Denies other ( shortness of breath) GI Denies abdominal pain, Denies melena, Denies hematochezia, Denies change in bowel habits, Denies dyspepsia and Denies nausea Denies hematuria and Denies dysuria Musc Denies abnormal gait, Denies myalgias, Denies arthralgias, Denies numbness and Denies tingling Skin/Breast Denies rash, Denies unusual bruising and Denies wounds Neuro Denies abnormal gait, Denies dizziness, Denies headache(s), Denies memory loss, Denies numbness, Denies Sensory deficit (Neuro), Denies tingling and Denies weakness Psych Denies anxiety, Denies depression, Denies memory loss Endo Denies cold intolerance, Denies fatigue, Denies heat intolerance, Denies polydipsia and Denies polyuria Aller/Immun Denies wheezing Physical exam (Primary Care) Vital Signs: Last Vital Signs Temp 98.6 F 02/16/25 15:36 Pulse 68 02/16/25 15:36 Resp 16 02/16/25 15:36 BP 150/60 H 02/16/25 16:05 Pulse Ox 99 02/16/25 15:36 Oxygen Delivery Method Room Air 02/16/25 15:36 BMI result Body Mass Index 28.2 Tobacco/Smoking Status: Tobacco use Status Tobacco use date assessed 02/16/25 02/16/25 15:39 Patient Tobacco Use Status Never used Tobacco 02/16/25 15:34 e-Cigarette/Vaping Use Never Used 02/16/25 15:34 Thrive Assessment: Date of Thrive Assessment Date Thrive assessed 10/29/24 02/16/25 15:34 Currently or been in a relationship where the following occur: No concerns reported Const Other: General: no acute distress and well developed Nutritional Appearance: well nourished Orientation/consciousness: patient oriented x3 [facility]: Yes normocephalic and Yes atraumatic Eyes General: appearance normal, both eyes and all related structures Pupils: Equal, round and reactive pupils present EOM: EOMs intact bilaterally Resp Effort & Inspection: normal respiratory effort Auscultation: clear to auscultation bilaterally Cardio Rate: regular rate Rhythm: regular rhythm Heart sounds: S1 normal heart sound present, S2 normal heart sound present, no gallops, no murmurs and no rubs GI Palpation (GI): No Abdominal aortic bruit present, Soft to palpation, nontender, No hepatosplenomegaly present and No Rebound tenderness present Auscultation: normal bowel sounds General: Yes no CVA tenderness Back/Spine/Pelvis Back: no CVA tenderness Cervical Spine: cervical ROM normal and No Cervical spine tenderness Thoracic/Lumbar Spine: thoraco-lumbar ROM normal, No pain with thoraco-lumbar ROM, No thoracic spinal tenderness and No lumbar spinal tenderness Extrem General: Yes normal to inspection, No edema and No calf tenderness Skin General: warm and dry. Normal skin color. Normal skin turgor Neuro General: patient oriented x3, gait normal and no focal neuro deficit Cranial nerves: Yes Equal, round and reactive pupils present Cognition (Neuro): normal cognition Gait exam (Neuro): Normal gait present Sensory Exam: No Sensory deficit (Neuro) Psych Appearance: grossly normal Affect: normal affect Attitude: cooperative Thought process: Normal thought process present Coding Level of Care Code Est Pt Level 4 (81399) Diagnoses Hypertension, essential I10 Hypothyroidism E03.9 Hypernatremia E87.0 Assessment & Plan Assessment & Plan (1) Hypertension, essential: Code(s): I10 - Essential (primary) hypertension Category: Medical Plan: Resting blood pressure is 150/60, above goal of less than 140/90. Will start hydralazine 10 mg twice daily; advised to take as prescribed. Instructed on the risks, benefits, and potential adverse reactions of the medication. Continue to take carvedilol and bumetanide as prescribed. Low-sodium diet encouraged. Follow-up in 2 weeks for hypertension. Return sooner with symptoms or concerns. Verbalized understanding and agreed with the treatment plan. (2) Hypothyroidism: Code(s): E03.9 - Hypothyroidism, unspecified Category: Medical Plan: Recent TSH is elevated, 6.61, free T4 is normal. Will decrease levothyroxine to 13 mcg daily, advised to take as prescribed. Will recheck TSH/T4 in 6 weeks. Verbalized understanding and agreed with the plan. (3) Hypernatremia: Code(s): E87.0 - Hyperosmolality and hypernatremia Category: Medical Plan: Recent sodium level was elevated, 148. Likely dehydration. Adequate hydration encouraged. Will continue to monitor. Verbalized understanding and agreed with treatment plan. Orders: Orders TSH reflex Free T4 6 Weeks E03.9 - Hypothyroidism, unspecified Sodium 6 Weeks E87.0 - Hyperosmolality and hypernatremia Medications: New levothyroxine 13 mcg PO DAILY 30 days 30 caps 3RF hydralazine 10 mg PO BID 30 days 60 tabs 3RF lancets (FreeStyle Lancets) POC testing 3 times daily 100 ea 11RF Discontinued levothyroxine Discontinued Reason: Doctor's Order 25 mcg PO DAILY 30 days 30 tabs 1RF
[2025-02-16 15:36] VITALS: BP 177/73; PULSE 68; RESP 16; TEMP 37; O2SAT 99; BMI 28.2
[2025-02-16 16:05] VITALS: BP 150/60
--- OUTSIDE RECORDS SUMMARY | 2025-02-16 17:23 | XMS_ITS | Patient Health Record ---
Author Organization [facility] Address [address] [place] [address] Care Team Providers Care Food And Beverage Analyst Name Role Phone Pratibha MASON, Juliet Primary Care Provider Unavail able Rock Newton Unavailable [phone] Allergies Allergen (clinical drug ingredient) Drug/Non Drug [...] Problem Acquired hammer toe of right foot (5441239073704 105) Other hammer toe(s) (acquired), right foot (M20.41) Active confirmed Response to treatment,I mprovement Problem Type 2 diabetes mellitus with peripheral angiopathy (280978371) Type 2 diabetes mellitus with diabetic peripheral angiopathy without gangrene (E11.51) Active confirmed Problem Acquired hammer toe of left foot (1881200290005 103) Other hammer toe(s) (acquired), left foot (M20.42) Active confirmed Response to treatment,I mprovement Problem Skin ulcer of toe of right foot, limited to breakdown of skin (L97.511) Active confirmed Encounters Encounter Location Date Provider Diagnosis [facility] [place] [address] [place] [address] 03/03/2024 Rock Newton Plan Of Treatment Pending Test Test Name Order Date [id number] NAIL, 6 OR MORE 05/30/2023 [id number] NAIL, 6 OR MORE 08/06/2023 75715-GKLVLVE NAIL, 6 OR MORE 10/15/2023 [id number]-QOZPKDJ NAIL, 6 OR MORE 12/24/2023 15576- Debride <25 sq cm 09/27/2023 32038- Debride <25 sq cm 08/06/2023 51349-LCIPKDY SKIN/TISSUE 07/02/2023 08645- I&D ABSCESS-COMPLICATED,MULTI 44116-MISJ SKIN LESIONS, OVER 4 05/30/20 35467-NJMK SKIN LESIONS, OVER 4 08/06/20 47084-FUHR SKIN LESIONS, OVER 4 10/15/19 94565-YIMO SKIN LESIONS, OVER 4 12/24/19 Insurance Providers Payer Name Payer Address Payer Phone Subscriber Number Group Number Insured Name Patient Relationship to Insured Coverage Start Date Coverage End Date [facility] SCO Claims [address] [place] [id number] Mayuri Quiroz Self - patient is the insured Medical (General) History Medical History History ICD Code Anemia Cataracts Diabetic High blood pressure Kidney disease Numbness Stroke Chicken pox Surgical History Surgery Date(Month/Year) R leg angiogram/angioplasty 06/27/23
== END 2025-02-16 16:14 | disposition home or self-care (01) ==
LOC: HO.HMCFM 15:28
PROVIDERS: PCP Nurse Practitioner Family; Visit Provider Nurse Practitioner Family
DX: I10 Essential (primary) hypertension (principal); E03.9 Hypothyroidism, unspecified; E87.0 Hyperosmolality and hypernatremia

== ENCOUNTER → 2025-02-16 15:27 | Outpatient (BNVA) | payer OTHER, SELFPAY | PROVIDERS: PCP Nurse Practitioner Family; Visit Provider Nurse Practitioner Family | DX: I10 Essential (primary) hypertension (principal); E03.9 Hypothyroidism, unspecified; E87.0 Hyperosmolality and hypernatremia | CPT/HCPCS: 99212 ==

== ENCOUNTER → 2025-02-17 14:59 | Outpatient (REF) | payer OTHER, SELFPAY ==
--- NOTE | 2025-02-17 15:02 | CA_ITS ---
Transthoracic Echocardiogram Patient (Last, First, Middle): Mayuri Minaya, Gender: Female Date of : 1950 Age: 74 Procedure Date: 02/17/2025 Procedure Type: Transthoracic Echocardiogram Location: OP Height: 157.48 cm Weight: 70.76 kg BSA: 1.72 m2 Heart Rate: bpm BP: 140 / 60 mmHg Head Shipper: CP/AYLIN Referring MD: Kacie Nogueira ROAD COMMISSIONER-C Symptoms: I25.5 - Ischemic cardiomyopathy Study Quality: Technically Difficult, pt terminated exam ECG Rhythm: Sinus Conclusions: - The left ventricular systolic function is severely decreased. The visually estimated ejection fraction is between 25-30%. - Patient unable to cooperate and terminated study. Findings Procedure Information The study quality is limited by the patients inability to tolerate the test. The patient declines contrast. Left Ventricle Normal left ventricular cavity size. The left ventricular systolic function is severely decreased. The visually estimated ejection fraction is between 25-30%. There is evidence of regional wall motion abnormalities. Wall motion assessment is suboptimal. Wall Motion Rest Echo Findings The mid anteroseptal segment is akinetic. Aortic Valve There is mild calcification of the aortic valve. There is no aortic valve stenosis. Great Vessels The asc aorta is normal in size. Pericardium/Pleural There is a trivial pericardial effusion. Prior Study Comparison No significant change compared to prior study dated: 07/18/2024. Measurements 2D Linear Measurements IVSd: 1.66 0.6-0.9/0.6-1.0 cm LVIDd: 4.69 3.9-5.3/4.2-5.9 cm LVIDd Index: 2.73 2.4-3.2/2.2-3.1 cm/m2 LVIDs: 4.10 2.0-3.6 cm LVPWd: 1.02 0.7-1.1 cm LV Mass: 309.04 67-162/88-224 g LV Mass Index: 179.67 43-95/49-115 g/m2 LVOT Diam: 1.90 3.0+(-)1.3 cm LVOT LVOT Diam: 1.90 LVOT Area: 2.84 Updated in Other Vendor System with Status of Final Julio Barone MD electronically signed on 02/18/2025 12:21:44 PM with status of Final
--- OUTSIDE RECORDS SUMMARY | 2025-02-17 17:27 | XMS_ITS | Patient Health Record ---
Author Organization [facility] Address [address] [facility] [place] [address] Care Team Providers Care Community Arts Centre Manager Name Role Phone Pratibha MASON, Juliet Primary Care Provider Unavail able Rock Newton Unavailable [phone] Allergies Allergen (clinical drug ingredient) Drug/Non Drug [...] Problem Acquired hammer toe of right foot ([id number] 105) Other hammer toe(s) (acquired), right foot (M20.41) Active confirmed Response to treatment,I mprovement Problem Type 2 diabetes mellitus with peripheral angiopathy (207653766) Type 2 diabetes mellitus with diabetic peripheral angiopathy without gangrene (E11.51) Active confirmed Problem Acquired hammer toe of left foot ([id number] 103) Other hammer toe(s) (acquired), left foot (M20.42) Active confirmed Response to treatment,I mprovement Problem Skin ulcer of toe of right foot, limited to breakdown of skin (L97.511) Active confirmed Encounters Encounter Location Date Provider Diagnosis [facility] [place] [address] [place] [address] 03/03/2024 Rock Newton Plan Of Treatment Pending Test Test Name Order Date [id number] NAIL, 6 OR MORE 05/30/2023 [id number] NAIL, 6 OR MORE 08/06/2023 [id number] NAIL, 6 OR MORE 10/15/2023 [id number]-[id number] NAIL, 6 OR MORE 12/24/2023 51054- Debride <25 sq cm 09/27/2023 38371- Debride <25 sq cm 08/06/2023 54234-KVEARGD SKIN/TISSUE 07/02/2023 33579- I&D ABSCESS-COMPLICATED,MULTI 52294-EVFH SKIN LESIONS, OVER 4 05/30/20 68258-DKOC SKIN LESIONS, OVER 4 08/06/20 10706-TXEV SKIN LESIONS, OVER 4 10/15/19 53185-EETF SKIN LESIONS, OVER 4 12/24/19 Insurance Providers Payer Name Payer Address Payer Phone Subscriber Number Group Number Insured Name Patient Relationship to Insured Coverage Start Date Coverage End Date [facility] SCO Claims [address] [place] [id number] Mayuri Quiroz Self - patient is the insured Medical (General) History Medical History History ICD Code Anemia Cataracts Diabetic High blood pressure Kidney disease Numbness Stroke Chicken pox Surgical History Surgery Date(Month/Year) R leg angiogram/angioplasty 06/27/23
== END ==
LOC: HO.CARD 14:59
PROVIDERS: PCP Nurse Practitioner Family; Visit Provider Nurse Practitioner Family
DX: I25.5 Ischemic cardiomyopathy (principal)
CPT/HCPCS: 93308

== ENCOUNTER 2025-03-03 09:28 | Outpatient (AMB) | payer OTHER, SELFPAY ==
[2025-03-03 09:37] VITALS: BP 152/70; PULSE 71
--- NOTE | 2025-03-03 09:37 | A.OFFVIS_ITS ---
Vital Signs 03/03/25 09:37 Height 5 ft 2 in BP 152/70 H Blood Pressure Location Lt brachial Position Sitting Pulse 71 Pulse Source Pulse Oximeter Intake Visit Reasons: f/u after echo Research Chemical Engineer Required: No Landscape Painter: Landscape Painter Present Allergies lisinopril Allergy (Severe, Verified 03/03/25 09:39) swollen tongue apple Allergy (Intermediate, Verified 03/03/25 09:39) tongue swelling banana Allergy (Intermediate, Verified 03/03/25 09:39) tongue and lip swelling norvast Allergy (Mild, Uncoded 03/03/25 09:40) Swelling Medication List - Last Reconciled 03/03/25 by ADRIANNA Gardiner ascorbic acid (vitamin C) (Vitamin C) 500 mg PO DAILY 30 days aspirin 81 mg PO DAILY atorvastatin 80 mg PO BEDTIME blood sugar diagnostic (FreeStyle Test strips) bid to tid bs checks blood-glucose meter (FreeStyle Lite Meter kit) As directed bumetanide 1 mg PO ONCE carvedilol 25 mg PO Q12H 30 days cholecalciferol (vitamin D3) 50 mcg PO DAILY 90 days commode (bedside commode) As directed hydralazine 25 mg PO BID insulin glargine (Lantus U-100 Insulin) 12 units (0.12 mL) subcut BEDTIME 90 days insulin syringe-needle U-100 (BD Insulin Syringe Micro-Fine) For q.h.s. Lantus administration isosorbide dinitrate 10 mg PO BID lancets (FreeStyle Lancets) POC testing 3 times daily levothyroxine 50 mcg PO DAILY 30 days miscellaneous medical supply 3 boxes of medium-sized gloves monthly x 12 months miscellaneous medical supply hand held shower head As directed miscellaneous medical supply Blood pressure monitoring miscellaneous medical supply Rollator walker HPI HPI f/u after echo: Details: Mayuri is a 75-year-old female with past medical history hypertension, hyperlipidemia, diabetes, right lower extremity DVT, peripheral vascular disease followed by krystal Cosby DC between 05/2023 and 06/2024, ischemic cardiomyopathy who previously declined cardiac catheterization and now presents for follow-up after recent echocardiogram. Today she reports that she continues to do generally well. She has home physical therapy and has been trying to increase her physical activity. She still has a very slow healing wound on her right lower extremity. There is no current plans for vascular surgery/bypass. She continues to follow closely with Dr. Frankel. Her anemia is under control and thought to be related to her chronic kidney disease. She is no longer on Eliquis for her history of prior DVT. She does have some leg edema and recently had increase in her diuretic dose however creatinine then анна. She follows closely with Nephrology. She has not been experiencing any chest discomfort at rest or with activity. She denies shortness of breath, PND, orthopnea. No heart palpitations, lightheadedness, presyncope, syncope. She admits to being mostly sedentary. She is sitting in a wheelchair at this visit. Walks only short distances with a walker. Her daughter is present. [facility] Medical History History of femoral angiogram Stroke Weakness Iron deficiency Vitamin D deficiency Surgical History History of angioplasty (~07/11/23) No pertinent past surgical history Family History Father Bladder cancer Smoker Mother Diabetes CVD (cardiovascular disease) Glaucoma Daughter Anxiety Family/Other Alzheimer's dementia Uterine cancer Social History Household Members: Family Housing: Apartment Alcohol intake: never Patient Tobacco Use Status: Never used Tobacco e-Cigarette/Vaping Use: Never Used Second Hand Smoke Exposure: No service: No Current occupational status: retired Cognitive needs: No Hearing needs: No Vision needs: No Review of Systems Const All systems reviewed & are unremarkable except as noted in HPI and below ENT Denies dizziness Card Denies chest pain, Denies chest pain at rest, Denies chest pain with activity, Denies rapid heart rate, Denies pedal edema, Denies edema, Denies leg edema, Denies lightheadedness, Denies palpitations, Denies dyspnea, Denies dyspnea on exertion and Denies orthopnea Resp Denies cough, Denies dyspnea and Denies dyspnea on exertion GI Denies hematochezia and Denies change in stool character Musc Denies abnormal gait, Denies limited range of motion, Denies muscle cramps, Denies muscle weakness, Denies numbness, Denies radiating pain into limb, Denies stiffness and Denies tingling Neuro Denies abnormal gait, Denies dizziness, Denies numbness and Denies tingling Endo Denies palpitations Physical Exam Vital Signs: Last Vital Signs Pulse 71 03/03/25 09:37 BP 152/70 H 03/03/25 09:37 Const Other: somewhat frail elderly female sitting in wheelchair General: cooperative, comfortable and no acute distress Orientation/consciousness: patient oriented x3 Neck Neck: Yes normal visual inspection Resp Effort & Inspection: normal respiratory effort Auscultation: clear to auscultation bilaterally, no rales, no rhonchi and no wheezes Cardio Jugular venous distension: no JVD Rate: regular rate Rhythm: regular rhythm Heart sounds: S1 normal heart sound present, S2 normal heart sound present, no murmurs and no rubs Neuro General: patient oriented x3 Extrem Other: +1 bilateral lower leg edema. Psych Appearance: grossly normal Mental Status: mental status grossly normal Speech and movement: Normal speech and movement present Assessment & Plan Assessment & Plan (1) History of inferior wall myocardial infarction: Code(s): I25.2 - Old myocardial infarction Category: Medical Plan: Patient with newer finding of abnormal nuclear stress test, prior DC: She does have cardiac risk factors of hypertension, hyperlipidemia, diabetes, peripheral vascular disease. Echocardiogram was done for mild shortness of breath 05/15/2023 showing EF 64%, grade 1 diastolic dysfunction, no valve abnormalities, moderate plaque in the sinus of Valsalva. A nuclear stress test had been ordered on her at that time which she did not complete for unclear reason. On follow-up visit she reported her shortness of breath had fully resolved. She has never reported chest discomfort. She then was to undergo vascular surgery and had the pharmacological nuclear stress test on 06/26/2024 for preop evaluation showing a large area of infarct of the apex and inferior wall without evidence of significant ischemia, EF 28%. An repeat echocardiogram was done on 07/18/2024 showing EF 25-30%, anterior, inferior and apical segments akinetic. Tests show evidence silent DC which seems to have occurred, between and 05/2023 and 06/2024. Cardiac catheterization was planned however she was no show for the appointment. Since then she has declined rescheduling cardiac catheterization. At this visit we discussed the benefits of cardiac catheterization and reviewed the risks including [place], mi, stroke. Her daughter will further discuss with her at home and let me know if she wants to proceed. She just recently had a repeat echocardiogram 02/17/2025 showing EF still 25-30%, anterior septal akinetic. Reviewed ICD and she is not interested at this time. Will continue med management including aspirin indefinitely. Continue atorvastatin with ideal LDL goal less than 70. Continue carvedilol, hydralazine. Isordil was just added however she has not started yet. Instructed to start it has directed. Signs and symptoms of angina and heart failure reviewed with her. Emergency care if needed for symptoms. Cardiology follow-up 2-3 months, sooner if needed or if cardiac catheterization performed. (2) Ischemic cardiomyopathy: Code(s): I25.5 - Ischemic cardiomyopathy Category: Medical Plan: EF 25-30%, since echo 07/18/2024. She has declined cardiac catheterization. She is not interested in ICD at this time. She is on medical management without signs of decompensated heart failure. (3) Abnormal nuclear stress test: Code(s): R94.39 - Abnormal result of other cardiovascular function study Category: Medical Plan: (4) Hyperlipidemia: Code(s): E78.5 - Hyperlipidemia, unspecified Category: Medical Qualifiers: Hyperlipidemia type: familial hypercholesterolemia Qualified Code(s): E78.01 - Familial hypercholesterolemia Plan: History of hyperlipidemia. LDL goal ideally less than 70 patient with peripheral vascular disease and diabetes. Labs done 08/21/2024 showed LDL 78. Previously recommended Zetia and she declined. Continue high-dose atorvastatin. (5) Hypertension, essential: Code(s): I10 - Essential (primary) hypertension Category: Medical Plan: Blood pressure goal less than 130/80. Blood pressure mildly elevated. Isordil has already been ordered however they did not start it. Instructed to take her carvedilol, hydralazine, Isordil as directed. Periodic home blood pressure monitoring recommended and call if systolic running greater than 140. (6) Skin ulcer of right great toe: Code(s): L97.519 - Non-pressure chronic ulcer of other part of right foot with unspecified severity Category: Medical Plan: [facility]. Tells me she has 2 stents now in her right lower extremity which are occluded. Follows with Dr. Frankel for vascular (7) Anemia: Code(s): D64.9 - Anemia, unspecified Category: Medical Plan: Following with Hematology. History of DVT, previously on Eliquis. Continues on aspirin. Anemia stable with most recent labs showing hematocrit 40.3. Daughter states her anemia is from her impaired kidney function. Follows with Nephrology for her kidneys. Plan I discussed with the patient the recent myocardial infarction and ischemic cardiomyopathy, emphasizing the importance of managing blood pressure and circulation with medications like hydralazine and Isordil. We reviewed the potential benefits and risks of a cardiac catheterization, particularly concerning kidney function, and the need for technical services specialist consultation. We discussed the findings of low ejection fraction and the potential for arrythmia, sudden . ICD recommended and she is not interested at this time. Daughter expressed understanding of the situation and plans to further discuss all option with her mother when they are home. They will let me know if any decision changes are made. I advised maintaining leg elevation and using compression stockings to manage swelling, and encouraged continued physical activity and therapy. She reports a follow-up with the technical services specialist in April to assess kidney function and diuretic therapy. Patient Instructions: - Continue taking hydralazine, aspirin, carvedilol, and Isordil as prescribed. - Monitor blood pressure regularly and report any significant changes. - Elevate legs and wear compression stockings to reduce swelling. - Engage in light physical activity and attend weekly physical therapy sessions. - Follow up with the technical services specialist in April for kidney function evaluation. - Report any new symptoms such as increased shortness of breath or leg swelling. - Notify this office if you decide to proceed with cardiac cath or defibrillator Patient was informed and verbally consented to the use of an ambient scribe for clinic note documentation during this visit. Visit time spent on chart review, interview, assessment, orders, documentation. Coding Level of Care Code Est Pt Level 4 (12881) Complex EM visit Add On G2211 Diagnoses History of inferior wall myocardial infarction I25.2 Ischemic cardiomyopathy I25.5 Abnormal nuclear stress test R94.39 Familial hypercholesterolemia E78.01 Hyperlipidemia type: familial hypercholesterolemia Hypertension, essential I10 Skin ulcer of right great toe L97.519 Anemia D64.9 Time Spent (min) 36
--- OUTSIDE RECORDS SUMMARY | 2025-03-03 10:08 | XMS_ITS | Encounter Summary ---
Author Organization [facility] Address [address] [facility] [address] [place] [address] Phone Care Team Providers Care Superintendent Operations Division Name Role Phone Maribel Mckinnon CNP Primary Care Provider [phone] Encounter Details Date Type Department Care Team (Late st Contact Info) Description 01/30/2023 Telephone [facility] [address] [facility] [address] [place] [address] Anamaria Galvan Social History Tobacco [...] Care Team (Late st Contact Info) Description 04/20/2025 2:15 PM EDT Office Visit [facility] [address] [place] [phone] Andres Mccloud MD [address] [facility] [address] [place] [address] documented as of this encounter Visit Diagnoses Not on filedocumented in this encounter Care Teams Superintendent Operations Division Relationship Specialty Start Date End Date Maribel Mckinnon CNP [address] [place], [place] [id number] PCP - General 09/04/24 documented as of this encounter
--- OUTSIDE RECORDS SUMMARY | 2025-03-03 10:08 | XMS_ITS | Patient Health Record ---
Author Organization [facility] Address [address] [facility] [place] [address] Care Team Providers Care Tractor Mechanic Helper Name Role Phone Pratibha MASON, Juliet Primary Care Provider Unavail able Rock Newton Unavailable [phone] Allergies Allergen (clinical drug ingredient) Drug/Non Drug [...] MG 1 capsule Orally REAL RY 12 HOURS; Duration: 10 days Not-Taking Eliquis 2.5 MG as directed Orally Not-Taking Bumetanide 1 MG 1 tablet Orally Once a day Active Ferrous Sulfate 325 (65 Fe) MG 1 tablet Orally Three times a Week Active Carvedilol 25 MG 1 tablet with food Orally Twice a day Active Iodosorb 0.9 % as directed External ly Apply to ulceration daily with dry sterile dressing; Duration: 30 days 07/02/2023 Active Extra Depth Orthopedic Shoes, (1) Pair With (3) Pair Custom Heat Molded Multidensity Innersoles Dx: NIDDM/PVD(E11.51), Hammertoe Foot Deformity(M20.41,M20.42) , Preulcerative Skin Lesion(s)(L85.1) Wear Daily; Duration: 365 days 05/30/2023 Active Gabapentin 300 MG [...] Problem Acquired hammer toe of right foot (94113701493 79410) Other hammer toe(s) (acquired), right foot (M20.41) Active confirmed Response to treatment,Im provement Problem Type 2 diabetes mellitus with diabetic peripheral angiopathy without gangrene (E11.51) Active confirmed Problem Acquired hammer toe of left foot (56739875081 54022) Other hammer toe(s) (acquired), left foot (M20.42) Active confirmed Response to treatment,Im provement Problem Ulcer of toe of right foot (disorder) (99693608812 525076) Skin ulcer of toe of right foot, limited to breakdown of skin (L97.511) Active confirmed Encounters Encounter Location Date Provider Diagnosis [facility] [address] [place] [address] 03/03/2024 Rock Newton Plan Of Treatment Pending Test Test Name Order Date [id number] NAIL, 6 OR MORE 05/30/2023 [id number] NAIL, 6 OR MORE 08/06/2023 23895-CWJZZNU NAIL, 6 OR MORE 10/15/2023 26232-QGFWLML NAIL, 6 OR MORE 12/24/2023 34026- Debride <25 sq cm 09/27/2023 03291- Debride <25 sq cm 08/06/2023 42148-JECUAOF SKIN/TISSUE 07/02/2023 63208- I&D ABSCESS-COMPLICATED,MULTI 17206-CSFN SKIN LESIONS, OVER 4 05/30/20 40369-TVCE SKIN LESIONS, OVER 4 08/06/20 97618-IFBK SKIN LESIONS, OVER 4 10/15/19 24 30310-BSOI SKIN LESIONS, OVER 12/24/19 Insurance Providers Payer Name Payer Address Payer Phone Subscriber Number Group Number Insured Name Patient Relationship to Insured Coverage Start Date Coverage End Date [facility] [employer] S[employer] Claims [address] [place] [id number] Mayuri Quiroz Self - patient is the insured Medical (General) History Medical History History ICD Code Anemia Cataracts Diabetic High blood pressure Kidney disease Numbness Stroke Chicken pox Surgical History Surgery Date(Month/Year) R leg angiogram/angioplasty 06/27/23
== END 2025-03-03 10:16 | disposition home or self-care (01) ==
LOC: HO.HCS 09:28
PROVIDERS: PCP Nurse Practitioner Family; Visit Provider Nurse Practitioner Family
DX: I25.2 Old myocardial infarction (principal); I25.5 Ischemic cardiomyopathy; R94.39 Abnormal result of other cardiovascular function study; E78.01 Familial hypercholesterolemia; I10 Essential (primary) hypertension; L97.519 Non-pressure chronic ulcer of other part of right foot with unspecified severity; D64.9 Anemia, unspecified
CPT/HCPCS: 99214; G2211

== ENCOUNTER → 2025-03-03 09:28 | Outpatient (BNVA) | payer OTHER, SELFPAY | PROVIDERS: PCP Nurse Practitioner Family; Visit Provider Nurse Practitioner Family | DX: I25.2 Old myocardial infarction (principal); I25.5 Ischemic cardiomyopathy; R94.39 Abnormal result of other cardiovascular function study; E78.01 Familial hypercholesterolemia; I10 Essential (primary) hypertension; L97.519 Non-pressure chronic ulcer of other part of right foot with unspecified severity; D64.9 Anemia, unspecified | CPT/HCPCS: 99212 ==

== ENCOUNTER 2025-04-20 06:42 | Outpatient (REF) | payer OTHER, SELFPAY ==
--- OUTSIDE RECORDS SUMMARY | 2025-04-20 06:45 | XMS_ITS | Patient Health Record ---
Author [facility] Address [address] [facility] [place] [address] Care Team Providers Care Car Whacker Name Role Phone Pratibha MASON, Juliet Primary Care Provider Unavail able Rock [place] Unavailable [phone] Allergies Allergen (clinical drug ingredient) Drug/Non Drug [...] Problem Acquired hammer toe of right foot (9832692804059 105) Other hammer toe(s) (acquired), right foot (M20.41) Active confirmed Response to treatment,I mprovement Problem Type 2 diabetes mellitus with peripheral angiopathy ([id number]) Type 2 diabetes mellitus with diabetic peripheral angiopathy without gangrene (E11.51) Active confirmed Problem Acquired hammer toe of left foot (6783461189930 103) Other hammer toe(s) (acquired), left foot (M20.42) Active confirmed Response to treatment,I mprovement Problem Ulcer of toe of right foot (disorder) (8618973896145 9101) Skin ulcer of toe of right foot, limited to breakdown of skin (L97.511) Active confirmed Plan Of Treatment Pending Test Test Name Order Date [id number] NAIL, 6 OR MORE 05/30/2023 04039-UESENLC NAIL, 6 OR MORE 08/06/2023 32310-PWICZTZ NAIL, 6 OR MORE 10/15/2023 84392-PEKBEHM NAIL, 6 OR MORE 12/24/2023 02272- Debride <25 sq cm 09/27/2023 24728- Debride <25 sq cm 08/06/2023 00164-TENOYMV SKIN/TISSUE 07/02/2023 78796- I&D ABSCESS-COMPLICATED,MULTI 13645-PLNX SKIN LESIONS, OVER 4 05/30/20 23 41434-QOZN SKIN LESIONS, OVER 4 08/06/20 23 44730-CJDS SKIN LESIONS, OVER 4 10/15/19 24 28782-OHTC SKIN LESIONS, OVER 4 12/24/19 24 Insurance Providers Payer Name Payer Address Payer Phone Subscriber Number Group Number Insured Name Patient Relationship to Insured Coverage Start Date Coverage End Date [facility] SCO Claims [address] [place] [id number] Mayuri Quiroz Self - patient is the insured Medical (General) History Medical History History ICD Code Anemia Cataracts Diabetic High blood pressure Kidney disease Numbness Stroke Chicken pox Surgical History Surgery Date(Month/Year) R leg angiogram/angioplasty 06/27/23
--- OUTSIDE RECORDS SUMMARY | 2025-04-20 06:45 | XMS_ITS | Encounter Summary ---
Author Organization [facility] Address [address] [facility] [address] [place] [address] Phone Care Team Providers Care Dough Braker Name Role Phone Maribel Mckinnon CNP Primary Care Provider [phone] Encounter Details Date Type Department Care Team (Late st Contact Info) Description 01/30/2023 Telephone [facility] [address] [facility] [address] [place] [address] Anamaria Galvan Social History Tobacco [...] Visit [facility] [address] [place] [phone] Andres Mccloud MD [address] [facility] [address] [place] [address] documented as of this encounter Visit Diagnoses Not on filedocumented in this encounter Care Teams Dough Braker Relationship Specialty Start Date End Date Maribel Mckinnon CNP [address] [place], [place] [id number] PCP - General 09/04/24 documented as of this encounter
[2025-04-20 10:49] LABS: Anion Gap 14 (12-20); Blood Urea Nitrogen 81 mg/dL (9-16); Calcium 9.0 mg/dL (8.4-10.2); Carbon Dioxide 25 mmol/L (22-29); Chloride 110 mmol/L (96-108); Estimated Glomerular Filt Rate 22; Potassium 3.9 mmol/L (3.3-5.1); Sodium 145 mmol/L (135-145)
== END 2025-04-20 06:43 | disposition home or self-care (01) ==
LOC: HO.HMGCLDS 06:42
PROVIDERS: PCP Nurse Practitioner Family; Visit Provider Internal Medicine Nephrology
DX: E11.22 Type 2 diabetes mellitus with diabetic chronic kidney disease (principal); N18.4 Chronic kidney disease, stage 4 (severe); N25.0 Renal osteodystrophy; R60.9 Edema, unspecified
CPT/HCPCS: 36415; 80051; 82310; 82565; 84520

== ENCOUNTER 2025-06-30 06:26 | Outpatient (REF) | payer OTHER, SELFPAY ==
--- OUTSIDE RECORDS SUMMARY | 2024-03-03 11:15 | XMS_ITS ---
[facility] Address [address] [place] [address] Care Team Providers Care Inspector [employer] Wafer Name Role Phone Pratibha MASON, Juliet Primary Care Provider Unavail able Rock Newton Unavailable [phone] Encounters Encounter Location Date Provider [facility] [address] [place] [address] 03/03/2024 Rock Newton Plan Of Treatment No Information Progress Notes * Mayuri HERNANDEZDOB: [birth year] (75 yo F)Acc No.[id number]:03/03/2024 Progress Note Patient: Mayuri TOUSSAINT Provider: Loreto Newton DPM :1950 A ge:74 Y S ex:Female Date:03/03/2024 Address: [address], [id number] Pcp:Juliet Mckinnon NP Subjective: * Chief Complaints: [...] 03/03/2024 Generated for Bay hernandez/Rosa Isela/Darienransmitting on: 06:28 AM EDT
--- OUTSIDE RECORDS SUMMARY | 2025-06-30 06:28 | XMS_ITS | Data Portability ---
Author Organization AttorneyFee Yik Yak [facility], [facility] Address [address] [place] [address] Care Team Providers Care Chemical Recovery Operator Name Role Phone HIM CCA OTHER Assessment Encounter Date Assessment Date Assessment LastModified by Organization Details LastModified Time 05/03/2025 05/03/2025 I have reviewed and agree with the Assessment and Plan as documented by the Blacktop Paver Operator. I provided real-time medical direction via phone for this encounter, and was available for additional phone based assistance as needed. I would add/emphasize: Patient seen for URI symptoms after being exposed to COVID by her daughter. Found to be borderline febrile but otherwise AVSS with unlabored respirations saturating well on room air. Chief complaint is nonproductive cough runny nose and weakness. No shortness of breath or chest pain. Fully vaccinated for COVID per report. Has stage IV CKD so is not a candidate for Paxlovid. Given lack of significant pulmonary symptoms plan for management with supportive care and close monitoring of symptoms with strict inductions for ED presentation in the event of development of shortness of breath. Patient voices understanding. pallfather Not available 05/04/2025 20:21:17 Plan of Treatment Reminders Order Date Submit Date Provider Last Modified By Organization Details Last Modified Time Details Appointments None recorded. Lab rapid SARS CoV 2 Ag, QL IA, respiratory specimen 2024 025 [facility], [address] [place] [address], [id number] 5 20:57:57 rapid flu (A+B) 2024 025 [facility], [address] [place] [address], [id number] 5 20:55:12 Referral None recorded. Procedures None recorded. Surgeries None recorded. Imaging None recorded. Medication Orders None recorded. Patient TargetsNo targets recorded. Patient InstructionsNo instructions recorded. Reason for Referral None Reported. Results Created Date Observation Date Name Description Value Unit Range Abnormal Flag Note LastModifiedBy Organization Detail LastModifiedTime Result Notes None recorded. Medical Equipment None Reported. Allergies Allergen ID Allergen Name Allergen Category Reaction Reaction Severity Criticality Documentation Date Start Date Code Code System Note Provider Name and Address Organization Details Recorded Time 09302 lisinopri l medicatio n Not available Not available Not available 05/03/2025 74100 RxNorm Not Available [facility] - production 17:06:39 Medications Name Sig Start Date Stop Date Status Note LastModified by Organization Details LastModified Time atorvastatin 40 mg tablet TAKE 1 TABLET BY MOUTH DAILY AT BEDTIME active Not Available Not Available N ot Available carvedilol 25 mg tablet TAKE 1 TABLET BY MOUTH TWICE A DAY active Not Available Not Available No t Available Lantus U-100 Insulin 100 unit/mL subcutaneous solution INJECT 8 UNIT (0.08 ML) SUBCUTANEOU SLY BEDTIME FOR 30 DAYS active Not Available Not Available Not Available Gentle Laxative (bisacodyl) 5 mg tablet,delay ed release TAKE 2 TABLET (10 MG) BY MOUTH ONCE A DAY DIRECTED PRIOR TO COLONOSCOPY active Not Available Not Available Not Available bumetanide 1 mg tablet TAKE 1 TABLET BY MOUTH TWICE A DAY active Not Available Not Available No t Available hydralazine 50 mg tablet TAKE 1 + 1/2 TABLETS BY MOUTH IN THE MORNING, IN THE EVENING AND BEFORE BEDTIME. active Not Available Not Available No t Available gabapentin 100 mg capsule TAKE 1 CAPSULE BY MOUTH EVERY NIGHT AT BEDTIME active Not Available Not Available No t Available rosuvastatin 20 mg tablet TAKE 1 TABLET BY MOUTH DAILY TAKE WITH A MEAL PLEASE active Not Available Not Available Not Available FreeStyle Lite Strips TEST BLOOD SUGAR 2 TO 3 TIMES DAILY active Not Available Not Available No t Available cholecalcife rol (vitamin D3) 1,250 mcg (50,000 unit) capsule TAKE 1 CAPSULE BY MOUTH EVERY WEEK FOR 3 MONTHS active Not Available Not Available No t Available Purelax 17 gram/dose oral powder MIX 238 GRAMS IN LIQUID DIRECTED AND DRINK DIRECTED PRIOR TO COLONOSCOPY active Not Available Not Available Not Available Eliquis 5 mg tablet TAKE 2 TABLETS BY MOUTH TWICE A DAY FOR 7 DAYS active Not Available Not Available No t Available Eliquis 2.5 mg tablet TAKE 1 TABLET BY MOUTH TWICE A DAY active Not Available Not Available No t Available Kerendia 10 mg tablet TAKE 1 TABLET BY MOUTH EVERY DAY active Not Available Not Available No t Available Vitals Date Recorded Respiratory rate Body weight Body temperature Oxygen saturation Oxygen saturation in Arterial blood by Pulse oximetry Heart rate Body height Systolic And Diastolic Provider Name and Address Organization Details Last Updated DateTime 5 19 /min 85423.8 g 99.7 [degF] 97 % 97 % 77 /min 160.02 cm 125/68 mm[Hg] Not Available [facility] - production 18:44:09 Social History None recorded. Functional Status None recorded. Mental Status None recorded. Family History Nothing Reported. Medical History No medical history recorded. Gynecological HistoryNo gynecological history recorded. Obstetrics History GPAL:G 0 P 0 0 0 0 Past Encounters Encounter ID Performer Location Encounter Start Date Encounter Closed Date Diagnosis/Indication Diagnosis SNOMED-CT Code Diagnosis ICD10 Code Diagnosis IMO Codes Diagnosis Note [id number] Ayad Alvarado MD [facility] [address] [address] 05/03/2025 18:44:05 05/05/2025 11:14:48 Acute COVID-19 1011398944 U07.7 [id number] Health Concerns Section Related Observation LastModified by Organization Detai ls LastModified Time None Recorded Concern Status LastModified by Organization Details LastModified Time None Recorded Advance Directives Directive None Recorded Payers Insurance Date Sequence Insurance Name Policy Number Policy Guerra Covered Member ID Guerra Member ID Guarantor Name 04/06/2024 1 [facility] - DOS PRIOR TO 2022 - DUAL ELIGIBLE (MEDICARE REPLACEMENT/ADV ANTAGE - HMO) Mayuri Powell [id number] Mayuri Powell 05/05/2025 1 [facility] - DOS ON OR AFTER 2022 - DUAL ELIGIBLE - HALF-WAY OPTIONS AND ONE CARE (MEDICARE REPLACEMENT/ADV ANTAGE - HMO) Mayuri Powell [id number] Mayuri Powell Notes Date Note Type Note Provider Name and Address Organization Details Recorded Time 05/03/2025 text/html [facility] Nurse Triage Notes (Yong Aguillon RN): Reason For Request: Patient wants tested for covid. Patient Reports: Lower extremity swelling; COVID Exposure; Sputum increase ; Cough; Shortness of breath with exertion Denies: Increased work of breathing/labored with or without fever Unable to speak in full sentences without distress Discoloration of skin -cyanosis Needs to sleep sitting up, can t catch breath Shortness of breath in setting of confusion Cough, fever greater than 2 days History of asthma, increased use of inhaler COPD Pain with inspiration Chief Complaints: Common Cold PMH: Hypertension, Congestive Heart Failure, Chronic Kidney Disease, Diabetes Mellitus Type 2 PMH Reviewed at 05/03/2025: Allergies Reviewed at 05/03/2025: Comments: 75 y.o female complains of Common Cold x 1 day Caregiver reports the pt is feeling unwell with a cough/cold and congestion - Shortness of breath - Speaking full sentences - Body aches - Denies fever - Denies headaches - Denies sore throat Denies taking over the counter cold medication Caregiver reports she tested positive for COVID on Sunday Wellness check requested I provided information on the mobile health provider response time and advised the patient and/or caregiver to monitor reported signs and symptoms. I discussed the warning signs of when to seek emergency care. Blacktop Paver Operator Organization Information for Adelaida Sevilla Business Legal Name: [facility] Address: [address] [place] [address], [place] [address], Manager Pool: Alan Choi MD [place] No.: [id number] Blacktop Paver Operator POC Test Results from Adelaida Sevilla Rapid COVID antigen (18:46:35) COVID: - Attachments uploaded as part of this test result can be found under Documents section. Rapid influenza antigen (18:46:35) Flu: - Attachments uploaded as part of this test result can be found under Documents section. .................... .................... .................... .................... .................... .................... .................... . Blacktop Paver Operator Note From Adelaida Sevilla: Pt chief complaint today of Covid/ flu symptoms which have been occurring for approx 4 days- prior to [facility] arrival on scene today. Pt notes that approx 6 days prior to [facility] arrival today her daughter was tested positive for Covid. Pt notes that almost 2 days afterward she began to have a cough with no increase in mucus production on cough. Today pt also is now noting weakness, lethargy, runny nose and increased frequency in her cough, daughter has been quarantining as much as possible since her positive test. Daughter is still actively testing positive today. Pt today would appreciate a general assessment as well as possible test and treatment, pt today denies any cp, sob,,NVD, dizziness or change in vision. Nonneural focal exam, febrile at 99.7, elevated heart rate on vitals. Pt able to ambulate at her baseline with the use of a walker. Lungs or sent as clear bilaterally, benign abdominal, no new or worsening lower extremity edema noted. Pt is caox4 with a GCS of 15. POC Covid and flu tests notes positively for Covid and a negative result for flu A/B. [facility] Ayad Alvarado consulted, Pt informed of findings. Pt unable to be given paxlovid due to history of stage 4 renal disease. Pt is informed of comfort care measure and that her daughter is very much able to assist in her care as needed. Pt informed symptoms should subside within 2 weeks and if needed she may call [facility] for follow up visits. Pt educated on red flag S&S and told to call emergency services if any present. .................... .................... .................... .................... .................... .................... .................... . [facility] Consulted: Ayad Alvarado .................... .................... .................... .................... .................... .................... .................... . Disposition: Fulfilled Ayad Alvarado MD [address] [facility], [place], [address], TYRON TONY MEDRANO 05/04/2025 20:21:27 OBGyn Episode No OBEpisode recorded.
--- OUTSIDE RECORDS SUMMARY | 2025-06-30 06:28 | XMS_ITS | Patient Health Record ---
Author Organization [facility] Address [address] [facility] [place] [address] Care Team Providers Care Systems Management Consultant Name Role Phone Pratibha MASON, Juliet Primary Care Provider Unavail able [place] Unavailable [phone] Allergies Allergen (clinical drug ingredient) Drug/Non Drug [...] Problem Acquired hammer toe of right foot (8155507723565 105) Other hammer toe(s) (acquired), right foot (M20.41) Active confirmed Response to treatment,I mprovement Problem Type 2 diabetes mellitus with peripheral angiopathy (319281220) Type 2 diabetes mellitus with diabetic peripheral angiopathy without gangrene (E11.51) Active confirmed Problem Acquired hammer toe of left foot (2290236866711 103) Other hammer toe(s) (acquired), left foot (M20.42) Active confirmed Response to treatment,I mprovement Problem Ulcer of toe of right foot (disorder) (2668392006557 9101) Skin ulcer of toe of right foot, limited to breakdown of skin (L97.511) Active confirmed Plan Of Treatment Pending Test Test Name Order Date [id number]-OXRFNTA NAIL, 6 OR MORE 05/30/2023 84118-DYJSTGN NAIL, 6 OR MORE 08/06/2023 01482-WNOBUBD NAIL, 6 OR MORE 10/15/2023 80606-RBVYMHT NAIL, 6 OR MORE 12/24/2023 76726- Debride <25 sq cm 09/27/2023 01725- Debride <25 sq cm 08/06/2023 21148-CGRNQXJ SKIN/TISSUE 07/02/2023 10482- I&D ABSCESS-COMPLICATED,MULTI 84620-KMEA SKIN LESIONS, OVER 4 05/30/20 23 19348-JWHW SKIN LESIONS, OVER 4 08/06/20 23 71969-SEEN SKIN LESIONS, OVER 4 10/15/19 24 51786-EZIR SKIN LESIONS, OVER 4 12/24/19 24 Insurance Providers Payer Name Payer Address Payer Phone Subscriber Number Group Number Insured Name Patient Relationship to Insured Coverage Start Date Coverage End Date [employer] Claims [address] [place] [id number] Mayuri Quiroz Self - patient is the insured Medical (General) History Medical History History ICD Code Anemia Cataracts Diabetic High blood pressure Kidney disease Numbness Stroke Chicken pox Surgical History Surgery Date(Month/Year) R leg angiogram/angioplasty 06/27/23
--- OUTSIDE RECORDS SUMMARY | 2025-06-30 06:28 | XMS_ITS | Continuity of Care Document ---
Author Name [facility] Address [address] [place] [id number] Organization Unknown Address [address] [place] [address] Medications No known medications Problems No known problems
--- OUTSIDE RECORDS SUMMARY | 2025-06-30 06:29 | XMS_ITS | Encounter Summary ---
Author Organization [facility] Address [address] [place] [address] Encounters * CPT with Medical [facility] at [facility] [employer] on 2025-05-03 { reasonForRequest : Patient wants tested for covid. , patientReports : Lower extremity swelling; COVID Exposure; Sputum increase ; Cough; Shortness of breath with exertion , denies :[ Increased work of breathing/labored with or without fever , Unable to speak in full sentences without distress , Discoloration of skin -cyanosis , Needs to sleep sitting up, can t catch breath , Shortness of breath in setting of confusion , Cough, fever greater than 2 days , History of asthma, increased use of inhaler , COPD , Pain with inspiration ], chiefComplaints : Common Cold , pmh : Hypertension, Congestive Heart Failure, Chronic Kidney Disease, Diabetes Mellitus Type 2 , allergies : Lisinopril ,& quot;otherAllergies :null, painAssessment : , visitOutcome :&quo t; , additionalComments : 75 y.o female complains of Common Cold x 1 day\n\nCare barrel plater reports the pt is feeling unwell with a cough/cold and congestion - Shortness of breath - Speaking full sentences - Body aches - \n\nDenies fever - Denies headaches - Denies sore throat\n\nDenies taking over the counter cold medication\n\nCaregiver reports she tested positive for COVID on day\n\nWellness check requested \n\n\n\nI provided information on the mobile health provider response time and advised the patient and/or caregiver to monitor reported signs and symptoms. I discussedthe warning signs of when to seek emergency care. } Pt chief complaint today of Covid/ flu symptoms which have been occurring for approx 4 days- prior to [facility] arrival on scene today. Pt notes that approx 6 days prior to [facility] arrival today her daughter was tested positive [...] positive today. Pt today would appreciate a generalassessment as well as possible test and treatment, [...] and a negative result for flu A/B. [facility] Ayad Suether consulted, Pt informed of findings. Pt unable to be given paxlovid due to history of stage 4 renal disease. Ptis informed of comfort care measure and that her daughter is very much able to assist in her care as needed. Pt informed symptoms should subside within 2 weeks and if needed she may call [facility] for follow up visits. Pt educated on red flag S&S and told to call emergency services if any present. IV_(FLUIDS_AND/OR_MEDICATION), MEDICATION_IM, POC_BLOODWORK Written by Medical [facility] on 2025-05-03
[2025-06-30 10:19] LABS: Sodium 146 mmol/L (135-145)
[2025-06-30 11:23] LABS: Free T4 (Free Thyroxine) 0.93 ng/dL (0.71-1.85)
== END 2025-06-30 06:27 | disposition home or self-care (01) ==
LOC: HO.HMGCLDS 06:26
PROVIDERS: PCP Nurse Practitioner Family; Visit Provider Nurse Practitioner Family
DX: E03.9 Hypothyroidism, unspecified (principal); E87.0 Hyperosmolality and hypernatremia
CPT/HCPCS: 36415; 84295; 84439; 84443

== ENCOUNTER 2025-07-09 15:28 | Outpatient (AMB) | payer OTHER, SELFPAY ==
--- OUTSIDE RECORDS SUMMARY | 2024-03-03 10:15 | XMS_ITS ---
Author [facility] Address [address] [place] [address] Care Team Providers Care Sheriff'S Sergeant Name Role Phone Pratibha MASON, Juliet Primary Care Provider Unavail able Rock Newton Unavailable [phone] Encounters Encounter Location Date Provider [facility] [place] [address] [facility] [address] [place] [address] 03/03/2024 Rock Newton Plan Of Treatment No Information Progress Notes * Mayuri HERNANDEZDOB: [birth year] (75 yo F)Acc No.[id number]:03/03/2024 Progress Note Patient: Mayuri TOUSSAINT Provider: Loreto Newton DPM :1950 A ge:74 Y S ex:Female Date:03/03/2024 Address: [address], [id number] Pcp:Juliet Mckinnon NP Subjective: * Chief Complaints: * * Medical History: Objective: * Vitals: Assessment: Plan: * Treatment: * Images: * The named appointment provid er may or may not be the originator of this progress note, and it is not deemed complete until electronically signed by the appointment provider. Sign off status: Pending * Provider: Loreto Newton DPM Date: 0 03/03/2024 Generated for Bay hernandez/Rosa Isela/Darienransmitting on: 09/08/2024 06:24 PM EST
--- NOTE | 2025-07-09 15:33 | MHC.OFFVIS ---
Vital Signs 07/09/25 15:36 Height 5 ft 2 in BP 122/64 Blood Pressure Location Lt brachial Position Sitting Pulse 82 Pulse Source Monitor Intake Visit Reasons: r/s 05/28/25 2+ followup Makeup Artistry Instructor Required: Yes Makeup Artistry Instructor Services: Makeup Artistry Instructor Offered & Declined Accompanied by: Daughter Allergies lisinopril Allergy (Severe, Verified 07/09/25 15:39) swollen tongue apple Allergy (Intermediate, Verified 07/09/25 15:39) tongue swelling banana Allergy (Intermediate, Verified 07/09/25 15:39) tongue and lip swelling norvast Allergy (Mild, Uncoded 03/03/25 09:40) Swelling Medication List - Last Reconciled 07/09/25 by ADRIANNA Gardiner ascorbic acid (vitamin C) (Vitamin C) 500 mg PO DAILY 30 days aspirin 81 mg PO DAILY atorvastatin 80 mg PO BEDTIME blood sugar diagnostic (FreeStyle Test strips) bid to tid bs checks blood-glucose meter (FreeStyle Lite Meter kit) As directed bumetanide 1 mg PO ONCE carvedilol 25 mg PO Q12H 30 days cholecalciferol (vitamin D3) 50 mcg PO DAILY 90 days commode (bedside commode) As directed hydralazine 25 mg PO BID insulin glargine (Lantus U-100 Insulin) 12 units (0.12 mL) subcut BEDTIME 90 days insulin syringe-needle U-100 (BD Insulin Syringe Micro-Fine) For q.h.s. Lantus administration isosorbide dinitrate 10 mg PO BID lancets (FreeStyle Lancets) POC testing 3 times daily levothyroxine (Levoxyl) 25 mcg PO DAILY 30 days miscellaneous medical supply 3 boxes of medium-sized gloves monthly x 12 months miscellaneous medical supply hand held shower head As directed miscellaneous medical supply Blood pressure monitoring miscellaneous medical supply Rollator walker HPI HPI r/s 05/28/25 2+ followup: Details: Myauri is a 75-year-old female with past medical history hypertension, hyperlipidemia, diabetes, right lower extremity DVT, peripheral vascular disease followed by krystal Cosby between 05/2023 and 06/2024, ischemic cardiomyopathy who has declined cardiac catheterization and ICD who now presents for follow-up. Today she reports that she continues to do generally well. She has visiting nurses 3 times weekly that check her vital signs and assist with med management and dressing changes. She still has a very slow healing wound on her right lower extremity. She has no plans for vascular surgery at this time. She still follows closely with Dr. Frankel. Her anemia is under control and thought to be related to her chronic kidney disease. She is no longer on Eliquis for her history of prior DVT. She does have mild leg edema which has not changed recently. She did have an elevation in her creatinine on a higher dose of Bumex in the past. She follows closely with Nephrology. She has not been experiencing any chest discomfort at rest or with activity. She denies shortness of breath at rest, PND, orthopnea. She will get some mild shortness of breath if she climbs stairs too quickly. She has 14 steps from her 1st floor to 2nd floor in the home. No heart palpitations, lightheadedness, presyncope, syncope. She admits to being mostly sedentary. She is sitting in a wheelchair at this visit. Walks only short distances with a walker. Her daughter is present. [facility] Medical History History of femoral angiogram Stroke Weakness Iron deficiency Vitamin D deficiency Surgical History History of angioplasty (~07/11/23) No pertinent past surgical history Family History Father Bladder cancer Smoker Mother Diabetes CVD (cardiovascular disease) Glaucoma Daughter Anxiety Family/Other Alzheimer's dementia Uterine cancer Social History Household Members: Family Housing: Apartment Alcohol intake: never Patient Tobacco Use Status: Never used Tobacco e-Cigarette/Vaping Use: Never Used Second Hand Smoke Exposure: No service: No Current occupational status: retired Cognitive needs: No Hearing needs: No Vision needs: No Review of Systems Const All systems reviewed & are unremarkable except as noted in HPI and below Denies daytime sleepiness, Denies difficulty sleeping, Denies snoring, Denies stops breathing during sleep and Denies weakness Card Denies chest pain, Denies rapid heart rate, Denies irregular heart rhythm, Denies claudication, Denies leg edema, Denies lightheadedness, Denies palpitations, Denies dyspnea, Reports dyspnea on exertion (with exertion), Denies orthopnea, Denies paroxysmal nocturnal dyspnea and Denies slow heart rate Resp Denies cough, Denies dyspnea, Reports dyspnea on exertion (with exertion) and Denies snoring GI Reports no additional complaints, Denies hematochezia, Denies change in stool character and Denies dyspepsia Musc Denies abnormal gait, Denies muscle weakness and Denies numbness Neuro Denies abnormal gait, Denies numbness and Denies weakness Endo Denies palpitations Physical Exam Vital Signs: Last Vital Signs Pulse 82 07/09/25 15:36 BP 122/64 07/09/25 15:36 Const General: cooperative, comfortable and no acute distress Orientation/consciousness: patient oriented x3 Neck Neck: Yes normal visual inspection Resp Effort & Inspection: normal respiratory effort Auscultation: clear to auscultation bilaterally, no rales, no rhonchi and no wheezes Cardio Jugular venous distension: no JVD Rate: regular rate Rhythm: regular rhythm Heart sounds: S1 normal heart sound present, S2 normal heart sound present, no murmurs and no rubs Neuro General: patient oriented x3 Extrem Other: +1 bilateral lower leg edema. Psych Appearance: grossly normal Mental Status: mental status grossly normal Speech and movement: Normal speech and movement present Office Procedures EKG Details: Today, read by me, Sinus Rhythm, cant exclude prior inferior infarct, Inferolateral ST/ T wave abn, rate 82, Qtc 469ms 20303-Idhibjsffnekkdjlf, Complete Assessment & Plan Assessment & Plan (1) History of inferior wall myocardial infarction: Code(s): I25.2 - Old myocardial infarction Category: Medical Plan: Silent inferior wall [place] between 05/2023 and 06/2024, confirmed by testing: Nuclear stress test on 06/26/2024 for preop vascular surgery showed a large area of infarct of the apex and inferior wall without evidence of significant ischemia, EF 28%. Echocardiogram was done on 07/18/2024 showing EF 25-30%, anterior, inferior and apical segments akinetic. Echocardiogram had been done 05/15/2023 showing EF 64%, no regional wall motion abnormalities. She had evidence of silent [place]. Cardiac catheterization was planned however she was no show for the appointment and has declined rescheduling it. At this visit we again discussed the benefits of cardiac catheterization and reviewed the risks including infection, bleeding, [place], mi, stroke. Her daughter will further discuss with her at home and let me know if she wants to proceed. She did have repeat echocardiogram 02/17/2025 showing EF still 25-30%, anterior septal akinetic. Again discussed her risk for arrythmia, SCD and need for ICD which she declines. Cardiac risk factors of hypertension, hyperlipidemia, diabetes, peripheral vascular disease. She needs ongoing cardiac risk factor modification. Continue aspirin indefinitely. Continue atorvastatin with ideal LDL goal less than 70. Continue carvedilol, hydralazine and Isordil for neurohormonal modulation. Entresto not used due to CKD hx with Cr 2.02. Signs and symptoms of angina and heart failure reviewed with her. Emergency care if needed for symptoms. Cardiology follow-up 4 months, sooner if needed or if cardiac catheterization performed. (2) Ischemic cardiomyopathy: Code(s): I25.5 - Ischemic cardiomyopathy Category: Medical Plan: EF 25-30%, since echo 07/18/2024. She has declined cardiac catheterization. She declines ICD at this time. She is on medical management without signs of decompensated heart failure. (3) Abnormal nuclear stress test: Code(s): R94.39 - Abnormal result of other cardiovascular function study Category: Medical Plan: as above (4) Hyperlipidemia: Code(s): E78.5 - Hyperlipidemia, unspecified Category: Medical Qualifiers: Hyperlipidemia type: familial hypercholesterolemia Qualified Code(s): E78.01 - Familial hypercholesterolemia Plan: History of hyperlipidemia. LDL goal ideally less than 70 patient with peripheral vascular disease and diabetes. Labs done 08/21/2024 showed LDL 78. Previously recommended Zetia and she declined. Continue high-dose atorvastatin. (5) Hypertension, essential: Code(s): I10 - Essential (primary) hypertension Category: Medical Plan: Blood pressure goal less than 130/80. Blood pressure normal today. Elevates when she is anxious. Continue carvedilol, hydralazine, Isordil. (6) Skin ulcer of right great toe: Code(s): L97.519 - Non-pressure chronic ulcer of other part of right foot with unspecified severity Category: Medical Plan: [facility]. Tells me she has 2 stents now in her right lower extremity which are occluded. Follows with Dr. Frankel for vascular. No plan for surgery at this time as leg wound right lower extremity is gradually healing. (7) Anemia: Code(s): D64.9 - Anemia, unspecified Category: Medical Plan: Following with Hematology. History of DVT, previously on Eliquis. Continues on aspirin. Anemia stable with most recent labs showing hematocrit 35.4. No bleeding issues. Daughter states her anemia is from her impaired kidney function. Follows with Nephrology for her kidneys. Plan I discussed with the patient the importance of monitoring blood pressure at home to avoid unnecessary medication adjustments due to anxiety-induced spikes. We reviewed the progress in managing peripheral artery disease, as directed by Dr Frankel, and the potential need for surgical intervention in the future if wound healing does not continue. The need for cardiac catheterization was emphasized to assess the potential for stenting and prevent further cardiac events. I advised the patient to consider the procedure and to communicate any decision regarding it. I discussed ICD placement as a safety measure to help manage arrythmia and help prevent sudden cardiac . We reviewed the symptoms to watch for and need for ongoing medication compliance. Patient Instructions: - Monitor blood pressure at home regularly and record the readings. - Continue light exercise routine to improve leg circulation. - Limit fluid intake to help manage leg edema. - Follow up with endocrinology, Nephrology, and Vascular as scheduled - Consider cardiac catheterization and discuss any concerns with the doctor. - Consider ICD placement - Continue all medications as directed - Cardiology follow up 4 mo, sooner if needed Patient was informed and verbally consented to the use of an ambient scribe for clinic note documentation during this visit. Visit time spent on chart review, interview, assessment, orders, documentation. Coding Level of Care Code Est Pt Level 4 (76260) Complex EM visit Add On G2211 Diagnoses History of inferior wall myocardial infarction I25.2 Ischemic cardiomyopathy I25.5 Abnormal nuclear stress test R94.39 Familial hypercholesterolemia E78.01 Hyperlipidemia type: familial hypercholesterolemia Hypertension, essential I10 Skin ulcer of right great toe L97.519 Anemia D64.9 CPT Codes EKG - CPT: 19650-Bwvjmkfgjnracggla, Complete ([id number]) Time Spent (min) 32
[2025-07-09 15:36] VITALS: BP 122/64; PULSE 82
--- OUTSIDE RECORDS SUMMARY | 2025-07-09 18:24 | XMS_ITS | Patient Health Record ---
Author Organization [facility] Address [address] [place] [address] Care Team Providers Care Social Insurance Specialist Name Role Phone Pratibha MASON, Juliet Primary Care Provider Unavail able [place] Unavailable [phone] Allergies Allergen (clinical drug ingredient) Drug/Non Drug [...] Problem Acquired hammer toe of right foot (7053752389422 105) Other hammer toe(s) (acquired), right foot (M20.41) Active confirmed Response to treatment,I mprovement Problem Type 2 diabetes mellitus with peripheral angiopathy (061368172) Type 2 diabetes mellitus with diabetic peripheral angiopathy without gangrene (E11.51) Active confirmed Problem Acquired hammer toe of left foot (2570897212680 103) Other hammer toe(s) (acquired), left foot (M20.42) Active confirmed Response to treatment,I mprovement Problem Ulcer of toe of right foot (disorder) (2357870244862 9101) Skin ulcer of toe of right foot, limited to breakdown of skin (L97.511) Active confirmed Plan Of Treatment Pending Test Test Name Order Date [id number] NAIL, 6 OR MORE 05/30/2023 28944-SYRYSBS NAIL, 6 OR MORE 08/06/2023 93431-PLWQAZC NAIL, 6 OR MORE 10/15/2023 94929-UNRDWGP NAIL, 6 OR MORE 12/24/2023 16706- Debride <25 sq cm 09/27/2023 99009- Debride <25 sq cm 08/06/2023 73423-YPPRPMC SKIN/TISSUE 07/02/2023 06528- I&D ABSCESS-COMPLICATED,MULTI 11880-RTTV SKIN LESIONS, OVER 4 05/30/20 23 89058-IQAI SKIN LESIONS, OVER 4 08/06/20 23 94435-JEID SKIN LESIONS, OVER 4 10/15/19 24 68357-JMIF SKIN LESIONS, OVER 4 12/24/19 24 Insurance Providers Payer Name Payer Address Payer Phone Subscriber Number Group Number Insured Name Patient Relationship to Insured Coverage Start Date Coverage End Date [facility] [employer] Claims [address] [place] Gamble [id number] Mayuri Quiroz Self - patient is the insured Medical (General) History Medical History History ICD Code Anemia Cataracts Diabetic High blood pressure Kidney disease Numbness Stroke Chicken pox Surgical History Surgery Date(Month/Year) R leg angiogram/angioplasty 06/27/23
--- OUTSIDE RECORDS SUMMARY | 2025-07-09 18:24 | XMS_ITS | Data Portability ---
Author Organization [employer] [facility], [facility] Address [address] [place] [address] Care Team Providers Care Big Data Lead Name Role Phone HIM CCA OTHER Assessment Encounter Date Assessment Date Assessment LastModified by Organization Details LastModified Time 05/03/2025 05/03/2025 I have reviewed and agree with the Assessment and Plan as documented by the Mast Maker. I provided real-time medical direction via phone [...] Ag, QL IA, respiratory specimen 2024 025 [facility], [address] [place] [address], [id number] 5 20:57:57 rapid flu (A+B) 2024 025 [facility], [address] [place] [address], [id number] 5 20:55:12 Referral None recorded. Procedures None [...] Name and Address Organization Details Recorded Time 23856 lisinopri l medicatio n Not available Not available Not available 05/03/2025 15278 RxNorm Not Available [facility] - production 17:06:39 [...] Details Last Updated DateTime 5 19 /min 52777.8 g 99.7 [degF] 97 % 97 % [...] ICD10 Code Diagnosis IMO Codes Diagnosis Note [id number] Ayad Alvarado MD [facility] Medical [address] [address] 05/03/2025 18:44:05 05/05/2025 11:14:48 Acute COVID-19 [id number] U07.6 [id number] Health Concerns Section Related Observation LastModified by Organization Detai ls LastModified Time None Recorded Concern Status LastModified by Organization Details LastModified Time None Recorded Advance Directives Directive None Recorded Payers Insurance Date Sequence Insurance Name Policy Number Policy Guerra Covered Member ID Guerra Member ID Guarantor Name 04/06/2024 1 [facility] - DOS PRIOR TO 2022 - DUAL ELIGIBLE (MEDICARE REPLACEMENT/ADV ANTAGE - HMO) Mayuri Powell [id number] Mayuri Powell 05/05/2025 1 [facility] - DOS ON OR AFTER 2022 - DUAL ELIGIBLE - SENIOR LIVING OPTIONS AND ONE CARE (MEDICARE REPLACEMENT/ADV ANTAGE - HMO) Mayuri Powell [id number] Mayuri Powell Notes Date Note Type Note [...] signs of when to seek emergency care. Mast Maker Organization Information for Adelaida Sevilla Business Legal Name: [facility] Address: [address] [place] [address], [place] [address], [address] Worker: Alan Choi MD IA No.: [id number] Mast Maker POC Test Results from Adelaida Sevilla Rapid COVID antigen (18:46:35) COVID: - Attachments uploaded as part of this test result can be found under Documents section. Rapid influenza antigen (18:46:35) Flu: - Attachments uploaded as part of this test result can be found under Documents section. .................... .................... .................... .................... .................... .................... .................... . Mast Maker Note From Adelaida Sevilla: Pt chief complaint today of Covid/ flu symptoms which have been occurring for approx 4 days- prior to [facility] arrival on scene today. Pt notes that approx 6 days prior to [facility] arrival today her daughter was tested positive [...] and a negative result for flu A/B. [facility] Ayad lAvarado consulted, Pt informed of findings. Pt unable [...] .................... .................... .................... .................... .................... .................... . [facility] Consulted: Ayad Alvarado .................... .................... .................... .................... .................... .................... .................... . Disposition: Fulfilled Ayad Alvarado MD [address], [place], [address], [place] TONY MEDRANO 05/04/2025 20:21:27 OBGyn Episode No OBEpisode recorded.
== END 2025-07-09 16:29 | disposition home or self-care (01) ==
LOC: HO.HCS 15:29
PROVIDERS: PCP Nurse Practitioner Family; Visit Provider Nurse Practitioner Family
DX: I25.2 Old myocardial infarction (principal); I25.5 Ischemic cardiomyopathy; R94.39 Abnormal result of other cardiovascular function study; E78.019 Familial hypercholesterolemia, unspecified; I10 Essential (primary) hypertension; L97.519 Non-pressure chronic ulcer of other part of right foot with unspecified severity; D64.9 Anemia, unspecified
CPT/HCPCS: 93010; 99214; G2211

== ENCOUNTER → 2025-07-09 15:28 | Outpatient (BNVA) | payer OTHER, SELFPAY | PROVIDERS: PCP Nurse Practitioner Family; Visit Provider Nurse Practitioner Family | DX: I25.2 Old myocardial infarction (principal); I25.5 Ischemic cardiomyopathy; R94.39 Abnormal result of other cardiovascular function study; E78.019 Familial hypercholesterolemia, unspecified; I10 Essential (primary) hypertension; L97.519 Non-pressure chronic ulcer of other part of right foot with unspecified severity; D64.9 Anemia, unspecified | CPT/HCPCS: 93005; 99212 ==

== ENCOUNTER 2025-08-21 10:13 | Outpatient (AMB) | payer OTHER, SELFPAY ==
--- OUTSIDE RECORDS SUMMARY | 2024-03-03 10:15 | XMS_ITS ---
Author Organization [facility] Address [address] [facility] [address] Care Team Providers Care Motion Picture Critic Name Role Phone Pratibha MASON, Juliet Primary Care Provider Unavail able Rock Newton Unavailable [phone] Encounters Encounter Location Date [facility] [place] [address] [facility] [address] [place] [address] 03/03/2024 Rock Newton Plan Of Treatment No Information Progress Notes * Mayuri HERNANDEZDOB: [birth year] (75 yo F)Acc No.[id number]:03/03/2024 Progress Note Patient: Mayuri TOUSSAINT Provider: Loreto Newton DPM :1950 A ge:74 Y S ex:Female Date:03/03/2024 Address: [address], [id number] Pcp:Juliet Mckinnon NP Subjective: * Chief Complaints: [...] 03/03/2024 Generated for Bay hernandez/Rosa Isela/Darienransmitting on: 10/22/2024 11:34 AM EST
--- NOTE | 2025-08-21 10:11 | MHC.PC.OV ---
Intake Visit Reasons: F/U labs Intake Note: patient here for Telehealth follow up for labs review [employer] Mk1 Operator Required: No Accompanied by: Daughter Is last menstrual period known: No Post menopausal: No Patient : No Allergies lisinopril Allergy (Severe, Verified 08/21/25 10:11) swollen tongue apple Allergy (Intermediate, Verified 08/21/25 10:11) tongue swelling banana Allergy (Intermediate, Verified 08/21/25 10:11) tongue and lip swelling norvast Allergy (Mild, Uncoded 08/21/25 10:11) Swelling Tobacco use date assessed: 08/21/25 Fall risk assessment: No Falls in past year Last assessed Fall Risk: 08/21/25 Dental Screening Dental Screen Date: 08/21/25 Did you have a dental visit in the last 12 months?: No Did you have a dental problem in the last 6 months where you did not have access to dental care?: No Was dental information given to patient?: No HPI HPI Comments History of Present Illness Details 75-year-old female, accompanied by her daughter, presents for a telehealth visit for review of recent lab results. She admits to taking her medications as prescribed without adverse reactions. She offers no complaints and denies acute symptoms at this time. [facility] Medical History History of femoral angiogram Stroke Weakness Iron deficiency Vitamin D deficiency Surgical History History of angioplasty (~07/11/23) No pertinent past surgical history Family History Father Bladder cancer Smoker Mother Diabetes CVD (cardiovascular disease) Glaucoma Daughter Anxiety Family/Other Alzheimer's dementia Uterine cancer Social History Household Members: Family Housing: Apartment Alcohol intake: never Patient Tobacco Use Status: Never used Tobacco e-Cigarette/Vaping Use: Never Used Second Hand Smoke Exposure: No Patient : No service: No Current occupational status: retired Current occupational exposures/hazards: No Cognitive needs: No Hearing needs: No Vision needs: No Questionnaire Thrive Questionnaire Date Thrive assessed: 10/29/24 SARAHY-7 AMB Questionnaire SARAHY-7 Date SARAHY - 7 assessed: 05/10/23 Source: Developed by Drs. Marcel Payne, Rosa Perez, Matt Kaba and colleagues, with an educational vicki from [employer]. Review of Systems Const Details: Denies chills, Denies fatigue, Denies fever(s), Denies headache(s) and Denies weakness Cardiac Denies chest pain, Denies claudication, Denies leg edema, Denies lightheadedness, Denies palpitations, Denies dyspnea, Denies dyspnea on exertion, Denies orthopnea and Denies other (Loss of consciousness) Resp Denies cough, Denies excessive phlegm production, Denies dyspnea, Denies dyspnea on exertion, Denies snoring and Denies wheezing Physical exam (Primary Care) Tobacco/Smoking Status: Tobacco use Status Tobacco use date assessed 08/21/25 08/21/25 10:14 Patient Tobacco Use Status Never used Tobacco 08/21/25 10:14 e-Cigarette/Vaping Use Never Used 08/21/25 10:14 Thrive Assessment: Date of Thrive Assessment Date Thrive assessed 10/29/24 08/21/25 10:14 Telehealth Telehealth Telehealth Platform: Telephone Location of provider rendering services: practice address Location of patient: address on file Patient Identification confirmed using: Name, : Yes Telehealth method: voice only Patient verbally consented to treatment: Yes Patient verbally consented to billing insurance company: Yes Patient informed of any privacy concerns related to visit: Yes Coding Level of Care Code Tele Est Pt Level 3 (62651) Diagnoses Hypothyroidism E03.9 Hypernatremia E87.0 Chronic kidney disease N18.9 Time Spent (min) 15 Assessment & Plan Assessment & Plan (1) Hypothyroidism: Code(s): E03.9 - Hypothyroidism, unspecified Category: Medical Plan: Recent TSH in 06/2025 was slightly elevated, 6.3, free T4 was normal. Levothyroxine increased to 50 mcg daily; advised to take as prescribed. Repeat TSH/T4 blood work in 6-8 weeks. Follow-up next month as scheduled for transfer of care with a new PCP. Return sooner with symptoms or concerns. Verbalized understanding and agreed with the plan. (2) Hypernatremia: Code(s): E87.0 - Hyperosmolality and hypernatremia Category: Medical Plan: Recent sodium level is normal, 142. Continue current treatment regimen. Follow-up as planned (3) Chronic kidney disease: Code(s): N18.9 - Chronic kidney disease, unspecified Category: Medical Plan: Recent BUN and creatinine levels are elevated, 70 and 2.55 respectively. Continue current treatment. Adequate hydration encouraged. Followed by Dr. Mccloud, Nephrology. Orders: Orders TSH reflex Free T4 6 Weeks E03.9 - Hypothyroidism, unspecified Medications: New levothyroxine (Levoxyl) 50 mcg PO DAILY 30 tabs 3RF 30 days Discontinued levothyroxine (Levoxyl) Discontinued Reason: Doctor's Order 25 mcg PO DAILY 30 days 30 tabs 3RF
--- OUTSIDE RECORDS SUMMARY | 2025-08-21 11:34 | XMS_ITS | Patient Health Record ---
[facility] Organization [facility] Address [address] [facility] [place] [address] Care Team Providers Care Diabetic Educator Name Role Phone Pratibha MASON, Juliet Primary Care Provider Unavail able Rock Newton Unavailable [phone] Allergies Allergen (clinical drug ingredient) Drug/Non Drug [...] Problem Acquired hammer toe of right foot (8196705209454 105) Other hammer toe(s) (acquired), right foot (M20.41) Active confirmed Response to treatment,I mprovement Problem Type 2 diabetes mellitus with peripheral angiopathy (883001572) Type 2 diabetes mellitus with diabetic peripheral angiopathy without gangrene (E11.51) Active confirmed Problem Acquired hammer toe of left foot (1303211984066 103) Other hammer toe(s) (acquired), left foot (M20.42) Active confirmed Response to treatment,I mprovement Problem Ulcer of toe of right foot (disorder) (9573561267837 9101) Skin ulcer of toe of right foot, limited to breakdown of skin (L97.511) Active confirmed Plan Of Treatment Pending Test Test Name Order Date 08015-SYMHAVN NAIL, 6 OR MORE 05/30/2023 43973-DNPBFSK NAIL, 6 OR MORE 08/06/2023 13215-SMYPVZV NAIL, 6 OR MORE 10/15/2023 82774-OJGNGIO NAIL, 6 OR MORE 12/24/2023 96455- Debride <25 sq cm 09/27/2023 68691- Debride <25 sq cm 08/06/2023 06892-ABMFNSY SKIN/TISSUE 07/02/2023 55682- I&D ABSCESS-COMPLICATED,MULTI 42409-YWFT SKIN LESIONS, OVER 4 05/30/20 23 13195-ORRD SKIN LESIONS, OVER 4 08/06/20 23 56366-LWZC SKIN LESIONS, OVER 4 10/15/19 24 22790-JSIQ SKIN LESIONS, OVER 4 12/24/19 24 Insurance Providers Payer Name Payer Address Payer Phone Subscriber Number Group Number Insured Name Patient Relationship to Insured Coverage Start Date Coverage End Date [facility] SCO Claims [address] EM[place] Gamble [id number] Mayuri Quiroz Self - patient is the insured Medical (General) History Medical History History ICD Code Anemia Cataracts Diabetic High blood pressure Kidney disease Numbness Stroke Chicken pox Surgical History Surgery Date(Month/Year) R leg angiogram/angioplasty 06/27/23
--- OUTSIDE RECORDS SUMMARY | 2025-08-21 11:34 | XMS_ITS | Clinical Summary ---
Author Organization [facility] Address [address] [place] [address] Phone Care Team Providers Care Degreasing Solution Mixer Name Role Phone Maribel Mckinnon CNP Primary Care Provider [phone] Allergies Active Allergy Reactions Criticality Noted Date Comments Banana (Diagnostic) Other (see comments) 2023 Lisinopril Other (see comments) 11/26/2023 Medications insulin glargine (Lantus) 100 UNIT/ML injection Active aspirin (ST EVA) 81 MG EC tablet Take 1 tablet by mouth 1 (one) time each day Active ergocalciferol 1.25 MG (90224 UT) capsule Take 1 capsule (50,000 Units total) by mouth 1 (one) time per week 12 capsule 2 04/28/20 21 Active Cholecalcifero l (Vitamin D3) 1.25 MG (10967 UT) capsule TAKE 1 CAPSULE BY MOUTH [...] taking differently: 80 mgOral Nightly, Reported on 04/21/2025 carvedilol (COREG) 25 MG tabletIndicati ons:Chronic kidney disease, stage 4 (severe) (HCC),Renal disorder due to type 2 diabetes mellitus <Unspecified DM Medication; Diabetic nephropathy> (HCC),Persiste nt proteinuria,Re nal disorder due to type 2 diabetes mellitus <Unspecified DM Medication; Other diabetic kidney complication> (HCC) TAKE 1 TABLET (25 MG TOTAL) BY MOUTH IN THE MORNING AND IN THE EVENING 180 tablet 5 04/28/20 24 Active Eliquis 2.5 MG tablet 05/28/20 24 Active ferrous sulfate 325 (65 Fe) MG EC tablet TAKE 1 TABLET ORALLY 2 TIMES A DAY 05/29/20 24 Active calcitriol (ROCALTROL) 0.25 MCG capsule TAKE 1 CAPSULE BY MOUTH EVERY OTHER DAY 45 capsule 12/05/19 25 Active bumetanide (BUMEX) 1 MG tablet Take 1 tablet (1 mg total) by mouth 1 (one) time each day 90 tablet 3 04/21/20 25 026 Active hydrALAZINE 25 MG tablet TAKE 1 TABLET (25 MG TOTAL) BY MOUTH IN THE MORNING AND BEFORE BEDTIME 180 tablet 08/19/20 25 Active hydrALAZINE 25 MG tablet Take 1 tablet (25 mg total) by mouth in the morning and 1 tablet (25 mg total) before bedtime. 180 tablet 04/21/20 25 025 Discontinued Active Problems Problem Noted Date Diagnosed Date Peripheral vascular disease 12/05/2024 Open wound of right foot 12/05/2024 Chronic kidney disease, stage 4 (severe) 021 Benign essential hypertension 02/22/2021 Chronic kidney disease stage 3 02/22/2021 Hypertensive heart disease without heart failure 02/22/2021 Renal disorder due to type 2 diabetes mellitus 0 02/22/2021 Cerebrovascular accident 04/29/2017 Overview (03/12/2023): Left thalamic stroke Apr 2017, residual dysarthria and right sided weakness Noncompliance with medication regimen 02/27/2013 Encounters Date Type Department Care Team Description 08/19/2025 Refill [facility] [address] [address] Andres Mccloud MD from Last 3 Months Family History Medical History Relation Comments Diabetes Mother Heart disease Mother Hypertension Mother Relation Status Comments Father Mother Social History Tobacco Use Types Packs/Day [...] Sign Reading Time Taken Comments Blood Pressure 139/78 02/09/2025 3:53 PM EDT Pulse 85 01/01/2025 3:32 PM EDT Temperature - - Respiratory Rate - - Oxygen Saturation 98% 01/01/2025 3:32 PM EDT Inhaled Oxygen Concentration - - Weight 72.1 kg (159 lb) 02/09/2025 3:53 PM EDT Height 157.5 cm (5' 2 ) 05/27/2019 12:00 PM EDT Body Mass Index 29.08 05/27/2019 12:00 PM EDT Plan of Treatment Upcoming Encounters Date Type Department Care Team (Late st Contact Info) Description 09/01/2025 1:00 PM EST Office Visit [facility] [address] [address] Andres Mccloud MD [address] [address] Health Maintenance Due Date Last Done Comments [...] 11/23/2023, 09/01/2020, Additional history exists Influenza Vaccine (#1) 2025 Hepatitis B Vaccine Aged Out No longe r eligible based on patient's age to complete this topic Procedures Procedure Name Priority Date/Time Associated Diagnosis Comments EXT RESULT ENTRY Routine 08/14/2024 from Last 3 Months or Most Recently Relevant to Health Maintenance Results * (ABNORMAL) EXT RESULT ENTRY (08/14/2024) Hemoglobin A1C 7.2(A) 4.0 - 6.0 08/14/2024 us Historical Provider LAB BLOOD ORDERABLES Rina l Result from Last 3 Months or Most Recently Relevant to Health Maintenance [place] [address] ([id number]) [facility] ([id number]) Care Teams Degreasing Solution Mixer Relationship Specialty Start Date End Date Maribel Mckinnon CNP [address] [place] [address] PCP - General 09/04/24
--- OUTSIDE RECORDS SUMMARY | 2025-08-21 11:34 | XMS_ITS | Encounter Summary ---
Author Organization [facility] Address [address] [facility] [facility] [address] [place] [address] Phone Care Team Providers Care Mold Parter Name Role Phone Maribel Mckinnon CNP Primary Care Provider [phone] Encounter Details Date Type Department Care Team (Late Contact Info) Description 01/30/2023 Telephone [facility] [address] [facility] [address] [place] [address] Anamaria Galvan Social History Tobacco [...] Encounters Date Type Department Care Team (Late Contact Info) Description 09/01/2025 1:00 PM EST Office Visit [facility] [address] [facility] [address] [place] [address] Andres Mccloud MD [address] [facility] [address] [place] [address] documented as of this encounter Visit Diagnoses Not on filedocumented in this encounter Care Teams Mold Parter Relationship Specialty Start Date End Date Maribel Mckinnon CNP [address] [place], [place] [phone] PCP - General 09/04/24 documented as of this encounter
--- OUTSIDE RECORDS SUMMARY | 2025-08-21 11:34 | XMS_ITS | Encounter Summary ---
Author Organization [facility] Address [address] [address] Phone Care Team Providers Care Welder/Fabricator Name Role Phone Maribel Mckinnon CNP Primary Care Provider [phone] Reason for Visit * Reason Comments Med Refill Encounter Details Date Type Department Care Team ([facility] Contact Info) Description 08/19/2025 Refill [facility] [address] [place] [address] Andres Mccloud MD [facility] [address] Social History Tobacco Use Types Packs/Day Years [...] Upcoming Encounters Date Type Department Care Team ([facility] Contact Info) Description 09/01/2025 1:00 PM EST Office Visit [facility] [address] [address] Andres Mccloud MD [facility] [address] documented as of this encounter Visit Diagnoses Not on filedocumented in this encounter Care Teams Welder/Fabricator Relationship Specialty Start Date End Date Maribel Mckinnon CNP [address] [place] [address] PCP - General 09/04/24 documented as of this encounter
== END 2025-08-21 10:54 | disposition home or self-care (01) ==
LOC: HO.HMCFM 10:14
PROVIDERS: PCP Nurse Practitioner Family; Visit Provider Nurse Practitioner Family
DX: E03.9 Hypothyroidism, unspecified (principal); E87.0 Hyperosmolality and hypernatremia; N18.9 Chronic kidney disease, unspecified

== ENCOUNTER 2025-08-25 08:19 | Outpatient (REF) | payer OTHER, SELFPAY ==
--- OUTSIDE RECORDS SUMMARY | 2024-03-03 10:15 | XMS_ITS ---
Author [facility] Address [address] [facility] [place] [address] Care Team Providers Care Photoengraving Sketch Maker Name Role Phone Pratibha MASON, Juliet Primary Care Provider Unavail able Rock Newton Unavailable [phone] Encounters Encounter Location Date Provider [facility] [place] [address] [facility] [address] [place] [address] 03/03/2024 Rock Newton Plan Of Treatment No Information Progress Notes * Mayuri HERNANDEZDOB: [birth year] (75 yo F)Acc No.[id number]:03/03/2024 Progress Note Patient: Mayuri TOUSSAINT Provider: Loreto Newton DPM :1950 A ge:74 Y S ex:Female Date:03/03/2024 Address: [address], [id number] Pcp:Juliet Mckinnon NP Subjective: * Chief Complaints: * * Medical History: Objective: * Vitals: Assessment: Plan: * Treatment: * Images: * The named appointment provid er may or may not be the originator of this progress note, and it is not deemed complete until electronically signed by the appointment provider. Sign off status: Pending * Provider: Lorteo Newton DPM Date: 0 03/03/2024 Generated for [place] hernandez/Rosa Isela/Darienransmitting on: 10/26/2024 08:28 AM EST
--- OUTSIDE RECORDS SUMMARY | 2025-08-25 08:28 | XMS_ITS | Clinical Summary ---
Author Organization [facility] Address [address] [place] [address] Phone Care Team Providers Care Making Department Preparer Name Role Phone Maribel Mckinnon CNP Primary Care Provider [phone] Allergies Active Allergy Reactions Criticality Noted Date Comments Banana (Diagnostic) Other (see comments) 2023 Lisinopril Other (see comments) 11/26/2023 Medications insulin glargine (Lantus) 100 UNIT/ML injection Active aspirin (ST EVA) 81 MG EC tablet Take 1 tablet by mouth 1 (one) time each day Active ergocalciferol 1.25 MG (68864 UT) capsule Take 1 capsule (50,000 Units total) by mouth 1 (one) time per week 12 capsule 2 04/28/20 21 Active Cholecalcifero l (Vitamin D3) 1.25 MG (84639 UT) capsule TAKE 1 CAPSULE BY MOUTH [...] Refill [facility] [address] [address] Andres Mccloud MD from Last [...] Office Visit [facility] [address] [address] Andres Mccloud MD [address] [address] Health Maintenance Due Date Last Done Comments [...] Most Recently Relevant to Health Maintenance [place] [address] ([id number]) [facility] ([id number]) Care Teams Making Department Preparer Relationship Specialty Start Date End Date Maribel Mckinnon CNP [address] [place] [address] PCP - General 09/04/24
--- OUTSIDE RECORDS SUMMARY | 2025-08-25 08:28 | XMS_ITS | Encounter Summary ---
Author Organization [facility] Address [address] [facility] [address] [place] [address] Phone Care Team Providers Care Court Recorder Name Role Phone Maribel Mckinnon CNP Primary Care Provider [phone] Encounter Details Date Type Department Care Team (Late Contact Info) Description 01/30/2023 Telephone [facility] [address] [facility] [address] [place] [address] Anamaria Galvan Social History Tobacco [...] Visit [facility] [address] [facility] [address] [place] [address] Andres Mccloud MD [address] [facility] [address] [place] [address] documented as of this encounter Visit Diagnoses Not on filedocumented in this encounter Care Teams Court Recorder Relationship Specialty Start Date End Date Maribel Mckinnon CNP [address] [place], [place] [phone] PCP - General 09/04/24 documented as of this encounter
--- OUTSIDE RECORDS SUMMARY | 2025-08-25 08:28 | XMS_ITS | Data Portability ---
Author Organization [employer] [facility], [facility] Address [address] [place] [address] Care Team Providers Care Gum Mixer Name Role Phone HIM CCA OTHER Assessment Encounter Date Assessment Date Assessment LastModified by Organization Details LastModified Time 05/03/2025 05/03/2025 I have reviewed and agree with the Assessment and Plan as documented by the Repair Supervisor. I provided real-time medical direction via phone [...] Ag, QL IA, respiratory specimen 2024 025 [facility], [address] [place] [address], [phone] 5 20:57:57 rapid flu (A+B) 2024 025 [facility], [address] [place] [address], [phone] 5 20:55:12 Referral None recorded. Procedures None [...] Name and Address Organization Details Recorded Time 33198 lisinopri l medicatio n Not available Not available Not available 05/03/2025 80101 RxNorm Not Available [employer] - production 17:06:39 [...] rate Body weight Body temperature Oxygen saturation Heart rate Body height Systolic And Diastolic Provider Name and Address Organization Details Last Updated DateTime 5 19 /min 81606.8 g 99.7 [degF] 97 % 77 /min 160.02 cm 125/68 [...] ICD10 Code Diagnosis IMO Codes Diagnosis Note 85931 Ayad Alvarado MD [facility] ED Medical [address] [address] 05/03/2025 18:44:05 05/05/2025 11:14:48 Acute COVID-19 [id number] U07.5 [id number] Health Concerns Section Related Observation LastModified by Organization Detai ls LastModified Time None Recorded Concern Status LastModified by Organization Details LastModified Time None Recorded Advance Directives Directive None Recorded Payers Insurance Date Sequence Insurance Name Policy Number Policy Guerra Covered Member ID Guerra Member ID Guarantor Name 04/06/2024 1 [facility] - DOS PRIOR TO 2022 - DUAL ELIGIBLE (MEDICARE REPLACEMENT/ADV ANTAGE - HMO) Mayuri Powell [id number] Mayuri Powell 05/05/2025 1 [facility] - DOS ON OR AFTER 2022 - DUAL ELIGIBLE - FPC OPTIONS AND ONE CARE (MEDICARE REPLACEMENT/ADV ANTAGE - HMO) Mayuri Powell [id number] Mayuri Powell Notes Date Note Type Note Provider Name and Address Organization Details Recorded Time 05/03/2025 text/html CRC Nurse Triage Notes (Yong Aguillon - RN): Reason For Request: Patient wants tested [...] signs of when to seek emergency care. Repair Supervisor Organization Information for Adelaida Se[employer] Legal Name: [facility] Transportation Address: [address] [place] [address], [place] [address], Structural Fitter: Alan Choi MD CLIA No.: [id number] Repair Supervisor POC Test Results from [facility]ela[facility] Sevilla Rapid COVID antigen (18:46:35) COVID: - Attachments uploaded as part of this test result can be found under Documents section. Rapid influenza antigen (18:46:35) Flu: - Attachments uploaded as part of this test result can be found under Documents section. .................... .................... .................... .................... .................... .................... .................... . Repair Supervisor Note From Adelaida Sevilla: Pt chief complaint today of Covid/ flu symptoms which have been occurring for approx 4 days- prior to [facility] arrival on scene today. Pt notes that approx 6 days prior to [facility] arrival today her daughter was tested [...] and a negative result for flu A/B. [facility] [place]ad Alvarado consulted, Pt informed of findings. [...] .................... .................... .................... .................... .................... .................... . [facility] Consulted: Ayad Alvarado .................... .................... .................... .................... .................... .................... .................... . Disposition: Fulfilled Ayad Alvarado MD [address] [facility],[address], [place], [address], TYR[place] - TONY MEDRANO 05/04/2025 20:21:27 OBGyn Episode No OBEpisode recorded.
--- OUTSIDE RECORDS SUMMARY | 2025-08-25 08:28 | XMS_ITS | Patient Health Record ---
Author Organization [facility] Address [address] [facility] [place] [address] Care Team Providers Care Bottom Steep Tender Name Role Phone Pratibha MASON, Juliet Primary Care Provider Unavail able [place] Unavailable [phone] Allergies Allergen (clinical drug ingredient) Drug/Non Drug [...] Problem Acquired hammer toe of right foot (1814992371757 105) Other hammer toe(s) (acquired), right foot (M20.41) Active confirmed Response to treatment,I mprovement Problem Type 2 diabetes mellitus with peripheral angiopathy (577986775) Type 2 diabetes mellitus with diabetic peripheral angiopathy without gangrene (E11.51) Active confirmed Problem Acquired hammer toe of left foot (9579360098359 103) Other hammer toe(s) (acquired), left foot (M20.42) Active confirmed Response to treatment,I mprovement Problem Ulcer of toe of right foot (disorder) (3146884371686 9101) Skin ulcer of toe of right foot, limited to breakdown of skin (L97.511) Active confirmed Plan Of Treatment Pending Test Test Name Order Date 51613-GQHPRGH NAIL, 6 OR MORE 05/30/2023 13119-BNLOWPN NAIL, 6 OR MORE 08/06/2023 69018-RYQCPXM NAIL, 6 OR MORE 10/15/2023 24010-DLCURIQ NAIL, 6 OR MORE 12/24/2023 22322- Debride <25 sq cm 09/27/2023 51890- Debride <25 sq cm 08/06/2023 02803-MXGMNSE SKIN/TISSUE 07/02/2023 32170- I&D ABSCESS-COMPLICATED,MULTI 59200-XKRJ SKIN LESIONS, OVER 4 05/30/20 23 13646-DQHD SKIN LESIONS, OVER 4 08/06/20 23 04093-ZVMT SKIN LESIONS, OVER 4 10/15/19 24 87072-OQED SKIN LESIONS, OVER 4 12/24/19 24 Insurance Providers Payer Name Payer Address Payer Phone Subscriber Number Group Number Insured Name Patient Relationship to Insured Coverage Start Date Coverage End Date [facility] SCO Claims [address] [place] [id number] Mayuri Quiroz Self - patient is the insured Medical (General) History Medical History History ICD Code Anemia Cataracts Diabetic High blood pressure Kidney disease Numbness Stroke Chicken pox Surgical History Surgery Date(Month/Year) R leg angiogram/angioplasty 06/27/23
[2025-08-25 10:15] LABS: Appearance Urine Clear; Glucose Urine UA Negative (Negative); PH 7.0 (5.0-9.0); Specific Gravity - Urine 1.010 (1.005-1.025); UMIC TRIGGER UA YES
[2025-08-25 10:41] LABS: MANUAL DIFF FLAG NO
[2025-08-25 10:49] LABS: Hematocrit 36.1 % (37.0-47.0); Hemoglobin 11.2 g/dl (12.0-16.0); Imm Gran Abs Auto 0.04 X10*3/uL (0.00-0.03); Imm Gran Pct Auto 0.6 % (0.0-0.4); Lymphocytes Absolute Auto 1.3 X10*3/uL (1.2-4.9); Mean Corpuscular HGB Conc 31.0 g/dl (31.0-35.0); Mean Corpuscular Hemoglobin 26.4 pg (27.0-33.0); Mean Corpuscular Volume 85.1 fL (80.0-98.0); NRBC Abs Auto 0.000 X10*3/uL (0.0-0.012); NRBC Pct Auto 0.0 /100WBC (0.0-0.2); Platelet Count 228 X10*3/uL (160-400); Red Blood Count 4.24 X10*6/uL (4.20-5.50); White Blood Count 6.8 X10*3/uL (4.8-10.8)
[2025-08-25 11:11] LABS: Albumin Level 3.4 g/dL (3.5-5.0); Anion Gap 9 (12-20); Blood Urea Nitrogen 48 mg/dL (9-16); Calcium 8.9 mg/dL (8.4-10.2); Carbon Dioxide 28 mmol/L (22-29); Chloride 111 mmol/L (96-108); Estimated Glomerular Filt Rate 22; Magnesium 2.1 mg/dL (1.6-2.6); Potassium 4.2 mmol/L (3.3-5.1); Sodium 144 mmol/L (135-145)
[2025-08-25 11:27] LABS: Microalbum/Creatinine Ratio Ur 649.9 ug/mg cr (<30); Protein/Creatinine Ratio, Ur 1.14 (<0.2); Total Protein Urine Random 71 mg/dL (<12)
[2025-08-25 11:30] LABS: Parathyroid Hormone Intact 318.8 pg/mL (8.7-77.1)
== END 2025-08-25 08:20 | disposition home or self-care (01) ==
LOC: HO.HMGCLDS 08:19
PROVIDERS: PCP Physician Assistant Medical; Visit Provider Internal Medicine Nephrology
DX: E11.22 Type 2 diabetes mellitus with diabetic chronic kidney disease (principal); N18.4 Chronic kidney disease, stage 4 (severe); N25.0 Renal osteodystrophy
CPT/HCPCS: 36415; 80051; 81001; 82040; 82043; 82306; 82310; 82565; 82570; 83735; 83970; 84100; 84156; 84520; 85025